=== PATIENT | female | born 1955 | race Caucasian/White ===

== ENCOUNTER 2019-01-20 00:21 | Emergency (ER) | payer OTHER, SELFPAY ==
[2019-01-20 00:22] VITALS: BP 197/98; PULSE 112; RESP 18; TEMP 36.7; O2SAT 100; BMI 34.2
[2019-01-20 00:30] VITALS: BP 176/105; PULSE 100; RESP 16; O2SAT 100
--- NOTE | 2019-01-20 00:37 | EKG12_ITS ---
Test Reason : DYSRHYTHMIA Blood Pressure : / mmHG Vent. Rate : 096 BPM Atrial Rate : 097 BPM P-R Int : 152 ms QRS Dur : 088 ms QT Int : 344 ms P-R-T Axes : 065 030 043 degrees QTc Int : 434 ms Sinus rhythm with Premature supraventricular complexes Nonspecific ST abnormality Abnormal ECG Confirmed by MARIBETH SEVERINO, NILAM ([id number]), script editor SOHAN PRINCE ([id number]) on 01/20/2019 12:07:50 PM Referred By: Confirmed By:MAYCOL STAHL MD
--- NOTE | 2019-01-20 00:37 | RAD_ITS ---
STUDY: X-RAY CHEST REASON FOR EXAM: Female, 63 years old. Irregular heartbeat. TECHNIQUE: Single AP portable view of the chest. COMPARISON: None. FINDINGS: The lungs are clear and expanded. There is no demonstrated pleural abnormality. Normal size heart. Normal mediastinum and etienne. Normal visualized pulmonary arteries. Normal visualized aortic arch and descending thoracic aorta. There is demineralization of the osseous structures. Normal visualized ribs, clavicles, and shoulders. There is no demonstrated abnormality of the visualized soft tissue structures of the upper abdomen. RAD/Chest 1 View (Portable) IMPRESSION: Normal x-ray examination of the chest for age. Electronically Signed: Jackeline Benjamin MD at 1:33 EST , Service support ,
[2019-01-20 00:46] LABS: Absolute Lymphocyte Count 3.75 X10^3/uL (0.83-4.51); Absolute Neutrophil Count 4.2 X10^3/uL (2.0-7.7); Basophil# 0.09 X10^3/uL; Eosinophil# 0.21 X10^3/uL; Eosinophils% 2.3 % (0-5); Hematocrit 45.2 % (37-47); Hemoglobin 14.6 g/dL (12.0-15.0); Lymphocyte # 3.75 X10^3/ul (4.0); Lymphocyte % 40.2 % (19-41); Mean Corp Hgb Conc 32.3 g/dL (32-36); Mean Corpuscular Hgb 28.7 pg (27.0-32.0); Mean Corpuscular Volume 88.8 fL (81-99); Mean Platelet Vol. 11.2 fl (6.2-12.0); Monocyte# 1.04 X10^3/uL; Monocyte% 11.1 % (0-10); NRBC Flagged by Analyzer 0 % (0-5); Neutrophil # 4.17 X10^3/uL (2.7-7.7); Neutrophil % 44.6 % (47-70); Platelet Count 269 K/mm3 (150-450); RBC Distribution Width CV 12.9 % (11.6-14.6); RBC Distribution Width SD 42.3 fl (35.1-43.9); Red Blood Count 5.09 M/mm3 (4.2-5.4); White Blood Count 9.3 K/mm3 (4.4-11.0)
[2019-01-20 00:57] LABS: D-Dimer Quantitative (DVT/PE) 0.38 FEU/ug/m (0.27-0.49)
[2019-01-20 01:00] LABS: Anion Gap 6 (5-15); BUN 13 mg/dL (7-18); BUN/Creat Ratio 23.1 RATIO (10-20); Calcium,Total 9.3 mg/dL (8.5-10.1); Chloride 107 mmol/L (98-107); Creatinine, Serum 0.56 mg/dL (0.55-1.02); EST Glomerular Filtration Rate 117 mL/min (>60); Est Glom Filt Rate - Afr Amer 141 mL/min (>60); Glucose 97 mg/dL (74-106); Potassium 4.2 mmol/L (3.5-5.1); Sodium Level 144 mmol/L (136-145)
[2019-01-20 02:39] VITALS: BP 159/74; PULSE 89; RESP 15; O2SAT 98
--- NOTE | 2019-01-20 03:12 | ED.DCSUM_ITS ---
- ER Visit Summary Date of Service: 01/20/19 Chief Complaint: Palpitations History of Present Illness: The patient is a 63 F with palpitations. Patient states this started tonight. She has history of similar symptoms in the past but states that these have been more frequent tonight than usual. She denies any change in diet or increased caffeine intake. She has a history of diabetes, hypertension, hypercholesterolemia. She is not taking medications as she states they are all diet controlled. She stopped taking her blood pressure medication in March 2018. She does not currently have a physician. She is not a smoker. She denies chest pain, chest tightness, chest pressure. Denies shortness of breath. Denies other complaints. Physical Examination: Vitals are stable. Patient is afebrile. Alert no acute distress. HEENT exam is unremarkable. Neck is supple. Lungs are clear and equal bilaterally. Heart is regular rate and rhythm. Abdomen is soft nontender nondistended. Extremities are unremarkable. Skin is warm and dry. No focal neurologic deficit. Remainder of exam is unremarkable. Emergency Department Course and Treatment: EKG is sinus rhythm with PVCs rate of 96. Chest x-ray shows no acute process. CBC, chemistries unremarkable. Troponin is negative. D-dimer is normal. Repeat troponin is negative. On reevaluation, patient is resting comfortably. She is given Dr. Khan cable installation manager for no doctor for follow-up. Advised to return to the ED for worsening complaints. Disposition: Discharge home Impression: Palpitations This note was generated with [employer] dictation software. It may contain incorrect words, spelling, and punctuation that were not noted in review of the chart prior to signing ED Disposition - Plan for ED Patient: Instructions: Palpitations Referrals: Sorin Jaime MD [STAFF PHYSICIAN] - Felix Khan MD [NON-STAFF] -
--- NOTE | 2019-01-20 04:28 | ED.DEP ---
ED Disposition - Plan for ED Patient: Instructions: Palpitations Referrals: Felix Khan MD [NON-STAFF] - Sorin Jaime MD [STAFF PHYSICIAN] -
[2019-01-20 04:40] VITALS: BP 132/87; PULSE 82; RESP 22; O2SAT 98
== END 2019-01-20 04:40 | disposition home or self-care (01) ==
PROVIDERS: Emergency Provider Emergency Medicine
DX: R00.2 Palpitations (principal)
CPT/HCPCS: 71045; 80048; 84484; 85025; 85379; 93005; 99284; A4216

== ENCOUNTER → 2019-07-01 10:30 | Outpatient (CLI) | payer OTHER, SELFPAY ==
[2019-07-04 08:23] LABS: HPV Reflexed? NOT INDICATED
== END ==
PROVIDERS: Referring Provider Nurse Practitioner Adult Health; Visit Provider Nurse Practitioner Adult Health
DX: Z01.419 Encounter for gynecological examination (general) (routine) without abnormal findings (principal)
CPT/HCPCS: 88175; G0145

== ENCOUNTER → 2019-07-16 14:59 | Outpatient (CLI) | payer OTHER, SELFPAY ==
--- NOTE | 2019-07-16 15:01 | BI_ITS ---
MAMMOGRAPHY - BILATERAL SCREENING REASON FOR EXAM: Female, 63 years old. Routine annual screening examination. PERTINENT HISTORY: Non-contributory. TECHNIQUE: Digital bilateral breast everardo (3D mammographic acquisition) in the CC and MLO projections. 2-D mediolateral oblique (MLO) and craniocaudad (CC) views of both breasts were obtained. CAD: Full Field Digital Mammography with Computer Added Detection was performed. COMPARISON: No comparison mammograms available at this time. If any prior films become available, an addendum to this report can be generated. FINDINGS: Breast Composition: There are scattered areas of fibroglandular density. There are no dominant masses or suspicious calcifications. There is a 6.8 mm well-defined nodule with a central fatty hilum in the upper lateral portion of the left breast suggestive of a small lymph node. Benign-appearing axillary lymph nodes are seen as well. No other significant abnormalities are identified. BI/SCREEN MAMM (CAD) W/EVERARDO BILAT IMPRESSION: Negative screening mammogram. Yearly followup mammogram recommended. (A) ASSESSMENT CATEGORY: BIRADS Category 2: Benign. A letter regarding these results will be sent to the patient by the facility within 30 days. Approximately 10% of breast cancers are not detected by mammography. A normal mammogram should not delay biopsy of a clinically suspicious abnormality. [id number] Electronically Signed: Duc Goyal, at 8:31 EDT , Service support ,
--- NOTE | 2019-07-16 15:24 | BD_ITS ---
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 COMPARISON: None. FINDINGS: Lumbar Spine (L1-L4): g/cm2 (1.076) / T-score (-0.7) / Z-score (0.6) Findings are suggestive of normal bone density with a low fracture risk. Left Femur Total: g/cm2 (0.890) / T-score (-0.9) / Z-score (0.1) Left Femoral Neck: g/cm2 (0.877) / T-score (-1.2) / Z-score (0.1) Right Femur Total: g/cm2 (0.812) / T-score (-1.5) / Z-score (-0.6) Right Femoral Neck: g/cm2 (0.850) / T-score (-1.4) / Z-score (-0.1) BD/Dexa Bone Density Study IMPRESSION: The patient is considered osteopenic as outlined below according to World Forest Organization (WHO) criteria with a low fracture risk. Reference Information: The T-score is the number of standard deviations above or below the standard which is normal for young adults at their peak bone mineral density. The World Health Organization (WHO) interprets the T-scores as follows: Above -1 Normal bone density Between -1 and -2.5 Osteopenia Equal to / or below -2.5 Osteoporosis As a practical clinical guideline, osteopenia may be graded as follows: Mild -1 through -1.5 Moderate -1.6 through -2.0 Severe -2.1 through -2.4 The Z-score is the number of standard deviations above or below age-matched controls. A Z-score of less than -1.5 would be considered abnormal. References: 1. NIH Osteoporosis and Related Bone Diseases http://www.osteo.org 2. International Society for Clinical Densitometry http://www.iscd.org 3. National Osteoporosis Foundation http://www.nof.org Electronically Signed: Duc Goyal, at 15:51 EDT , Service support ,
== END ==
PROVIDERS: PCP Nurse Practitioner Adult Health; Referring Provider Nurse Practitioner Adult Health; Visit Provider Nurse Practitioner Adult Health
DX: Z78.0 Asymptomatic menopausal state (principal); Z12.31 Encounter for screening mammogram for malignant neoplasm of breast
CPT/HCPCS: 77063; 77067; 77080

== ENCOUNTER → 2019-07-30 12:07 | Outpatient (CLI) | payer OTHER, SELFPAY ==
--- NOTE | 2019-07-30 | EMB_PTH ---
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: [facility] U#:[id number] AGE/SX: 69/F ROOM: RE07/30/[address]: OSKAR Jean : 1955 BED: DIS: SPEC #: [id number] RECD: 07/30/19 13:06 STATUS: CAMRON AKHIL #: [id number] REEMA: 07/30/19 00:[address]: Soledad Meade NP DEPT: SURGICAL PATHOLOGY RECD BY: Claudio Whaley ENTERED: 07/30/19 13:06 SP TYPE: ENDOM BX/C RADHA DR: OSKAR Garcia Tissues: Endometrium, NOS Procedures: Surgery Specimen Level IV HEADER OPERATION: Endometrial biopsy PRE-OP DIAGNOSIS: Abnormal uterine bleeding TISSUE SUBMITTED: Endometrial lining MICROSCOPIC DIAGNOSIS Endometrium, biopsy: Polypoid inactive endometrium with cystic change. Rare strips of benign superficial endocervix. AM:nellie 6/17/20 MICROSCOPIC DESCRIPTION Slides are reviewed. GROSS DESCRIPTION Received is one container labeled with the patient's name and not further designated. The specimen consists of multiple fragments of pink to hemorrhagic soft tissue that in aggregate measure 2 x 1.5 x 0.1 cm. The entire specimen is submitted in one cassette. / SJ:nellie 07/30/19 TC:5 CPT: 20552
[2019-07-30 10:21] VITALS: BMI 35.1
== END ==
PROVIDERS: PCP Nurse Practitioner Adult Health; Referring Provider Nurse Practitioner Women's Health; Visit Provider Nurse Practitioner Women's Health
DX: N93.9 Abnormal uterine and vaginal bleeding, unspecified (principal)
CPT/HCPCS: 88305

== ENCOUNTER → 2019-12-24 13:48 | Outpatient (CLI) | payer OTHER, SELFPAY ==
[2019-12-05 09:55] VITALS: BMI 36.6
--- NOTE | 2019-12-24 13:51 | RAD_ITS ---
STUDY: X-RAY - LEFT SHOULDER REASON FOR EXAM: Female, 63 years old. Patient ran into wall, left shoulder pain TECHNIQUE: 4 view(s) of the shoulder. COMPARISON: None. FINDINGS: There is mild degenerative arthrosis of the glenohumeral articulation. Normal acromioclavicular joint. Normal acromion. Normal humeral head and visualized proximal humerus. The soft tissue structures are unremarkable. Normal visualized pulmonary apex. RAD/Shoulder min 2 Views IMPRESSION: Mild degree of degenerative changes of the glenohumeral joint. Electronically Signed: Duc Goyal, at 15:55 EST , Service support ,
== END ==
PROVIDERS: PCP Family Medicine; Referring Provider Family Medicine; Visit Provider Family Medicine
DX: S49.92XA Unspecified injury of left shoulder and upper arm, initial encounter (principal)
CPT/HCPCS: 73030

== ENCOUNTER → 2020-04-23 07:26 | Outpatient (CLI) | payer OTHER, SELFPAY ==
[2020-04-18 08:55] VITALS: BMI 37.5
[2020-04-23 10:15] LABS: Absolute Lymphocyte Count 1.75 X10^3/uL (0.83-4.51); Basophil# 0.07 X10^3/uL; Basophil% 0.8 % (0-1); Eosinophil# 0.06 X10^3/uL; Eosinophils% 0.7 % (0-5); Hematocrit 47.4 % (37-47); Hemoglobin 15.1 g/dL (12.0-15.0); Lymphocyte # 1.75 X10^3/ul (4.0); Lymphocyte % 20.1 % (19-41); Mean Corp Hgb Conc 31.9 g/dL (32-36); Mean Corpuscular Hgb 28.3 pg (27.0-32.0); Mean Corpuscular Volume 88.8 fL (81-99); Mean Platelet Vol. 12.4 fl (6.2-12.0); Monocyte# 0.77 X10^3/uL; Monocyte% 8.9 % (0-10); NRBC Flagged by Analyzer 0 % (0-5); Neutrophil # 5.99 X10^3/uL (2.7-7.7); Neutrophil % 68.9 % (47-70); Platelet Count 230 K/mm3 (150-450); RBC Distribution Width SD 42.3 fl (35.1-43.9); Red Blood Count 5.34 M/mm3 (4.2-5.4); White Blood Count 8.7 K/mm3 (4.4-11.0)
[2020-04-23 10:31] LABS: ALB/GLOB Ratio 1.2 RATIO (0.9-2.4); AST(SGOT) 15 U/L (15-37); Alanine Aminotransfer ALT/SGPT 24 U/L (13-56); Alkaline Phosphatase 82 U/L (45-117); Anion Gap 4 (5-15); BUN 10 mg/dL (7-18); BUN/Creat Ratio 13.3 RATIO (10-20); Calcium,Total 9.1 mg/dL (8.5-10.1); Chloride 105 mmol/L (98-107); Cholesterol 218 mg/dL (200); Creatinine, Serum 0.75 mg/dL (0.55-1.02); EST Glomerular Filtration Rate 83 mL/min (>60); Est Glom Filt Rate - Afr Amer 100 mL/min (>60); Globulin 3.2 g/dL (2.2-4.2); Glucose 105 mg/dL (74-106); High Density Lipoprotein 42 mg/dL; Potassium 4.7 mmol/L (3.5-5.1); Protein, Total 7.2 g/dL (6.4-8.2); Sodium Level 141 mmol/L (136-145); Triglycerides 221 mg/dL; Very Low Density Lipoprotein 44 mg/dL (5-40)
[2020-04-23 10:37] LABS: Hemoglobin A1c 5.6 % (3.8-5.6)
== END ==
PROVIDERS: PCP Family Medicine; Referring Provider Family Medicine; Visit Provider Family Medicine
DX: I10 Essential (primary) hypertension (principal); Z86.39 Personal history of other endocrine, nutritional and metabolic disease
CPT/HCPCS: 36415; 80053; 80061; 83036; 85025

== ENCOUNTER → 2020-08-07 15:37 | Outpatient (CLI) | payer OTHER, SELFPAY ==
[2020-07-03 09:41] VITALS: BMI 36.7
[2020-08-07 17:29] LABS: Absolute Lymphocyte Count 2.31 X10^3/uL (0.83-4.51); Absolute Neutrophil Count 5.9 X10^3/uL (2.0-7.7); Basophil# 0.06 X10^3/uL; Basophil% 0.7 % (0-1); Eosinophil# 0.09 X10^3/uL; Hematocrit 43.6 % (37-47); Hemoglobin 14.1 g/dL (12.0-15.0); Lymphocyte # 2.31 X10^3/ul (0.83-4.51); Lymphocyte % 25.1 % (19-41); Mean Corp Hgb Conc 32.3 g/dL (32-36); Mean Corpuscular Hgb 28.5 pg (27.0-32.0); Mean Corpuscular Volume 88.3 fL (81-99); Mean Platelet Vol. 11.5 fl (6.2-12.0); Monocyte# 0.77 X10^3/uL; Monocyte% 8.4 % (0-10); NRBC Flagged by Analyzer 0 % (0-5); Neutrophil # 5.92 X10^3/uL (2.7-7.7); Neutrophil % 64.4 % (47-70); Platelet Count 269 K/mm3 (150-450); RBC Distribution Width CV 12.9 % (11.6-14.6); RBC Distribution Width SD 42.1 fl (35.1-43.9); Red Blood Count 4.94 M/mm3 (4.2-5.4); White Blood Count 9.2 K/mm3 (4.4-11.0)
[2020-08-07 17:46] LABS: ALB/GLOB Ratio 1.1 RATIO (0.9-2.4); AST(SGOT) 16 U/L (15-37); Alanine Aminotransfer ALT/SGPT 27 U/L (13-56); Albumin, Serum 3.9 g/dL (3.2-5.0); Alkaline Phosphatase 100 U/L (45-117); Anion Gap 8 (5-15); BUN 7 mg/dL (7-18); BUN/Creat Ratio 11.9 RATIO (10-20); Calcium,Total 9.2 mg/dL (8.5-10.1); Chloride 104 mmol/L (98-107); Creatinine, Serum 0.59 mg/dL (0.55-1.02); EST Glomerular Filtration Rate 110 mL/min (>60); Est Glom Filt Rate - Afr Amer 134 mL/min (>60); Globulin 3.7 g/dL (2.2-4.2); Glucose 95 mg/dL (74-106); Lipase 61 U/L (73-393); Protein, Total 7.6 g/dL (6.4-8.2); Sodium Level 140 mmol/L (136-145)
== END ==
PROVIDERS: PCP Family Medicine; Referring Provider Family Medicine; Visit Provider Family Medicine
DX: R10.10 Upper abdominal pain, unspecified (principal)
CPT/HCPCS: 36415; 80053; 83690; 85025

== ENCOUNTER → 2020-08-21 07:00 | Outpatient (CLI) | payer OTHER, SELFPAY ==
[2020-07-03 09:41] VITALS: BMI 36.7
--- NOTE | 2020-08-21 07:02 | BI_ITS ---
MAMMOGRAPHY - BILATERAL SCREENING REASON FOR EXAM: Female, 64 years old. Routine annual screening examination. PERTINENT HISTORY: Non-contributory. TECHNIQUE: Digital bilateral breast everardo (3D mammographic acquisition) in the CC and MLO projections. 2-D mediolateral oblique (MLO) and craniocaudad (CC) views of both breasts were obtained. CAD: Full Field Digital Mammography with Computer Added Detection was performed. COMPARISON: Comparison is made with prior examination dated 07/16/2019. FINDINGS: Breast Composition: The breasts are almost entirely fatty. There are no dominant masses or suspicious calcifications. 4.8 mm x 4 mm well-defined nodule in the upper central portion of the right breast. This may represent a small cyst. Correlation with ultrasound is recommended. Stable 6.8 mm well-defined nodule in the upper lateral portion of the left breast suggestive of a small lymph node. Stable benign-appearing bilateral axillary lymph nodes. No other significant abnormalities are identified. There has been no significant change since the prior study. BI/SCRN MAMM (CAD)W/EVERARDO BILAT IMPRESSION: There is a 4.8 mm x 4 mm well-defined nodule in the upper central portion of the right breast. Correlation with ultrasound is recommended. ASSESSMENT CATEGORY: BIRADS Category 0: Incomplete. Need additional imaging evaluation. A letter regarding these results will be sent to the patient by the facility within 30 days. Approximately 10% of breast cancers are not detected by mammography. A normal mammogram should not delay biopsy of a clinically suspicious abnormality. [id number] Electronically Signed: Duc Goyal MD at 8:21 EDT , Service support ,
== END ==
PROVIDERS: PCP Family Medicine; Referring Provider Obstetrics & Gynecology; Visit Provider Obstetrics & Gynecology
DX: Z12.31 Encounter for screening mammogram for malignant neoplasm of breast (principal)
CPT/HCPCS: 77063; 77067

== ENCOUNTER → 2020-08-25 10:43 | Outpatient (CLI) | payer OTHER, SELFPAY ==
[2020-07-03 09:41] VITALS: BMI 36.7
--- NOTE | 2020-08-25 10:47 | US_ITS ---
STUDY: ULTRASOUND BREAST - RIGHT REASON FOR EXAM: Female, 64 years old. Abnormal screening mammogram. TECHNIQUE: Axial and longitudinal images of the RIGHT breast were performed with a high resolution ultrasound transducer. # OF IMAGES: [id number] COMPARISON: Comparison is made with prior mammogram dated 08/21/2020. FINDINGS: RIGHT Breast: The mammographic abnormality corresponds to a 4 mm x 3 mm x 2 mm cyst in the retroareolar region of the breast. Incidental note is made of a 1 cm x 0.9 cm x 0.3 cm benign appearing axillary lymph node. US/Breast Limited Unilateral IMPRESSION: The mammographic abnormality corresponds to a 4 mm x 3 mm x 2 mm cyst in the retroareolar region of the breast. ASSESSMENT CATEGORY: BIRADS Category 2: Benign. A letter regarding these results will be sent to the patient by the facility within 30 days. Electronically Signed: Duc Goyal MD at 8:53 EDT , Service support ,
== END ==
PROVIDERS: PCP Family Medicine; Visit Provider Obstetrics & Gynecology
DX: R92.8 Other abnormal and inconclusive findings on diagnostic imaging of breast (principal)
CPT/HCPCS: 76642

== ENCOUNTER → 2020-12-16 14:42 | Outpatient (CLI) | payer OTHER, SELFPAY ==
[2020-12-16 17:06] LABS: ALB/GLOB Ratio 0.9 RATIO (0.9-2.4); AST(SGOT) 14 U/L (15-37); Alanine Aminotransfer ALT/SGPT 21 U/L (13-56); Albumin, Serum 3.5 g/dL (3.2-5.0); Alkaline Phosphatase 111 U/L (45-117); Anion Gap 4 (5-15); BUN 8 mg/dL (7-18); BUN/Creat Ratio 16.2 RATIO (10-20); Calcium,Total 9.2 mg/dL (8.5-10.1); Chloride 106 mmol/L (98-107); Creatinine, Serum 0.49 mg/dL (0.55-1.02); EST Glomerular Filtration Rate 134 mL/min (>60); Est Glom Filt Rate - Afr Amer 163 mL/min (>60); Globulin 4.1 g/dL (2.2-4.2); Glucose 79 mg/dL (74-106); Lipase 87 U/L (73-393); Potassium 3.8 mmol/L (3.5-5.1); Protein, Total 7.6 g/dL (6.4-8.2); Sodium Level 141 mmol/L (136-145); Thyroid Stim Hormone (TSH) 1.55 uIU/mL (0.358-3.74)
== END ==
PROVIDERS: PCP Internal Medicine; Referring Provider Internal Medicine; Visit Provider Internal Medicine
DX: I10 Essential (primary) hypertension (principal); K29.70 Gastritis, unspecified, without bleeding; R17 Unspecified jaundice
CPT/HCPCS: 36415; 80053; 83690; 84443

== ENCOUNTER → 2020-12-24 07:28 | Outpatient (CLI) | payer OTHER, SELFPAY ==
--- NOTE | 2020-12-24 07:33 | US_ITS ---
STUDY: ABDOMINAL ULTRASOUND - RIGHT UPPER QUADRANT REASON FOR VISIT: Female, 64 years old Elevated bilirubin, uncertain etiology TECHNIQUE: Ultrasound evaluation of the right upper quadrant was performed with real-time and static pringle-scale imaging. TECHNICAL QUALITY: Adequate. COMPARISON: None. FINDINGS: Liver: The liver measures 15.4 cm. There is increased echogenicity consistent with mild degree of fatty infiltration. The bile ducts are within normal limits. There is hepatic color flow. The direction of portal flow is hepatopetal. There is no demonstrated mass lesion. Gallbladder: Normal distended gallbladder. The gallbladder wall measures 2.3 mm. There is a negative sonographic Schuler''s sign. There is no pericholecystic fluid. I suspect tiny gallstones within the dependent portion of the gallbladder. Common Bile Duct (C.B.D.): The common bile duct measures 2.9 mm. Pancreas: Normal size of the head, body and tail of the pancreas. There is normal echogenicity of the pancreas. There is a 9 mm x 9 mm x 4 mm hypoechoic nodule in the anterior aspect of the body of the pancreas. Right Kidney: Normal size of the right kidney. The right kidney measures 11.6 cm x 5.9 cm x 5 cm. Normal renal cortex. The right cortex measures 1.8 cm. There is no demonstrated renal mass or cyst. There is no right hydronephrosis. US/Abdomen Limited IMPRESSION: Fatty infiltration of the liver. Multiple tiny gallstones. 9 mm x 9 mm x 4 mm hypoechoic nodule in the anterior portion of the body of the pancreas. Electronically Signed: Duc Goyal MD at 9:00 EST , Service support ,
== END ==
PROVIDERS: PCP Internal Medicine; Referring Provider Internal Medicine; Visit Provider Internal Medicine
DX: R17 Unspecified jaundice (principal)
CPT/HCPCS: 76705

== ENCOUNTER → 2021-01-08 06:27 | Outpatient (CLI) | payer OTHER, SELFPAY ==
--- NOTE | 2021-01-08 06:42 | CT_ITS ---
STUDY: CT ABDOMEN WITH AND WITHOUT CONTRAST REASON FOR EXAM: Female, 65 years old. Small nodule seen ultrasound pancreas -- Small nodule seen on pancreas ultrasound RADIATION DOSAGE (If Supplied By Facility): CTDIvol = ( 26.42 ) mGy, DLP = ( 1965.40 ) mGycm TECHNIQUE: Transaxial images were obtained pre and post I.V. administration of 100mL Isovue 300, and with oral contrast. Sagittal and coronal images were reconstructed. Individualized dose optimization techniques were used for this CT. COMPARISON: None. FINDINGS: The visualized lung bases are unremarkable. The visualized portions of the heart are within normal limits. Normal liver. There is small punctate gallstones. No gallbladder wall thickening. Normal spleen. No pancreatic calcifications. No discrete pancreatic mass or cyst identified on precontrast or postcontrast images. Specifically, there is NOT a demonstrated lesion correlating to abnormality on ultrasound. Normal bilateral adrenal glands. Normal right kidney. Normal left kidney. There is a small hiatal hernia. Normal small intestine. There are multiple colonic diverticula consistent with diverticulosis. There is non-visualization of the appendix. There is diffuse atherosclerotic calcification of the abdominal aorta, without a demonstrated aneurysm. Normal inferior vena cava. Normal retroperitoneum. Normal abdominal wall. There are diffuse degenerative changes of the visualized lumbar spine. CT/Abdomen W/WO IV Contrast IMPRESSION: 1. NO pancreatic mass or cyst identified on CT. Electronically Signed: Yash Coronado MD (Brooks) at 11:57 EST , Service support ,
== END ==
PROVIDERS: PCP Internal Medicine; Visit Provider Internal Medicine
DX: Q45.3 Other congenital malformations of pancreas and pancreatic duct (principal)
CPT/HCPCS: 74170; Q9967

== ENCOUNTER → 2021-01-22 10:51 | Outpatient (CLI) | payer OTHER, SELFPAY | PROVIDERS: PCP Internal Medicine; Referring Provider Physician Assistant; Visit Provider Physician Assistant | DX: Z11.52 Encounter for screening for COVID-19 (principal) | CPT/HCPCS: 87635; U0005; U0003 ==

== ENCOUNTER → 2021-08-27 | Outpatient (CLI) | payer OTHER, SELFPAY ==
--- NOTE | 2021-08-27 10:24 | VDLE_ITS ---
Reason For Study: LEG SWELLING RIGHT GSV is normal. CFV is compressible, spontaneous, phasic, competent and demonstrates normal augmentation. FV is compressible, spontaneous, phasic, competent and demonstrates normal augmentation. POP V is compressible, spontaneous, phasic, competent and demonstrates normal augmentation. T/P Trunk is compressible. PTV is compressible. RT PerV is compressible. Procedure This is a venous duplex using B-mode, color flow and spectral Doppler. Exam performed in department. The exam was of adequate technical quality. A preliminary report was called and/or faxed to Dr. Gardner. VL/Venous Duplex US, Unilateral Interpretation Summary Deep veins of the right lower extremity are patent and compressible segmentally . There is no evidence of right lower extremity deep vein thrombosis. The right great sapheno us vein appears patent and compressible segmentally. Incidental finding, heterogenous nonvascul ar structure in popliteal fossa 1.99 x 4.62 cm Ordering Physician: Juan Gardner Referring Physician: Betzaida Ramirez M.D. Performed By: Wilian Laws
== END | disposition home or self-care (01) ==
LOC: CVS 10:23
PROVIDERS: PCP Internal Medicine; Referring Provider Student in an Organized Health Care Education/Training Program; Visit Provider Student in an Organized Health Care Education/Training Program
DX: R22.41 Localized swelling, mass and lump, right lower limb (principal)
CPT/HCPCS: 93971

== ENCOUNTER → 2021-09-06 | Outpatient (CLI) | payer OTHER, SELFPAY ==
--- NOTE | 2021-09-06 07:32 | BI_ITS ---
MAMMOGRAPHY - BILATERAL SCREENING REASON FOR EXAM: Female, 65 years old. Routine annual screening examination. PERTINENT HISTORY: Non-contributory. TECHNIQUE: Digital bilateral breast everardo (3D mammographic acquisition) in the CC and MLO projections. 2-D mediolateral oblique (MLO) and craniocaudad (CC) views of both breasts were obtained. CAD: Full Field Digital Mammography with Computer Added Detection was performed. COMPARISON: Comparison is made with prior study dated 08/21/2020 and 07/16/2019. FINDINGS: Breast Composition: The breasts are almost entirely fatty. There are no dominant masses or suspicious calcifications. Stable 4 mm well-defined nodule in the upper central portion of the right breast. This was demonstrated to be a small cyst on prior sonogram. Stable benign-appearing bilateral axillary lymph nodes. No other significant abnormalities are identified. There has been no significant change since the prior study. BI/SCRN MAMM (CAD)W/EVERARDO BILAT IMPRESSION: Stable bilateral screening mammogram. Yearly follow-up mammogram recommended. (A) ASSESSMENT CATEGORY: BIRADS Category 2: Benign. A letter regarding these results will be sent to the patient by the facility within 30 days. Approximately 10% of breast cancers are not detected by mammography. A normal mammogram should not delay biopsy of a clinically suspicious abnormality. [id number] Electronically Signed: Duc Goyal MD at 8:35 EDT ,
== END | disposition home or self-care (01) ==
LOC: OPBI 07:31
PROVIDERS: PCP Internal Medicine; Visit Provider Obstetrics & Gynecology
DX: Z12.31 Encounter for screening mammogram for malignant neoplasm of breast (principal)
CPT/HCPCS: 77063; 77067

== ENCOUNTER 2021-12-28 08:03 | Day surgery (SDC) | payer OTHER, SELFPAY ==
--- NOTE | 2021-12-28 08:40 | PCM.HP.STD ---
[facility] - General General Date of Service: 12/28/21 Chief Complaint: Screening for intestinal cancer. 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 She has a personal history of colon polyps. She is also had a sigmoid resection for diverticular disease. Her most recent colonoscopy was September 2013. She denies any bright red blood per rectum or melena. No current abdominal pain. No history of DVT [facility] Medical History (Updated 12/28/21 @ 08:[address] David Ambrosio MD) Arthritis Colon polyps Cystocele with incomplete uterovaginal prolapse Diverticulosis Enlarged uterus Former smoker Hernia High cholesterol History of edema History of stress test History of uterine fibroid HTN (hypertension) Injury of back Intra-abdominal adhesions Loose, teeth Postmenopausal bleeding PVC (premature ventricular contraction) Rectocele Wears glasses Home Medications amlodipine 10 mg tablet 10 mg PO DAILY #90 tabs 07/01/21 [Rx Last Taken Unknown] cholecalciferol (vitamin D3) 25 mcg (1,000 unit) capsule 25 mcg PO DAILY PRN TAKES IN THE WINTER 10/01/21 [History Last Taken Unknown] fluticasone propionate 50 mcg/actuation nasal spray,suspension 1 spray intranasal DAILY PRN PRN Congestion 10/01/21 [History Last Taken Unknown] mecobalamin (vitamin B12) 5,000 mcg disintegrating tablet 5,000 mcg PO .THREE TIMES A WEEK SUPPLEMENT 10/01/21 [History Last Taken Unknown] cholecalciferol (vit D3) 1,000 unit-vitamin K2 (MK4) 100 mcg tablet 1 tab PO .THREE TIMES WEEK SUPPLEMENT 12/27/21 [History Last Taken Unknown] Allergy/AdvReac Type Severity Reaction Status Date / Time OXY's AdvReac Nausea, Uncoded 12/27/21 08:06 Vomiting Family History Mother Cancer Father Cancer Surgical History (Updated 12/27/21 @ 08:11 by Liliam Tee) H/O dilation and curettage H/O hernia repair (~2005) History of bowel resection (~2010) History of colonoscopy History of endometrial ablation History of gastrectomy (~2013) History of hernia repair (~2018) History of sleeve gastrectomy History of tubal ligation (~1995) S/P panniculectomy Social History number of children: 3 current occupational status: employed current occupation: [employer] Smoking Status: Former smoker alcohol intake: never substance use type: does not use diet: vegetarian seatbelt use: always do you feel safe at home: Yes ROS Constitutional Constitutional: Reports systems reviewed and no addt'l complaints, except as documented Cardiovascular Cardiovascular: Denies chest pain Respiratory/Chest Respiratory/Chest: Denies shortness of breath at rest Gastrointestinal Gastrointestinal: Denies abdominal pain, change in bowel habits, hematochezia or melena Physical Exam Const alert, oriented x3 and no apparent distress General Appearance: cooperative and comfortable Eyes General Eye: normal appearance of both eyes Neck General: normal visual inspection Chest inspection of chest normal Resp Effort and Inspection: able to speak in complete sentences and symmetric chest movement Auscultation: clear to auscultation bilaterally Cardio regular rate and regular rhythm GI soft to palpation, non-tender and non-distended Extremity no calf tenderness Neuro oriented x3 Psych thought process normal Assessment & Plan Assessment/Plan (1) Personal history of colonic polyps: PLAN: 65-year-old female with a personal history of colon polyps. Plan to proceed with a surveillance colonoscopy with possible biopsy or polypectomy as indicated. She is aware of the technique, benefit, risk, alternatives. She presents via open access today. David Ambrosio M.D., F.A.C.S.
[2021-12-28 08:55] VITALS: BP 162/69; PULSE 80; RESP 16; TEMP 37.2; O2SAT 100; BMI 40.1
[2021-12-28] MEDS: Lactated Ringers 1,000 ML 15 ML IV (09:00)
[2021-12-28 09:40] VITALS: BP 108/59; BP 162/69; PULSE 74; RESP 16; TEMP 36.7; O2SAT 98
--- NOTE | 2021-12-28 09:42 | OP.COLON_ITS ---
Patient Name: Shannon Lam Procedure Date: 12/28/2021 9:19 AM Date of : 1955 Age: 65 Procedure: Colonoscopy Indications: High risk colon cancer surveillance: Personal history of colonic polyps Providers: David Ambrosio MD Medicines: See the Anesthesia note for documentation of the administered medications Patient Profile: Last Colonoscopy: September 2013. Complications: No immediate complications. Procedure: Pre-Anesthesia Assessment: - Prior to the procedure, a History and Physical was performed, and patient medications and allergies were reviewed. The patient's tolerance of previous anesthesia was also reviewed. The risks and benefits of the procedure and the sedation options and risks were discussed with the patient. All questions were answered, and informed consent was obtained. Prior Anticoagulants: The patient has taken no previous anticoagulant or antiplatelet agents. ASA Grade Assessment: II - A patient with mild systemic disease. After reviewing the risks and benefits, the patient was deemed in satisfactory condition to undergo the procedure. After I obtained informed consent, the scope was passed under direct vision. Throughout the procedure, the patient's blood pressure, pulse, and oxygen saturations were monitored continuously. The colonoscope was introduced through the anus and advanced to the cecum, identified by appendiceal orifice and ileocecal valve. The colonoscopy was performed without difficulty. The patient tolerated the procedure well. The quality of the bowel preparation was good. The ileocecal valve and the appendiceal orifice were photographed. Scope In: 9:25:34 AM Scope Withdrawal Time 0 hours 7 minutes 8 seconds Scope Out: 9:35:52 AM Total Procedure Duration Time 0 hours 10 minutes 18 seconds Findings: The digital rectal exam findings include non-thrombosed external hemorrhoids, non-thrombosed internal hemorrhoids and internal hemorrhoids that prolapse with straining, but spontaneously regress to the resting position (Grade II). There was evidence of a prior end-to-end colo-colonic anastomosis in the distal sigmoid colon. This was patent and was characterized by healthy appearing mucosa. Multiple diverticula were found in the entire colon. The exam was otherwise without abnormality. Impression: - Non-thrombosed external hemorrhoids, non-thrombosed internal hemorrhoids and internal hemorrhoids that prolapse with straining, but spontaneously regress to the resting position (Grade II) found on digital rectal exam. - Patent end-to-end colo-colonic anastomosis, characterized by healthy appearing mucosa. 20cm from anus - Diverticulosis in the entire examined colon. - The examination was otherwise normal. - No specimens collected. Recommendation: - Discharge patient to home. - Resume previous diet. - Continue present medications. - Repeat colonoscopy in 5 years for surveillance. Procedure Code(s): --- Professional --- 65039, Colonoscopy, flexible; diagnostic, including collection of specimen(s) by brushing or washing, when performed (separate procedure) Diagnosis Code(s): --- Professional --- Z86.010, Personal history of colonic polyps K64.1, Second degree hemorrhoids K64.4, Residual hemorrhoidal skin tags Z98.0, Intestinal bypass and anastomosis status K57.30, Diverticulosis of large intestine without perforation or abscess without bleeding CPT copyright 2017 [employer]. All rights reserved. The codes documented in this report are preliminary and upon software development leader review may be revised to meet current compliance requirements. David Ambrosio MD 12/28/2021 9:41:10 AM This report has been signed electronically. Number of Addenda: 0 Note Initiated On: 12/28/2021 9:19 AM
--- NOTE | 2021-12-28 09:42 | OP.CCLET_ITS ---
12/28/2021 Betzaida Ramirez [facility] [address] [place] [address] Re : Colonoscopy procedure for Shannon Lam Dear Dr. Ramirez This procedure was performed on Tuesday, December 28, 2021. My impressions and recommendations are as follows: Impressions : - Non-thrombosed external hemorrhoids, non-thrombosed internal hemorrhoids and internal hemorrhoids that prolapse with straining, but spontaneously regress to the resting position (Grade II) found on digital rectal exam. - Patent end-to-end colo-colonic anastomosis, characterized by healthy appearing mucosa. 20cm from anus - Diverticulosis in the entire examined colon. - The examination was otherwise normal. - No specimens collected. Recommendations : - Discharge patient to home. - Resume previous diet. - Continue present medications. - Repeat colonoscopy in 5 years for surveillance. My findings are described in the full procedure note, which is enclosed. If I can be of further assistance, please feel free to contact me at Doctor phone number(s): Work: . Sincerely, David Ambrosio MD 12/28/2021 9:41:10 AM This report has been signed electronically.
[2021-12-28 09:45] VITALS: BP 107/58; BP 162/69; PULSE 74; RESP 16; O2SAT 97
[2021-12-28 09:50] VITALS: BP 112/60; BP 162/69; PULSE 71; RESP 16; O2SAT 96
[2021-12-28 09:55] VITALS: BP 118/60; BP 162/69; PULSE 66; RESP 16; TEMP 36.4; O2SAT 100
[2021-12-28 10:10] VITALS: BP 162/69
== END 2021-12-28 10:37 | disposition home or self-care (01) ==
LOC: EN 08:09 → AC 08:09
PROVIDERS: PCP Internal Medicine; Referring Provider Internal Medicine; Visit Provider Surgery
PROC: 0DJD8ZZ Inspection of Lower Intestinal Tract, Via Natural or Artificial Opening Endoscopic (ICD-10-PCS; CPT 45378; principal; 2021-12-28 09:10)
DX: Z12.11 Encounter for screening for malignant neoplasm of colon (principal); K57.30 Diverticulosis of large intestine without perforation or abscess without bleeding; K64.1 Second degree hemorrhoids; I10 Essential (primary) hypertension; Z79.899 Other long term (current) drug therapy; Z86.010 Personal history of colon polyps; Z87.891 Personal history of nicotine dependence; Z98.0 Intestinal bypass and anastomosis status
CPT/HCPCS: 45378; J7120; J2405

== ENCOUNTER → 2022-06-21 | Outpatient (CLI) | payer OTHER, SELFPAY ==
[2022-06-21 10:27] LABS: ALB/GLOB Ratio 0.9 RATIO (0.9-2.4); AST(SGOT) 11 U/L (15-37); Alanine Aminotransfer ALT/SGPT 18 U/L (13-56); Albumin, Serum 3.4 g/dL (3.2-5.0); Alkaline Phosphatase 97 U/L (45-117); Anion Gap 4 (5-15); BUN 13 mg/dL (7-18); BUN/Creat Ratio 24.5 RATIO (10-20); Calcium,Total 9.1 mg/dL (8.5-10.1); Chloride 109 mmol/L (98-107); Cholesterol 198 mg/dL (200); Creatinine, Serum 0.53 mg/dL (0.55-1.02); EST Glomerular Filtration Rate 123 mL/min (>60); Est Glom Filt Rate - Afr Amer 149 mL/min (>60); Globulin 3.6 g/dL (2.2-4.2); Glucose 92 mg/dL (74-106); High Density Lipoprotein 38 mg/dL; Sodium Level 142 mmol/L (136-145); Triglycerides 170 mg/dL; Very Low Density Lipoprotein 34 mg/dL (5-40)
[2022-06-21 10:31] LABS: Insulin 8.9 mU/L (2.6-37.6)
== END | disposition home or self-care (01) ==
LOC: MTLAB 06:55
PROVIDERS: PCP Internal Medicine; Referring Provider Internal Medicine; Visit Provider Internal Medicine
DX: E88.81 Metabolic syndrome and other insulin resistance (principal); E78.1 Pure hyperglyceridemia; I10 Essential (primary) hypertension; Z13.220 Encounter for screening for lipoid disorders
CPT/HCPCS: 36415; 80053; 80061; 83525

== ENCOUNTER 2022-07-20 11:37 | Outpatient (RCR) | payer OTHER, SELFPAY ==
--- NOTE | 2022-10-14 15:53 | HP.PTEVAL_ITS ---
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 Date of Evaluation: 07/20/22 Physical Therapist: Sara Parrish PT, Cert MDT Visit Plan Frequency: 1x/Week Duration: 8-12 WKS Plan: PF THERAPY FOR STRENGTHENING, LENGTHENING/RELAXATION AND ENDURANCE TRAINING. PELVIC FLOOR STRENGTHENING. URINARY RETENTION, URGE AND FREQUENCY EDUCATION. HEALTHY BLADDER HABIT EDUCATION. TRAINING IN COORDINATION OF PELVIC FLOOR MUSCULATURE WITH HIP AND CORE (TRANSVERSE ABDOMINUS) MUSCULATURE. POSTURE CORRECTION/STRENGTHENING. CORE STRENGTHENING. KAMILLE LE ROM, STRETCHING AND STRENGTHENING. TRAINING IN ABDOMINAL CAVITY PRESSURE MGMT WITH ADL'S. 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 Disability: NO Present symptoms: UI AND PROLAPSE. VAGINAL BLEEDING FROM IRRIATATION IN VAGINA - JAN 13 2022 HYSTERECTOMY THEREFORE NO LONGER HAS UTERUS. ALSO HAD CYSTOCELE SURGERY AT THE SAME TIME. NO UI BEFORE THIS SX PER PATIENT REPORT. Present since: PROLAPSE WAS DX'D A LONG TIME AGO. UI STARTED AFTER SX IN JAN 2022. Pain Scale: NO Is it getting better, worse or staying the same: STAYING THE SAME. Commenced as a result of: NO APPARNT REASON OTHER THAN SOMETHING FROM THE SURGERY. Worse: LIFTING, BENDING OVER, SNEEZING, COUGHING, COFFEE, LAUGHING. Better: NOTHING Disturbed sleep: RANGES FROM 1 TO 3 TIMES A NIGHT. Previous history/Previous treatment: CONSULTS WITH DR. ORTIZ AND DR. CAMERON BEFORE SURGERY BUT THEN REFERRED OUT BY DR. RUDOLPH FOR SX VAGINALLY SO WENT TO [place]. STATES ALL OF HER BLADDER TESTING WAS NORMAL PRIOR TO SURGERY EXCEPT FOR THE BULGING OF HER BLADDER - NO URINARY LEAKAGE WITH TESTING THOUGH PER PATIENT REPORT. TRIED PESSARY'S PRIOR TO SURGERY WITHOUT SUCCESS. Treatment this episode: NONE SINCE SURGERY JAN 13 2022. 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 Coughing/sneezing/straining: POSITIVE INTERMITTENTLY FOR URINARY LEAKING. Gait: NORMAL How long can you delay the need to urinate: AN HOUR. Prolapse (Falling out feeling): I REALLY DON'T NOTICE IT IS THERE EXCEPT IN THE SHOWER. Frequency of Urination: 5-8 TIMES A DAY. Ability to stop urine flow: YES Ability to initiate urine stream: YES Dyspareunia: N/A Bowel Incontinence: NO Unexplained weight loss: NO Imaging: NONE SINCE SURGERY PMH/Recent major surgery: HTN, MULTIPLE ABDOMINAL SURGERIES: 3 HERNIA REPAIRS, GASTRIC SLEEVE SX, HYSTERCTOMY, SX FOR CYSTOCELE Objective Objective: Sitting/Standing Posture: POOR. REDUCED LORDOSIS BUT NO RELEVANT LATERAL SHIFT. Other Observations: INDEP GAIT AND TRANSFERS Sensory deficit: KAMILLE LE LIGHT TOUCH SENSATION GROSSLY INTACT AND SYMMETRICAL ROM deficit: TIGHT KAMILLE LE HS'S GASTROC-SOLEUS COMPLEX'S, HIP ADDUCTORS AND HIP ROTATORS. Motor deficit: KAMILLE LE'S GROSSLY 5/5 WITH MMT'ING EXCEPT HIPS 4-/5 Dural Signs: NEGATIVE KAMILLE LE'S. Lumbar mvmt loss: flex - MOD ext - SHELLY R SG - MOD L SG - MOD PATIENT DENIES PAIN WITH LUMBAR ROM TESTING ALL PLANES. Core strength: POOR FUNCTIONAL SCREEN: Incontinence Impact Questionnaire Score: 1 Urogenital Distress Inventory Score: 9 TREATMENT: INTRO TO PF ANATOMY AND INITIATION OF HEP WITH QUICK FLICK KEGEL'S. PATIENT COMMUNICATED A GOOD UNDERSTANDING OF ALL INSTRUCTINS AFTER GIVEN. Goals Goal 1:: DECREASE URINARY LEAKAGE EPISODES TO ONE OR LESS PER DAY Goal Time Frame: 8-12 Weeks Goal 2:: PATIENT WILL SUCCESSFULLY DELAY VOIDING FOR UP TO ONE HOUR NEEDED WHEN URGENCY OCCURS Goal Time Frame: 4-6 Weeks Goal 3:: PATIENT WILL DEMONSTRATE/COMMUNICATE 10 CONSISTENT AND CONSECUTIVE 10 SECOND PELVIC FLOOR MUSCLE CONTRACTIONS TO DEMONSTRATE IMPROVED PELVIC FLOOR ENDURANCE. Goal Time Frame: 8-12 Weeks Goal 4:: DEVELOP HEALTHY FLUID INTAKE HABITS WITH FLUID INTAKE OF ? BODY WEIGHT IN OUNCES PER DAY AND 2/3 BEING WATER. Goal Time Frame: 2-4 Weeks Goal 5:: NORMALIZE VOIDING FREQUENCEY TO EVERY 3-4 HOURS. Goal Time Frame: 6-8 Weeks Goal 6:: PATIENT WILL BE INDEP WITH A HEP/HOME INSTRUCTIONS FOR CONTINUED IMPROVEMENT ONCE FORMAL PHYSICAL THERAPY CONCLUDES. Goal Time Frame: 8-12 Weeks Anticipated Interventions Patient/Client Instruction: Educate patient on: Condition, Plan of Care and Risk Factors For the Purpose of:: To improve self management Therapeutic Exercise to Include: Strength training, Coordination, Flexibilty training and Neuromotor development For the Purpose of:: To improve muscle performance and motor function, To increase tolerance to activity/condition/position and To improve ability of physical actions for home/community/work/leisure Text: Thank you for the opportunity to evaluate your patient. For Medicare and Medicare HMO plans, please review the plan of care and approve it. It will need to be FAXED BACK to us at [phone] for Medicare purposes. For Medicare only, by signing this I certify the plan of care. Please let me know if there are questions or concerns regarding this plan of care. Physician Signature: Date:
--- NOTE | 2022-10-14 15:54 | HP.PT.NRP ---
Patient Information Patient Information: WHITNEY FOREMAN was seen in my office for initial evaluation on 07/20/22. The following Plan of Care was established for this patient: POC Established Initial Frequency: 1x/Week Initial Duration: 8-12 WKS Anticipated Interventions Patient/Client Instruction: Educate patient on: Condition, Plan of Care and Risk Factors For the Purpose of:: To improve self management Therapeutic Exercise to Include: Strength training, Coordination, Flexibilty training and Neuromotor development For the Purpose of:: To improve muscle performance and motor function, To increase tolerance to activity/condition/position and To improve ability of physical actions for home/community/work/leisure Last Seen Last Seen: This patient was last seen in our office 07/20/22. Pertinent comments regarding their Physical therapy will appear below: This patient has not returned to Physical Therapy and is appropriate to return to MD for further follow-up as needed. At this point I will be discontinuing this patient from physical therapy. I would be happy to see this patient again in the future if found appropriate by the physician. Thank you! Sara Parrish, PT, Cert MDT
== END 2022-07-20 19:00 | disposition home or self-care (01) ==
LOC: PT 11:37
PROVIDERS: PCP Internal Medicine; Referring Provider Registered Nurse; Visit Provider Registered Nurse
DX: N81.2 Incomplete uterovaginal prolapse (principal)
CPT/HCPCS: 97162; 97530

== ENCOUNTER 2022-08-10 09:35 | Emergency (ER) | payer OTHER, SELFPAY ==
[2022-08-10 09:38] VITALS: BP 194/112; PULSE 99; RESP 24; TEMP 36.6; O2SAT 96; BMI 39.8
--- NOTE | 2022-08-10 09:58 | EKG12_ITS ---
Test Reason : ANXIETY Blood Pressure : / mmHG Vent. Rate : 080 BPM Atrial Rate : 080 BPM P-R Int : 156 ms QRS Dur : 084 ms QT Int : 352 ms P-R-T Axes : 054 012 050 degrees QTc Int : 405 ms Normal sinus rhythm with sinus arrhythmia Low voltage QRS Borderline ECG Confirmed by GEORGE SEVERINO, COLE ([id number]), news assignment editor BRADFORD SANFORD ([id number]) on 08/11/2022 10:38:23 AM Referred By: Confirmed By:COLE VAZQUEZ MD
--- NOTE | 2022-08-10 09:58 | EX.ED.DYSGE1 ---
HPI History of Present Illness Chief Complaint: Mental Health Informant: patient Narrative Narrative: Patient states 1 was 1.5 weeks ago, her dog and she was very close to her dog and she has been having a very hard time dealing with it and has been very sad and tearful and anxious. The day after this, she states she was walking in [facility], and she states she suddenly started feeling something unusual in her head, she describes it as lightheadedness and no sensation of movement or spinning, but states she felt it come from the top of her head down over the sides in the front, and then it went away and she felt better and she rested for a little bit and felt okay although she has been feeling generally malaised since then. She states this sensation occurred again last night while she was lying in bed she had just turned on her tablet, it lasted less than a minute, she turned her tablet off immediately and just rested and went to sleep and came in this morning out of concern for all of this. Her blood pressure is high in triage, this is the first time she has checked it in a while and the first time it has been measured since the incident and these feelings, she has been compliant with her amlodipine 10 mg that she takes for blood pressure, no other medication changes lately or illness recently. She denies any lateralizing or focal neurologic symptoms other than what is described above. No prodromal dyspnea, she denies any pain in her head or headache, changes in her hearing, changes in her vision at all. [facility] Medical History Arthritis Colon polyps Cystocele with incomplete uterovaginal prolapse Diverticulosis Enlarged uterus Former smoker Hernia High cholesterol History of edema History of stress test History of uterine fibroid HTN (hypertension) Injury of back Intra-abdominal adhesions Loose, teeth Postmenopausal bleeding PVC (premature ventricular contraction) Rectocele Wears glasses Home Medications amlodipine 10 mg tablet 10 mg PO DAILY #90 tabs 07/12/22 [Rx Last Taken 08/10/22] Allergy/AdvReac Type Severity Reaction Status Date / Time oxycodone AdvReac Nausea/Vom/ Verified 08/10/22 09:38 Diarrhea Family History Mother Cancer Father Cancer Surgical History H/O dilation and curettage H/O hernia repair (~2005) History of bowel resection (~2010) History of colonoscopy History of endometrial ablation History of gastrectomy (~2013) History of hernia repair (~2018) History of sleeve gastrectomy History of tubal ligation (~1995) S/P panniculectomy Social History number of children: 3 current occupational status: employed current occupation: [employer] Smoking Status: Former smoker alcohol intake: never substance use type: does not use diet: vegetarian seatbelt use: always do you feel safe at home: Yes ROS ROS ED Constitutional Constitutional ED: Reports malaise; Denies chills or fever(s) Eyes Eyes: Denies change in vision or diplopia ENT ENT ED: Denies rhinorrhea or sore throat Cardiovascular Cardiovascular: Reports lightheadedness; Denies chest pain, palpitations or syncope Respiratory/Chest Respiratory/Chest: Denies cough or dyspnea Gastrointestinal Gastrointestinal: Denies abdominal pain, diarrhea, nausea or vomiting Genitourinary Genitourinary ED: Denies dysuria or hematuria Musculoskeletal Musculoskeletal: Denies back pain or neck pain Integumentary Denies abscess or rash Neurologic Neurologic: Denies headache(s), paresthesias or weakness Psychiatric Psychiatric: Reports anxiety and depression; Denies suicidal ideation or suicidal thoughts EXAM Physical Exam Const Vital Signs: 08/10/22 09:38 08/10/22 11:25 Temperature 97.9 F Temperature Source Temporal Pulse Rate 99 77 Respiratory Rate 24 H 16 Blood Pressure 194/112 H 149/97 H Blood Pressure Mean 139 114 Pulse Ox 96 98 Oxygen Delivery Method Room Air Room Air Positive well nourished and well developed General Appearance ED: well developed and NAD HEENT Reports moist mucous membranes normocephalic and atraumatic Eyes PERRL and EOMs intact bilaterally Neck full ROM and supple Resp normal respiratory effort and clear to auscultation bilaterally Cardio regular rate, regular rhythm and no murmurs GI non-tender and non-distended Auscultation: normoactive bowel sounds Palpation: soft Back/Spine no CVA tenderness General Back: other FROM Extremity normal to inspection General Extremety ED: Negative for edema, pulses abnormal or tenderness General Extremity: Negative for edema or pulses abnormal Neuro oriented x3, CN's II-XII intact bilaterally and no sensory deficits noted Sensorium / Orientation: awake and alert Motor Exam: strength 5/5 throughout Psych mental status grossly normal Mood & Affect: anxious and tearful Skin no rashes or lesions noted and no wounds MDM MDM MDM Narrative Medical decision making narrative: Labs, EKG, troponin, CT of the head all unremarkable. I reviewed the images and the report of the CT which I agree with. The patient is doing well. We rechecked her blood pressure while she is resting here it is 149/97, reassuring, this is without treating it. Therefore I do not think we need to manipulate her blood pressure medications right now, it is unknown if her blood pressure or heart rate could have been related to the 2 episodes that she had, I recommend if they occur again to try to check those, as that might be helpful information to give to her doctor if they continue to occur. I do not think anything here dangerous is going on, this does not sound like TIA, it may or may not be related to her grieving. We discussed adjustment disorder and the fact that she in my opinion is having a normal reaction right now to the loss of a loved 1 including a pet, and if things continue for 2 months or more, she may qualify for adjustment disorder and at that point, prescribing her medications may or may not be helpful. I advised following up with her doctor regarding all of this including blood pressure recheck, she is comfortable with that plan. Lab Data Labs: Laboratory Results - last 24 hr 08/10/22 10:16 WBC 11.8 H RBC 5.16 Hgb 14.7 Hct 44.7 MCV 86.6 MCH 28.5 MCHC 32.9 RDW Std Deviation 44.4 H RDW Coeff of Chris 13.8 Plt Count 304 MPV 10.8 Immature Gran % (Auto) 1.200 H Neut % (Auto) 74.4 H Lymph % (Auto) 14.5 L Burke % (Auto) 8.5 Eos % (Auto) 0.6 Baso % (Auto) 0.8 Absolute Neuts (auto) 8.8 H Absolute Lymphs (auto) 1.71 Nucleated RBC % 0 Sodium 141 Potassium 4.1 Chloride 108 H Carbon Dioxide 29.0 Anion Gap 4 L BUN 11 Creatinine 0.61 Estim Creat Clear Calc 77.07 Est GFR (MDRD) Af Amer 126 Est GFR (MDRD) Non-Af 104 BUN/Creatinine Ratio 18.0 Glucose 132 H Calcium 9.3 Troponin I High Sens 3 Radiography Diagnostic Testing: Clinical Impression(s) from Imaging Studies Brain CT 08/10/22 10:22 IMPRESSION: Normal unenhanced CT scan of the brain. Electronically Signed: Duc Goyal MD at 10:47 EDT , Discharge Plan Triage Chief Complaint: Mental Health ED Provider: Aaron Hannon Dx/Rx/DC Orders Clinical Impression: Intermittent lightheadedness, Stress reaction, Episode of hypertension Instructions: ED Dizziness, Uncertain Cause Prescriptions: No Action amlodipine 10 mg tablet 10 mg PO DAILY Qty: 90 3RF Primary Care Provider: Betzaida Ramirez Referrals: Betzaida Ramirez MD [Primary Care Provider] - 1-2 Weeks Disposition Disposition: Home, Self Care
--- NOTE | 2022-08-10 10:22 | CT_ITS ---
STUDY: CT BRAIN WITHOUT CONTRAST REASON FOR EXAM: Female, 66 years old. RICE, high BP RADIATION DOSAGE (If Supplied By Facility): CTDIvol = ( 44.99 ) mGy, DLP = ( 863.60 ) mGycm TECHNIQUE: Transaxial CT imaging of the brain was performed without administration of intravenous contrast material. Individualized dose optimization techniques were used for this CT. COMPARISON: No relevant priors. FINDINGS: Normal soft tissue structures. Normal calvarium. Normal size ventricles and extra-axial spaces for the patient''s age. Normal white matter tracts of the cerebral hemispheres. Normal basal ganglia and thalami. Normal brainstem. Normal cerebellum. There is no intracranial hemorrhage. There are no findings of an acute ischemic infarction. Normal visualized paranasal sinuses. CT/Brain/Head without Contrast IMPRESSION: Normal unenhanced CT scan of the brain. Electronically Signed: Duc Goyal MD at 10:47 EDT ,
[2022-08-10 10:24] LABS: Absolute Lymphocyte Count 1.71 X10^3/uL (0.83-4.51); Absolute Neutrophil Count 8.8 X10^3/uL (2.0-7.7); Basophil% 0.8 % (0-1); Eosinophil# 0.07 X10^3/uL; Eosinophils% 0.6 % (0-5); Hematocrit 44.7 % (37-47); Hemoglobin 14.7 g/dL (12.0-15.0); Lymphocyte # 1.71 X10^3/ul (0.83-4.51); Lymphocyte % 14.5 % (19-41); Mean Corp Hgb Conc 32.9 g/dL (32-36); Mean Corpuscular Hgb 28.5 pg (27.0-32.0); Mean Corpuscular Volume 86.6 fL (81-99); Mean Platelet Vol. 10.8 fl (6.2-12.0); Monocyte% 8.5 % (0-10); NRBC Flagged by Analyzer 0 % (0-5); Neutrophil # 8.77 X10^3/uL (2.7-7.7); Neutrophil % 74.4 % (47-70); Platelet Count 304 K/mm3 (150-450); RBC Distribution Width CV 13.8 % (11.6-14.6); RBC Distribution Width SD 44.4 fl (35.1-43.9); Red Blood Count 5.16 M/mm3 (4.2-5.4); White Blood Count 11.8 K/mm3 (4.4-11.0)
[2022-08-10 10:48] LABS: Anion Gap 4 (5-15); BUN 11 mg/dL (7-18); Calcium,Total 9.3 mg/dL (8.5-10.1); Chloride 108 mmol/L (98-107); Creatinine, Serum 0.61 mg/dL (0.55-1.02); EST Glomerular Filtration Rate 104 mL/min (>60); Est Glom Filt Rate - Afr Amer 126 mL/min (>60); Estimated Creatinine Clearance 77.07 ml/min; Glucose 132 mg/dL (74-106); Potassium 4.1 mmol/L (3.5-5.1); Sodium Level 141 mmol/L (136-145); Troponin-I HS 3 pg/mL (3.0-54.0)
[2022-08-10 11:25] VITALS: BP 149/97; PULSE 77; RESP 16; O2SAT 98
[2022-08-10 12:07] VITALS: BP 120/68; PULSE 78; RESP 18; O2SAT 96
--- NOTE | 2022-08-10 12:26 | CM.ED ---
Social Work SW introduced self and role to patient. Patient recently had to put her dog to sleep due to cancer. Patient is feeling guilty, anxious, and grief. SW provided emotional support and grief resources. Patient given anxiety coping skills information and local counseling list. Kathryn Vogel CYBER LEGAL ADVISOR, FLIGHT ENGINEER MANAGER
== END 2022-08-10 12:08 | disposition home or self-care (01) ==
PROVIDERS: Emergency Provider Emergency Medicine; PCP Internal Medicine; Visit Provider Emergency Medicine
DX: R42 Dizziness and giddiness (principal); F43.9 Reaction to severe stress, unspecified; I10 Essential (primary) hypertension; Z79.899 Other long term (current) drug therapy; Z87.891 Personal history of nicotine dependence
CPT/HCPCS: 36415; 70450; 80048; 84484; 85025; 93005; 99282

== ENCOUNTER → 2022-09-27 | Outpatient (CLI) | payer OTHER, SELFPAY ==
--- NOTE | 2022-09-27 07:27 | BI_ITS ---
MAMMOGRAPHY - BILATERAL SCREENING REASON FOR EXAM: Female, 66 years old. Routine annual screening examination. PERTINENT HISTORY: Non-contributory. TECHNIQUE: Digital bilateral breast everardo (3D mammographic acquisition) in the CC and MLO projections. 2-D mediolateral oblique (MLO) and craniocaudad (CC) views of both breasts were obtained. CAD: Full Field Digital Mammography with Computer Added Detection was performed. COMPARISON: Comparison is made with prior study dated September 06, 2021 and August 21, 2020. FINDINGS: Breast Composition: The breasts are almost entirely fatty. There are no dominant masses or suspicious calcifications. Stable 4 mm well-defined nodule in the upper central portion of the right breast. A 2 mm nodule is seen adjacent to this. Stable benign-appearing bilateral axillary lymph nodes. No other significant abnormalities are identified. There has been no significant change since the prior study. BI/SCRN MAMM (CAD)W/EVERARDO BILAT IMPRESSION: Stable bilateral screening mammogram. Yearly follow-up mammogram recommended. (A) ASSESSMENT CATEGORY: BIRADS Category 2: Benign. A letter regarding these results will be sent to the patient by the facility within 30 days. Approximately 10% of breast cancers are not detected by mammography. A normal mammogram should not delay biopsy of a clinically suspicious abnormality. [id number] Electronically Signed: Duc Goyal MD at 10:04 EDT ,
== END | disposition home or self-care (01) ==
LOC: OPBI 07:25
PROVIDERS: PCP Internal Medicine; Referring Provider Registered Nurse; Visit Provider Registered Nurse
DX: Z12.31 Encounter for screening mammogram for malignant neoplasm of breast (principal)
CPT/HCPCS: 77063; 77067

== ENCOUNTER → 2023-04-17 | Outpatient (CLI) | payer OTHER, SELFPAY ==
--- OUTSIDE RECORDS SUMMARY | 2023-04-17 07:07 | XMS RPT_ITS | CCD ---
Author Name Unknown Address [id number] [place] [address] Organization [facility] Care Team Providers Care Energy Systems Engineer Name Role Phone Unavailable Primary Care Provider UnavailDavid Kirkland MD Primary Care Provider [phone] David Sánchez MD Primary Care Provider [phone] Daivd Sánchez MD Primary Care Provider [phone] David Sánchez MD Primary Care Provider [phone] DAVID SÁNCHEZ Primary Care Unavailable AVINASH RANDOLPH Attending Unavailable DAVID SÁNCHEZ Primary Care Unavailable AMAYA EDWARDS Attending Unavailable AMAYA EDWARDS Referring Unavailable DAVID SÁNCHEZ Primary Care Unavailable AMAYA EDWARDS Attending Unavailable Allergies Allergy Classification Reported Allergen(s) Allergy Type Date of Onset Reaction(s) Facility (17 sources) oxyCODONE; Translations: [OXYCODONE] Drug Allergy 04-04-2016 GI Upset, Vomiting [facility] Medications Current Medications Medication Drug Class(es) Dates Sig (Normalized) Sig (Original) clindamycin 20 mg/ml vaginal cream (1 source) Lincosamide Antibacterial Start: 01-12-2023 End: 01-19-2023 clindamycin phosphate (CLEOCIN) 2 % vaginal cream Use 1 Applicatorful vaginally daily at bedtime for 7 days. 40 g 0 01/12/2023 01/19/2023 Active Completed/Discontinued Medications Medication Drug Class(es) Dates Sig (Normalized) Sig (Original) acetaminophen 325 mg oral capsule (8 sources) acetaminophen (T YLENOL) 325 mg cap Take by mouth. PRN for pain 0 Active Problems Problem Classification Problem Date Documented Date Episodic/Chronic Benign neoplasm of uterus (3 sources) Uterine leiomyoma; Translations: [Leiomyoma of uterus, unspecified] Episodic Complications of surgical procedures or medical care (1 source) Prolapse of vaginal vault after hysterectomy; Translations: [Prolapse of vaginal vault after hysterectomy] Chronic Complications of surgical procedures or medical care (1 source) Vaginal bleeding; Translations: [Postprocedural hemorrhage of a genitourinary system organ or structure following a genitourinary system procedure] 09-18-2022 Episodic Essential hypertension (1 source) Hypertensive disorder; Translations: [Essential (primary) hypertension] Chronic Inflammatory diseases of female pelvic organs (1 source) Vaginal ulcer; Translations: [Ulceration of vagina] 12-22-2022 Episodic Menopausal disorders (3 sources) Genitourinary syndrome of menopause; Translations: [Other specified menopausal and perimenopausal disorders] Onset: 10-06-2022 09-18-2022 Chronic Other female genital disorders (1 source) Vaginal discharge; Translations: [Other specified noninflammatory disorders of vagina] 12-22-2022 Episodic Other nutritional; endocrine; and metabolic disorders (9 sources) Obese class II; Translations: [Obesity, unspecified] Onset: 01-13-2022 01-13-2022 Chronic Other screening for suspected conditions (not mental disorders or infectious disease) (1 source) Patient encounter status; Translations: [Encounter for screening for malignant neoplasm of cervix] Episodic Prolapse of female genital organs (13 sources) Uterine prolapse; Translations: [Uterovaginal prolapse, unspecified] Onset: 09-12-2022 Chronic Results Test Name Value Interpretation Reference Range Facil ity Vital Signs Date Time Vital Sign Value Performing Clinician Darrell shepard 12-22-2022 10:56-0500 Body height 162.6 cm Amaya Edwards DO Work Phone: [facility] 12-22-2022 10:56-0500 Body weight 103.42 kg Amaya Edwards DO Work Phone: [facility] 12-22-2022 10:56-0500 Diastolic blood pressure 90 mm[Hg] Amaya Edwards DO Work Phone: [facility] 12-22-2022 10:56-0500 Systolic blood pressure 144 mm[Hg] Amaya Edwards DO Work Phone: [facility] 10-06-2022 11:02-0400 Body height 162.6 cm Amaya Edwards DO Work Phone: [facility] 10-06-2022 11:02-0400 Body weight 102.06 kg Amaya Edwards DO Work Phone: [facility] 10-06-2022 11:02-0400 Diastolic blood pressure 80 mm[Hg] Amaya Edwards DO Work Phone: [facility] 10-06-2022 11:02-0400 Systolic blood pressure 150 mm[Hg] Amaya Edwards DO Work Phone: [facility] 09-12-2022 15:54-0400 Body height 160 cm Avinash Randolph MD Work Phone: [facility] 09-12-2022 15:54-0400 Body weight 100.25 kg Avinash Randolph MD Work Phone: [facility] 02-01-2022 10:43-0500 Body height 160 cm Parvez Webster MD Work Phone: [facility] 02-01-2022 10:43-0500 Body weight 101.61 kg Parvez Webster MD Work Phone: [facility] 02-01-2022 10:43-0500 Diastolic blood pressure 88 mm[Hg] Parvez Webster MD Work Phone: [facility] 02-01-2022 10:43-0500 Systolic blood pressure 142 mm[Hg] Parvez Webster MD Work Phone: [facility] 12-30-2021 09:51-0500 Body height 161.3 cm Pst 1 [facility] 12-30-2021 09:51-0500 Body temperature 98.2 [degF] [facility] 12-30-2021 09:51-0500 Body weight 102.06 kg Pst 1 [facility] 12-30-2021 09:51-0500 Diastolic blood pressure 75 mm[Hg] Pst 1 [facility] 12-30-2021 09:51-0500 Heart rate 71 /min Pst 1 [facility] 12-30-2021 09:51-0500 Respiratory rate 18 /min [facility] 12-30-2021 09:51-0500 SaO2% (BldA) [Mass fraction] 98 % Pst 1 [facility] 12-30-2021 09:51-0500 Systolic blood pressure 146 mm[Hg] Pst 1 [facility] 10-20-2021 10:46-0400 Body height 161.3 cm Parvez Webster MD Work Phone: [facility] 10-20-2021 10:46-0400 Body weight 103.42 kg Parvez Webster MD Work Phone: [facility] 08-20-2021 10:27-0400 Body height 161.3 cm Giovany Biats DO Work Phone: [facility] 08-20-2021 10:27-0400 Body weight 101.15 kg Giovany Biats DO Work Phone: [facility] 08-20-2021 10:27-0400 Diastolic blood pressure 84 mm[Hg] Giovany Biats DO Work Phone: [facility] 08-20-2021 10:27-0400 Systolic blood pressure 155 mm[Hg] Giovany Biats DO Work Phone: [facility] 05-11-2021 10:14-0400 Body height 161.3 cm Parvez Webster MD Work Phone: [facility] 05-11-2021 10:14-0400 Body weight 99.34 kg Parvez Webster MD Work Phone: [facility] 05-11-2021 10:14-0400 Diastolic blood pressure 80 mm[Hg] Parvez Webster MD Work Phone: [facility] 05-11-2021 10:14-0400 Systolic blood pressure 132 mm[Hg] Parvez Webster MD Work Phone: [facility] Encounters Encounter Date Encounter Type Care Provider Facility Start: 03-31-2023 Telephone encounter Parvez Webster MD Work Phone: Urology Start: 01-12-2023 Telephone encounter Amaya Herrera DO Work Phone: [facility] Ob[facility]etrics [facility] Gynecology Start: 12-22-2022 End: 12-22-2022 ambulatory AMAYA EDWARDS Facility:[facility] Start: 12-22-2022 End: 12-22-2022 Patient encounter procedure Amaya Edwards DO Work Phone: [facility] Obstetrics & Gynecology Procedures Date Procedure Procedure Detail Performing Clinician Start: 09-12-2022 Urnls dip stick/tabl et rgnt auto w/o microscopy Avinash Randolph MD Work Phone: Start: 09-12-2022 BLADDER SCAN [facility] Start: 10-20-2021 Urnls dip stick/tabl et rgnt auto w/o microscopy Parvez Webster MD Work Phone: Start: 05-13-2021 Us transvaginal Parvez Webster MD Work Phone: Start: 05-11-2021 Urnls dip stick/tabl et rgnt auto w/o microscopy Parvez Webster MD Work Phone: Plan of Treatment Date Care Activity Detail Author Start: 12-09-2032 Urine microalbumin profile DTaP,Tdap,Td Vaccine (3 - Td or Tdap) [facility] Start: 08-20-2026 HPV TESTING HPV TESTING [facility] Start: 08-20-2026 PAP TESTING PAP TESTING [facility] Start: 02-13-2023 Advance Directive Discussion Advance Directive Discussion [facility] Start: 02-13-2023 Depression Assessment Depression Assessment [facility] Start: 2022 Advance Directive Discussion Advance Directive Discussion [facility] Start: 2022 Bone Density Screening Bone Density Screening [facility] Start: 2022 Pneumococcal Vaccine: 65+ (2 - PPSV23 or PCV20) Pneumococcal Vaccine: 65+ (2 - PPSV23 or PCV20) [facility] Start: 2022 Pneumococcal Vaccine: 65+ (2 of 2 - PPSV23 or PCV20) Pneumococcal Vaccine: 65+ (2 of 2 - PPSV23 or PCV20) [facility] Start: 2022 Screening for osteoporosis Bone Density Screening [facility] Start: 10-14-2022 Influenza vaccination INFLUENZA (#1) [facility] Start: 02-13-2022 DEPRESSION ASSESSMENT DEPRESSION ASSESSMENT [facility] Start: 10-14-2021 Influenza vaccination INFLUENZA (#1) [facility] Start: 05-29-2021 COVID-19 VACCINE (4 - Booster for Moderna series) COVID-19 VACCINE (4 - Booster for Moderna series) [facility] Start: 02-13-2021 DEPRESSION ASSESSMENT DEPRESSION ASSESSMENT [facility] Start: 2017 RSV Vaccine (1 - 1-dose 60+ series) RSV Vaccine (1 - 1-dose 60+ series) [facility] Start: 12-30-2007 SHINGRIX VACCINE (1 of 2) SHINGRIX VACCINE (1 of 2) [facility] Start: 2002 COLOGUARD (FIT-DNA) COLOGUARD (FIT-DNA) [facility] Start: 2002 Colonoscopy COLONOSCOPY [facility] Start: 2002 COLORECTAL CANCER SCREENING COLORECTAL CANCER SCREENING [facility] Start: [address] COLONOGRAPHY [facility] Start: 2002 DIABETES SCREEN DIABETES SCREEN [facility] Start: 2002 Diabetes Screening Diabetes Screening [facility] Start: 2002 FECAL OCCULT BLOOD FECAL OCCULT BLOOD [facility] Start: 2002 Lipid 1996 panel - Serum or Plasma Lipid Screening [facility] Start: 2002 Lipid panel Lipid Screening [facility] Start: 2002 LIPID SCREEN LIPID SCREEN [facility] Start: 2002 Screening for malignant neoplasm of colon [facility] Start: 2002 SIGMOIDOSCOPY SIGMOIDOSCOPY [facility] Start: 1997 Mammography [facility] Start: 1997 Screening for malignant neoplasm of breast Mammogram Screening [facility] Start: 12-30-1987 HPV TESTING HPV TESTING [facility] Start: 1978 PAP TESTING PAP TESTING [facility] Start: 1976 Urine microalbumin profile DTAP,TDAP,TD (1 - Tdap) [facility] Start: 12-30-1975 HEPATITIS C SCREENING HEPATITIS C SCREENING [facility] Start: 12-30-1975 Hepatitis C screening Hepatitis C Screening [facility] Start: 12-30-1975 HIV SCREENING HIV SCREENING [facility] Start: 12-30-1975 HIV screening HIV Screening [facility] Start: 1969 Adult depression screening assessment DEPRESSION SCREENING [facility] PAP FLUID CERVICAL SCREENING PAP FLUID CERVICAL SCREENING Lab Routine Women's annual routine gynecological examination Routine cervical smear Ordered: 08/20/2021 [facility] Work Phone: Immunizations Immunization Date Immunization Notes Care Provider Fa marco a 11-21-2020 influenza, injectabl e, quadrivalent, preservative free Parvez Webster MD Work Phone: [facility] 10-08-2019 influenza, injectabl e, quadrivalent, preservative free Parvez Webster MD Work Phone: [facility] Payers Date Payer Category Payer Private Health Insurance [employer] A ETNA CHOICE POS II [id number] 2020-Present [phone] [address] [place] [address] POS [id number] 2020 Private Health Insurance [id number] 2020 Private Health Insurance [id number] Social History Date Type Detail Facility Start: 05-11-2021 End: 10-20-2021 Tobacco smoking status NHIS Ex-smoker [facility] End: 02-14-2008 History of tobacco use Current smoker [facility] Start: 05-11-2021 End: 10-20-2021 Tobacco use and exposure Smokeless tobacco non-user [facility] Start: 05-11-2021 End: 12-22-2022 Alcohol intake Lifetime non-drinker (finding) [facility] Start: 05-11-2021 History SDOH Alcohol Frequency 1 [facility] Start: 1955 Sex Assigned At Not on file [facility] Start: 05-01-2021 End: 12-01-2022 Exposure to SARS-CoV-2 (event) Not sure [facility] End: 02-14-2008 History of tobacco use Cigarette Smoker [facility] Start: 09-12-2022 End: 10-06-2022 History of Social function [facility] Start: 09-12-2022 End: 10-06-2022 Tobacco use panel [facility] National Score (1-10 0), lower number is lower risk 57 [facility] Clinical Notes 05-11-2021 to 03-31-2023 Telephone Encounter - Kaila Amaya - 03/31/2023 10:22 AM ESTTelephone Encounter - Amaya Edwards DO - 01/12/2023 2:48 PM Amaya De La Rosa DO - 12/22/2022 11:15 AM ESTPatient Instructions Note Date & Type Note Facility 03-31-2023 Miscellaneous Notes Received fax from Dr. Rosalba Bourne's office requesting op note from procedure with Dr. Webster to be faxed to their office. Faxed op note from 01-13-22 to [phone]. Confirmation was received. Katie Amaya March 31, 2023 10:24 AM documented in this encounter [facility] 01-12-2023 Miscellaneous Notes Vaginal cultures that were collected in the office several weeks ago returned positive for a bacterial infection. She will need vaginal clindamycin cream for treatment of this for 7 days. Rx sent to pharmacy. Can you please let her know? Thanks! Amaya Edwards DO documented in this encounter [facility] 12-22-2022 Note HNO ID: [id number] Author: Amaya Edwards DO Service: ? Author Type: Physician Type: Progress Notes Filed: 12/22/2022 11:53 AM Note Text: SERVICE DATE: 12/22/2022 SERVICE TIME: 11:50 AM Subjective CHIEF COMPLAINT: Vaginal bleeding follow up HPI: This is a 66 year old female who presents for follow up regarding vagian atrophy and spotting following her hysterectomy. Patient underwent a TVH, with a SSLF in January of 2022. Patient had previously presented to the office in September with complaints of intermittent spotting and brownish colored discharge since her surgery. She had seen Dr. Randolph at that time, and was found to have an area that was not healing appropriately, which was removed in the office on 09/12. She was also started on Estrace at that time, and saw me following for a secodn opinion. Patient was encouraged to continue vaginal estrace cream. She reports that since her last visit, she has continued to have vaginal bleeding, and is now having bleeding daily. She reports that she was previously using her cream 2-3 times a week, however stopped using it several weeks ago. She also reports a reddish tinged vaginal discharge PAST MEDICAL HISTORY Diagnosis Date Dietary counseling and surveillance 12/2021 pt is starting a ketogenic program called [facility] she will monitor ketones and blood sugar Essential hypertension PONV (postoperative nausea and vomiting) Transient metabolic disturbance in infant of prediabetic mother Uterine leiomyoma Uterine prolapse PAST SURGICAL HISTORY Procedure Laterality Date BOWEL RESECTION HX 2006 DANDC, DIAG AND/OR THERAPEUTIC 1980 LAP SLEEVE GASTRECTOMY 12/31/2013 LIGATE FALLOPIAN TUBE Bilateral 1995 NRV DESTR RFA, CHEM OTHER 2005 NRV DESTR RFA, CHEM OTHER 2009 HPV REPAIR INCISIONAL HERNIA,REDUCIBLE 2010 REPAIR INCISIONAL HERNIA,REDUCIBLE 04/09/2016 REPAIR INCISIONAL HERNIA,REDUCIBLE 10/29/2018 VAGINAL HYSTERECTOMY 01/13/2022 with bladder repair per pt FAMILY HISTORY Problem Relation Age of Onset Cancer Father other (Cancer age 39) Brother Social History Tobacco Use Smoking status: Former Types: Cigarettes Quit date: 2008 Years since quittin.8 Smokeless tobacco: Never Vaping Use Vaping Use: Never used Substance Use Topics Alcohol use: Never Drug use: Never (Not in a hospital admission) ALLERGIES Allergen Reactions Oxycodone Vomiting Review of Systems Constitutional: Negative for fatigue, fever and unexpected weight change. HENT: Negative for congestion, sinus pressure and sneezing. Respiratory: Negative for cough, shortness of breath and wheezing. Cardiovascular: Negative for chest pain. Gastrointestinal: Negative for abdominal distention, abdominal pain, blood in stool, constipation, diarrhea, nausea and vomiting. Genitourinary: Negative for dyspareunia, dysuria, flank pain, frequency, menstrual problem, pelvic pain, urgency, vaginal bleeding, vaginal discharge and vaginal pain. Musculoskeletal: Negative for arthralgias, joint swelling and myalgias. Skin: Negative for rash. Neurological: Negative for dizziness, weakness and headaches. Psychiatric/Behavioral: Negative for behavioral problems and suicidal ideas. Objective PHYSICAL EXAM: There were no vitals taken for this visit. Physical Exam Constitutional: General: She is not in acute distress. Appearance: Normal appearance. Genitourinary: Vulva normal. No lesions in the vagina. Right Labia: No rash, tenderness or lesions. Left Labia: No tenderness, lesions or rash. No labial fusion noted. Vaginal cuff intact. Vaginal ulceration present. No vaginal discharge or tenderness. Vaginal exam comments: Vaginal wall ulceration noted along the right apex of the vaginal cuff. Right Adnexa: not tender and no mass present. Left Adnexa: not tender and no mass present. Cervix is absent. Uterus is absent. No urethral prolapse present. Bladder is not tender. Breasts: Right: Normal. Left: Normal. HENT: Head: Normocephalic and atraumatic. Cardiovascular: Rate and Rhythm: Normal rate and regular rhythm. Pulmonary: Effort: Pulmonary effort is normal. No respiratory distress. Abdominal: General: Abdomen is flat. There is no distension. Palpations: Abdomen is soft. Neurological: General: No focal deficit present. Mental Status: She is alert. Mental status is at baseline. Skin: General: Skin is warm. Findings: No erythema or lesion. Psychiatric: Mood and Affect: Mood normal. Assessment AND Plan ASSESSMENT/PLAN: 1. Vaginal ulceration - ICD9: 616.89, ICD10: N76.5 (primary diagnosis) - Vaginal ulceration at the right apex of the vaginal cuff remains today and continues to cause daily bleeding - One swab collected today for possible infectious sources - Patient encouraged to continue vaginal estrace - Will also have patient follow up with Dr. Randolph to see if this is possibly (more content not included)... [facility] 12-22-2022 History of Presen t illness Narrative SERVICE DATE: 12/22/2022 SERVICE TIME: 11:50 AM Subjective CHIEF COMPLAINT: Vaginal bleeding follow up HPI: This is a 66 year old female who presents for follow up regarding vagian atrophy and spotting following her hysterectomy. Patient underwent a TVH, with a SSLF in January of 2022. Patient had previously presented to the office in September with complaints of intermittent spotting and brownish colored discharge since her surgery. She had seen Dr. Randolph at that time, and was found to have an area that was not healing appropriately, which was removed in the office on 09/12. She was also started on Estrace at that time, and saw me following for a secodn opinion. Patient was encouraged to continue vaginal estrace cream. She reports that since her last visit, she has continued to have vaginal bleeding, and is now having bleeding daily. She reports that she was previously using her cream 2-3 times a week, however stopped using it several weeks ago. She also reports a reddish tinged vaginal discharge PAST MEDICAL HISTORY Diagnosis Date Dietary counseling and surveillance 12/2021 pt is starting a ketogenic program called [facility] she will monitor ketones and blood sugar Essential hypertension PONV (postoperative nausea and vomiting) Transient metabolic disturbance in of prediabetic mother Uterine leiomyoma Uterine prolapse PAST SURGICAL HISTORY Procedure Laterality Date BOWEL RESECTION HX 2006 D&C, DIAG AND/OR THERAPEUTIC 1980 LAP SLEEVE GASTRECTOMY 12/31/2013 LIGATE FALLOPIAN TUBE Bilateral 1995 NRV DESTR RFA, CHEM OTHER 2005 NRV DESTR RFA, CHEM OTHER 2009 HPV REPAIR INCISIONAL HERNIA,REDUCIBLE 2010 REPAIR INCISIONAL HERNIA,REDUCIBLE 04/09/2016 REPAIR INCISIONAL HERNIA,REDUCIBLE 10/29/2018 VAGINAL HYSTERECTOMY 01/13/2022 with bladder repair per pt FAMILY HISTORY Problem Relation Age of Onset Cancer Father other (Cancer age 39) Brother Social History Tobacco Use Smoking status: Former Types: Cigarettes Quit date: 2008 Years since quittin.8 Smokeless tobacco: Never Vaping Use Vaping Use: Never used Substance Use Topics Alcohol use: Never Drug use: Never (Not in a hospital admission) ALLERGIES Allergen Reactions Oxycodone Vomiting Review of Systems Constitutional: Negative for fatigue, fever and unexpected weight change. HENT: Negative for congestion, sinus pressure and sneezing. Respiratory: Negative for cough, shortness of breath and wheezing. Cardiovascular: Negative for chest pain. Gastrointestinal: Negative for abdominal distention, abdominal pain, blood in stool, constipation, diarrhea, nausea and vomiting. Genitourinary: Negative for dyspareunia, dysuria, flank pain, frequency, menstrual problem, pelvic pain, urgency, vaginal bleeding, vaginal discharge and vaginal pain. Musculoskeletal: Negative for arthralgias, joint swelling and myalgias. Skin: Negative for rash. Neurological: Negative for dizziness, weakness and headaches. Psychiatric/Behavioral: Negative for behavioral problems and suicidal ideas. Objective PHYSICAL EXAM: There were no vitals taken for this visit. Physical Exam Constitutional: General: She is not in acute distress. Appearance: Normal appearance. Genitourinary: Vulva normal. No lesions in the vagina. Right Labia: No rash, tenderness or lesions. Left Labia: No tenderness, lesions or rash. No labial fusion noted. Vaginal cuff intact. Vaginal ulceration present. No vaginal discharge or tenderness. Vaginal exam comments: Vaginal wall ulceration noted along the right apex of the vaginal cuff. Right Adnexa: not tender and no mass present. Left Adnexa: not tender and no mass present. Cervix is absent. Uterus is absent. No urethral prolapse present. Bladder is not tender. Breasts: Right: Normal. Left: Normal. HENT: Head: Normocephalic and atraumatic. Cardiovascular: Rate and Rhythm: Normal rate and regular rhythm. Pulmonary: Effort: Pulmonary effort is normal. No respiratory distress. Abdominal: General: Abdomen is flat. There is no distension. Palpations: Abdomen is soft. Neurological: General: No focal deficit present. Mental Status: She is alert. Mental status is at baseline. Skin: General: Skin is warm. Findings: No erythema or lesion. Psychiatric: Mood and Affect: Mood normal. Assessment & Plan ASSESSMENT/PLAN: 1. Vaginal ulceration - ICD9: 616.89, ICD10: N76.5 (primary diagnosis) - Vaginal ulceration at the right apex of the vaginal cuff remains today and continues to cause daily bleeding - One swab collected today for possible infectious sources - Patient encouraged to continue vaginal estrace - Will also have patient follow up with Dr. Randolph to see if this is possibly arising from area of suture placement from SSLF 2. Vaginal discharge - ICD9: 623.5, ICD10: N89.8 - One swab collected as above Amaya Edwards DO documented in this encounter [facility] 10-06-2022 Note HNO ID: [id number] Author: Amaya Edwards, DO Service: ? Author Type: Physician Type: Progress Notes Filed: 10/06/2022 12:46 PM Note Text: SERVICE DATE: 10/06/2022 SERVICE TIME: 12:00 PM Subjective CHIEF COMPLAINT: vaginal bleeding and pain HPI: This is a 66 year old female who presents with complaints of vaginal bleeding and pain. Patient underwent a TVH, with a SSLF in January of 2022. Patient reports that since her surgery, she has continued to have intermittent spotting and brownish colored discharge. She reports that this bleeding and spotting occurs only occasionally. She reports that she saw Dr. Randolph, and was found to have an area that was not healing appropriately, which was removed in the office on 09/12. She reports that spotting has decreased since this office visit. Dr. Randolph also started her on estrace, which she has not continued to use regularly. PAST MEDICAL HISTORY Diagnosis Date Dietary counseling and surveillance 12/2021 pt is starting a ketogenic program called EZRA she will monitor ketones and blood sugar Essential hypertension PONV (postoperative nausea and vomiting) Transient metabolic disturbance in of prediabetic mother Uterine leiomyoma Uterine prolapse PAST SURGICAL HISTORY Procedure Laterality Date BOWEL RESECTION HX 2006 DANDC, DIAG AND/OR THERAPEUTIC 1980 LAP SLEEVE GASTRECTOMY 12/31/2013 LIGATE FALLOPIAN TUBE Bilateral 1995 NRV DESTR RFA, CHEM OTHER 2005 NRV DESTR RFA, CHEM OTHER 2009 HPV REPAIR INCISIONAL HERNIA,REDUCIBLE 2010 REPAIR INCISIONAL HERNIA,REDUCIBLE 04/09/2016 REPAIR INCISIONAL HERNIA,REDUCIBLE 10/29/2018 FAMILY HISTORY Problem Relation Age of Onset Cancer Father other (Cancer age 39) Brother Social History Tobacco Use Smoking status: Former Types: Cigarettes Quit date: 2008 Years since quittin.6 Smokeless tobacco: Never Vaping Use Vaping Use: Never used Substance Use Topics Alcohol use: Never Drug use: Never (Not in a hospital admission) ALLERGIES Allergen Reactions Oxycodone Vomiting Review of Systems Constitutional: Negative for fatigue, fever and unexpected weight change. HENT: Negative for congestion, sinus pressure and sneezing. Respiratory: Negative for cough, shortness of breath and wheezing. Cardiovascular: Negative for chest pain. Gastrointestinal: Negative for abdominal distention, abdominal pain, blood in stool, constipation, diarrhea, nausea and vomiting. Genitourinary: Negative for dyspareunia, dysuria, flank pain, frequency, menstrual problem, pelvic pain, urgency, vaginal bleeding, vaginal discharge and vaginal pain. Musculoskeletal: Negative for arthralgias, joint swelling and myalgias. Skin: Negative for rash. Neurological: Negative for dizziness, weakness and headaches. Psychiatric/Behavioral: Negative for behavioral problems and suicidal ideas. Objective PHYSICAL EXAM: There were no vitals taken for this visit. Physical Exam Constitutional: General: She is not in acute distress. Appearance: Normal appearance. Genitourinary: Vulva normal. No lesions in the vagina. Right Labia: No rash, tenderness or lesions. Left Labia: No tenderness, lesions or rash. No labial fusion noted. Vaginal cuff intact. No vaginal discharge, tenderness or ulceration. Vaginal exam comments: Ulceration along the left lateral edge of the vaginal cuff noted . Right Adnexa: not tender and no mass present. Left Adnexa: not tender and no mass present. Cervix is absent. Uterus is absent. No urethral prolapse present. Bladder is not tender. Breasts: Right: Normal. Left: Normal. HENT: Head: Normocephalic and atraumatic. Cardiovascular: Rate and Rhythm: Normal rate and regular rhythm. Pulmonary: Effort: Pulmonary effort is normal. No respiratory distress. Abdominal: General: Abdomen is flat. There is no distension. Palpations: Abdomen is soft. Neurological: General: No focal deficit present. Mental Status: She is alert. Mental status is at baseline. Skin: General: Skin is warm. Findings: No erythema or lesion. Psychiatric: Mood and Affect: Mood normal. Assessment AND Plan ASSESSMENT/PLAN: 1. Vaginal atrophy - ICD9: 627.3, ICD10: N95.2 - Patient with ulceration along the left lateral edge of the vaginal cuff - Likely secondary to poor healing due to vaginal atrophy - Discussed importance of use of estrace cream in the healing process, and patient encouraged to use this regularly - Al questions answered and patient reassured - Will RTC in 3 months for re-evaluation Amaya Edwards DO [facility] 10-06-2022 History of Presen t illness Narrative SERVICE DATE: 10/06/2022 SERVICE TIME: 12:00 PM Subjective CHIEF COMPLAINT: vaginal bleeding and pain HPI: This is a 66 year old female who presents with complaints of vaginal bleeding and pain. Patient underwent a TVH, with a SSLF in January of 2022. Patient reports that since her surgery, she has continued to have intermittent spotting and brownish colored discharge. She reports that this bleeding and spotting occurs only occasionally. She reports that she saw Dr. Randolph, and was found to have an area that was not healing appropriately, which was removed in the office on 09/12. She reports that spotting has decreased since this office visit. Dr. Randolph also started her on estrace, which she has not continued to use regularly. PAST MEDICAL HISTORY Diagnosis Date Dietary counseling and surveillance 12/2021 pt is starting a ketogenic program called VIRTA she will monitor ketones and blood sugar Essential hypertension PONV (postoperative nausea and vomiting) Transient metabolic disturbance in infant of prediabetic mother Uterine leiomyoma Uterine prolapse PAST SURGICAL HISTORY Procedure Laterality Date BOWEL RESECTION HX 2006 D&C, DIAG AND/OR THERAPEUTIC 1980 LAP SLEEVE GASTRECTOMY 12/31/2013 LIGATE FALLOPIAN TUBE Bilateral 1995 NRV DESTR RFA, CHEM OTHER 2005 NRV DESTR RFA, CHEM OTHER 2009 HPV REPAIR INCISIONAL HERNIA,REDUCIBLE 2010 REPAIR INCISIONAL HERNIA,REDUCIBLE 04/09/2016 REPAIR INCISIONAL HERNIA,REDUCIBLE 10/29/2018 FAMILY HISTORY Problem Relation Age of Onset Cancer Father other (Cancer age 39) Brother Social History Tobacco Use Smoking status: Former Types: Cigarettes Quit date: 2008 Years since quittin.6 Smokeless tobacco: Never Vaping Use Vaping Use: Never used Substance Use Topics Alcohol use: Never Drug use: Never (Not in a hospital admission) ALLERGIES Allergen Reactions Oxycodone Vomiting Review of Systems Constitutional: Negative for fatigue, fever and unexpected weight change. HENT: Negative for congestion, sinus pressure and sneezing. Respiratory: Negative for cough, shortness of breath and wheezing. Cardiovascular: Negative for chest pain. Gastrointestinal: Negative for abdominal distention, abdominal pain, blood in stool, constipation, diarrhea, nausea and vomiting. Genitourinary: Negative for dyspareunia, dysuria, flank pain, frequency, menstrual problem, pelvic pain, urgency, vaginal bleeding, vaginal discharge and vaginal pain. Musculoskeletal: Negative for arthralgias, joint swelling and myalgias. Skin: Negative for rash. Neurological: Negative for dizziness, weakness and headaches. Psychiatric/Behavioral: Negative for behavioral problems and suicidal ideas. Objective PHYSICAL EXAM: There were no vitals taken for this visit. Physical Exam Constitutional: General: She is not in acute distress. Appearance: Normal appearance. Genitourinary: Vulva normal. No lesions in the vagina. Right Labia: No rash, tenderness or lesions. Left Labia: No tenderness, lesions or rash. No labial fusion noted. Vaginal cuff intact. No vaginal discharge, tenderness or ulceration. Vaginal exam comments: Ulceration along the left lateral edge of the vaginal cuff noted . Right Adnexa: not tender and no mass present. Left Adnexa: not tender and no mass present. Cervix is absent. Uterus is absent. No urethral prolapse present. Bladder is not tender. Breasts: Right: Normal. Left: Normal. HENT: Head: Normocephalic and atraumatic. Cardiovascular: Rate and Rhythm: Normal rate and regular rhythm. Pulmonary: Effort: Pulmonary effort is normal. No respiratory distress. Abdominal: General: Abdomen is flat. There is no distension. Palpations: Abdomen is soft. Neurological: General: No focal deficit present. Mental Status: She is alert. Mental status is at baseline. Skin: General: Skin is warm. Findings: No erythema or lesion. Psychiatric: Mood and Affect: Mood normal. Assessment & Plan ASSESSMENT/PLAN: 1. Vaginal atrophy - ICD9: 627.3, ICD10: N95.2 - Patient with ulceration along the left lateral edge of the vaginal cuff - Likely secondary to poor healing due to vaginal atrophy - Discussed importance of use of estrace cream in the healing process, and patient encouraged to use this regularly - Al questions answered and patient reassured - Will RTC in 3 months for re-evaluation Amaya Edwards DO documented in this encounter [facility] 09-13-2022 Miscellaneous Notes Estrace Rx sent to pharmacy. Pt called states you were going to send a medication to the pharmacy - [facility] - yesterday but nothing was sent. Please advise Lyndsay Sanderson CMA documented in this encounter [facility] 09-12-2022 Note HNO ID: [id number] Author: Avinash Randolph MD Service: ? Author Type: Physician Type: Progress Notes Filed: 09/18/2022 7:38 PM Note Text: [facility] ESTABLISHED PATIENT NOTE PATIENT: Shannon Lma (66 year old) PCP: David Sánchez MD DATE OF SERVICE: 09/12/2022 ASSESSMENT: 1. Vaginal bleeding due to tissue separation near sacrospinous vault fixation suture. No evidence of infection. Mild TTP. Friable with increased bleeding after manipulation. No suture or mesh visible. 2. Genitourinary syndrome of menopause Plan Conservative management for now. Prescribed vaginal estrogen use. Patient expressed understanding. Follow-up in 6 weeks. If no improvement, recommend operative intervention. CHIEF COMPLAINT: Vaginal bleeding HISTORY OF PRESENT ILLNESS: The patient has a history of uterine prolapse, midline cystocele and rectocele. She underwent cystoscopy, anterior colporrhaphy and sacrospinous ligament fixation on 01/13/2022. She was last seen by Dr. Webster on 02/01/2022. Prior notes were reviewed. The patient underwent intracorporeally and sacrospinous ligament fixation on 01/13/2022 simultaneous with hysterectomy for pelvic organ prolapse including midline cystocele and rectocele. Operative note reviewed: Anterior repair performed with interrupted 2-0 PDS. Sacrospinous suture x2 (0 Ethibond and 0 PDS)/Cherri needle tank driver. Vaginal cuff closed transverse with interrupted 0 Vicryl sutures. Patient was seen for postoperative check on 02/03/2022 and was healing well. Asked return as needed. In April 2022, patient felt a bulge when she showered. Since surgery she has noticed a brownish vaginal discharge. Denies pain or odor. She is also noticed vaginal spotting was seen by her java web user interface developer in [place] at the [place] [facility]. Patient provided referral to pelvic floor PT and advised to follow-up with us. Uses Replens for vaginal lubrication. No vaginal estrogen. Denies frequent sleep. Has mild urgency with full bladder. Infrequent CORTEZ/no UUI. Denies obstructive LUTS. Denies blood in the urine, dysuria or malodorous urine. The patient completed a PFDI-20 and I have reviewed and confirmed the responses documented by my nurse/MA at today's visit. Today's residual Urine Assessment by ultrasound measurements is 14 mL. Previous Urogyn Procedures 01/14/2022, vaginal hysterectomy (Dr. Edwards) for uterine prolapse 01/14 anterior colporrhaphy and sacrospinous vault fixation (Dr. 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 History of abnormal pap smears: yes, HPV 2009 Sexual function Sexually active: Not sexually active She is not sexually active. She does not have a partner and is not interested in having sexual activity. REVIEW OF SYSTEMS: Genitourinary: SeeHPI Constitutional: unintentional weight loss - denies, fevers - denies Cardiovascular: new or worsening chest pain - denies Respiratory: new or worsening shortness of breath - denies Gastrointestinal: constipation - denies, vomiting - denies Hematologic/Lymphatic: easy bleeding or bruising - denies ALLERGIES: ALLERGIES Allergen Reactions Oxycodone Vomiting MEDICATIONS: lisinopril-hydroCHLOROthiazide (ZESTORETIC) 10-12.5 mg per tablet Take 1 tablet by mouth every afternoon. acetaminophen (TYLENOL) 325 mg cap Take by mouth. PRN for pain amLODIPine (NORVASC) 10 mg tablet Take 10 mg by mouth once daily. fluticasone (FLONASE) 50 mcg/actuation nasal spray Use 1 [place] in the nose as needed. L.acidophil-L.plantar-Bifido 7 (UP4 PROBIOTICS ADULT) 15 billion cell cap Take by mouth once daily. Takes sporadically PAST HISTORY: PAST MEDICAL HISTORY Diagnosis Date Dietary counseling and surveillance 12/2021 pt is starting a ketogenic program called VIRTA she will monitor ketones and blood sugar Essential hypertension PONV (postoperative nausea and vomiting) Transient metabolic disturbance in of prediabetic mother Uterine leiomyoma Uterine prolapse PAST SURGICAL HISTORY Procedure Laterality Date BOWEL RESECTION HX 2005 DANDC, DIAG AND/OR THERAPEUTIC 1980 LAP SLEEVE GASTRECTOMY 12/31/2013 LIGATE FALLOPIAN TUBE Bilateral 1995 NRV DESTR RFA, CHEM OTHER 2005 NRV DESTR RFA, CHEM OTHER 2009 HPV REPAIR INCISIONAL HERNIA,REDUCIBLE 2010 REPAIR INCISIONAL HERNIA,REDUCIBLE 04/09/2016 REPAIR INCISIONAL HERNIA,REDUCIBLE 10/29/2018 FAMILY HISTORY Problem Relation Age of Onset Cancer Father other (Cancer age 3 (more content not included)... [facility] 09-12-2022 History of Presen t illness Narrative [facility] ESTABLISHED PATIENT NOTE PATIENT: Shannon Lam (66 year old) PCP: David Sánchez MD DATE OF SERVICE: 09/12/2022 ASSESSMENT: 1. Vaginal bleeding due to tissue separation near sacrospinous vault fixation suture. No evidence of infection. Mild TTP. Friable with increased bleeding after manipulation. No suture or mesh visible. 2. Genitourinary syndrome of menopause Plan Conservative management for now. Prescribed vaginal estrogen use. Patient expressed understanding. Follow-up in 6 weeks. If no improvement, recommend operative intervention. CHIEF COMPLAINT: Vaginal bleeding HISTORY OF PRESENT ILLNESS: The patient has a history of uterine prolapse, midline cystocele and rectocele. She underwent cystoscopy, anterior colporrhaphy and sacrospinous ligament fixation on 01/13/2022. She was last seen by Dr. Webster on 02/01/2022. Prior notes were reviewed. The patient underwent intracorporeally and sacrospinous ligament fixation on 01/13/2022 simultaneous with hysterectomy for pelvic organ prolapse including midline cystocele and rectocele. Operative note reviewed: Anterior repair performed with interrupted 2-0 PDS. Sacrospinous suture x2 (0 Ethibond and 0 PDS)/Cherri needle tank driver. Vaginal cuff closed transverse with interrupted 0 Vicryl sutures. Patient was seen for postoperative check on 02/03/2022 and was healing well. Asked return as needed. In April 2022, patient felt a bulge when she showered. Since surgery she has noticed a brownish vaginal discharge. Denies pain or odor. She is also noticed vaginal spotting was seen by her java web user interface developer in [place] at the [place] [facility]. Patient provided referral to pelvic floor PT and advised to follow-up with us. Uses Replens for vaginal lubrication. No vaginal estrogen. Denies frequent sleep. Has mild urgency with full bladder. Infrequent CORTEZ/no UUI. Denies obstructive LUTS. Denies blood in the urine, dysuria or malodorous urine. The patient completed a PFDI-20 and I have reviewed and confirmed the responses documented by my nurse/MA at today's visit. Today's residual Urine Assessment by ultrasound measurements is 14 mL. Previous Urogyn Procedures 01/14/2022, vaginal hysterectomy (Dr. Edwards) for uterine prolapse 01/14 anterior colporrhaphy and sacrospinous vault fixation (Dr. 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 History of abnormal pap smears: yes, HPV 2009 Sexual function Sexually active: Not sexually active She is not sexually active. She does not have a partner and is not interested in having sexual activity. REVIEW OF SYSTEMS: Genitourinary: SeeHPI Constitutional: unintentional weight loss - denies, fevers - denies Cardiovascular: new or worsening chest pain - denies Respiratory: new or worsening shortness of breath - denies Gastrointestinal: constipation - denies, vomiting - denies Hematologic/Lymphatic: easy bleeding or bruising - denies ALLERGIES: ALLERGIES Allergen Reactions Oxycodone Vomiting MEDICATIONS: lisinopril-hydroCHLOROthiazide (ZESTORETIC) 10-12.5 mg per tablet Take 1 tablet by mouth every afternoon. acetaminophen (TYLENOL) 325 mg cap Take by mouth. PRN for pain amLODIPine (NORVASC) 10 mg tablet Take 10 mg by mouth once daily. fluticasone (FLONASE) 50 mcg/actuation nasal spray Use 1 [place] in the nose as needed. L.acidophil-L.plantar-Bifido 7 (UP4 PROBIOTICS ADULT) 15 billion cell cap Take by mouth once daily. Takes sporadically PAST HISTORY: PAST MEDICAL HISTORY Diagnosis Date Dietary counseling and surveillance 12/2021 pt is starting a ketogenic program called EZRA she will monitor ketones and blood sugar Essential hypertension PONV (postoperative nausea and vomiting) Transient metabolic disturbance in infant of prediabetic mother Uterine leiomyoma Uterine prolapse PAST SURGICAL HISTORY Procedure Laterality Date BOWEL RESECTION HX 2006 D&C, DIAG AND/OR THERAPEUTIC 1980 LAP SLEEVE GASTRECTOMY 12/31/2013 LIGATE FALLOPIAN TUBE Bilateral 1995 NRV DESTR RFA, CHEM OTHER 2005 NRV DESTR RFA, CHEM OTHER 2009 HPV REPAIR INCISIONAL HERNIA,REDUCIBLE 2010 REPAIR INCISIONAL HERNIA,REDUCIBLE 04/09/2016 REPAIR INCISIONAL HERNIA,REDUCIBLE 10/29/2018 FAMILY HISTORY Problem Relation Age of Onset Cancer Father other (Cancer age 39) Brother Social History Tobacco Use Smoking status: Former Types: Cigarettes Quit date: 2008 Years since quittin.5 Smokeless tobacco: Never Vaping Use Vaping Use: Never used Substance Use Topics Alcohol use: Never Drug use: Never PHYSICAL EXAMINATION: Ht 160 cm (5' 3 ) Wt 100.2 kg (221 lb) BMI 39.15 kg/m Constitutional: In no acute distress. Well appearing. Appears stated age. Respiratory: Normal respiratory effort without use of accessory muscles. Musculoskeletal: Normal gait. Ambulates without assistance. Cardiovascular: Regular rate. Capillary refill less than 3 seconds. Gastrointestinal: Nondistended. No ventral hernia. Genitourinary/Pelvic: External genitalia without rash or lesion. Urethral meatus normal without prolapse, stenosis, or bleeding. No skene's gland abnormality Urethra normal without tenderness, scarring, or diverticulum. Urethra mobile Cough stress test negative. Intravaginal palpation of the bladder normal. Vaginal tissues show mild-moderate atrophic changes. No abnormal discharge or lesion. Cervix and uterus are surgically absent. No masses or bimanual. Adnexa nonpalpable. Pelvic floor tone normal. Half speculum exam reveals no prolapses. Pelvic support normal. Patient has very deep vaginal vault. 1 cm friable tissue separation/nonhealing vaginal mucosa identified right vaginal apex at the presumed site of sacrospinous vault fixation. No palpable suture, but bleeds easily and is tender to palpation. No purulent discharge. Fragment of connective tissue grasped with ring forceps and removed. DATA: Clinic: URINALYSIS: GLUCOSE UA (POCT) Negative 09/12/2022 BILIRUBIN UA (POCT) Negative 09/12/2022 KETONE UA (POCT) Negative 09/12/2022 SPECIFIC GRAVITY UA (POCT) 1.025 09/12/2022 HEMOGLOBIN/BLOOD UA (POCT) Negative 09/12/2022 PH UA (POCT) 6.0 09/12/2022 PROTEIN UA (POCT) Negative 09/12/2022 UROBILINOGEN UA (POCT) 0.2 09/12/2022 NITRITE UA (POCT) Negative 09/12/2022 LEUKOCYTES UA (POCT) Small 09/12/2022 COLOR UA (POCT) Yellow 09/12/2022 CLARITY UA (POCT) Clear 09/12/2022 Laboratory: No results found for: CREAT Cultures: No flowsheet data found. Susceptibility Tests - Past 1 Year No results found for the last 365 days. I have reviewed the problem list, family history, and social history documented by my ancillary staff. Applications Administrator offered:Patient accepts, visit chaperoned by Gillian Huynh LPN. Avinash Randolph MD Staff Urologist documented in this encounter [facility] 02-09-2022 Miscellaneous Notes Spoke with patient, her paperwork will be filled out, signed and faxed. Thank you, Yocasta Santoro Patient called asking if her [facility] paper work was filled out and faxed to her employer. She is asking that you call her back when you know what is going on with this. She also states that she can not remember what day Dr. Webster said she could return to work. Can you please call her? Thank you David Mattson Ma documented in this encounter [facility] 02-01-2022 History of Presen t illness Narrative ESTABLISHED PATIENT VISIT HPI Shannon Lam is a 66 year old female who presents post op below procedure. She is currently doing well. Postoperatively she did have tailbone and rectal pain. No pain radiating down her leg. She has had some difficulties with constipation and is trying different options for improvement. She also recently changed her diet. Her pain is improving. Today she has not required any pain medication. Primarily she has been using Tylenol and Motrin. On examination her vaginal vault is well supported. Her incision lines appear to be healing. We discussed postoperative care. She is going to call if the pain or discharge worsens. Surgery/Procedure Date: 01/13/2022 Incision/Procedure Start Time: 8:14 AM Incision Close/Procedure End Time: 10:41 AM Patient Age: [age] year old Surgeon(s)/Proceduralist(s) and Inbound Telemarketer(s): Surgeon(s) and Role: Panel 1: * Parvez Webster MD - Primary * Kerri Ge MD - Resident - Assisting Panel 2: * Amaya Edwards DO - Primary * Priya Ramirez DO - Resident - Assisting Foot Setter: Avi Tracey SA Anesthesia: General Preop Diagnosis: Pre-Op Diagnosis Codes: * Uterine leiomyoma, unspecified location [D25.9] * Uterine prolapse [N81.4] * Midline cystocele [N81.11] * Rectocele [N81.6] * Leiomyoma of uterus, unspecified [D25.9] Postop Diagnosis: Same as preoperative diagnosis Procedure: Cystoscopy, anterior repair, sacrospinous ligament fixation. GLUCOSE UA (POCT) Negative 10/20/2021 BILIRUBIN UA (POCT) Negative 10/20/2021 KETONE UA (POCT) Negative 10/20/2021 SPECIFIC GRAVITY UA (POCT) 1.020 10/20/2021 HEMOGLOBIN/BLOOD UA (POCT) Small 10/20/2021 PH UA (POCT) 6.0 10/20/2021 PROTEIN UA (POCT) Negative 10/20/2021 UROBILINOGEN UA (POCT) 0.2 10/20/2021 NITRITE UA (POCT) Negative 10/20/2021 LEUKOCYTES UA (POCT) Trace 10/20/2021 COLOR UA (POCT) Yellow 10/20/2021 CLARITY UA (POCT) Clear 10/20/2021 REVIEW OF SYSTEMS GENERAL:No weight loss, malaise or fevers., SEE HPI GENITOURINARY: See HPI CONSTITUTIONALl: No recent fever or weight loss ALLERGIES Allergen Reactions Oxycodone Vomiting HISTORIES PAST MEDICAL HISTORY Diagnosis Date Dietary counseling and surveillance 12/2021 pt is starting a ketogenic program called EZRA she will monitor ketones and blood sugar Essential hypertension PONV (postoperative nausea and vomiting) Transient metabolic disturbance in infant of prediabetic mother Uterine leiomyoma Uterine prolapse FAMILY HISTORY Problem Relation Age of Onset Cancer Father other (Cancer age 39) Brother Social History Tobacco Use Smoking status: Former Types: Cigarettes Quit date: 2008 Years since quittin.9 Smokeless tobacco: Never Vaping Use Vaping Use: Never used Substance Use Topics Alcohol use: Never Drug use: Never MEDICATIONS: acetaminophen (TYLENOL) 325 mg cap Take by mouth. PRN for pain PSYLLIUM HUSK ORAL Take by mouth. inulin (FIBER GUMMIES ORAL) Take by mouth. cholecalciferol, vitD3,/vit K2 (VITAMIN D3-VITAMIN K2 ORAL) Take by mouth. Three times weekly during winter months amLODIPine (NORVASC) 10 mg tablet Take 10 mg by mouth once daily. L.acidophil-L.plantar-Bifido 7 (UP4 PROBIOTICS ADULT) 15 billion cell cap Take by mouth once daily. Takes sporadically fluticasone (FLONASE) 50 mcg/actuation nasal spray Use 1 [place] in the nose as needed. 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 documented in this encounter [facility] 01-17-2022 Miscellaneous Notes I would give it a little more time. Has she had a bowel movement? Is she taking stool softeners? Per patient she is currently taking 400 mg ibuprofen with 500 tylenol together every 4 hours. Patient is taking both of these together. Patient does not want any pain medication. Patient has pain medicine (Tramadol) but does not want to take it. Patient lives alone and does not like to take narcotics which is why she has not taken it. Patient's main concern is that she wants to know if the pain will go away. This pain she had previously but has gotten worse Patient has already had but has gotten worse. Per patient you mentioned to her that sometimes you have to go back in and remove a stitch because it is pressing on a nerve. Patient wants to know if this is something that needs to be done. Brunilda Whitmore RN What has she been taking for pain? Is she requesting additional pain medication? Shannon Lam called today. : 1955 Allergies: Oxycodone (home) [phone] (cell) Message can be left with: with patient only Reason for call: pt having pain into her tailbone post post surgery on 07/23 pain Recent Urology Surgery: cysto/anterior repair, posterior repair, sacrospinous ligament fixation, possible desera sling POSTERIOR COLPORRHAPHY W/ REPAIR RECTOCELE AND PERINEORRHAPHY Is the patient experiencing any pain related to this call? yes, character - constant, frequency - daily, duration - constant, location at tailbone Any nausea/vomitting? Neither Voiding concerns: no problems w/ voiding. Does has some constipation Patient last appointment: Visit date not found The patients preferred pharmacy has been captured for this encounter? yes Mandy Cuellar Cma documented in this encounter [facility] 12-30-2021 History and physical note Images from the original note were not included. HISTORY AND PHYSICAL EXAMINATION SERVICE DATE: 12/28/2021 SERVICE TIME: 10:05 AM PRIMARY CARE PHYSICIAN: David Sánchez MD REASON FOR VISIT: Shannon Lam is a 66 year old female who is scheduled for Procedure(s): cysto/anterior repair, posterior repair, sacrospinous ligament fixation, possible desera sling (N/A) ANTERIOR COLPORRHAPHY REPAIR CYSTOCELE WITH OR W/O REPAIR URETHROCELE INCLUDING CYSTOURETHROSCOPY WHEN PERFORMED (N/A) POSTERIOR COLPORRHAPHY W/ REPAIR RECTOCELE AND PERINEORRHAPHY (N/A) FIXATION LIGAMENT SACROSPINOUS (N/A) SLING SURGERY FOR STRESS INCONTINENCE W/ TENSION FREE VAG TAPE (N/A) VAGINAL HYSTERECTOMY (N/A) at the request of Dr. Parvez Webster for routine H&P. My final recommendation will be communicated back to the requesting physician by way of shared medical record or letter. Subjective The patient has the following: There is no problem list on file for this patient. COVID-19 Immunization Status COVID-19 VACCINE (Series Information) Completed 11/17/2021 Imm Admin: COVID-19 booster vaccine, age 12+ yr, bivalent (Exakis) 01/28/2021 Imm Admin: COVID-19 vaccine, full dose (MODERNA) 07/09/2020 Imm Admin: COVID-19 vaccine, full dose (MODERNA) Only the first 3 history entries have been loaded, but more history exists. CHIEF COMPLAINT: Preoperative Examination HPI: Patient presents to PST for the above procedure. Pt states that she is having a hysterectomy followed by a procedure to correct her prolapse. She states increased urinary hesitancy due to the prolapse. Pt denies frequency, urgency, dysuria, nocturia, hematuria. Pt denies any abnormal vaginal bleeding or discharge. Pt is postmenopausal. Patient denies any other problems or concerns at this time. Risks and benefits of the procedure discussed by Surgeon and patient agreed to proceed with planned procedure. REVIEW OF SYSTEMS: General: No weight loss, malaise or fevers. Neurological: Negative for: headaches, seizures and strokes. Respiratory: Negative for: asthma, COPD, current cough, dyspnea, tobacco use and obstructive sleep apnea. Cardiovascular: Positive for: hypertension Negative for: AICD/PPM, angina, anticoagulation therapy, atrial fibrillation, CAD, chest pain, CHF, DVT/PE and hyperlipidemia. GI: Negative for: abdominal pain, dysphagia, nausea and vomiting. : See HPI. 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 Endocrine: Negative for: diabetes mellitus, hyperthyroidism and hypothyroidism. Hematology: Negative for: anemia, bruises/bleeds easily and chronic anti-coagulation/platelet meds. Oncology: No history of CA metastasis, chemo within 30 days, or radiotherapy within 90 days. No history of oncological symptoms or problems. Psych: Negative for: anxiety and depression. Musculoskeletal: Negative for joint pain or swelling, back pain or muscle pain. Skin: Negative for lesions, rash and itching. PAST MEDICAL HISTORY Diagnosis Date Dietary counseling and surveillance 12/2021 pt is starting a ketogenic program called [facility] she will monitor ketones and blood sugar Essential hypertension Transient metabolic disturbance in of prediabetic mother Uterine leiomyoma Uterine prolapse PAST SURGICAL HISTORY Procedure Laterality Date BOWEL RESECTION HX 2006 D&C, DIAG AND/OR THERAPEUTIC 1980 LAP SLEEVE GASTRECTOMY 12/31/2013 LIGATE FALLOPIAN TUBE Bilateral 1995 NRV DESTR RFA, CHEM OTHER 2005 NRV DESTR RFA, CHEM OTHER 2009 HPV REPAIR INCISIONAL HERNIA,REDUCIBLE 2010 REPAIR INCISIONAL HERNIA,REDUCIBLE 04/09/2016 REPAIR INCISIONAL HERNIA,REDUCIBLE 10/29/2018 FAMILY HISTORY Problem Relation Age of Onset Cancer Father other (Cancer age 39) Brother Social History Tobacco Use Smoking status: Former Types: Cigarettes Quit date: 2008 Years since quittin.8 Smokeless tobacco: Never Vaping Use Vaping Use: Never used Substance Use Topics Alcohol use: Never Drug use: Never Prior to Admission medications as of 12/30/21 0939 Medication Sig Last Dose Taking cholecalciferol, vitD3,/vit K2 (VITAMIN D3-VITAMIN K2 ORAL) Take by mouth. Three times weekly during winter months Taking Yes amLODIPine (NORVASC) 10 mg tablet Take 10 mg by mouth once daily. Taking Yes fluticasone (FLONASE) 50 mcg/actuation nasal spray Use 1 [place] in the nose as needed. Taking Yes L.acidophil-L.plantar-Bifido 7 (UP4 PROBIOTICS ADULT) 15 billion cell cap Take by mouth once daily. Takes sporadically Taking Yes No medication comments found. ALLERGIES Allergen Reactions Oxycodone Vomiting Objective PHYSICAL EXAM: General: alert and oriented, healthy appearance and obese. Pertinent negatives noted - not distressed. Skin: normal color, no rash or lesions. HEENT: EOM intact and pupils equal round. Cardiovascular: regular rate and rhythm, normal S1 and S2, no rub, murmurs, or gallop. Respiratory: normal breath sounds, no wheezes or crackles. No chest wall deformity or tenderness. Abdomen: bowel sounds present. Pertinent negatives noted - no abnormal bowel sounds. Extremities: no deformity, no edema or tenderness, no joint swelling or clubbing. Neurological: normal cognition and motor skills. Gait normal. No weakness or sensory deficit. PAIN ASSESSMENT: Pain Pain Level: 0 VITALS: BP 146/75 Pulse 71 Temp 98.2 Resp 18 Ht 5' 3.5 (1.61m) Wt 225 lb (102.1kg) SpO2 98% BMI 39.23 kg/(m^2). Diagnostic tests reviewed for today's visit: Lab Value Units Date High Low HB No results within date range. HCT No results within date range. WBC No results within date range. PLT No results within date range. NA No results within date range. K No results within date range. GLUC No results within date range. BUN No results within date range. CREAT No results within date range. PTSEC No results within date range. INR No results within date range. APTT No results within date range. ALT No results within date range. AST No results within date range. TBILI No results within date range. TSH No results within date range. Lab Value Units Date High Low HCGQT No results within date range. UHCG No results within date range. HCG, BODY* No results within date range. Lab Value Units Date High Low ABORHD No results within date range. ABSCREEN No results within date range. No results found for: HBA1C No results found for this or any previous visit (from the past 8760 hour(s)). No results found for this or any previous visit (from the past 63258 hour(s)). Assessment No problem-specific Assessment & Plan notes found for this encounter. Miranda Activity Status Index: METS: Climb a flight of stairs or walk up a hill (5.50 METs) DASI Score: 5.5 Patient denies any chest pain or undue shortness of breath with the above physical activity. Clinical Frailty Scale: 2. Well ARISCAT Score: Age: 51-80 Preoperative SpO2: >=96% Respiratory infection in the last month: No Preoperative anemia: No Surgical incision: peripheral Duration of surgery: >3 hrs Emergency procedure: No ARISCAT Score: 26 ANESTHESIA FINDINGS: Intubation History: No history of difficult intubation. No abnormal airway history Significant Anesthesia Considerations: one occurance potential postop nausea/vomiting Airway History: No history of difficult airway No abnormal airway history I - PHYSICAL EVALUATION AIRWAY Patient intubated: No. Vargas present: no DENTAL Dental findings: teeth intact and missing tooth/teeth. Additional comments: One loose tooth. II - ANESTHESIA PLAN Anesthetic Plan: general Beta Tad Monitoring Plan Post Procedure Analgesic Plan Prepared for Surgery: CONSULTS: Patient does not require consults for optimization at this time Planned Anesthetic: general The Following Tests/Procedures Have Been Initiated: No orders of the defined types were placed in this encounter. Implantable Devices: Clips in abdomen. Patient has the following medical conditions which may affect tacos-operative course HTN - Well controlled. Amlodipine. Pt instructed to take blood pressure and heart medications DOS. The Following Tests/Procedures Have Been Initiated: None Assessment/Plan Uterine leiomyoma, unspecified location [D25.9] Uterine prolapse [N81.4] Midline cystocele [N81.11] Rectocele [N81.6] Leiomyoma of uterus, unspecified [D25.9] PLAN Diagnosis: Planned Procedure: Procedure(s): cysto/anterior repair, posterior repair, sacrospinous ligament fixation, possible desera sling (N/A) ANTERIOR COLPORRHAPHY REPAIR CYSTOCELE WITH OR W/O REPAIR URETHROCELE INCLUDING CYSTOURETHROSCOPY WHEN PERFORMED (N/A) POSTERIOR COLPORRHAPHY W/ REPAIR RECTOCELE AND PERINEORRHAPHY (N/A) FIXATION LIGAMENT SACROSPINOUS (N/A) SLING SURGERY FOR STRESS INCONTINENCE W/ TENSION FREE VAG TAPE (N/A) VAGINAL HYSTERECTOMY (N/A) Instructions Given to Patient: Instructions located in the after visit summary. Patient given verbal and written preop instructions and voices comprehension and compliance. SIGNATURE: LEYDA Song PATIENT NAME: Shannon Lam DATE: December 28, 2021 TIME: 1:55 PM PAGER/CONTACT #: documented in this encounter [facility] 12-28-2021 Instructions LEYDA Song - 12/28/2021 1:55 PM EST PATIENT PREOPERATIVE INSTRUCTIONS Your surgeon has scheduled for your procedure at this surgery center: [facility]: [phone], [address] [id number] Please enter through the main entrance and proceed to the blue elevators. The surgery [facility] is located to the left of the blue elevator. Please read below carefully for your personalized instructions. Arrival Time for Surgery: DATE: 01/13/22 OR TIME: 7:30AM CHECK IN TIME: 6:00AM Please be aware that emergency situations arise, which may delay or change your surgical time. If this happens, we will notify you as soon as possible and regret any inconvenience. Requirement for Vaccinations : 72-hour period between getting vaccine and date of surgery. Dietary Restrictions: - Nothing to eat after midnight. You may have 12 ounces of clear liquids ( water, Gatorade, apple juice, carbonated beverage, clear tea or black coffee) until 4 hours before your surgery. This is important because if you do, your surgery may have to be cancelled Blood Thinning Medications: - Stop NSAIDS (Ibuprofen, Advil, Aleve, Motrin, Celebrex, Mobic, etc.) 7 days before surgery, as directed by your surgeon. You may take Tylenol (Acetaminophen) or any of your pain medications that do not contain aspirin or NSAIDS as needed. IF YOU TAKE ANY OF THE FOLLOWING BLOOD THINNERS, PLEASE CONTACT YOUR SURGEON AND THE PHYSICIAN WHO PRESCRIBES IT FOR YOU IN ORDER TO GET PERIOPERATIVE INSTRUCTIONS SOON POSSIBLE. BLOOD THINNERS: Aspirin , Coumadin, Plavix, Eliquis, Pradaxa, Xarelto, Lovenox, Brilinta, Effient, Savaysa, Arixtra, etc - Stop Vitamin E, fish oil, multivitamins, Marijuana, CBD oil and other over the counter herbals and dietary supplements 7 days before surgery. -This would not apply to cancer patients who are prescribed Marinol or any other prescription form on marijuana or CBD. -exception Dr. Donald and Dr. Torres want their patients npo at midnight. Medications: Approved medications to take the morning of surgery with a sip of water: BP, HCTZ, Heart, thyroid, psych, seizure, and pain medications excluding NSAIDS. Use inhalers as prescribed. Please bring inhalers. Diabetes Please follow up with the provider that manages your diabetes and how to prepare you for surgery. If you are taking the following medications for Type 2 diabetes: Canagliflozin (INVOKANA), dapagliflozin (FARXIGA), and empagliflozin (JARDIANCE) should each be discontinued at least 3 days before scheduled surgery. Ertugliflozin (STEGLATRO) should be discontinued at least four days before scheduled surgery. Bring your Glucometer to [facility] if you are scheduled in [place] for OR. If you have a stimulator, implant or pump that requires a remote please bring the remote with you day of surgery. Erectile dysfunction: If you take any medications for erectile dysfunction- Cialis (Tadalafil), Levitra, Staxyn, (Vardenafil), Viagra (Sildenenafil). Please do not take these for 48 hours before surgery. Pain Medications: Tylenol for pain as needed and if you are not allergic to. Medications to be taken with small amount of fluid on the morning of surgery: If you start any new medications after today's visit, please contact the surgeon's office. Important Reminders: - If you use CPAP/BIPAP, bring the machine with you to the surgery center. - If you are prescribed inhalers for breathing, continue using them AND bring them to the surgery center. - Candy, mints, gum and tobacco products are NOT permitted the morning of surgery. - Hearing aids, dentures and glasses may be worn the morning of surgery. - NO jewelry, body piercings, makeup, hairpins or contacts are to be worn the day of surgery. -Oral hygiene and a shower or bath is required the evening before or the morning of surgery. Use the Hibiclens body wash supplied to you along with the instruction. - NO lotion, creams, powders or deodorants on the skin the day of surgery -Wear loose, comfortable clothing that will accommodate bandages. -Your length of stay will be determined by your surgeon - You will need to have someone else (Family or friend) drive you home once discharged from the hospital. You are not allowed to drive yourself home after surgery. - YOU MUST HAVE A RESPONSIBLE RESEARCH PHARMACIST TAKE YOU HOME. A DRAWER HARDWARE WORKER, CAB OR UBER RESEARCH PHARMACIST CANNOT BE MADE A RESPONSIBLE RESEARCH PHARMACIST. - We recommend that a responsible person stays with you overnight to take care of you. - You cannot stay in a hotel alone after outpatient surgery. You will not be permitted to have your surgery, if you do not have someone to take care of you. CCAG: Given COVID 19 pandemic, one visitor is allowed in the hospital. They may wait in the surgery waiting room while you are in surgery but must wear a mask. Only one visitor will be permitted to visit you while your admitted after surgery. If you develop symptoms such as a fever, cold, or flu, or have other changes to your health within TWO DAYS of scheduled surgery or the morning of surgery, please contact the surgery center above. Personal Belongings: - Leave ALL valuables and money at home or with family members. - You will need a form of ID and insurance card to check in the morning of surgery. - You will have to wear a hospital gown during your stay but if you wish to bring undergarments for after surgery you may. Ambulatory surgery center [place]- orthopedic patients needing a walker should bring the walker into the building day of surgery. Orthopedic patients having surgery [facility] listed as outpatient should bring their walker into the building. Orthopedic patients having surgery [facility] listed as to be admitted should leave their walkers in the car or with a family member. LEYDA Song 12/28/21 documented in this encounter [facility] 10-20-2021 Note HNO ID: [id number] Author: Parvez Webster MD Service: ? Author Type: Physician Type: Progress Notes Filed: 10/20/2021 11:40 AM Note Text: ESTABLISHED PATIENT VISIT HPI Shannon Lam is a 65 year old female who presents to discuss surgery. She is scheduled for cystoscopy anterior and posterior repair and sacrospinous ligament fixation along with vaginal hysterectomy. Today we reviewed the risk benefits and alternatives to surgical correction. She has no stress urinary incontinence and we will not be doing a continence procedure. We discussed risk and benefits and potential outcomes. We reviewed the potential risk of repeat surgery, new urinary incontinence and persistent pudendal nerve pain possibly requiring surgery. Her questions were answered regarding surgery and she is comfortable proceeding. We have reviewed the most common postoperative complications that we encounter with procedures and they include the following but are not limited to: 1. Infection, wound infection or urinary tract infection 2. Bleeding and the ossible risk of transfusion, the risk of transfusion is very low however he will have some spotting or vaginal bleeding for some time. This may last up to 2 weeks. 3. It is common after surgery to have difficulties urinating. It is possible that she may go home with a catheter and require an office visit for removing the catheter. Our goal is that she does not experience any urinary incontinence after surgery however it is possible that she may have persistent urinary leakage. It is possible that she may require a second surgical procedure to correct urinary incontinence, urinary retention or incomplete bladder emptying. It is not uncommon for patients experience overactive bladder symptoms, urinary frequency urgency, often this will resolve with time. For patients that previously have experienced urinary frequency and urgency these symptoms may persist after surgery. 4. We always worry about injury to other organs including bowel, bladder and blood vessels. We frequently look in the bladder, cystoscopy, to ensure that there is no bladder injury. 5. There is always a possibility for repeat surgery to correct any problems that have developed. 6. We are always worried about postoperative blood clots and encourage walking after surgery. 7. After surgery walking, climbing stairs are driving are allowed when you are comfortable, no heavy lifting greater than 20 pounds for 4-6 weeks. You may shower immediately after surgery. No tub baths for 2 weeks after surgery. Please refrain from anything in the vagina for 4-6 weeks or until your sutures have dissolved. 8. Once you have healed intercourse should not be uncomfortable if you're noticing any pain or discomfort please let us know. GLUCOSE UA (POCT) Negative 10/20/2021 BILIRUBIN UA (POCT) Negative 10/20/2021 KETONE UA (POCT) Negative 10/20/2021 SPECIFIC GRAVITY UA (POCT) 1.020 10/20/2021 HEMOGLOBIN/BLOOD UA (POCT) Small 10/20/2021 PH UA (POCT) 6.0 10/20/2021 PROTEIN UA (POCT) Negative 10/20/2021 UROBILINOGEN UA (POCT) 0.2 10/20/2021 NITRITE UA (POCT) Negative 10/20/2021 LEUKOCYTES UA (POCT) Trace 10/20/2021 COLOR UA (POCT) Yellow 10/20/2021 CLARITY UA (POCT) Clear 10/20/2021 REVIEW OF SYSTEMS GENERAL:No weight loss, malaise or fevers., SEE HPI GENITOURINARY: See HPI CONSTITUTIONALl: No recent fever or weight loss ALLERGIES Allergen Reactions Oxycodone GI Upset HISTORIES PAST MEDICAL HISTORY Diagnosis Date Essential hypertension No family history on file. Social History Tobacco Use Smoking status: Former Types: Cigarettes Quit date: 2008 Years since quittin.6 Smokeless tobacco: Never Substance Use Topics Alcohol use: Never Drug use: Never MEDICATIONS: amLODIPine (NORVASC) 10 mg tablet Take 10 mg by mouth once daily. ascorbate calcium-bioflavonoid 1,000-200 mg tab Take 2,500 mg by mouth once daily. fexofenadine (YENNI) 180 mg tablet Take 180 mg by mouth once daily. fluticasone (FLONASE) 50 mcg/actuation nasal spray Use 1 [place] in the nose as needed. L.acidophil-L.plantar-Bifido 7 (UP4 PROBIOTICS ADULT) 15 billion cell cap Take by mouth. Cholecalciferol, Vitamin D3, 50 mcg (2,000 unit) cap Take 1 capsule by mouth once daily. (Patient not taking: No sig reported) Physical Exam Ht 161.3 cm (5' 3.5 ) Wt 103.4 kg (228 lb) BMI 39.75 kg/m? ASSESSMENT/PLAN: (N81.11) Midline cystocele (primary encounter diagnosis) (N81.6) Rectocele (N81.4) Uterine prolapse Plan cystoscopy, anterior and posterior repair possible sacrospinous ligament fixation or uterosacral ligament fixation. [facility] 10-20-2021 History of Presen t illness Narrative ESTABLISHED PATIENT VISIT HPI Shannon Lam is a 65 year old female who presents to discuss surgery. She is scheduled for cystoscopy anterior and posterior repair and sacrospinous ligament fixation along with vaginal hysterectomy. Today we reviewed the risk benefits and alternatives to surgical correction. She has no stress urinary incontinence and we will not be doing a continence procedure. We discussed risk and benefits and potential outcomes. We reviewed the potential risk of repeat surgery, new urinary incontinence and persistent pudendal nerve pain possibly requiring surgery. Her questions were answered regarding surgery and she is comfortable proceeding. We have reviewed the most common postoperative complications that we encounter with procedures and they include the following but are not limited to: 1. Infection, wound infection or urinary tract infection 2. Bleeding and the ossible risk of transfusion, the risk of transfusion is very low however he will have some spotting or vaginal bleeding for some time. This may last up to 2 weeks. 3. It is common after surgery to have difficulties urinating. It is possible that she may go home with a catheter and require an office visit for removing the catheter. Our goal is that she does not experience any urinary incontinence after surgery however it is possible that she may have persistent urinary leakage. It is possible that she may require a second surgical procedure to correct urinary incontinence, urinary retention or incomplete bladder emptying. It is not uncommon for patients experience overactive bladder symptoms, urinary frequency urgency, often this will resolve with time. For patients that previously have experienced urinary frequency and urgency these symptoms may persist after surgery. 4. We always worry about injury to other organs including bowel, bladder and blood vessels. We frequently look in the bladder, cystoscopy, to ensure that there is no bladder injury. 5. There is always a possibility for repeat surgery to correct any problems that have developed. 6. We are always worried about postoperative blood clots and encourage walking after surgery. 7. After surgery walking, climbing stairs are driving are allowed when you are comfortable, no heavy lifting greater than 20 pounds for 4-6 weeks. You may shower immediately after surgery. No tub baths for 2 weeks after surgery. Please refrain from anything in the vagina for 4-6 weeks or until your sutures have dissolved. 8. Once you have healed intercourse should not be uncomfortable if you're noticing any pain or discomfort please let us know. GLUCOSE UA (POCT) Negative 10/20/2021 BILIRUBIN UA (POCT) Negative 10/20/2021 KETONE UA (POCT) Negative 10/20/2021 SPECIFIC GRAVITY UA (POCT) 1.020 10/20/2021 HEMOGLOBIN/BLOOD UA (POCT) Small 10/20/2021 PH UA (POCT) 6.0 10/20/2021 PROTEIN UA (POCT) Negative 10/20/2021 UROBILINOGEN UA (POCT) 0.2 10/20/2021 NITRITE UA (POCT) Negative 10/20/2021 LEUKOCYTES UA (POCT) Trace 10/20/2021 COLOR UA (POCT) Yellow 10/20/2021 CLARITY UA (POCT) Clear 10/20/2021 REVIEW OF SYSTEMS GENERAL:No weight loss, malaise or fevers., SEE HPI GENITOURINARY: See HPI CONSTITUTIONALl: No recent fever or weight loss ALLERGIES Allergen Reactions Oxycodone GI Upset HISTORIES PAST MEDICAL HISTORY Diagnosis Date Essential hypertension No family history on file. Social History Tobacco Use Smoking status: Former Types: Cigarettes Quit date: 2008 Years since quittin.6 Smokeless tobacco: Never Substance Use Topics Alcohol use: Never Drug use: Never MEDICATIONS: amLODIPine (NORVASC) 10 mg tablet Take 10 mg by mouth once daily. ascorbate calcium-bioflavonoid 1,000-200 mg tab Take 2,500 mg by mouth once daily. fexofenadine (YENNI) 180 mg tablet Take 180 mg by mouth once daily. fluticasone (FLONASE) 50 mcg/actuation nasal spray Use 1 [place] in the nose as needed. L.acidophil-L.plantar-Bifido 7 (UP4 PROBIOTICS ADULT) 15 billion cell cap Take by mouth. Cholecalciferol, Vitamin D3, 50 mcg (2,000 unit) cap Take 1 capsule by mouth once daily. (Patient not taking: No sig reported) Physical Exam Ht 161.3 cm (5' 3.5 ) Wt 103.4 kg (228 lb) BMI 39.75 kg/m ASSESSMENT/PLAN: (N81.11) Midline cystocele (primary encounter diagnosis) (N81.6) Rectocele (N81.4) Uterine prolapse Plan cystoscopy, anterior and posterior repair possible sacrospinous ligament fixation or uterosacral ligament fixation. documented in this encounter [facility] 08-20-2021 History of Presen t illness Narrative Shannon Lam is a 65 year old female who presents with a chief complaint of Pre-Op Visit (pap) SUBJECTIVE Patient also presents as a referral from Dr. Webster for a total vaginal hysterectomy and a vaginal anterior and posterior repair done by him. Went over the risk, benefits, the major minor complications, signed consent form. Went surgery itself, hospital course, recovery PAST MEDICAL HISTORY Diagnosis Date Essential hypertension PAST SURGICAL HISTORY Procedure Laterality Date BOWEL RESECTION HX 2005 D&C, DIAG AND/OR THERAPEUTIC 1980 LAP SLEEVE GASTRECTOMY 12/31/2013 LIGATE FALLOPIAN TUBE Bilateral 1995 NRV DESTR RFA, CHEM OTHER 2005 NRV DESTR RFA, CHEM OTHER 2009 HPV REPAIR INCISIONAL HERNIA,REDUCIBLE 2010 REPAIR INCISIONAL HERNIA,REDUCIBLE 04/09/2016 REPAIR INCISIONAL HERNIA,REDUCIBLE 10/29/2018 Social History Tobacco Use Smoking status: Former Smoker Quit date: 2008 Years since quittin.5 Smokeless tobacco: Never Used Substance Use Topics Alcohol use: Never Drug use: Never History reviewed. No pertinent family history. OB History No obstetric history on file. OBJECTIVE ALLERGIES Allergen Reactions Oxycodone GI Upset Current Outpatient Medications Medication Sig amLODIPine (NORVASC) 10 mg tablet Take 10 mg by mouth once daily. ascorbate calcium-bioflavonoid 1,000-200 mg tab Take 2,500 mg by mouth once daily. fexofenadine (YENNI) 180 mg tablet Take 180 mg by mouth once daily. L.acidophil-L.plantar-Bifido 7 (UP4 PROBIOTICS ADULT) 15 billion cell cap Take by mouth. Cholecalciferol, Vitamin D3, 50 mcg (2,000 unit) cap Take 1 capsule by mouth once daily. (Patient not taking: Reported on 08/20/2021 ) fluticasone (FLONASE) 50 mcg/actuation nasal spray Use 1 [place] in the nose as needed. (Patient not taking: Reported on 08/20/2021 ) No current facility-administered medications for this visit. Review of Systems Constitutional: Denies weight loss, weight gain, fever Eyes: Negative vision changes ENT/Mouth: No ulcers, sinusitis, tinnitus Cardiovascular: Denies GONZALEZ, Edema, palpitations, chest pain Respiratory: Denies wheezing, hemoptysis, SOB, cough Gastrointestinal: Denies diarrhea, bloody stool, constipation Genitourinary: See HPI Musculoskeletal: Denies muscle weakness Skin/breast: Denies discharge, masses, rash, ulcers Neurological: Denies syncope, seizures, numbness Physical Exam BP 155/84 Ht 5' 3.5 (1.61m) Wt 223 lb (101.2kg) BMI 38.88 kg/(m^2). 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 Women's annual routine gynecological examination - ICD9: V72.31, ICD10: Z01.419 (primary diagnosis) - Completed pelvic and breast exam - Encouraged monthly BSE - Follow up for annual exam in one year. - PAP FLUID CERVICAL SCREENING - VAN SCREENING 2. Routine cervical smear - ICD9: V76.2, ICD10: Z12.4 - Completed pelvic and breast exam - Encouraged monthly BSE - Follow up for annual exam in one year. - PAP FLUID CERVICAL SCREENING 3. Uterine prolapse - ICD9: 618.1, ICD10: N81.4 Consent signed and ready for surgery Giovany Mcnair DO documented in this encounter [facility] 05-11-2021 History of Presen t illness Narrative NEW PATIENT HISTORY AND PHYSICAL EXAM HISTORY OF PRESENT ILLNESS: Shannon Lam is a 65 year old female who presents New patient consult Dr Yesi Sánchez for Prolapse of Bladder, Rectocele and uterine No CORTEZ currently - stream is slower - feeling of incomplete bladder. No CORTEZ during her UDS. Moderate urgency and occasional urge incont. Does note prolapse. Patient has had multiple abdominal surgeries including a bowel resection and hernia repairs. Discussed proceeding vaginally. Begin reviewing A/P repair, perineoplasty, vag hys and SSLF. She would like surgery in the fall. 3 REVIEW OF SYSTEMS: GENERAL:No weight loss, malaise or fevers ALLERGIC/IMMUNOLOGIC: drug allergies HEENT:Negative for frequent or significant headaches, No changes in hearing or vision, no nose bleeds or other nasal problems RESPIRATORY: Negative for cough, hemoptysis, wheezing, COPD, dyspnea or shortness of breath CARDIOVASCULAR: Negative for chest pain, leg swelling, hypertension, CHF or palpitations GASTROINTESTINAL: No nausea, vomiting, or diarrhea GENITOURINARY: See HPI MUSCULOSKELETAL: joint pain or swelling, back pain and muscle pain NEUROLOGIC:Negative for focal numbness or weakness, headaches and dizziness or syncope. Negative for focal numbness or weakness, headaches and dizziness SKIN:Negative for lesions, rash, and itching Do you leak with cough, sneeze or exercise No Do you leak with urgency such as getting to the restroom on time or with running water Yes How many times do you urinate during the day 5 - 10 How many times do you get up to urinate at night 1 - 2 How many pads do you wear during the day Panty liners 1 Do you wear pads at night Yes Do you have fecal urgency Rare Do you have fecal incontinence Rare Do you have pain with intercourse No Do you have urinary leakage with intercourse No What medications have you tried to help your leakage No What surgeries have you had for the above symptoms No GLUCOSE UA (POCT) Negative 05/11/2021 BILIRUBIN UA (POCT) Negative 05/11/2021 KETONE UA (POCT) Negative 05/11/2021 SPECIFIC GRAVITY UA (POCT) 1.020 05/11/2021 HEMOGLOBIN/BLOOD UA (POCT) Negative 05/11/2021 PH UA (POCT) 5.5 05/11/2021 PROTEIN UA (POCT) Negative 05/11/2021 UROBILINOGEN UA (POCT) 0.2 05/11/2021 NITRITE UA (POCT) Negative 05/11/2021 LEUKOCYTES UA (POCT) Negative 05/11/2021 COLOR UA (POCT) Yellow 05/11/2021 CLARITY UA (POCT) Clear 05/11/2021 MEDICATIONS: amLODIPine (NORVASC) 10 mg tablet Take 10 mg by mouth once daily. Cholecalciferol, Vitamin D3, 50 mcg (2,000 unit) cap Take 1 capsule by mouth once daily. ascorbate calcium-bioflavonoid 1,000-200 mg tab Take 2,500 mg by mouth once daily. fexofenadine (YENNI) 180 mg tablet Take 180 mg by mouth once daily. fluticasone (FLONASE) 50 mcg/actuation nasal spray Use 1 [place] in the nose as needed. L.acidophil-L.plantar-Bifido 7 (UP4 PROBIOTICS ADULT) 15 billion cell cap Take by mouth. HISTORIES PAST MEDICAL HISTORY Diagnosis Date Essential hypertension History reviewed. No pertinent family history. No past surgical history on file. Social History Tobacco Use Smoking status: Former Smoker Quit date: 2008 Years since quittin.2 Smokeless tobacco: Never Used Substance Use Topics Alcohol use: Never Drug use: Never Physical Exam Ht 161.3 cm (5' 3.5 ) Wt 99.3 kg (219 lb) BMI 38.19 kg/m PHYSICAL EXAM: FEMALE Vital signs: BP 132/80 Ht 161.3 cm (5' 3.5 ) Wt 99.3 kg (219 lb) BMI 38.19 kg/m General Appearance: Normal, No acute distress, well nourished Psych:No signs of depression, anxiety, or agitation. Neuro: Gait normal: Yes SKIN/LYMPH: No rashes noted, no lesions. Respiratory Effort: Normal, no labored breathing Cardiovascular:No extremity swelling varices, edema, pallor, or erythema ABDOMEN: - Liver/spleen: No abnormalities palpable - Hernia: None - Mass: None - Pain on palpation: None - Bladder/Kidney: No abnormalities palpable Extremities:Extremities normal. No deformities, edema, clubbing or skin discoloration. GENITALIA FEMALE EXAM: External Genitalia: Normal, no atrophy, no rash Urethral Meatus: Normal, no prolapse or caruncle Urethra: No mass, no tenderness and no diverticulum. Urethral angle: >30 degrees Stress incontinence on exam: no Bladder:cystocele 2 cm beyond the hymen Vagina: Rectocele: At hymen Cervix: Present without inflammation or discharge Uterus: Not enlarged; uterine prolapse at hymen Adnexa: No palpable mass; no cysts; no tenderness Anus/Perineum: Deferred Levator tenderness: no ASSESSMENT/PLAN: (D25.9) Uterine leiomyoma, unspecified location (primary encounter diagnosis) Plan: US FEMALE PELVIS TRANSVAG (N81.4) Uterine prolapse (N81.11) Midline cystocele (N81.6) Rectocele Plan A&P repair, USLF, possible sling documented [facility] encounter [facility] Uterine leiomyoma, unspecified location [facility] Diagnosis Women's annual routine gynecological examination- Primary Routine cervical smear Screening for malignant neoplasm of the cervix Uterine prolapse Uterine prolapse without mention of vaginal wall prolapse documented in this encounter [facility] note* Diagnosis Midline cystocele- Primary Cystocele, midline Rectocele Uterine prolapse Uterine prolapse without mention of vaginal wall prolapse Uterine leiomyoma, unspecified location Uterine prolapse Uterine prolapse without mention of vaginal wall prolapse Midline cystocele Cystocele, midline Rectocele documented in this encounter [facility] note* Diagnosis Preop examination [Z01.818 (ICD-10-CM)]- Primary Preoperative examination, unspecified Uterine leiomyoma, unspecified location [D25.9 (ICD-10-CM)] Uterine prolapse [N81.4 (ICD-10-CM)] Uterine prolapse without mention of vaginal wall prolapse Midline cystocele [N81.11 (ICD-10-CM)] Cystocele, midline Rectocele [N81.6 (ICD-10-CM)] Rectocele Hypertension, unspecified type [I10 (ICD-10-CM)] Uterine leiomyoma, unspecified location Uterine prolapse Uterine prolapse without mention of vaginal wall prolapse Midline cystocele Cystocele, midline Rectocele documented in this encounter [facility] note* Diagnosis Midline cystocele- Primary Cystocele, midline Prolapse of vaginal vault after hysterectomy documented in this encounter [facility] note* Diagnosis Rectocele [N81.6]- Primary Rectocele Postoperative vaginal bleeding following genitourinary procedure Genitourinary syndrome of menopause documented in this encounter [facility] note* Diagnosis Vaginal atrophy- Primary Postmenopausal atrophic vaginitis documented in this encounter [facility] note* Diagnosis Vaginal ulceration- Primary Other inflammatory disease of cervix, vagina and vulva Vaginal discharge Leukorrhea, not specified as infective documented in this encounter [facility] for referral (narrative)* Diagnostic Procedure Only (Routine) - Authorized Specialty Diagnoses / Procedures Referred By Blake cancino Referred To Contact [facility] IMAGING Diagnoses Uterine leiomyoma, unspecified location Procedures US FEMALE PELVIS TRANSVAG US TRANSVAGINAL Parvez Webster MD [address] [place] [address] [facility] Referral ID Status Reason Start Date Expiration Date Visits Requested Visits Authorized [id number] Authorized Auto-Generat ed Referral 05/11/2021 06/10/2022 1 1 [facility] for referral (narrative)* Diagnostic Procedure Only (Routine) - Closed Specialty Diagnoses / Procedures Referred By Contac t Referred To Contact US IMAGING Diagnoses Uterine leiomyoma, unspecified location Procedures US FEMALE PELVIS TRANSVAG US TRANSVAGINAL Parvez Webster MD [address] [place] [address] Us Imaging Referral ID Status Reason Start Date Expiration Date V isits Requested Visits Authorized [id number] Closed Auto-Generate d Referral 05/11/2021 06/10/2022 1 1 [facility] for referral (narrative)* Diagnostic Procedure Only (Routine) - Pending Review Specialty Diagnoses / Procedures Referred By Contac t Referred To Contact [facility] Diagnoses Women's annual routine gynecological examination Procedures VAN SCREENING SCREENING MAMMOGRAPHY BI 2-VIEW BREAST INC CAD Giovany Mcnair DO [address] [place] [address] [facility] [address] [place] [address] Referral ID Status Reason Start Date Expiration Date Visits Requested Visits Authorized [id number] Pending Review Auto-Generat ed Referral 08/20/2021 09/19/2022 1 1 [facility] for visit Narrative* Diagnostic Procedure Only (Routine) - Closed Specialty Diagnoses / Procedures Referred By Contac t Referred To Contact US IMAGING Diagnoses Uterine leiomyoma, unspecified location Procedures US FEMALE PELVIS TRANSVAG US TRANSVAGINAL Parvez Webster MD [address] [place] [address] Us Imaging Referral ID Status Reason Start Date Expiration Date V isits Requested Visits Authorized [id number] Closed Auto-Generate d Referral 05/11/2021 06/10/2022 1 1 [facility] Summary Purpose Family History No Family History Records FoundNo Family History Records Found Advance Directives No Advanced Directives Records FoundNo Advanced Directives Records Found Additional Source Comments Source Comments (unrecognize d section and content) In the event this informatio n is protected by the Federal Confidentiality of Alcohol and Drug Abuse Patient Records regulations: The Federal rules restrict any use of the information to criminally investigate or prosecute any alcohol or drug abuse patient.[facility] event this information is protected by the Federal Confidentiality of Alcohol and Drug Abuse Patient Records regulations: The Federal rules restrict any use of the information to criminally investigate or prosecute any alcohol or drug abuse patient.[facility] the event this information is protected by the Federal Confidentiality of Alcohol and Drug Abuse Patient Records regulations: The Federal rules restrict any use of the information to criminally investigate or prosecute any alcohol or drug abuse patient.[facility] the event this information is protected by the Federal Confidentiality of Alcohol and Drug Abuse Patient Records regulations: The Federal rules restrict any use of the information to criminally investigate or prosecute any alcohol or drug abuse patient.[facility] the event this information is protected by the Federal Confidentiality of Alcohol and Drug Abuse Patient Records regulations: The Federal rules restrict any use of the information to criminally investigate or prosecute any alcohol or drug abuse patient.[facility] the event this information is protected by the Federal Confidentiality of Alcohol and Drug Abuse Patient Records regulations: The Federal rules restrict any use of the information to criminally investigate or prosecute any alcohol or drug abuse patient.[facility] the event this information is protected by the Federal Confidentiality of Alcohol and Drug Abuse Patient Records regulations: The Federal rules restrict any use of the information to criminally investigate or prosecute any alcohol or drug abuse patient.[facility] the event this information is protected by the Federal Confidentiality of Alcohol and Drug Abuse Patient Records regulations: The Federal rules restrict any use of the information to criminally investigate or prosecute any alcohol or drug abuse patient.[facility] the event this information is protected by the Federal Confidentiality of Alcohol and Drug Abuse Patient Records regulations: The Federal rules restrict any use of the information to criminally investigate or prosecute any alcohol or drug abuse patient.[facility] the event this information is protected by the Federal Confidentiality of Alcohol and Drug Abuse Patient Records regulations: The Federal rules restrict any use of the information to criminally investigate or prosecute any alcohol or drug abuse patient.[facility] the event this information is protected by the Federal Confidentiality of Alcohol and Drug Abuse Patient Records regulations: The Federal rules restrict any use of the information to criminally investigate or prosecute any alcohol or drug abuse patient.[facility] the event this information is protected by the Federal Confidentiality of Alcohol and Drug Abuse Patient Records regulations: The Federal rules restrict any use of the information to criminally investigate or prosecute any alcohol or drug abuse patient.[facility] the event this information is protected by the Federal Confidentiality of Alcohol and Drug Abuse Patient Records regulations: The Federal rules restrict any use of the information to criminally investigate or prosecute any alcohol or drug abuse patient.[facility] the event this information is protected by the Federal Confidentiality of Alcohol and Drug Abuse Patient Records regulations: The Federal rules restrict any use of the information to criminally investigate or prosecute any alcohol or drug abuse patient.[facility] the event this information is protected by the Federal Confidentiality of Alcohol and Drug Abuse Patient Records regulations: The Federal rules restrict any use of the information to criminally investigate or prosecute any alcohol or drug abuse patient.[facility] the event this information is protected by the Federal Confidentiality of Alcohol and Drug Abuse Patient Records regulations: The Federal rules restrict any use of the information to criminally investigate or prosecute any alcohol or drug abuse patient.[facility] Reason for Visit (unrecogniz ed section and content) Reason Comments Pre-Op Visit pap Reason Comments Follow Up Discuss surgery Reason Comments Patient Question Reason Comments Post-Op Visit Post op 01/13/2022 Cy stoscopy, anterior repair, sacrospinous ligament fixation. 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 Abnormal uterine ble eding since 01/13/22 hysterectomy and bladder surgery Reason Comments Follow Up Vaginal cuff Care Teams (unrecognized sec tion and content) Energy Systems Engineer Relationship Specialty Start Date End Date David Sánchez MD [address] [place] [address] PCP - General Internal Medicine 10/20/21 Energy Systems Engineer Relationship Specialty Start Date End Date David Sánchez MD [address] [place] [address] PCP - General Internal Medicine 10/20/21 Energy Systems Engineer Relationship Specialty Start Date End Date David Sánchez MD [address] [place] [address] PCP - General Internal Medicine 10/20/21 Energy Systems Engineer Relationship Specialty Start Date End Date David Sánchez MD [address] [place] [address] PCP - General Internal Medicine 10/20/21 Energy Systems Engineer Relationship Specialty Start Date End Date David Sánchez MD [address] [place] [address] PCP - General Internal Medicine 10/20/21 Energy Systems Engineer Relationship Specialty Start Date End Date David Sánchez MD [address] [place] [address] PCP - General Internal Medicine 10/20/21 Energy Systems Engineer Relationship Specialty Start Date End Date David Sánchez MD [address] [place] [address] PCP - General Internal Medicine 10/20/21 Energy Systems Engineer Relationship Specialty Start Date End Date David Sánchez MD [address] [place] [address] PCP - General Internal Medicine 10/20/21 Energy Systems Engineer Relationship Specialty Start Date End Date David Sánchez MD [address] [place] [address] PCP - General Internal Medicine 10/20/21 Energy Systems Engineer Relationship Specialty Start Date End Date David Sánchez MD [address] [place] [address] PCP - General Internal Medicine 10/20/21 INFORMATION SOURCE (unrecogn ized section and content) DATE CREATED AUTHOR AUTHOR'S ORGANIZ ATION 04/02/2023 [facility] FOR RECORDS PERTAINING TO PATIENTS WHO ARE OR HAVE BEEN ENROLLED IN A CHEMICAL DEPENDENCY/SUBSTANCEABUSE PROGRAM, SOME INFORMATION MAY BE OMITTED. This clinical summary was aggregated from multiple sources. Caution should be exercised in using it in the provision of clinical care. This summary normalizes information from multiple sources, and as a consequence, information in this document may materially change the coding, format and clinical context of patient data. In addition, data may be omitted in some cases. CLINICAL DECISIONS SHOULD BE BASED ON THE PRIMARY CLINICAL RECORDS. [facility], [facility]. provides no warranty or guarantee of the accuracy or completeness of information in this document.
[2023-04-17 10:35] LABS: Absolute Lymphocyte Count 2.13 X10^3/uL (0.83-4.51); Absolute Neutrophil Count 5.7 X10^3/uL (2.0-7.7); Basophil# 0.08 X10^3/uL; Basophil% 0.9 % (0-1); Eosinophil# 0.15 X10^3/uL; Eosinophils% 1.7 % (0-5); Hematocrit 44.3 % (37-47); Hemoglobin 14.4 g/dL (12.0-15.0); Lymphocyte # 2.13 X10^3/ul (0.83-4.51); Lymphocyte % 23.8 % (19-41); Mean Corp Hgb Conc 32.5 g/dL (32-36); Mean Corpuscular Hgb 28.1 pg (27.0-32.0); Mean Corpuscular Volume 86.4 fL (81-99); Mean Platelet Vol. 11.6 fl (6.2-12.0); Monocyte# 0.85 X10^3/uL; Monocyte% 9.5 % (0-10); NRBC Flagged by Analyzer 0 % (0-5); Neutrophil # 5.67 X10^3/uL (2.7-7.7); Neutrophil % 63.4 % (47-70); Platelet Count 271 K/mm3 (150-450); RBC Distribution Width CV 13.7 % (11.6-14.6); RBC Distribution Width SD 43.5 fl (35.1-43.9); Red Blood Count 5.13 M/mm3 (4.2-5.4); White Blood Count 8.9 K/mm3 (4.4-11.0)
[2023-04-17 10:52] LABS: Vitamin D,25 Hydroxy 34.5 ng/mL
[2023-04-17 10:54] LABS: Hemoglobin A1c 6.1 % (3.8-5.6)
[2023-04-17 10:58] LABS: AST(SGOT) 18 U/L (15-37); Alanine Aminotransfer ALT/SGPT 25 U/L (13-56); Albumin, Serum 3.6 g/dL (3.2-5.0); Alkaline Phosphatase 79 U/L (45-117); Anion Gap 4 (5-15); BUN 14 mg/dL (7-18); BUN/Creat Ratio 28.3 RATIO (10-20); Calcium,Total 9.1 mg/dL (8.5-10.1); Chloride 108 mmol/L (98-107); Creatinine, Serum 0.49 mg/dL (0.55-1.02); EST Glomerular Filtration Rate 133 mL/min (>60); Est Glom Filt Rate - Afr Amer 161 mL/min (>60); Globulin 3.7 g/dL (2.2-4.2); Glucose 100 mg/dL (74-106); Protein, Total 7.3 g/dL (6.4-8.2); Sodium Level 141 mmol/L (136-145)
== END | disposition home or self-care (01) ==
PROVIDERS: PCP Internal Medicine; Referring Provider Internal Medicine; Visit Provider Internal Medicine
DX: R73.9 Hyperglycemia, unspecified (principal); E88.810 Metabolic syndrome; E78.1 Pure hyperglyceridemia; I10 Essential (primary) hypertension; E55.9 Vitamin D deficiency, unspecified
CPT/HCPCS: 36415; 80053; 82306; 83036; 85025

== ENCOUNTER → 2023-05-03 | Outpatient (CLI) | payer OTHER, SELFPAY ==
--- NOTE | 2023-05-03 07:35 | CT_ITS ---
STUDY: LOW DOSE CT LUNG CANCER SCREENING REASON FOR EXAM: Female, 67 years old. 30 year history (40 p/yr hx) smoker RADIATION DOSAGE (If Supplied By Facility): CTDIvol = ( 4.02 ) mGy, DLP = ( 140.44 ) mGycm TECHNIQUE: No contrast was administered. Low dose technique was utilized (average mAS-38 and kVp 120). 1.25 mm axial source images with a slice interval of 1.25-mm were reconstructed in lung windows. 2.5 mm axial source images with a slice interval of 2.5-mm were reconstructed in lung windows. 5.0 mm axial source images with a slice interval of 5.0-mm were reconstructed in soft tissue windows. COMPARISON: None. NODULES: No suspicious nodules are seen. Emphysema: Hyperinflation. Mild emphysematous changes. Mild scarring with bronchiectasis in the medial aspect of the right middle lobe as well as the posterior aspect of the lingular segment of the left upper lobe. Endobronchial lesion: None Aorta: Mild atherosclerotic plaque formation of the aortic arch. CORONARY ARTERIES: Coronary artery calcification is seen. Heart: Unremarkable Pulmonary artery: Unremarkable Mediastinal nodes: Small mediastinal lymph nodes are seen. Other chest and abdominal findings: CT/Low Dose CT Lung Screening IMPRESSION: Lung-RADS category 2 - Continue annual screening with LDCT in 12 months. IMPORTANT NOTES FOR USE: ACR Lung-RADS Version 1.1 Assessment Categories Release Date: 2018 Category: Coded 0-4 bases on nodule(s) with highest degree of suspicion. Negative screen is defined as categories 1 and 2; a positive screen is defined as categories 3 and 4. Category 3 and 4A nodules that are unchanged on interval CT should be coded as category 2, and individuals returned to screening in 12 months. Category 4X: Category 3 or 4 nodules with additional imaging findings that increase the suspicion of lung cancer, such as spiculation, GGN that doubles in size in 1 year, enlarged lymph notes, etc. Category Modifiers: S (significant finding unrelated to lung cancer) Electronically Signed: Duc Goyal MD at 10:50 EDT ,
== END | disposition home or self-care (01) ==
LOC: CT 07:30
PROVIDERS: PCP Internal Medicine; Referring Provider Internal Medicine; Visit Provider Internal Medicine
DX: Z12.2 Encounter for screening for malignant neoplasm of respiratory organs (principal); Z87.891 Personal history of nicotine dependence
CPT/HCPCS: 71271

== ENCOUNTER → 2023-09-29 | Outpatient (CLI) | payer MEDICARE, SELFPAY ==
--- NOTE | 2023-09-29 07:09 | BI_ITS ---
MAMMOGRAPHY - BILATERAL SCREENING REASON FOR EXAM: Female, 67 years old. Routine annual screening examination. PERTINENT HISTORY: Non-contributory. TECHNIQUE: Digital bilateral breast everardo (3D mammographic acquisition) in the CC and MLO projections. 2-D mediolateral oblique (MLO) and craniocaudad (CC) views of both breasts were obtained. CAD: Full Field Digital Mammography with Computer Added Detection was performed. COMPARISON: Comparison is made with prior study September 27, 2022 and September 06, 2021. FINDINGS: Breast Composition: The breasts are almost entirely fatty. There are no dominant masses or suspicious calcifications. Stable small benign-appearing bilateral axillary lymph nodes. No other significant abnormalities are identified. There has been no significant change since the prior study. BI/SCRN MAMM (CAD)W/EVERARDO BILAT IMPRESSION: Stable bilateral screening mammogram. Yearly follow-up mammogram recommended. (A) ASSESSMENT CATEGORY: BIRADS Category 2: Benign. A letter regarding these results will be sent to the patient by the facility within 30 days. Approximately 10% of breast cancers are not detected by mammography. A normal mammogram should not delay biopsy of a clinically suspicious abnormality. [id number] Electronically Signed: Duc Goyal MD at 8:19 EDT ,
== END | disposition home or self-care (01) ==
LOC: OPBI 07:08
PROVIDERS: PCP Internal Medicine; Referring Provider Obstetrics & Gynecology; Visit Provider Obstetrics & Gynecology
DX: Z12.31 Encounter for screening mammogram for malignant neoplasm of breast (principal)
CPT/HCPCS: 77063; 77067

== ENCOUNTER → 2024-05-17 | Outpatient (CLI) | payer MEDICARE, SELFPAY | END | disposition home or self-care (01) | LOC: LABSPEC 15:21 | PROVIDERS: PCP Internal Medicine; Referring Provider Physician Assistant Surgical; Visit Provider Physician Assistant Surgical | DX: R30.0 Dysuria (principal) | CPT/HCPCS: 87086; 87088 ==

== ENCOUNTER → 2024-07-04 | Outpatient (CLI) | payer MEDICARE, SELFPAY ==
[2024-07-04 07:29] LABS: Absolute Lymphocyte Count 2.25 X10^3/uL (0.83-4.51); Basophil# 0.07 X10^3/uL; Basophil% 0.7 % (0-1); Eosinophil# 0.17 X10^3/uL; Eosinophils% 1.6 % (0-5); Hematocrit 44.7 % (37-47); Hemoglobin 14.7 g/dL (12.0-15.0); Lymphocyte # 2.25 X10^3/ul (0.83-4.51); Lymphocyte % 21.4 % (19-41); Mean Corp Hgb Conc 32.9 g/dL (32-36); Mean Corpuscular Hgb 28.2 pg (27.0-32.0); Mean Corpuscular Volume 85.6 fL (81-99); Mean Platelet Vol. 11.4 fl (6.2-12.0); Monocyte# 1.02 X10^3/uL; Monocyte% 9.7 % (0-10); NRBC Flagged by Analyzer 0 % (0-5); Neutrophil # 6.95 X10^3/uL (2.7-7.7); Neutrophil % 65.9 % (47-70); Platelet Count 288 K/mm3 (150-450); RBC Distribution Width SD 43.9 fl (35.1-43.9); Red Blood Count 5.22 M/mm3 (4.2-5.4); White Blood Count 10.5 K/mm3 (4.4-11.0)
[2024-07-04 12:06] LABS: Hemoglobin A1c 6.3 % (<=5.6)
[2024-07-04 12:16] LABS: ALB/GLOB Ratio 1.3 RATIO (0.9-2.4); AST(SGOT) 18 U/L (<=31); Alanine Aminotransfer ALT/SGPT 15 U/L (<=34); Alkaline Phosphatase 88 U/L (35-104); Anion Gap 9 (5-15); BUN 14 mg/dL (4-19); BUN/Creat Ratio 23.3 RATIO (10-20); Calcium,Total 9.3 mg/dL (7.6-11.0); Carbon Dioxide 27.7 mmol/L (21.0-32.0); Chloride 103 mmol/L (98-108); Cholesterol 209 mg/dL (<=200); Creatinine, Serum 0.59 mg/dL (0.70-1.20); EST Glomerular Filtration Rate 99 (>60); Globulin 3.2 g/dL (2.2-4.2); Glucose 110 mg/dL (70-99); High Density Lipoprotein 38 mg/dL; Low Density Lipoprotein Calc. 127 mg/dL; Potassium 4.1 mmol/L (3.3-5.1); Protein, Total 7.2 g/dL (5.9-8.4); Sodium Level 140 mmol/L (133-145); Thyroid Stim Hormone (TSH) 0.733 uIU/mL (0.300-4.200); Total Bilirubin 0.92 mg/dL (0.00-1.30); Triglycerides 217 mg/dL; Very Low Density Lipoprotein 43 mg/dL (5-40); Vitamin B12 635 pg/mL (180-914); Vitamin D,25 Hydroxy 21.7 ng/mL (30-100); cholesterol:hdl ratio screen 5.44
== END | disposition home or self-care (01) ==
LOC: LAB 06:55
PROVIDERS: PCP Internal Medicine; Referring Provider Internal Medicine; Visit Provider Internal Medicine
DX: I10 Essential (primary) hypertension (principal); R73.9 Hyperglycemia, unspecified; E78.1 Pure hyperglyceridemia; Z13.220 Encounter for screening for lipoid disorders; E53.8 Deficiency of other specified B group vitamins; E55.9 Vitamin D deficiency, unspecified
CPT/HCPCS: 36415; 80053; 80061; 82306; 82607; 83036; 83735; 84443; 85025

== ENCOUNTER 2024-08-23 06:53 | Day surgery (SDC) | payer MEDICARE, SELFPAY ==
--- OUTSIDE RECORDS SUMMARY | 2024-08-23 06:59 | XMS RPT_ITS | CCD ---
Author Organization [facility] [employer] Care Team Providers Care Mine Technician Name Role Phone Unavailable Primary Care Provider Unavailabl Dr. David Jean Baptiste Primary Care Provider Dr. Damaso Finch Attending Provider David Ramirez MD Primary Care Provider [phone] Dr. David Ramirez Primary Care Provider Dr. David Ramirez Referring Provider [phone] LEYDA Man Attending Provider Unavailab Dr. David Zabala Attending Provider [phone] Franco Attending Provider Unavailable Dr. David Ambrosio Attending Provider Dr. David Ambrosio Other Provider Ashley SEVERINO, David Burns Primary Care Provider [phone] David Ramirez MD Primary Care Provider [phone] Dr. David Ramirez Primary Care Provider Dr. David Ramirez Attending Provider [phone] Dr. David Ramirez Referring Provider [phone] JEFRY Whitmore Attending Provider Dr. David Ramirez Primary Care Provider Dr. David Ramirez Attending Provider Dr. David Ramirez Referring Provider Dr. David Ramirez Primary Care Provider Dr. David Ramirez Attending Provider Roof 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, 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 Frankie Borrego Attending Provider MD Gil Reynoso Attending Provider Dr. Orlin Barajas Attending Provider Ashley SEVERINO, David Burns Primary Care Provider DAVID RAMIREZ Primary Care Unavailable DIAMOND AVINASH Attending Unavailable DAVID RAMIREZ Primary Care Unavailable EDWARDS, ANISH Attending Unavailable EDWARDS, ANISH Referring Unavailable DAVID RAMIREZ Primary Care Unavailable JERRY, ANISH Attending Unavailable Dr. David Ramirez Primary Care Provider Dr. David Ramirez Attending Provider Dr. David Ramirez MD Primary Care Provider Dr. David Ramirez MD Referring Provider Bryn Vivas Attending Provider Bryn Vvias Referring Provider Ashley SEVERINO, Dr. Huston Attending Provider Pradip SEVERINO, Dr. Bhakta Attending Provider Dana Yung Attending Unavailable Dana Yung Referring Unavailable Ashley, David Primary Care Unavailable Bryn Vivas Attending Unavailable Bryn Vivas Referring Unavailable Ashley, David Primary Care Unavailable Yony Moseley Attending Unavailable Ashley, David Primary Care Unavailable Ashley, David Attending Unavailable Ashley, David Primary Care Unavailable Yony Moseley Attending Unavailable Ashley, David Referring Unavailable Ashley, David Primary Care Unavailable [facility] ANAND, Frankie Borrego Attending Unavailable Ashley, David Referring Unavailable Ashley, David Primary Care Unavailable Bryn Vivas Attending Unavailable Ashley, David Referring Unavailable Ashley, David Primary Care Unavailable Ashley, David Attending Unavailable Ashley, David Referring Unavailable Ashley, David Primary Care Unavailable Allergies Allergy Classification Reported Allergen(s) Allergy Type Date of Onset Reaction(s) Facility (20 sources) oxyCODONE; Translations: [OXYCODONE] Drug Allergy 7 GI Upset, Vomiting [facility] (1 source) oxyCODONE Drug Allergy [address] [facility] Repository Medications Current Medications Medication Drug Class(es) Dates Sig (Normalized) Sig (Original) clindamycin 20 mg/ml vaginal cream (1 source) Lincosamide Antibacterial Start: 01-12-2023 End: 01-19-2023 clindamycin phosphate (CLEOCIN) 2 % vaginal cream Use 1 Applicatorful vaginally daily at bedtime for 7 days. 40 g 0 01/12/2023 01/19/2023 Active Comment on above: Use 1 Applicatorful vaginally daily at bedtime for 7 days. docusate sodium 100 mg oral capsule (1 source) Start: 01-13-2022 End: 01-18-2022 take 1 capsule by mouth twice daily docusate sodium (COLACE) 100 mg capsule Take 1 capsule by mouth twice daily for 5 days. 10 capsule 0 01/13/2022 01/18/2022 Active Comment on above: Take 1 capsule by mo [facility] twice daily for 5 days. fexofenadine hydrochloride 180 mg oral tablet (20 sources) Histamine-1 Receptor Antagonist Start: 04-20-2023 take 1 tablet by mouth every twenty-four hours Fexofenadine (Analisa Allergy) 180 mg tablet Active 180 mg PO Q24H April 20, 2023 1:00am Start: 04-18-2020 End: 12-16-2020 take 1 tablet by mouth once daily Fexofenadine (Analisa Allergy) 180 mg tablet Discontinued 180 mg PO DAILY April 18, 2020 1:00am December 16, 2020 8:16am Start: 07-30-2019 End: 12-05-2019 take 1 tablet by mouth once daily Fexofenadine (Analisa Allergy) 60 mg tablet Discontinued 60 mg PO DAILY July 30, 2019 12:00am December 05, 2019 9:56am Comment on above: Take 180 mg by mouth once daily. fluticasone propionate 0.05 mg/actuat metered dose nasal spray (20 sources) Corticosteroid Start: take 50 ug nasal route once daily Fluticasone Propionate (Flonase Allergy Relief) 50 mcg/actuation spray,suspension Active 1 NMA INTRANASAL DAILY April 20, 2023 1:00am administer into each nostril Start: 04-20-2023 take 1 spray(s) nasa l route once daily Fluticasone Propionate (Flonase Allergy Relief) 50 mcg/actuation spray,suspension Active 1 SPRAY INTRANASAL DAILY April 20, 2023 1:00am administer into each nostril Start: 01-20-2019 End: 06-29-2022 Fluticasone Propionate 50 mcg/actuation spray,suspension Discontinued 1 NMA INTRANASAL DAILY NEEDED as needed for Congestion October 01, 2021 9:01am June 29, 2022 8:48am administer into each nostril Start: 01-20-2019 End: 06-29-2022 take 1 spray(s) nasal route once daily as needed Fluticasone Propionate Discontinued 1 SPRAY INTRANASAL DAILY NEEDED October 01, 2021 9:01am June 29, 2022 8:48am administer into each nostril fluticasone (SHYAM NASE) 50 mcg/actuation nasal spray Use 1 [place] in the nose as needed. 0 Active Comment on above: Use 1 [place] in the n ose as needed. [place] 4-Ztg-Wdm-Fish Oil (Fish Oil) 60-90-500 mg capsule (2 sources) Start: 06-24-2024 [place] 3-Sxr-Rpr-Fish Oil (Fish Oil) 60-90-500 mg capsule Active 1 NMA PO daily June 24, 2024 12:00am Completed/Discontinued Medications Medication Drug Class(es) Dates Sig (Normalized) Sig (Original) acetaminophen 325 mg oral capsule (8 sources) acetaminophen (TYLENOL) 325 mg cap Take by mouth. PRN for pain 0 Active Comment on above: Take by mouth. PRN f or pain amLODIPine 10 mg oral tablet (20 sources) Dihydropyridine Calcium Channel Tad Start: 01-14-2021 End: 09-18-2023 take 1 tablet by mouth once daily Amlodipine 10 mg tablet Discontinued 10 mg PO DAILY May 31, 2023 2:39pm September 18, 2023 1:30pm Start: 04-18-2020 End: 01-14-2021 take 1 tablet by mouth once daily Amlodipine 5 mg tablet Discontinued 5 mg PO DAILY April 18, 2020 1:00am January 14, 2021 1:25pm Comment on above: Take 10 mg by mouth once daily. amoxicillin 875 mg / clavulanate 125 mg oral tablet (4 sources) Penicillin-class Antibacterial Start: 12-09-2022 End: 12-19-2022 Amoxicillin-Pot Clavulanate 875-125 mg tablet Discontinued 1 {tbl} PO Q12H 20 December 09, 2022 12:00am December 18, 2022 12:00am December 19, 2022 1:04am Start: 12-09-2022 End: 12-19-2022 take 1 tablet by mouth every twelve hours Amoxicillin-Pot Clavulanate Discontinued 1 TABLET PO Q12H 20 December 09, 2022 12:00am December 19, 2022 1:04am apple cider vinegar digestiv e complex probiotic (4 sources) Start: 04-20-2023 End: 06-24-2024 apple cider vinegar digestiv e complex probiotic Discontinued PO April 20, 2023 1:00am June 24, 2024 7:56am Start: 04-20-2023 apple cider vi diana digestive complex probiotic Active PO April 20, 2023 1:00am ascorbate calcium-bioflavonoid 1,000-200 mg tab (6 sources) take 1 tablet by mouth once daily ascorbate calcium-bioflavonoid 1,000-200 mg tab Take 2,500 mg by mouth once daily. 0 Active Comment on above: Take 2,500 mg by roxie th once daily. Ascorbate Calcium-Bioflavonoid (10 sources) Vitamin C Start: 2018 End: 2019 take 1 tablet by mouth once daily Ascorbate Calcium-Bioflavonoid 1 EACH tablet Discontinued 2500 mg PO DAILY January 20, 2019 1:00am July 30, 2019 10:23am Start: 01-20-2019 End: 07-30-2019 take 2500 mg by mouth once daily Ascorbate Calcium-Bioflavonoid Discontinued 2500 MG PO DAILY January 20, 2019 12:00am July 30, 2019 9:23am Start: 01-20-2019 End: 07-30-2019 take 2500 mg by mouth once daily Ascorbate Calcium-Bioflavonoid Discontinued 2500 MG PO DAILY January 20, 2019 1:00am July 30, 2019 10:23am azithromycin 250 mg oral tablet (3 sources) Macrolide Antimicrobial Start: 06-25-2023 End: 05-17-2024 Azithromycin (Zithromax Z-Shaji) 250 mg tablet Discontinued 0 PO .COMPLEX 6 June 25, 2023 12:00am May 17, 2024 1:12pm For 250 mg dose pack: take 500 mg today (day 1), then 250 mg for 4 days (days 2-5) PO B-Complex With Vitamin C (3 sources) Start: 08-22-2022 End: 10-11-2022 take 1 tablet by mouth once daily B-Complex With Vitamin C Discontinued 1 TABLET PO DAILY August 22, 2022 12:00am October 11, 2022 3:19pm Start: 08-22-2022 take 1 tablet by [place] once daily B-Complex With Vitamin C Active 1 TABLET PO DAILY August 22, 2022 12:00am B-Complex With Vitamin C tablet (3 sources) Start: 08-22-2022 End: 10-11-2022 B-Complex With Vitamin C tablet Discontinued 1 {tbl} PO DAILY August 22, 2022 12:00am October 11, 2022 3:19pm cholecalciferol 0.025 mg oral capsule (20 sources) Vitamin D Start: 12-16-2020 End: 06-29-2022 take 1 capsule by mouth once daily as needed Cholecalciferol (Vitamin D3) 25 mcg (1,000 unit) capsule Discontinued 25 ug PO DAILY as needed for TAKES IN THE WINTER October 01, 2021 9:01am June 29, 2022 8:47am Start: 04-18-2020 End: 06-08-2020 take 1 capsule by mouth once daily Cholecalciferol (Vitamin D3) 50 mcg (2,000 unit) capsule Discontinued 50 ug PO DAILY April 18, 2020 1:00am June 08, 2020 3:43pm Start: 01-20-2019 End: 04-18-2020 take 1 tablet by mouth once daily Cholecalciferol (Vitamin D3) 1,000 UNIT tablet Discontinued 1000 U PO DAILY January 20, 2019 1:00am April 18, 2020 9:56am take [address] [facility] once daily Cholecalciferol, Vitamin D3, 50 mcg (2,000 unit) cap Take 1 capsule by mouth once daily. 0 Active Comment on above: Take 1 capsule by mo [facility] once daily. cholecalciferol, vitD3,/vit K2 (VITAMIN D3-VITAMIN K2 ORAL) (5 sources) End: 09-12-2022 cholecalciferol, vitD3,/vit K2 (VITAMIN D3-VITAMIN K2 ORAL) Take by mouth. Three times weekly during winter 0 09/12/2022 Discontinued cholecalciferol, vitD3,/vit K2 (VITAMIN D3-VITAMIN K2 ORAL) Take by mouth. Three times weekly during winter 0 Active Comment on above: Take by mouth. Three times weekly during winter cyclobenzaprine hydrochloride 10 mg oral tablet (3 sources) Muscle Relaxant Start: 11-12-19 End: 11-17-19 take 1 tablet by mouth three times daily as needed for muscle spasms Cyclobenzaprine 10 mg tablet Discontinued 10 mg PO THREE TIMES A DAY as needed for muscle spasm 15 5 November 12, 2023 12:00am November 16, 2023 12:00am November 17, 2023 12:07am estradiol 0.1 mg/ml vaginal cream (10 sources) Estrogen Start: 10-12-19 End: 04-20-19 Estradiol 0.01 % (0.1 mg/gram) cream Discontinued VAGINAL October 11, 2022 12:00am April 20, 2023 2:07pm Start: 10-11-2022 End: 04-20-2023 Estradiol Discontinued VAGIN AL October 11, 2022 12:00am April 20, 2023 2:07pm Start: 09-13-2022 estradiol (EST RACE) 0.01 % (0.1 mg/gram) vaginal cream Indications: atrophic vaginitis associated with menopause , atrophy of vulva Use 1 g vaginally two times a week. Please use the applicator provided in the package. 42 g 11 09/13/2022 Active Comment on above: Use 1 g vaginally tw o times a week. Please use the applicator provided in the package. hydroCHLOROthiazide 12.5 mg / lisinopril 10 mg oral tablet (20 sources) Thiazide Diuretic, Angiotensin Converting Enzyme Inhibitor Start: take 10-12.5 mg by mouth once lisinopril-hyd roCHLOROthiazi de (ZESTORETIC) 10-12.5 mg per tablet Take 1 tablet by mouth every afternoon. 0 08/31/2022 Active Start: 08-31-2022 End: 09-18-2023 Lisinopril-Hydrochlorothiazi de 10-12.5 mg tablet Discontinued 1 {tbl} PO DAILY October 11, 2022 1:10pm September 18, 2023 1:30pm Start: 08-31-2022 End: 10-11-2022 take 1 tablet by mouth once daily Lisinopril-Hydrochlorothiazide Active 1 TABLET PO DAILY October 11, 2022 1:10pm Comment on above: Take 1 tablet by roxie th every afternoon. Inulin (3 sources) End: 09-12-2022 inulin (FIBER GUMMIES ORAL) Take by mouth. 0 09/12/2022 Discontinued inulin (FIBER MMIES ORAL) Take by mouth. 0 Active Comment on above: Take by mouth. L.acidophil-L.plantar-Bifido 7 (UP4 PROBIOTICS ADULT) 15 billion cell cap (16 sources) L.acidophil-L.pl byron-Bifido 7 (UP4 PROBIOTICS ADULT) 15 billion cell cap Take by mouth once daily. Takes sporadically 0 Active L.acidophil-L.pl byron-Bifido 7 (UP4 PROBIOTICS ADULT) 15 billion cell cap Take by mouth. 0 Active Comment on above: Take by mouth. Take by mouth once d aily. Takes sporadically Magnesium (8 sources) Start: End: take 1 tablet by mouth once daily Magnesium 250 mg tablet Discontinued 250 mg PO DAILY April 20, 2022 1:00am June 29, 2022 8:48am Start: 04-20-2022 End: 06-29-2022 take 250 mg by mouth once daily Magnesium Discontinued 250 MG PO DAILY April 20, 2022 1:00am June 29, 2022 8:48am Start: 04-20-2022 take 250 mg by mouth once daily Magnesium Active 250 MG PO DAILY April 20, 2022 1:00am meclizine hydrochloride 25 mg oral tablet (10 sources) Antiemetic Start: 01-22-2021 End: 10-01-2021 take 1 tablet by mouth three times daily as needed for dizziness Meclizine 25 mg tablet Discontinued 25 mg PO THREE TIMES A DAY as needed for dizziness January 22, 2021 1:00am October 01, 2021 9:01am mecobalamin 5 mg disintegrating oral tablet (19 sources) Start: 10-01-2021 End: 04-20-2022 take 1 tablet by mouth three times weekly Mecobalamin (Vitamin B12) 5,000 mcg tablet,disintegrati ng Discontinued 5000 ug PO .THREE TIMES A WEEK October 01, 2021 9:01am April 20, 2022 9:47am Start: 04-18-2020 End: 10-01-2021 Mecobalamin (Vitamin B12) 5, 000 mcg tablet,disintegrating Discontinued ug PO April 18, 2020 1:00am October 01, 2021 9:02am Start: 04-18-2020 End: 10-01-2021 Mecobalamin (Vitamin B12) Di scontinued MCG PO April 18, 2020 1:00am October 01, 2021 9:02am nitrofurantoin, macrocrystals 25 mg / nitrofurantoin, monohydrate 75 mg oral capsule (3 sources) Nitrofuran Antibacterial Start: 05-17-2024 End: 05-24-2024 take 1 capsule by mouth every twelve hours at mealtime Nitrofurantoin Monohyd/M-Cryst 100 mg capsule Discontinued 1 NMA PO Q12H 14 7 May 17, 2024 12:00am May 23, 2024 12:00am May 24, 2024 12:09am administer with a meal/food; swallow whole; do not open, crush, dissolve , or chew omeprazole 20 mg delayed release oral capsule (10 sources) Proton Pump Inhibitor Start: 12-16-2020 End: 01-14-2021 take 1 capsule by mouth once daily Omeprazole 20 mg capsule,delayed release(DR/EC) Discontinued 20 mg PO DAILY December 16, 2020 12:00am January 14, 2021 9:06am polymyxin b 25286 unt/ml / trimethoprim 1 mg/ml ophthalmic solution (6 sources) Dihydrofolate Reductase Inhibitor Antibacterial, Polymyxin-class Antibacterial Start: 09-04-2022 End: 09-11-2022 Polymyxin B Sulf-Trimethoprim (Polytrim) 10,000 unit- 1 mg/mL drops Discontinued 1 NMA OPHTHALMIC Q3H 10 7 September 04, 2022 12:00am September 10, 2022 12:00am September 11, 2022 12:03am while awake; do not exceed 6 doses in 24 hours potassium gluconate 2.5 meq oral tablet (10 sources) Start: 12-05-2019 End: 04-18-2020 take 1 tablet by mouth once daily Potassium Gluconate 595 mg (99 mg) tablet Discontinued 595 mg PO DAILY December 05, 2019 12:00am April 18, 2020 9:56am probiotic (8 sources) Start: 04-20-2022 End: 06-29-2022 probiotic Discontinued PO 1 time daily April 20, 2022 1:00am June 29, 2022 8:48am Start: 04-20-2022 probiotic Acti ve PO 1 time daily April 20, 2022 1:00am PSYLLIUM HUSK ORAL (3 sources) End: 09-12-2022 PSYLLIUM HUSK ORAL Take by m outh. 0 09/12/2022 Discontinued PSYLLIUM HUSK OR AL Take by mouth. 0 Active Comment on above: Take by mouth. sucralfate 1000 mg oral tablet (10 sources) Aluminum Complex Start: End: take 1 tablet by mouth at bedtime Sucralfate 1 gram tablet Discontinued 1 g PO before meals and at bedtime December 16, 2020 12:00am January 14, 2021 9:06am sulfamethoxazole 800 mg / trimethoprim 160 mg oral tablet (10 sources) Dihydrofolate Reductase Inhibitor Antibacterial, Sulfonamide Antimicrobial Start: End: Sulfamethoxazole-Tr imethoprim (Bactrim Ds) 800-160 mg tablet Discontinued 1 {tbl} PO TWICE A DAY April 18, 2020 1:00am June 08, 2020 3:43pm Turmeric Root Extract (10 sources) Start: End: take 1 capsule by mouth once daily Turmeric Root Extract 500 MG capsule Discontinued 500 mg PO DAILY January 20, 2019 1:00am July 30, 2019 10:23am Start: 01-20-2019 End: 07-30-2019 take 500 mg by mouth once daily Turmeric Root Extract Discontinued 500 MG PO DAILY January 20, 2019 12:00am July 30, 2019 9:23am Start: 01-20-2019 End: 07-30-2019 take 500 mg by mouth once daily Turmeric Root Extract Discontinued 500 MG PO DAILY January 20, 2019 1:00am July 30, 2019 10:23am vitamin b12 1 mg oral tablet (10 sources) Vitamin B12 Start: 01-20-2019 End: 04-18-2020 Cyanocobalamin (Vitamin B-12 ) 1,000 MCG tablet Discontinued 2500 ug PO DAILY January 20, 2019 1:00am April 18, 2020 9:56am Start: 01-20-2019 End: 04-18-2020 take 2500 ug by mouth once daily Cyanocobalamin (Vitamin B-12) Discontinued 2500 MCG PO DAILY January 20, 2019 1:00am April 18, 2020 9:56am Vitamin D3-Vitamin K2 (Mk4) (6 sources) Start: 12-27-2021 End: 06-29-2022 take 1 tablet by mouth three times weekly Vitamin D3-Vitamin K2 (Mk4) Discontinued 1 TABLET PO .THREE TIMES WEEK December 27, 2021 1:00am June 29, 2022 8:47am Start: 12-27-2021 take 1 tablet by roxie th three times weekly Vitamin D3-Vitamin K2 (Mk4) Active 1 TABLET PO .THREE TIMES WEEK December 27, 2021 1:00am Start: 12-27-2021 take 1 tablet by roxie th three times weekly Vitamin D3-Vitamin K2 (Mk4) Active 1 TABLET PO .THREE TIMES WEEK December 27, 2021 12:00am Vitamin D3-Vitamin K2 (Mk4) 1,000-100 unit-mcg Tablet (3 sources) Start: 12-27-2021 End: 06-29-2022 Vitamin D3-Vitamin K2 (Mk4) 1,000-100 unit-mcg Tablet Discontinued 1 {tbl} PO .THREE TIMES WEEK December 27, 2021 1:00am June 29, 2022 8:47am vitamin K2 (17 sources) Start: 12-16-2020 End: 10-01-2021 take 45 ug by mouth once daily Vitamin K2 Discontinued 45 MCG PO DAILY December 16, 2020 12:00am October 01, 2021 9:02am Start: 12-16-2020 End: 10-01-2021 take 45 ug by mouth once daily Vitamin K2 Discontinued 45 MCG PO DAILY December 15, 2020 11:00pm October 01, 2021 8:02am Start: 12-16-2020 take 45 ug by mouth once daily Vitamin K2 Active 45 MCG PO DAILY December 16, 2020 12:00am Start: 04-18-2020 End: 06-08-2020 Vitamin K2 100 mcg capsule Discontinued 100 ug PO DAILY April 18, 2020 1:00am June 08, 2020 3:43pm Vitamin K2 45 mcg capsule (3 sources) Start: 12-16-2020 End: 10-01-2021 Vitamin K2 45 mcg capsule Discontinued 45 ug PO DAILY December 16, 2020 12:00am October 01, 2021 9:02am Problems Active Problems Problem Classification Problem Date Documented Da te Episodic/Chronic Abdominal hernia (12 sources) Unspecified abdominal hernia without obstruction or gangrene; Translations: [Hernia] 11-28-2019 Episodic Comment on above: x 3 with mesh over whole abdomen Abdominal pain (1 source) Epigastric pain; Translations: [Epigastric pain] 07-04-2024 Episodic Adjustment disorders (8 sources) Grief finding; Translations: [Adjustment disorder with depressed mood] 08-22-2022 Chronic Anxiety disorders (7 sources) Acute stress disorder; Translations: [Acute stress reaction] 08-10-2022 Chronic Benign neoplasm of uterus (3 sources) Uterine leiomyoma; Translations: [Leiomyoma of uterus, unspecified] Episodic Cancer; other and unspecified primary (10 sources) History of gynecological disorder; Translations: [Personal history of other benign neoplasm] 11-28-2019 Episodic Cardiac dysrhythmias (10 sources) Ventricular premature beats; Translations: [Ventricular premature depolarization] 11-28-2019 Chronic Complications of surgical procedures or medical care (1 source) Prolapse of vaginal vault after hysterectomy; Translations: [Prolapse of vaginal vault after hysterectomy] Chronic Complications of surgical procedures or medical care (1 source) Vaginal bleeding; Translations: [Postprocedural hemorrhage of a genitourinary system organ or structure following a genitourinary system procedure] 09-18-2022 Episodic Conditions associated with dizziness or vertigo (7 sources) Lightheadedness; Translations: [Dizziness and giddiness] 08-10-2022 Episodic Diabetes mellitus without complication (1 source) Hyperglycemia, unspecified; Translations: [Hyperglycemia, unspecified] Onset: Episodic Digestive congenital anomalies (10 sources) Disorder of pancreas; 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 Disorders of lipid metabolism (18 sources) Hypertriglyceridemia; Translations: [Pure hyperglyceridemia] Onset: 5 04-20-2022 Chronic Diverticulosis and diverticulitis (10 sources) Diverticular disease; Translations: [Diverticulosis of intestine, part unspecified, without perforation or abscess without bleeding] 11-28-2019 Chronic Esophageal disorders (5 sources) Gastroesophageal reflux disease; Translations: [Gastro-esophageal reflux disease without esophagitis] Onset: 5 06-24-2024 Chronic Esophageal disorders (2 sources) Esophageal disorders Essential hypertension (20 sources) Essential hypertension; Translations: [Essential (primary) hypertension] Onset: 5 Chronic Gastritis and duodenitis (10 sources) Gastritis; Translations: [Gastritis, unspecified, without bleeding] 12-16-2020 Episodic Genitourinary symptoms and ill-defined conditions (7 sources) Dysuria; Translations: [Dysuria] Onset: 5 05-17-2024 Episodic Inflammatory diseases of female pelvic organs (1 source) Vaginal ulcer; Translations: [Ulceration of vagina] 12-22-2022 Episodic Menopausal disorders (20 sources) Postmenopausal bleeding; Translations: [Postmenopausal bleeding] Onset: 3 06-27-2022 Chronic Comment on above: vaginal mucosa with irritation s/p hysterectomy declines estrogen creamwill start vaginal moisturizer along with PFPT. RTO in 2-3 months, sooner if worsening. Nutritional deficiencies (1 source) Vitamin D deficiency, unspecified; Translations: [Vitamin D deficiency, unspecified] Onset: 5 Chronic Open wounds of extremities (4 sources) Cat bite - wound; Translations: [Open bite of unspecified hand, initial encounter] 12-09-2022 Episodic Other and unspecified benign neoplasm (9 sources) History of polyp of colon; Translations: [Personal history of colonic polyps] 12-28-2021 Episodic Other and unspecified benign neoplasm (1 source) Personal history of colonic polyps; Translations: [Personal history of colonic polyps] Episodic Other bone disease and musculoskeletal deformities (9 sources) Posterior calcaneal exostosis; Translations: [Juvenile osteochondrosis of tarsus, 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 Other bone disease and musculoskeletal deformities (1 source) Juvenile osteochondrosis of tarsus, left ankle; 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 Other connective tissue disease (5 sources) Ganglion cyst of right hand; Translations: [Ganglion, right hand] 10-11-2022 Episodic Other connective tissue disease (2 sources) Ganglion of wrist; Translations: [Ganglion, right wrist] 10-11-2022 Episodic Other connective tissue disease (1 source) Ganglion, right wrist; Translations: [Ganglion of joint] 10-11-2022 Episodic Other connective tissue disease (3 sources) Ganglion cyst of the right volar wrist; Translations: [Ganglion, right wrist] 10-11-2022 Episodic Other female genital disorders (10 sources) Enlarged uterus; Translations: [Hypertrophy of uterus] 07-03-2020 Episodic Comment on above: 10 cm with 5 cm fibr oid, referral to [place] for surgery due to previous abdominal surgeries Other female genital disorders (1 source) Vaginal discharge; Translations: [Other specified noninflammatory disorders of vagina] 12-22-2022 Episodic Other gastrointestinal disorders (10 sources) Disorder of abdomen; Translations: [Peritoneal adhesions (postprocedural) (postinfection)] 12-05-2019 Episodic Other injuries and conditions due to external causes (3 sources) Muscle strain; Translations: [Other injury of unspecified body region, initial encounter] 11-12-2023 Episodic Other liver diseases (10 sources) Increased bilirubin level; Translations: [Unspecified jaundice] 12-16-2020 Episodic Other liver diseases (3 sources) Unspecified jaundice; Translations: [Disorders of bilirubin excretion] 06-29-2022 Episodic Other nutritional; endocrine; and metabolic disorders (9 sources) Obese class II; Translations: [Obesity, unspecified] Onset: 2 01-13-2022 Chronic Other nutritional; endocrine; and metabolic disorders (11 sources) Insulin resistance; Translations: [Metabolic syndrome] 04-20-2022 Chronic Other nutritional; endocrine; and metabolic disorders (8 sources) Metabolic syndrome; Translations: [Dysmetabolic syndrome X] Onset: 5 04-20-2022 Chronic Other skin disorders (1 source) Localized swelling, mass and lump, trunk; Translations: [Swelling, mass, or lump in chest] Episodic Other skin disorders (8 sources) Feeling of lump in throat; Translations: [Localized swelling, mass and lump, neck] 04-20-2022 Episodic Other upper respiratory infections (5 sources) Acute pharyngitis, unspecified; Translations: [Acute pharyngitis] 04-20-2022 Episodic Prolapse of female genital organs (20 sources) Uterine prolapse; Translations: [Uterovaginal prolapse, unspecified] Onset: Chronic Comment on above: stage III cytocele a nd rectocele. discussed pessary vs surgical management. pessary attempted failed ring, doughnut, and cube. 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 Residual codes; unclassified (10 sources) History of endometrial ablation; Translations: [Other specified postprocedural states] 11-28-2019 Episodic Residual codes; unclassified (20 sources) History of hernia repair; Translations: [Other specified postprocedural states] 11-28-2019 Episodic Residual codes; unclassified (10 sources) History of gastrectomy; Translations: [Acquired absence of stomach [part of]] 11-28-2019 Episodic Comment on above: bariatric surgery Residual codes; unclassified (2 sources) Acquired absence of other specified parts of digestive tract; Translations: [Other specified personal history presenting hazards to health] 09-12-2022 Episodic Residual codes; unclassified (1 source) Acquired absence of stomach [part of]; Translations: [Acquired absence of stomach [part of]] Onset: Episodic Screening and history of mental health and substance abuse codes (5 sources) Ex-smoker; Translations: [Personal history of nicotine dependence] 04-20-2023 Episodic Comment on above: QUIT 03/2008 Superficial injury; contusion (8 sources) Corneal abrasion; Translations: [Injury of conjunctiva and corneal abrasion without foreign body, unspecified eye, initial encounter] 09-04-2022 Episodic Past or Other Problems Problem Classification Problem Date Documented Da te Episodic/Chronic Other screening for suspected conditions (not mental disorders or infectious disease) (11 sources) Patient encounter status; Translations: [Encounter for screening for malignant neoplasm of cervix] Onset: 10-17-2023 Episodic Results Test Name Value Interpretation Reference Range Facility Absolute lymphocyte countOrd ered By: David Ramirez on 07-04-2024 Lymphocytes Auto (Unsp spec) [#/Vol] 2.25 10*3/uL 0.83-4.[address] [facility] Absolute neutrophil countOrd ered By: David Ramirez on 07-04-2024 Neutrophils (Bld) [#/Vol] 7.0 10*3/uL 2.0-7.[address] [facility] Anion gap in Serum or Plasma Ordered By: David Ramirez on 07-04-2024 Anion gap [Moles/Vol] 9 mmol/L 5-15 [facility] Automated lymphocyte count a s percentage of total leukocytesOrdered By: David Ramirez on 07-04-2024 Lymphocytes/100 WBC Auto (Unsp spec) 21.4 % - [facility] BUN/creatinine ratioOrdered By: David Ramirez on 07-04-2024 Urea nitrogen/Creatinine [Mass ratio] 23.3 mg/mg High 10-[address] [facility] Basophil percentageOrdered B y: David Ramirez on 07-04-2024 Basophils/100 WBC (Bld) 0.7 % 0-1 [facility] Bilirubin, totalOrdered By: David Ramirez on 07-04-2024 Bilirubin [Mass/Vol] 0.92 mg/dL 0.00-1.30 [facility] CBC W/Diff, Automatedon 06-14 Absolute Lymph 2.25 X10 3/uL Normal 0.83-4.[address] [facility] Comment on above: Performed By: #### L 100.0100, L500.4050, L503.0106, L500.4100, L501.5200, L501.9520, L506.1001, L501.9985 #### [facility] [address] [place], [address] Absolute Neut 7.0 X10 3/uL Normal 2.0-7.[address] [facility] Comment on above: Performed By: #### L 100.0100, L500.4050, L503.0106, L500.4100, L501.5200, L501.9520, L506.1001, L501.9985 #### [facility] [address] [place], [address] Basophils/100 WBC (Bld) 0.7 % Normal 0-1 [facility] Comment on above: Performed By: #### L 100.0100, L500.4050, L503.0106, L500.4100, L501.5200, L501.9520, L506.1001, L501.9985 #### [facility] [address] [place], [address] Eosinophils/100 WBC (Bld) 1.6 % Normal 0-[address] [facility] Comment on above: Performed By: #### L 100.0100, L500.4050, L503.0106, L500.4100, L501.5200, L501.9520, L506.1001, L501.9985 #### [facility] [address] [place], [address] Erythrocyte distribution width (RBC) [Ratio] 14.0 % Normal 11.6-14.[address] [facility] Comment on above: Performed By: #### L 100.0100, L500.4050, L503.0106, L500.4100, L501.5200, L501.9520, L506.1001, L501.9985 #### [facility] [address] [place], [address] Hematocrit (Bld) [Volume fraction] 44.7 % Normal 37-[address] [facility] Comment on above: Performed By: #### L 100.0100, L500.4050, L503.0106, L500.4100, L501.5200, L501.9520, L506.1001, L501.9985 #### [facility] [address] [place], [address] Hemoglobin (Bld) [Mass/Vol] 14.7 g/dL Normal 12.0-15.[address] [facility] Comment on above: Performed By: #### L 100.0100, L500.4050, L503.0106, L500.4100, L501.5200, L501.9520, L506.1001, L501.9985 #### [facility] [address] [place], [address] IG% 0.700 Normal 0.0-0.[address] [facility] Comment on above: Result Comment: IG% - Immature Granulocytes (promyelocytes, myelocytes and metamyelocytes) > 1% indicates that a LEFT SHIFT is Present. Performed By: #### L 100.0100, L500.4050, L503.0106, L500.4100, L501.5200, L501.9520, L506.1001, L501.9985 #### [facility] [address] [place], [address] Lymphocytes/100 WBC (Bld) 21.4 % Normal 19-[address] [facility] Comment on above: Performed By: #### L 100.0100, L500.4050, L503.0106, L500.4100, L501.5200, L501.9520, L506.1001, L501.9985 #### [facility] [address] [place], [address] MCH (RBC) [Entitic mass] 28.2 pg Normal 27.0-32.[address] [facility] Comment on above: Performed By: #### L 100.0100, L500.4050, L503.0106, L500.4100, L501.5200, L501.9520, L506.1001, L501.9985 #### [facility] [address] [place], [address] MCHC (RBC) [Mass/Vol] 32.9 g/dL Normal 32-36 [facility] Comment on above: Performed By: #### L 100.0100, L500.4050, L503.0106, L500.4100, L501.5200, L501.9520, L506.1001, L501.9985 #### [facility] [address] [place], [address] MCV (RBC) [Entitic vol] 85.6 fL Normal 81-99 [facility] Comment on above: Performed By: #### L 100.0100, L500.4050, L503.0106, L500.4100, L501.5200, L501.9520, L506.1001, L501.9985 #### [facility] [address] [place], [address] Monocytes/100 WBC (Bld) 9.7 % Normal 0-10 [facility] Comment on above: Performed By: #### L 100.0100, L500.4050, L503.0106, L500.4100, L501.5200, L501.9520, L506.1001, L501.9985 #### [facility] [address] [place], [address] Neutrophils/100 WBC (Bld) 65.9 % Normal 47-[address] [facility] Comment on above: Performed By: #### L 100.0100, L500.4050, L503.0106, L500.4100, L501.5200, L501.9520, L506.1001, L501.9985 #### [facility] [address] [place], [address] Nucleated RBC (Bld) [#/Vol] 0 10*3/uL Normal 0-[address] [facility] Comment on above: Performed By: #### L 100.0100, L500.4050, L503.0106, L500.4100, L501.5200, L501.9520, L506.1001, L501.9985 #### [facility] [address] [place], [address] Platelet mean volume (Bld) [Entitic vol] 11.4 fL Normal 6.2-12.[address] [facility] Comment on above: Performed By: #### L 100.0100, L500.4050, L503.0106, L500.4100, L501.5200, L501.9520, L506.1001, L501.9985 #### [facility] [address] [place], [address] Platelets (Bld) [#/Vol] 288 10*3/uL Normal 150-[address] [facility] Comment on above: Performed By: #### L 100.0100, L500.4050, L503.0106, L500.4100, L501.5200, L501.9520, L506.1001, L501.9985 #### [facility] [address] [place], [address] RBC (Bld) [#/Vol] 5.22 10*6/uL Normal 4.2-5.4 [facility] Comment on above: Performed By: #### L 100.0100, L500.4050, L503.0106, L500.4100, L501.5200, L501.9520, L506.1001, L501.9985 #### [facility] [address] [place], [address] RDW SD 43.9 fl Normal 35.1-43.[address] [facility] Comment on above: Performed By: #### L 100.0100, L500.4050, L503.0106, L500.4100, L501.5200, L501.9520, L506.1001, L501.9985 #### [facility] [address] [place], [address] WBC (Bld) [#/Vol] 10.5 10*3/uL Normal 4.4-11.0 [facility] Comment on above: Performed By: #### L 100.0100, L500.4050, L503.0106, L500.4100, L501.5200, L501.9520, L506.1001, L501.9985 #### [facility] [address] [place], [place], [id number] Calculated very low density lipoprotein (VLDL) cholesterol measurementOrdered By: David Ramirez on 07-04-2024 Calculated very low density lipoprotein (VLDL) cholesterol measurement 43 mg/dL High 5-[address] [facility] Carbon dioxide, total [Moles /volume] in Central venous bloodOrdered By: David Ramirez on 07-04-2024 CO2 [Moles/Vol] 27.7 mmol/L 21.0-32.[address] [facility] Chloride assayOrdered By: Enedina Ramirez on 07-04-2024 Chloride [Moles/Vol] 103 mmol/L 98-108 [facility] Comprehensive Metabolic Prof ilon 07-04-2024 Albumin [Mass/Vol] 4.0 g/dL Normal 3.4-4.8 [facility] Comment on above: Performed By: #### L 100.0100, L500.4050, L503.0106, L500.4100, L501.5200, L501.9520, L506.1001, L501.9985 #### [facility] [address] [place], [place], [id number] Albumin/Globulin [Mass ratio] 1.3 {ratio} Normal 0.9-2.[address] [facility] Comment on above: Performed By: #### L 100.0100, L500.4050, L503.0106, L500.4100, L501.5200, L501.9520, L506.1001, L501.9985 #### [facility] [address] [place], [address] ALK PHOS 88 U/L Normal 35-[address] [facility] Comment on above: Performed By: #### L 100.0100, L500.4050, L503.0106, L500.4100, L501.5200, L501.9520, L506.1001, L501.9985 #### [facility] [address] [place], [address] ALT [Catalytic activity/Vol] 15 U/L Normal <=[address] [facility] Comment on above: Performed By: #### L 100.0100, L500.4050, L503.0106, L500.4100, L501.5200, L501.9520, L506.1001, L501.9985 #### [facility] [address] [place], [address] AST [Catalytic activity/Vol] 18 U/L Normal <=[address] [facility] Comment on above: Performed By: #### L 100.0100, L500.4050, L503.0106, L500.4100, L501.5200, L501.9520, L506.1001, L501.9985 #### [facility] [address] [place], [place], [phone] Bilirubin [Mass/Vol] 0.92 mg/dL Normal 0.00-1.30 [facility] Comment on above: Performed By: #### L 100.0100, L500.4050, L503.0106, L500.4100, L501.5200, L501.9520, L506.1001, L501.9985 #### [facility] [address] [place], [place], [phone] ([phone] BUN/CRE 23.3 RATIO High 10-[address] [facility] Comment on above: Performed By: #### L 100.0100, L500.4050, L503.0106, L500.4100, L501.5200, L501.9520, L506.1001, L501.9985 #### [facility] [address] [place], [address] Calcium [Mass/Vol] 9.3 mg/dL Normal 7.6-11.0 [facility] Comment on above: Performed By: #### L 100.0100, L500.4050, L503.0106, L500.4100, L501.5200, L501.9520, L506.1001, L501.9985 #### [facility] [address] [place], [address] Chloride [Moles/Vol] 103 mmol/L Normal 98-108 [facility] Comment on above: Performed By: #### L 100.0100, L500.4050, L503.0106, L500.4100, L501.5200, L501.9520, L506.1001, L501.9985 #### [facility] [address] [place], [address] CO2 [Moles/Vol] 27.7 mmol/L Normal 21.0-32.[address] [facility] Comment on above: Performed By: #### L 100.0100, L500.4050, L503.0106, L500.4100, L501.5200, L501.9520, L506.1001, L501.9985 #### [facility] [address] [place], [address] Creatinine [Mass/Vol] 0.59 mg/dL Low 0.70-1.20 [facility] Comment on above: Performed By: #### L 100.0100, L500.4050, L503.0106, L500.4100, L501.5200, L501.9520, L506.1001, L501.9985 #### [facility] [address] [place], [address] GAP 9 Normal 5-[address] [facility] Comment on above: Performed By: #### L 100.0100, L500.4050, L503.0106, L500.4100, L501.5200, L501.9520, L506.1001, L501.9985 #### [facility] [address] [place], [address] GFR/1.73 sq M.predicted among non-blacks MDRD (S/P/Bld) [Vol rate/Area] 99 mL/min/{1.73_m2} Normal >[address] [facility] Comment on above: Result Comment: mL/m in/1.73m2 CKD-EPI Creatinine Equation (2020) Performed By: #### L 100.0100, L500.4050, L503.0106, L500.4100, L501.5200, L501.9520, L506.1001, L501.9985 #### [facility] [address] [place], [address] Globulin (S) [Mass/Vol] 3.2 g/dL Normal 2.2-4.2 [facility] Comment on above: Performed By: #### L 100.0100, L500.4050, L503.0106, L500.4100, L501.5200, L501.9520, L506.1001, L501.9985 #### [facility] [address] [place], [address] Glucose [Mass/Vol] 110 mg/dL High 70-99 [facility] Comment on above: Performed By: #### L 100.0100, L500.4050, L503.0106, L500.4100, L501.5200, L501.9520, L506.1001, L501.9985 #### [facility] [address] [place], [address] Potassium [Moles/Vol] 4.1 mmol/L Normal 3.3-5.1 [facility] Comment on above: Performed By: #### L 100.0100, L500.4050, L503.0106, L500.4100, L501.5200, L501.9520, L506.1001, L501.9985 #### [facility] [address] [place], [address] Sodium [Moles/Vol] 140 mmol/L Normal 133-145 [facility] Comment on above: Performed By: #### L 100.0100, L500.4050, L503.0106, L500.4100, L501.5200, L501.9520, L506.1001, L501.9985 #### [facility] [address] [place], [address] T PROT 7.2 g/dL Normal 5.9-8.[address] [facility] Comment on above: Performed By: #### L 100.0100, L500.4050, L503.0106, L500.4100, L501.5200, L501.9520, L506.1001, L501.9985 #### [facility] [address] [place], [place], [phone] Urea nitrogen [Mass/Vol] 14 mg/dL Normal 4-[address] [facility] Comment on above: Performed By: #### L 100.0100, L500.4050, L503.0106, L500.4100, L501.5200, L501.9520, L506.1001, L501.9985 #### [facility] [address] [place], [place], [phone] ([phone] Eosinophil percentageOrdered By: David Ramirez on 07-04-2024 Eosinophils/100 WBC (Bld) 1.6 % 0-[address] [facility] Erythrocyte distribution wid th ratioOrdered By: David Ramirez on 07-04-2024 Erythrocyte distribution width (RBC) [Ratio] 14.0 % 11.6-14.[address] [facility] Erythrocyte distribution wid th standard deviationOrdered By: David Ramirez on 07-04-2024 Erythrocyte distribution width (RBC) [Ratio] 43.9 fl 35.1-43.[address] [facility] Glomerular filtration rate ( GFR) estimation/1.73 sq m using serum, plasma, or whole bOrdered By: David Ramirez on 07-04-2024 GFR/1.73 sq M.predicted among non-blacks MDRD (S/P/Bld) [Vol rate/Area] 99 mL/min/{1.73_m2} >[address] [facility] Comment on above: mL/min/1.73m2 CKD-EP I Creatinine Equation (2020) Hematocrit Auto (Bld) [Volum e fraction]Ordered By: David Ramirez on 07-04-2024 Hematocrit (Bld) [Volume fraction] 44.7 % 37-[address] [facility] Hemoglobin A1con 07-04-2024 HbA1c (Bld) [Mass fraction] 6.3 % High <=5.[address] [facility] Comment on above: Result Comment: Norm al < 5.7 % Prediabetic 5.7 - 6.4 % Diabetic >or= 6.5 % Please note range changes. Performed By: #### L 100.0100, L500.4050, L503.0106, L500.4100, L501.5200, L501.9520, L506.1001, L501.9985 #### [facility] [address] [place], [place], [phone] Hemoglobin A1c percentageOrd ered By: David Ramirez on 07-04-2024 HbA1c (Bld) [Mass fraction] 6.3 % High <5.[address] [facility] Comment on above: Normal < 5.7 % Predi abetic 5.7 - 6.4 % Diabetic >or= 6.5 % Please note range changes. Hemoglobin measurementOrdere d By: David Ramirez on 07-04-2024 Hemoglobin (Bld) [Mass/Vol] 14.7 g/dL 12.0-15.[address] [facility] Immature granulocytes/100 WB C Auto (Bld)Ordered By: David Ramirez on 07-04-2024 Immature granulocytes/100 WBC (Bld) 0.700 % 0.0-0.[address] [facility] Comment on above: IG% - Immature Granu locytes (promyelocytes, myelocytes and metamyelocytes) > 1% indicates that a LEFT SHIFT is Present. LDL calc ser/plasOrdered By: David Ramirez on 07-04-2024 Cholesterol in LDL [Mass/Vol] 127 mg/dL [facility] Comment on above: Pgvodeudke=218-840 m g/dL & Higher Enyi=900 mg/dL or greater Laboratory - Chemistry and C hemistry - challengeOrdered By: David Ramirez on 07-04-2024 AST [Catalytic activity/Vol] 18 U/L <[address] [facility] Lipid Profileon 07-04-2024 CHOL:HDL 5.[address] [facility] Comment on above: Performed By: #### L 100.0100, L500.4050, L503.0106, L500.4100, L501.5200, L501.9520, L506.1001, L501.9985 #### [facility] [address] [place], [address] Cholesterol [Mass/Vol] 209 mg/dL High <=200 [facility] Comment on above: Result Comment: Chol esterol level, Desirable <200 mg/dL Borderline high cholesterol 200-239 mg/dL High cholesterol >=240 mg/dL Recommendations of the NCEP Adult Treatment Panel for the following risk-cutoff thresholds for the [place] population. Performed By: #### L 100.0100, L500.4050, L503.0106, L500.4100, L501.5200, L501.9520, L506.1001, L501.9985 #### [facility] [address] [place], [address] Cholesterol in HDL [Mass/Vol] 38 mg/dL Low [facility] Comment on above: Result Comment: Tiffany onal Cholesterol Education Program (NCEP) guidelines: <40 mg/dL: Low HDL-cholesterol (major risk factor for CHD) >= 60 mg/dL: High HDL-cholesterol (negative risk factor for CHD) HDL-cholesterol is affected by a number of factors, e.g. smoking, exercise, hormones, sex and age. Performed By: #### L 100.0100, L500.4050, L503.0106, L500.4100, L501.5200, L501.9520, L506.1001, L501.9985 #### [facility] [address] [place], [address] Cholesterol in LDL [Mass/Vol] 127 mg/dL Normal [facility] Comment on above: Result Comment: Bord shmwrf=761-401 mg/dL Higher Ojli=828 mg/dL or greater Performed By: #### L 100.0100, L500.4050, L503.0106, L500.4100, L501.5200, L501.9520, L506.1001, L501.9985 #### [facility] [address] [place], [address] Cholesterol in VLDL [Mass/Vol] 43 mg/dL High 5-[address] [facility] Comment on above: Performed By: #### L 100.0100, L500.4050, L503.0106, L500.4100, L501.5200, L501.9520, L506.1001, L501.9985 #### [facility] [address] [place], [address] Triglyceride [Mass/Vol] 217 mg/dL High [facility] Comment on above: Result Comment: The drugs N-Acetylcysteine and Metamizole may falsely depress this assay. Normal range: <150 mg/dL Borderline High: 150-199 mg/dL High: 200-499 mg/dL Very High: >500 mg/dL Performed By: #### L 100.0100, L500.4050, L503.0106, L500.4100, L501.5200, L501.9520, L506.1001, L501.9985 #### [facility] [address] [place], [address] MCV (mean corpuscular volume ) determinationOrdered By: David Ramirez on 07-04-2024 MCV (RBC) [Entitic vol] 85.6 fL 81-99 [facility] Magnesiumon 07-04-2024 Magnesium [Mass/Vol] 2.0 mg/dL Normal 1.5-2.2 [facility] Comment on above: Performed By: #### L 100.0100, L500.4050, L503.0106, L500.4100, L501.5200, L501.9520, L506.1001, L501.9985 #### [facility] [address] [place], [place], [id number] Magnesium measurement (mass/ volume)Ordered By: David Ramirez on 07-04-2024 Magnesium (Unsp spec) [Mass/Vol] 2.0 mg/dL 1.5-2.[address] [facility] Mean corpuscular hemoglobin (MCH) determinationOrdered By: David Ramirez on 07-04-2024 MCH (RBC) [Entitic mass] 28.2 pg 27.0-32.[address] [facility] Mean corpuscular hemoglobin concentration (MCHC) determinationOrdered By: David Ramirez on 07-04-2024 MCHC (RBC) [Mass/Vol] 32.9 g/dL 32-36 [facility] Mean platelet volume determi nationOrdered By: David Ramirez on 07-04-2024 Platelet mean volume (Bld) [Entitic vol] 11.4 fL 6.2-12.[address] [facility] Monocyte percentageOrdered B y: David Ramirez on 07-04-2024 Monocytes/100 WBC (Bld) 9.7 % 0-10 [facility] Neutrophil percentageOrdered By: David Ramirez on 07-04-2024 Neutrophils/100 WBC (Bld) 65.9 % 47-[address] [facility] Nucleated red blood cell per centageOrdered By: David Ramirez on 07-04-2024 Nucleated RBC/100 WBC (Bld) [Ratio] 0 % 0-[address] [facility] Platelet countOrdered By: Enedina Ramirez on 07-04-2024 Platelets (Bld) [#/Vol] 288 10*3/uL 150-[address] [facility] Potassium measurement (mass/ volume)Ordered By: David Ramirez on 07-04-2024 Potassium (Unsp spec) [Mass/Vol] 4.1 mmol/L 3.3-5.[address] [facility] RBC Auto (Bld) [#/Vol]Ordere d By: David Ramirez on 07-04-2024 RBC (Bld) [#/Vol] 5.22 10*6/uL 4.2-5.4 [facility] Screening total cholesterol/ high density lipoprotein (HDL) cholesterol ratioOrdered By: David Ramirez on 07-04-2024 Cholesterol.total/Choles terol in HDL [Mass ratio] 5.44 {ratio} [facility] Serum creatinine measurement (mass/volume)Ordered By: David Ramirez on 07-04-2024 Creatinine [Mass/Vol] 0.59 mg/dL Low 0.70-1.20 [facility] Serum globulin measurementOr dered By: David Ramirez on 07-04-2024 Globulin (S) [Mass/Vol] 3.2 g/dL 2.2-4.2 [facility] Serum glucose measurement (m ass/volume)Ordered By: David Ramirez on 07-04-2024 Glucose [Mass/Vol] 110 mg/dL High 70-99 [facility] Serum or plasma alanine cook otransferase (ALT) measurementOrdered By: David Ramirez on 07-04-2024 ALT [Catalytic activity/Vol] 15 U/L <[address] [facility] Serum or plasma albumin lauro urement (mass/volume)Ordered By: Davdi Ramirez on 07-04-2024 Albumin [Mass/Vol] 4.0 g/dL 3.4-4.8 [facility] Serum or plasma albumin/glob ulin mass ratioOrdered By: David Ramirez on 07-04-2024 Albumin/Globulin [Mass ratio] 1.3 {ratio} 0.9-2.[address] [facility] Serum or plasma alkaline bill sphatase measurementOrdered By: David Ramirez on 07-04-2024 ALP [Catalytic activity/Vol] 88 U/L 35-[address] [facility] Serum or plasma calcium lauro urement (mass/volume)Ordered By: David Ramirez on 07-04-2024 Calcium [Mass/Vol] 9.3 mg/dL 7.6-11.0 [facility] Serum or plasma cholesterol in HDL measurement (mass/volume)Ordered By: David Ramirez on 07-04-2024 Cholesterol in HDL [Mass/Vol] 38 mg/dL Low >[address] [facility] Comment on above: National Cholesterol Education Program (NCEP) guidelines:<40 mg/dL: Low HDL-cholesterol (major risk factor for CHD)>= 60 mg/dL: High HDL-cholesterol (negative risk factor for CHD)HDL-cholesterol is affected by a number of factors, e.g. smoking, exercise, hormones, sex and age. Serum or plasma cholesterol measurement (mass/volume)Ordered By: David Ramirez on 07-04-2024 Cholesterol [Mass/Vol] 209 mg/dL High <201 [facility] Comment on above: Cholesterol level, D esirable <200 mg/dLBorderline high cholesterol 200-239 mg/dLHigh cholesterol >=240 mg/dLRecommendations of the NCEP Adult Treatment Panel for the following risk-cutoff thresholds for the [place] population. Serum or plasma urea nitroge n measurement (mass/volume)Ordered By: David Ramirez on 07-04-2024 Urea nitrogen [Mass/Vol] 14 mg/dL 4-[address] [facility] Sodium levelOrdered By: Sonam Ramirez on 07-04-2024 Sodium [Moles/Vol] 140 mmol/L 133-145 [facility] TSH DL <= 0.005 mIU/L QnOrde red By: David Ramirez on 07-04-2024 TSH Qn 0.733 uIU/mL 0.300-4.[address] [facility] Thyroid Stim Hormone (TSH)on 07-04-2024 TSH 0.733 uIU/mL Normal 0.300-4.[address] [facility] Comment on above: Performed By: #### L 100.0100, L500.4050, L503.0106, L500.4100, L501.5200, L501.9520, L506.1001, L501.9985 ####[facility] [address] [place], [address] Total proteinOrdered By: Rosie Ramirez on 07-04-2024 Protein [Mass/Vol] 7.2 g/dL 5.9-8.4 [facility] Triglycerides measurementOrd ered By: David Ramirez on 07-04-2024 Triglyceride [Mass/Vol] 217 mg/dL High <199 [facility] Comment on above: The drugs N-Acetylcy steine and Metamizole may falsely depress this assay. Normal range: <150 mg/dLBorderline High: 150-199 mg/dLHigh: 200-499 mg/dLVery High: >500 mg/dL Vitamin B12on 07-04-2024 Cobalamin (Vitamin B12) [Mass/Vol] 635 pg/mL Normal 180-[address] [facility] Comment on above: Performed By: #### L 100.0100, L500.4050, L503.0106, L500.4100, L501.5200, L501.9520, L506.1001, L501.9985 ####[facility] [address] [place], [place], [id number] Vitamin B12 ser/plasOrdered By: David Ramirez on 07-04-2024 Cobalamin (Vitamin B12) [Mass/Vol] 635 pg/mL 180-[address] [facility] Vitamin D,25 Hydroxyon 07-04 Vitamin D 25-OH 21.7 ng/mL Low 30-[address] [facility] Comment on above: Result Comment: Claudia min D Status Deficiency: <20 ng/mL (50nmol/L) Insufficiency: 20-30 ng/mL (50-75 nmol/L) Sufficiency: 30-100 ng/mL (75-250 nmol/L) Toxicity: >100 ng/mL (>250 nmol/L) Performed By: #### L 100.0100, L500.4050, L503.0106, L500.4100, L501.5200, L501.9520, L506.1001, L501.9985 ####[facility] [address] [place], [address] White blood cell (WBC) count Ordered By: David Ramirez on 07-04-2024 WBC (Bld) [#/Vol] 10.5 10*3/uL 4.4-11.0 [facility] Surgery Visit Reporton 07-03 Surgery Visit Report [facility] [address] [place] [address] OFFICE VISIT Date of Service: 07/03/24 MR#: [id number] Acct: [id number] Name: SHANNON LAM Rep #: [id number] : 1955 Provider: Dr. Yony wheatley MD Age/Sex: 68/F Location: [facility] Status: Signed Intake Vital Signs 06/24/24 08:01 07/03/24 14:51 Height 5 ft 4 in 5 ft 4 in Weight: 227 lb 4 oz 223 lb 4 oz BMI 38.9 38.3 BP 143/75 H 123/82 H Blood Pressure Location Lt brachial Rt brachial Position Sitting Sitting Respiration 16 18 Pulse 69 75 Pulse Source Monitor Monitor Temp 98.2 F 97.2 F L Temp Source Temporal Temporal Pulse Oximetry (%) 97 97 Oxygen Delivery Method room air room air Intake Visit Reasons: Gastroesophageal reflux disease (GERD) Chief Complaint: GERD Is patient in pain?: No Allergies oxycodone Adverse Reaction (Verified 07/03/24 14:52) Nausea/Vom/Diarrhea Medications ???Medication ???Instructions ???Recorded ???Confirmed ???Type fexofenadine 180 mg tablet 180 mg PO Q24H 04/20/23 07/03/24 H istory (Analisa Allergy) fluticasone propionate 50 1 spray intranasal DAILY 04/20/23 07/03/24 History mcg/actuation nasal spray,suspension (Flonase Allergy Relief) amlodipine 10 mg tablet 10 mg PO DAILY #90 tabs 09/18/23 0 07/03/24 Rx lisinopril 10 1 tab PO DAILY #90 tabs 09/18/23 0 07/03/24 Rx mg-hydrochlorothiazi de 12.5 mg tablet omega 7-chw-jwm-fish oil 60 mg-90 1 cap PO QDAY 06/24/24 07/03/24 H istory mg-500 mg capsule (Fish Oil) Have you fallen in the past year?: No PFSH Medical History Chronic GERD Ganglion cyst of volar aspect of right wrist Ganglion cyst of finger of right hand Wears glasses Loose, teeth Arthritis High cholesterol Injury of back Former smoker History of edema History of stress test Colon polyps HTN (hypertension) Intra-abdominal adhesions Rectocele PVC (premature ventricular contraction) Diverticulosis Cystocele with incomplete uterovaginal prolapse Enlarged uterus History of uterine fibroid Postmenopausal bleeding Hernia Surgical History History of colonoscopy History of sleeve gastrectomy History of hernia repair ( 2018) History of tubal ligation ( 1995) S/P panniculectomy History of gastrectomy ( 2013) H/O hernia repair ( 2005) History of endometrial ablation History of bowel resection ( 2010) H/O dilation and curettage Family History Mother Cancer Father Cancer Hypertension Brother Hypertension CVA (cerebral vascular accident) Diabetes Social History number of children: 3 current occupational status: employed current occupation: [employer] Smoking Status: Former smoker alcohol intake: never substance use type: does not use diet: vegetarian seatbelt use: always do you feel safe at home: Yes HPI HPI HPI: Patient is a 68-year-old female here for GERD. She was on omeprazole for a long time but stopped it after she switched [id number]-ufatmwm and it said only to take it for 2 weeks. She started having GERD and epigastric pain. She says Tums helps. ROS General General: Yes weight change; No appetite, fatigue, colon cancer, breast cancer or weakness HEENT HEENT: No difficulty swallowing, eye injury, eye surgery, swollen glands or hoarseness Endo Endocrine: No thyroid disease, diabetes mellitus, thyroid cancer, Hair loss, heat intolerance or cold intolerance Skin Skin: No rash or changing moles Musc Musculoskeletal: Yes back problems; No arthritis, rheumatoid arthritis, gout or joint pain Cardio Cardiovascular: Yes high blood pressure; No murmur, pacemaker, heart disease, atrial fibrillation, heart attack, heart stent, palpitations, shortness of breath with exertion or chest pain Psych Psychiatric: No depression, anxiety or hearing voices Resp Respiratory: No shortness of breath, No sleep apnea, No cough, No COPD, No asthma, No emphysema and No wheezing Gastro Gastrointestinal: No abdominal pain, No nausea or vomiting, No diarrhea, No constipation, No blood in stool, Yes acid reflux, Yes hemorrhoids, No ulcers, No gallbladder problem and No black,tarry stools Aidan Hematologic: No blood thinners, No blood disorders, No bleeding, No anemia and No blood clots Neuro Neurologic: No weakness Exam Const General: cooperative Orientation: alert and oriented x3 HENMT Head: normal to inspection Neck Neck: normal visual inspection and full ROM Chest Chest palpation inspection: normal inspection of the chest Resp Effort (more content not included)... Normal [facility] MR/BMS.Bon 06-24-2024 MR/BMS.B [facility] [address] [place] [address] OFFICE VISIT Date of Service: 06/24/24 MR#: [id number] Acct: [id number] Name: SHANNON LAM Rep #: [id number] : 1955 Provider: Dr. David anderson MD Age/Sex: 68/F Location: [facility] Status: Signed Intake Vital Signs 04/20/23 13:05 06/24/24 08:01 Height 5 ft 4 in 5 ft 4 in Weight: 227 lb 4 oz BMI 38.9 BP 143/75 H Blood Pressure Location Lt brachial Position Sitting Respiration 16 Pulse 69 Pulse Source Monitor Temp 98.2 F Temp Source Temporal Pulse Oximetry (%) 97 Oxygen Delivery Method room air Intake Visit Reasons: Annual/Physical Chief Complaint: Annual/Physical [place] Required: No Accompanied by: Self Is patient in pain?: Yes (muscle pain) Pain scale (1-10): 1 Allergies oxycodone Adverse Reaction (Verified 06/24/24 07:50) Nausea/Vom/Diarrhea Medications ???Medication ???Instructions ???Recorded ???Confirmed ???Type fexofenadine 180 mg tablet 180 mg PO Q24H 04/20/23 06/24/24 H istory (Analisa Allergy) fluticasone propionate 50 1 spray intranasal DAILY 04/20/23 06/24/24 History mcg/actuation nasal spray,suspension (Flonase Allergy Relief) amlodipine 10 mg tablet 10 mg PO DAILY #90 tabs 09/18/23 0 06/24/24 Rx lisinopril 10 1 tab PO DAILY #90 tabs 09/18/23 0 06/24/24 Rx mg-hydrochlorothiazi de 12.5 mg tablet omega 1-pdw-nmq-fish oil 60 mg-90 1 cap PO QDAY 06/24/24 06/24/24 H istory mg-500 mg capsule (Fish Oil) Have you fallen in the past year?: No PFSH Medical History (Updated 06/24/24 @ 08:[address] David Ramirez MD) Chronic GERD Ganglion cyst of volar aspect of right wrist Ganglion cyst of finger of right hand Wears glasses Loose, teeth Arthritis High cholesterol Injury of back Former smoker History of edema History of stress test Colon polyps HTN (hypertension) Intra-abdominal adhesions Rectocele PVC (premature ventricular contraction) Diverticulosis Cystocele with incomplete uterovaginal prolapse Enlarged uterus History of uterine fibroid Postmenopausal bleeding Hernia Surgical History History of colonoscopy History of sleeve gastrectomy History of hernia repair ( 2018) History of tubal ligation ( 1995) S/P panniculectomy History of gastrectomy ( 2013) H/O hernia repair ( 2005) History of endometrial ablation History of bowel resection ( 2010) H/O dilation and curettage Family History Mother Cancer Father Cancer Hypertension Brother Hypertension CVA (cerebral vascular accident) Diabetes Social History number of children: 3 current occupational status: employed current occupation: [employer] Smoking Status: Former smoker alcohol intake: never substance use type: does not use diet: vegetarian seatbelt use: always do you feel safe at home: Yes HPI HPI Chief Complaint: Annual/Physical Details: SHANNON LAM, is a 68 F who presents to the office today for annual physical/follow-up. Patient has a history of hypertriglyceridemia , hypertension on lisinopril???HCTZ and amlodipine. Some seasonal allergy for which she uses fwzn-lyk-hsabatb treatment. Fish oil. Overall no new specific complaints. She has had some long standing heartburn symptoms. Previously had been on omeprazole as needed but had tried to wean off of that. She does use Tums. We spent a lot of time in the past talking about dietary nutritional patterns that would affect her reflux. She does have a history of gastric sleeve for weight reduction surgery that was done many years ago. Over the winter, sort of around the first of the year, she has noted increased gas, gurgle sensation in the upper abdomen and perhaps a little bit more heartburn. We discussed that, diet and nutritional, including watching coffee caffeine, and direct relaxers of the LES. Long-term, highly encourage reduction in the amount of starch in the diet and incorporating more fresh fruits and vegetables, higher fiber content. Finally we discussed that it might be prudent at this point because of some of the changes and the history of gastric sleeve, that perhaps EGD would be warranted and she is agreeable. She has ongoing muscle back and shoulder discomfort. More to the right side. Nothing acute or severe at least right now but at times it is more bothersome. She has been doing a lot more outdoor activity, lifting and that may have reaggravated things. She had seen chiropractic in the past but nothing recent for this. We discussed repeating a short course of chiropractic to see if they can help things out. At 1 point she did go to urgent care and (more content not included)... Normal [facility] Urine Cultureon 05-18-2024 URC Below infection level. Mixed Gram Pos Gram Neg Org [place] Count 1000-10,000 MIXC Mixed contaminants. Submit a new specimen if indicated. Normal [facility] Comment on above: Performed By: #### M 100.2200 #### [facility] [address] [place], [address] Laboratory - Chemistry and C hemistry - challengeOrdered By: Bryn Higuera on 05-17-2024 Bilirubin Ql (U) Negative [facility] Glucose Ql (U) Negative [facility] Ketones Ql (U) Trace (5) [facility] pH (U) 6.5 [pH] [facility] Specific gravity (U) [Rel density] 1.[address] [facility] Urobilinogen (U) [Mass/Vol] 1 mg/dL [facility] Laboratory - Hematology and Cell countsOrdered By: Bryn Higuera on 05-17-2024 Hemoglobin Ql (U) Trace [facility] - Specimen inform ationOrdered By: Bryn Higuera on 05-17-2024 Clarity (U) Clear [facility] Color (U) YELLOW [facility] Laboratory - UrinalysisOrder ed By: Bryn Higuera on 05-17-2024 Nitrite Ql (U) Negative [facility] Protein Ql (U) Trace [facility] No Panel InformationOrdered By: Bryn Higuera on 05-17-2024 Urine Leukocytes Positive [facility] Urine Non-Hemolyzed Blood Non-Hemolyzed [facility] Urgent Care Visit Reporton 0 05-17-2024 Urgent Care Visit Report [facility] [address], [address] [place] [address] OFFICE VISIT Date of Service: 05/17/24 MR#: [id number] Acct: [id number] Name: SHANNON LAM Rep #: [id number] : 1955 Provider: LEYDA Ahmadi Age/Sex: 68/F Location: [facility] Status: Signed Intake Vital Signs 04/20/23 13:05 Height 5 ft 4 in Intake Visit Reasons: CONCERN FOR UTI Accompanied by: Self Allergies oxycodone Adverse Reaction (Verified 11/12/23 08:11) Nausea/Vom/Diarrhea Medications ???Medication ???Instructions ???Recorded ???Confirmed ???Type apple cider vinegar digestive PO 04/20/23 04/20/23 History complex probiotic fexofenadine 180 mg tablet 180 mg PO Q24H 04/20/23 04/20/23 H istory (Analisa Allergy) fluticasone propionate 50 1 spray intranasal DAILY 04/20/23 04/20/23 History mcg/actuation nasal spray,suspension (Flonase Allergy Relief) amlodipine 10 mg tablet 10 mg PO DAILY #90 tabs 09/18/23 0 05/17/24 Rx lisinopril 10 1 tab PO DAILY #90 tabs 09/18/23 0 05/17/24 Rx mg-hydrochlorothiazi de 12.5 mg tablet nitrofurantoin 1 cap PO Q12H 7 days #14 caps 06/0705/17/24 Rx monohydrate/macrocry stals 100 mg capsule Have you fallen in the past year?: No Nurse's Note: Patient has concerned for UTI. Patient has frequency and urgency and burning and painful towards the end of urinating. Patient states this started yesterday but is worse today. [facility] Medical History (Updated 05/17/24 @ 13:31 by Bryn CRABTREE, PA) Ganglion cyst of volar aspect of right wrist Ganglion cyst of finger of right hand Wears glasses Loose, teeth Arthritis High cholesterol Injury of back Former smoker History of edema History of stress test Colon polyps HTN (hypertension) Intra-abdominal adhesions Rectocele PVC (premature ventricular contraction) Diverticulosis Cystocele with incomplete uterovaginal prolapse Enlarged uterus History of uterine fibroid Postmenopausal bleeding Hernia Surgical History History of colonoscopy History of sleeve gastrectomy History of hernia repair ( 2018) History of tubal ligation ( 1995) S/P panniculectomy History of gastrectomy ( 2013) H/O hernia repair ( 2005) History of endometrial ablation History of bowel resection ( 2010) H/O dilation and curettage Family History Mother Cancer Father Cancer Hypertension Brother Hypertension CVA (cerebral vascular accident) Diabetes Social History number of children: 3 current occupational status: employed current occupation: [employer] Smoking Status: Former smoker alcohol intake: never substance use type: does not use diet: vegetarian seatbelt use: always do you feel safe at home: Yes HPI HPI Details: SHANNON LAM, is a 68 F who presents to the office today for complaint of dysuria and increased urinary urgency/frequency starting yesterday. Patient denies fever, chills, sweats. No nausea, vomiting or diarrhea. No pelvic or abdominal pain. No other associated symptoms or alleviating/aggravat ing factors. ROS Const Constitutional: No other (6 system ROS completed with pertinent findings in the HPI otherwise normal.) Exam Const General: cooperative and healthy appearing Resp Effort Inspection: normal respiratory effort Auscultation: Bilateral: Clear to Auscultation Cardio Rate: regular rate Rhythm: regular rhythm GI Auscultation: normal bowel sounds General: No CVA tenderness Psych Appearance: grossly normal Mental Status: mental status grossly normal Results POC Urinalysis Dip (Clinic) Office Urine Color YELLOW Last Edit by Regina Avery MA on 05/17/24 13:25 Office Urine Clarity Clear Last Edit by Regina Avery MA on 05/17/24 13:25 Office Urine Glucose Negative Last Edit by Regina Avery MA on 05/17/24 13:25 Office Urine Ketones Trace (5) Last Edit by Regina Avery MA on 05/17/24 13:25 Off Ur Spec [place] 1.015 Last Edit by Regina Avery MA on 05/17/24 13:25 Office Urine pH 6.5 Last Edit by Regina Avery MA on 05/17/24 13:25 Office Urine Bilirubin Negative Last Edit by Regina Avery MA on 05/17/24 13:25 Office Urine Urobilinogen 1 mg/dL Last Edit by Regina Avery MA on 05/17/24 13:25 Office Urine Blood Trace Last Edit by Regina Avery MA on 05/17/24 13:25 Office Urine Blood Hemolyzed Non-Hemolyzed Last Edit by Regina Avery MA on 05/17/24 13:25 Office Urine Protein Trace Last Edit by Regina Avery MA on 05/17/24 13:25 Office Urine Nitrate Negative Last Edit by Regina Avery MA on 05/17/24 13:25 Off Ur Leukocytes Positive Last Edit by Regina Avery MA on 05/17/24 13:25 Coding Level of Care (more content not included)... Normal [facility] Urine cultureOrdered By: Unruly Higuera on 05-17-2024 Bacteria identified Cx Nom (U) Mixed Gram Pos & Gram Neg Org Abnormal [facility] Urgent Care Visit Reporton 0 11-12-2023 Urgent Care Visit Report [facility] [address], [address] [place] [address] OFFICE VISIT Date of Service: 11/12/23 MR#: [id number] Acct: [id number] Name: SHANNON LAM Rep #: [id number] : 1955 Provider: OSKAR pike Age/Sex: 67/F Location: [facility] Status: Signed Intake Vital Signs 04/20/23 13:05 11/12/23 08:10 Height 5 ft 4 in BP 124/82 H Blood Pressure Location Lt brachial Position Sitting Respiration 14 Pulse 84 Pulse Source Monitor Temp 98.5 F Temp Source Temporal Pulse Oximetry (%) 98 Oxygen Delivery Method room air Intake Visit Reasons: MID BACK PAIN/CONCERN FOR MUSCLE STRAIN Chief Complaint: discuss cough since february Allergies oxycodone Adverse Reaction (Verified 11/12/23 08:11) Nausea/Vom/Diarrhea Have you fallen in the past year?: No PFSH Medical History (Updated 11/12/23 @ 08:21 by Frankie Short 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, 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) Ganglion cyst of volar aspect of right wrist Ganglion cyst of finger of right hand Wears glasses Loose, teeth Arthritis High cholesterol Injury of back Former smoker History of edema History of stress test Colon polyps HTN (hypertension) Intra-abdominal adhesions Rectocele PVC (premature ventricular contraction) Diverticulosis Cystocele with incomplete uterovaginal prolapse Enlarged uterus History of uterine fibroid Postmenopausal bleeding Hernia Surgical History History of colonoscopy History of sleeve gastrectomy History of hernia repair ( 2018) History of tubal ligation ( 1995) S/P panniculectomy History of gastrectomy ( 2013) H/O hernia repair ( 2005) History of endometrial ablation History of bowel resection ( 2010) H/O dilation and curettage Family History Mother Cancer Father Cancer Hypertension Brother Hypertension CVA (cerebral vascular accident) Diabetes Social History number of children: 3 current occupational status: employed current occupation: [employer] Smoking Status: Former smoker alcohol intake: never substance use type: does not use diet: vegetarian seatbelt use: always do you feel safe at home: Yes HPI HPI Chief Complaint: discuss cough since february Details: SHANNON LAM, is a 67 F who presents to the office today for concerns regarding pulled muscle. She notices in her mid back. This located middle of back and radiates to the right. She states intermittent leg cramps. This has been ongoing for a week. She took Ibuprofen and Tylenol with some relieve. She states she has been helping moving boxes and cleaning out a pool. ROS Const Constitutional: No chills, fatigue, fever(s) or weakness Resp Respiratory: No shortness of breath Cardio Cardiology: No chest pain with exertion Gastro GI: No incontinent of stools Genitourinary-Female : No urinary incontinence Musc Musculoskeletal: Positive for back pain; No muscle weakness, numbness (denies saddle anesthesia) or tingling (denies saddle anesthesia) Neuro Neurology: No weakness, numbness (denies saddle anesthesia) or tingling (denies saddle anesthesia) Endo Endocrine: No fatigue Aidan/Lymp Hematologic/Lymphati c: Positive for other (Denies cancer history or trauma. Denies IV drug use) Exam Const General: cooperative, healthy appearing, comfortable and no acute distress Chest Chest palpation inspection: normal inspection of the chest Resp Effort Inspection: normal respiratory effort, able to speak in complete sentences, symmetric chest movement, not labored, no retractions and no use of accessory muscles Auscultation: Bilateral: Clear to Auscultation Cardio Rate: other Rhythm: regular rhythm Heart Sounds: S1 normal and S2 normal Musc Musculoskeletal: Yes joint tenderness (right scapula) and decreased range of motion (right arm); No joint redness, joint warmth, spinal deformity or muscle weakness Thoracic/Lumbar Spine: thoracic and lumbar spine normal to inspection, Lasegue's sign negative, no paraspinal tenderness, no thoracic spinal tenderness and no lumbar spinal tenderness Neuro General: patient alert, patient awake and patient oriented x3 Coding Level of Care Code Off vis,est,level 3 Diagnoses Muscle strain T14.8XXA Assessment and Plan Assessment and Plan (1) Muscle strain: Status: Acute Plan: This appears muscular related. Will give muscle relaxer to assist. OTC measures reviewed. She was asked to review with PCP if pain continues. We opted not to pursue steroids. She was instructed to limit right arm activity to assist. Encouraged to get plenty of rest, drink lots of clear liquids, and use Tylenol or Ibuprofen (unless contraindicated) for fever and comfort. Patient also (more content not included)... Normal [facility] SCRN MAMM (CAD)W/EVERARDO BILATo n 09-29-2023 SCRN MAMM (CAD)W/EVERARDO BILAT [facility] Imaging Services [address] [place], [place] [id number] SCRN MAMM (CAD)W/EVERARDO BILAT MR#: [id number] Acct: [id number] Name: SHANNON LAM Rep #: [id number] : 1955 F 67 From: Duc wen MD PCP: Dr. David Ramirez MD Status: [facility] Study: SCRN MAMM (CAD)W/EVERARDO BILAT Date of Exam: 09/13 08/06 Exam# [id number] Ordering Dr: Dana Yung [id number] MAMMOGRAPHY - BILATERAL SCREENING REASON FOR EXAM: Female, 67 years old. Routine annual screening examination. PERTINENT HISTORY: Non-contributory. TECHNIQUE: Digital bilateral breast everardo (3D mammographic acquisition) in the CC and MLO projections. 2-D mediolateral oblique (MLO) and craniocaudad (CC) views of both breasts were obtained. CAD: Full Field Digital Mammography with Computer Added Detection was performed. COMPARISON: Comparison is made with prior study September 27, 2022 and September 06, 2021. FINDINGS: Breast Composition: The breasts are almost entirely fatty. There are no dominant masses or suspicious calcifications. Stable small benign-appearing bilateral axillary lymph nodes. No other significant abnormalities are identified. There has been no significant change since the prior study. BI/SCRN MAMM (CAD)W/EVERARDO BILAT IMPRESSION: Stable bilateral screening mammogram. Yearly follow-up mammogram recommended. (A) ASSESSMENT CATEGORY: BIRADS Category 2: Benign. A letter regarding these results will be sent to the patient by the facility within 30 days. Approximately 10% of breast cancers are not detected by mammography. A normal mammogram should not delay biopsy of a clinically suspicious abnormality. [id number] Electronically Signed: Duc Goyal MD at 8:19 EDT , CC: Dr. David Ramirez MD; Dr. 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 Absolute lymphocyte countOrd ered By: David Ramirez on 04-17-2023 Lymphocytes Auto (Unsp spec) [#/Vol] 2.13 10*3/uL 0.83-4.[address] [facility] Automated lymphocyte count a s percentage of total leukocytesOrdered By: David Ramirez on 04-17-2023 Lymphocytes/100 WBC Auto (Unsp spec) 23.8 % 19-[address] [facility] Basophil percentageOrdered B y: David Ramirez on 04-17-2023 Basophils/100 WBC (Bld) 0.9 % 0-1 [facility] Bilirubin [Mass/Vol] 1.10 mg/dL 0.20-1.00 [facility] Comment on above: For patients on eltr ombopag therapy, use of Dimension [place] TBIL is not recommended. Chloride [Moles/Vol] 108 mmol/L 98-107 [facility] Eosinophils/100 WBC (Bld) 1.7 % 0-[address] [facility] Glucose [Mass/Vol] 100 mg/dL 74-106 [facility] Comment on above: Fasting Glucose resu lt from 100 to 125 mg/dL suggests IMPAIRED HOMEOSTASIS per A.D.A. criteria. Hemoglobin (Bld) [Mass/Vol] 14.4 g/dL 12.0-15.[address] [facility] Monocytes/100 WBC (Bld) 9.5 % 0-10 [facility] Neutrophils (Bld) [#/Vol] 5.7 10*3/uL 2.0-7.[address] [facility] Neutrophils/100 WBC (Bld) 63.4 % 47-[address] [facility] Potassium [Moles/Vol] 4.0 mmol/L 3.5-5.1 [facility] Protein [Mass/Vol] 7.3 g/dL 6.4-8.2 [facility] Sodium [Moles/Vol] 141 mmol/L 136-145 [facility] WBC (Bld) [#/Vol] 8.9 10*3/uL 4.4-11.0 [facility] Determination of erythrocyte mean corpuscular volume (MCV)Ordered By: David Ramirez on 04-17-2023 MCV (RBC) [Entitic vol] 86.4 fL 81-99 [facility] Erythrocyte distribution wid th ratioOrdered By: David Ramirez on 04-17-2023 Erythrocyte distribution width (RBC) [Ratio] 13.7 % 11.6-14.[address] [facility] Erythrocyte distribution wid th standard deviationOrdered By: David Ramirez on 04-17-2023 Erythrocyte distribution width (RBC) [Entitic vol] 43.5 fL 35.1-43.[address] [facility] Hematocrit Auto (Bld) [Volum e fraction]Ordered By: David Ramirez on 04-17-2023 Hematocrit (Bld) [Volume fraction] 44.3 % 37-[address] [facility] Immature granulocytes/100 WB C Auto (Bld)Ordered By: David Ramirez on 04-17-2023 Immature granulocytes/100 WBC (Bld) 0.700 % 0.0-0.[address] [facility] Comment on above: IG% - Immature Granu locytes (promyelocytes, myelocytes and metamyelocytes) > 1% indicates that a LEFT SHIFT is Present. Laboratory - Chemistry and C hemistry - challengeOrdered By: David Ramirez on 04-17-2023 Albumin/Globulin [Mass ratio] 1.0 {ratio} 0.9-2.[address] [facility] ALP [Catalytic activity/Vol] 79 U/L 45-[address] [facility] ALT [Catalytic activity/Vol] 25 U/L 13-[address] [facility] CO2 [Moles/Vol] 29.0 mmol/L 21.0-32.[address] [facility] Globulin (S) [Mass/Vol] 3.7 g/dL 2.2-4.2 [facility] Urea nitrogen/Creatinine [Mass ratio] 28.3 mg/mg 10-[address] [facility] Laboratory - Hematology and Cell countsOrdered By: David Ramirez on 04-17-2023 MCH (RBC) [Entitic mass] 28.1 pg 27.0-32.[address] [facility] MCHC (RBC) [Mass/Vol] 32.5 g/dL 32-36 [facility] Nucleated RBC/100 WBC (Bld) [Ratio] 0 % 0-[address] [facility] Platelet mean volume (Bld) [Entitic vol] 11.6 fL 6.2-12.[address] [facility] Platelets (Bld) [#/Vol] 271 10*3/uL 150-[address] [facility] No Panel InformationOrdered By: David Ramirez on 04-17-2023 Estimated GFR (MDRD) Amer 161 mL/min >[address] [facility] Comment on above: GFR Calc Estimated GFR (MDRD) Non-Af Amer 133 mL/min >[address] [facility] Comment on above: Non- GFR Calc Vitamin D 25-Hydroxy 34.5 ng/mL [facility] Comment on above: Vitamin D 25(OH) Sta tus Range Deficiency <20 ng/mL (50nmol/L) Insufficiency 20 - 30 ng/mL (50 - 75 nmol/L) Sufficiency 30 - 100 ng/mL (75 - 250 nmol/L) Toxicity >100 ng/mL (>250 nmol/L) RBC Auto (Bld) [#/Vol]Ordere d By: David Ramirez on 04-17-2023 RBC (Bld) [#/Vol] 5.13 10*6/uL 4.2-5.4 [facility] Serum or plasma calcium lauro urement (mass/volume)Ordered By: David Ramirez on 03-04-2024 Calcium [Mass/Vol] 9.1 mg/dL 8.5-10.1 [facility] Serum or plasma creatinine m easurement (mass/volume)Ordered By: David Ramirez on 04-17-2023 Creatinine [Mass/Vol] 0.49 mg/dL 0.55-1.02 [facility] Comment on above: The validity of the calculated GFR & GFRAA in patients over 70 years has not been determined. Clinical correlation is essential. Serum or plasma urea nitroge n measurement (mass/volume)Ordered By: David Ramirez on 04-17-2023 Urea nitrogen [Mass/Vol] 14 mg/dL 7-[address] [facility] Thin prep Papanicolaou smear with manual screeningOrdered By: David Ramirez on 04-17-2023 Thin prep Papanicolaou smear with manual screening 3.6 g/dL 3.2-5.[address] [facility] Thin prep Papanicolaou smear with manual screening 18 U/L 15-[address] [facility] Thin prep Papanicolaou smear with manual screening 4 5-[address] [facility] Whole blood hemoglobin A1c/t otal hemoglobin ratio (mass fraction)Ordered By: David Ramirez on 04-17-2023 HbA1c (Bld) [Mass fraction] 6.1 % 3.8-5.[address] [facility] Comment on above: Normal < 5.7 % Predi abetic 5.7 - 6.4 % Diabetic >or= 6.5 % Please note range changes. Celia 03-31-2023 ALISTAIR Telephone (UROLAE) SHANNON LAM ([id number]) 1955 F Date Time Provider Department 03/31/23 KAREN RAMOS During your visit today, we recorded the following information about you: Kaila Barahona 03/31/2023 10:32 AM Signed Received fax from Dr. Rosalba Bourne's office requesting op note from procedure with Dr. Ramos to be faxed to their office. Faxed op note from 01-13-22 to [phone]. Confirmation was received. Katie Barahona March 31, 2023 10:24 AM Allergies As of Date: 03/31/2023 Noted Allergy Reaction OXYCODONE 04/04/2016 11 - Vomiting Date Reviewed: 12/22/2022 Reviewed by: Anish Edwards DO - Fully Assessed Prescriptions as of 03/31/2023 - estradiol (ESTRACE) 0.01 % (0.1 mg/gram) vaginal cream Use 1 g vaginally two times a week. Please use the applicator provided in the package. - lisinopril-hydroCHLO ROthiazide (ZESTORETIC) 10-12.5 mg per tablet Take 1 tablet by mouth every afternoon. - acetaminophen (TYLENOL) 325 mg cap Take by mouth. PRN for pain - amLODIPine (NORVASC) 10 mg tablet Take 10 mg by mouth once daily. - fluticasone (FLONASE) 50 mcg/actuation nasal spray Use 1 [place] in the nose as needed. - L.acidophil-L.planta r-Bifido 7 (UP4 PROBIOTICS ADULT) 15 billion cell cap Take by mouth once daily. Takes sporadically Problem List As Of Date 03/31/2023 Noted Resolved Obesity, Class II, BMI 35-39.9 [E66.9] 01/13/2022 Encounter Status:Closed by KAILA BARAHONA on 03/31/23 [facility] Celia 03-09-2023 ALISTAIR Telephone (UROLAChilango) SHANNON LAM ([id number]) 1955 F Date Time Provider Department 03/09/23 AVINASH RANDOLPH During your visit today, we recorded the following information about you: Kaila Barahona 03/09/2023 2:56 PM Signed Received fax from Dr. Rosalba Bourne's office requesting most recent office visit note and any testing from that time. Faxed note and UA results from last appointment on 09-12-22 to [phone]. Confirmation was received. Ktaie Monique March 09, 2023 2:56 PM Allergies As of Date: 03/09/2023 Noted Allergy Reaction OXYCODONE 04/04/2016 11 - Vomiting Date Reviewed: 12/22/2022 Reviewed by: Anish Edwards DO - Fully Assessed Reason for Visit: Release Of Medical Records [2017] Prescriptions as of 03/09/2023 - estradiol (ESTRACE) 0.01 % (0.1 mg/gram) vaginal cream Use 1 g vaginally two times a week. Please use the applicator provided in the package. - lisinopril-hydroCHLO ROthiazide (ZESTORETIC) 10-12.5 mg per tablet Take 1 tablet by mouth every afternoon. - acetaminophen (TYLENOL) 325 mg cap Take by mouth. PRN for pain - amLODIPine (NORVASC) 10 mg tablet Take 10 mg by mouth once daily. - fluticasone (FLONASE) 50 mcg/actuation nasal spray Use 1 [place] in the nose as needed. - L.acidophil-L.planta r-Bifido 7 (UP4 PROBIOTICS ADULT) 15 billion cell cap Take by mouth once daily. Takes sporadically Problem List As Of Date 03/09/2023 Noted Resolved Obesity, Class II, BMI 35-39.9 [E66.9] 01/13/2022 Encounter Status:Closed by KAILA BARAHONA on 03/09/23 [facility] Celia 01-12-2023 CYNDIEN Telephone (OBGWMA) SHANNON LAM ([id number]) 1955 F Date Time Provider Department 01/12/23 ANISH EDWARDS OBGWMA During your visit today, we recorded the following information about you: Anish Edwards DO 01/12/2023 4:34 PM Addendum Vaginal cultures that were collected in the office several weeks ago returned positive for a bacterial infection. She will need vaginal clindamycin cream for treatment of this for 7 days. Rx sent to pharmacy. Can you please let her know? Thanks! DO Anju Marcos Tammy, RN 01/16/2023 12:53 PM Signed Aware of Dr Edwards's note and Rx at pharm. Essie Rene RN Allergies As of Date: 01/12/2023 Noted Allergy Reaction OXYCODONE 04/04/2016 11 - Vomiting Date Reviewed: 12/22/2022 Reviewed by: Anish Edwards DO - Fully Assessed Reason for Visit: Results [95] Order(s):clindamycin phosphate (CLEOCIN) 2 % vaginal creamUse 1 Applicatorful vaginally daily at bedtime for 7 days.Disp: 40 gRfl: 0 Prescriptions as of 01/16/2023 - clindamycin phosphate (CLEOCIN) 2 % vaginal cream Use 1 Applicatorful vaginally daily at bedtime for 7 days. - estradiol (ESTRACE) 0.01 % (0.1 mg/gram) vaginal cream Use 1 g vaginally two times a week. Please use the applicator provided in the package. - lisinopril-hydroCHLO ROthiazide (ZESTORETIC) 10-12.5 mg per tablet Take 1 tablet by mouth every afternoon. - acetaminophen (TYLENOL) 325 mg cap Take by mouth. PRN for pain - amLODIPine (NORVASC) 10 mg tablet Take 10 mg by mouth once daily. - fluticasone (FLONASE) 50 mcg/actuation nasal spray Use 1 [place] in the nose as needed. - L.acidophil-L.planta r-Bifido 7 (UP4 PROBIOTICS ADULT) 15 billion cell cap Take by mouth once daily. Takes sporadically Problem List As Of Date 01/12/2023 Noted Resolved Obesity, Class II, BMI 35-39.9 [E66.9] 01/13/2022 Prescriptions ordered this encounter Disp Refills Start End CLINDAMYCIN 2 % VAGINAL CREAM 40 g 0 01/12/2023 01/19/2023 Route: VAGINAL Sig: Use 1 Applicatorful vaginally daily at bedtime for 7 days. Encounter Status:Closed by ANISH EDWARDS on 01/12/23 [facility] CNOVon 12-22-2022 CNOV Office Visit (AGOBPOB) SHANNON LAM ([id number]) 1955 F Date Time Provider Department 12/22/22 11:15 AM ANISH EDWARDS During your visit today, we recorded the following information about you: Blood pressure Weight Height 144/90 103.4 kg 1.626 m Anish Edwards DO 12/22/2022 11:53 AM Signed SERVICE DATE: 12/22/2022 SERVICE TIME: 11:50 AM [...] RESECTION HX 2006 DANDC, DIAG AND/OR THERAPEUTIC 1981 LAP SLEEVE GASTRECTOMY 12/31/2013 LIGATE FALLOPIAN TUBE [...] Neurological: Negative for dizziness, weakness and headaches. Psychiatric/Behavior al: Negative for behavioral problems and suicidal ideas. [...] at the right apex of the vaginal cu (more content not included)... Normal [facility] CNOVon 10-06-2022 CNOV Office Visit (AGOBPOB) SHANNON LAM ([id number]) 1955 F Date Time Provider Department 10/06/22 11:45 AM ANISH EDWARDSOB During your visit today, we recorded the following information about you: Blood pressure Weight Height 150/80 102.1 kg 1.626 m Anish Edwards DO 10/06/2022 12:46 PM Signed SERVICE DATE: 10/06/2022 SERVICE TIME: 12:00 PM [...] Neurological: Negative for dizziness, weakness and headaches. Psychiatric/Behavior al: Negative for behavioral problems and suicidal ideas. [...] Will RTC in 3 months for re-evaluation Anish Edwards DO Allergies As of Date: 10/06/2022 Noted Allergy Reaction OXYCODONE (more content not included)... Normal [facility] Celia 09-13-2022 [facility] Telephone (AKURFL) SHANNON LAM ([id number]) 1955 F Date Time Provider Department 09/13/22 AVINASH RANDOLPH During your visit today, we recorded the following information about you: Lyndsay Sanderson CMA 09/13/2022 9:43 AM Signed Pt called states you were going to send a medication to the pharmacy - [facility] - yesterday but nothing was sent. Please advise Avinash Lockett CMA, MD 09/13/2022 5:12 PM Signed Estrace Rx sent to pharmacy. Allergies As of Date: 09/13/2022 Noted Allergy Reaction OXYCODONE 04/04/2016 11 - Vomiting Date Reviewed: 09/12/2022 Reviewed by: Avinash Randolph MD - Fully Assessed Reason for Visit: Medication Question [1478] Order(s):estradiol (ESTRACE) 0.01 % (0.1 mg/gram) vaginal creamUse 1 g vaginally two times a week. Please use the applicator provided in the package.Disp: 42 gRfl: 11 Prescriptions as of 09/13/2022 - estradiol (ESTRACE) 0.01 % (0.1 mg/gram) vaginal cream Use 1 g vaginally two times a week. Please use the applicator provided in the package. - lisinopril-hydroCHLO ROthiazide (ZESTORETIC) 10-12.5 mg per tablet Take 1 tablet by mouth every afternoon. - acetaminophen (TYLENOL) 325 mg cap Take by mouth. PRN for pain - amLODIPine (NORVASC) 10 mg tablet Take 10 mg by mouth once daily. - fluticasone (FLONASE) 50 mcg/actuation nasal spray Use 1 [place] in the nose as needed. - L.acidophil-L.planta r-Bifido 7 (UP4 PROBIOTICS ADULT) 15 billion cell cap Take by mouth once daily. Takes sporadically Problem List As Of Date 09/13/2022 Noted Resolved Obesity, Class II, BMI 35-39.9 [E66.9] 01/13/2022 Prescriptions ordered this encounter Disp Refills Start End ESTRADIOL 0.01% (0.1 MG/GRAM) VAGINA* 42 g 11 09/13/2022 Route: VAGINAL Sig: Use 1 g vaginally two times a week. Please use the applicator provided in the package. Encounter Status:Closed by AVINASH RANDOLPH on 09/13/22 [facility] CNOVon 09-12-2022 CNOV Office Visit (UROLAE) SHANNON LAM ([id number]) 1955 F Date Time Provider Department 09/12/22 3:15 PM AVINASH RANDOLPH During your visit today, we recorded the following information about you: Weight Height 100.2 kg 1.6 m Avinash Randolph MD 09/18/2022 7:38 PM Signed [facility] ESTABLISHED PATIENT NOTE PATIENT: Shannon Lam (66 year old) PCP: David Ramirez MD DATE OF SERVICE: 09/12/2022 ASSESSMENT: 1. [...] 01/13/2022. She was last seen by Dr. Ramos on 02/01/2022. Prior notes were reviewed. The patient underwent intracorporeally and sacrospinous ligament fixation on 01/13/2022 simultaneous with hysterectomy for pelvic organ prolapse including midline cystocele and rectocele. Operative note reviewed: Anterior repair performed with interrupted 2-0 PDS. 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 Vaginal cuff closed transverse with interrupted 0 Vicryl sutures. Patient was seen for postoperative check on 02/03/2022 and was healing well. Asked return as needed. In April 2022, patient felt a bulge when she showered. Since surgery she has noticed a brownish vaginal discharge. Denies pain or odor. She is also noticed vaginal spotting was seen by her oracle hrms developer in [place] at [facility]. Patient provided referral to pelvic [...] anterior colporrhaphy and sacrospinous vault fixation (Dr. 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 History of abnormal pap smears: yes, HPV 2010 Sexual function Sexually active: Not sexually active [...] Gastrointestinal: constipation - denies, vomiting - denies Hematologic/Lymphati c: easy bleeding or bruising - denies ALLERGIES: ALLERGIES Allergen Reactions Oxycodone Vomiting MEDICATIONS: lisinopril-hydroCHLO ROthiazide (ZESTORETIC) 10-12.5 mg per tablet Take 1 tablet by mouth every afternoon. acetaminophen (TYLENOL) 325 mg cap Take by mouth. PRN for pain amLODIPine (NORVASC) 10 mg tablet Take 10 mg by mouth once daily. fluticasone (FLONASE) 50 mcg/actuation nasal spray Use 1 [place] in the nose as needed. L.acidophil-L.planta r-Bifido 7 (UP4 PROBIOTICS ADULT) 15 billion cell [...] DESTR RFA, CHEM OTHER 2009 [employer] (more content not included)... Normal [facility] UA DIP, URINE (POC)on 2022 BILIRUBIN UA (POCT) Negative Negative [facility] CLARITY UA (POCT) [facility] COLOR UA (POCT) Yellow [facility] GLUCOSE UA (POCT) Negative Negative mg/dL [facility] HEMOGLOBIN/BLOOD UA (POCT) Negative Negative [facility] KETONE UA (POCT) Negative Negative mg/dL [facility] LEUKOCYTES UA (POCT) Small Abnormal Negative [facility] NITRITE UA (POCT) Negative Negative [facility] PH UA (POCT) 6.0 4.5 - 8.[address] [facility] Protein Ql (U) Negative Negative mg/dL [facility] SPECIFIC GRAVITY UA (POCT) 1.025 1.005 - 1.[address] [facility] UROBILINOGEN UA (POCT) 0.2 E.U./dL Val l E.U./dL [facility] Absolute lymphocyte countOrd ered By: Aaron Hannon on 08-10-2022 Lymphocytes Auto (Unsp spec) [#/Vol] 1.71 10*3/uL 0.83-4.[address] [facility] Basophil percentageOrdered B y: Aaron Hannon on 08-10-2022 Basophils/100 WBC (Bld) 0.8 % 0-1 [facility] Chloride [Moles/Vol] 108 mmol/L 98-107 [facility] Eosinophils/100 WBC (Bld) 0.6 % 0-[address] [facility] Glucose [Mass/Vol] 132 mg/dL 74-106 [facility] Comment on above: Fasting Glucose resu lt greater than or equal to 126 mg/dL suggests DIABETES MELLITUS per A.D.A. criteria. Neutrophils (Bld) [#/Vol] 8.8 10*3/uL 2.0-7.[address] [facility] Neutrophils/100 WBC (Bld) 74.4 % 47-[address] [facility] Potassium [Moles/Vol] 4.1 mmol/L 3.5-5.1 [facility] Sodium [Moles/Vol] 141 mmol/L 136-145 [facility] WBC (Bld) [#/Vol] 11.8 10*3/uL 4.4-11.0 [facility] Blood erythrocytes count (nu mber/volume)Ordered By: Aaron Hannon on 08-10-2022 RBC (Bld) [#/Vol] 5.16 10*6/uL 4.2-5.4 [facility] Blood hemoglobin measurement (mass/volume)Ordered By: Aaron Hannon on 08-10-2022 Hemoglobin (Bld) [Mass/Vol] 14.7 g/dL 12.0-15.[address] [facility] Blood lymphocytes/100 leukoc ytesOrdered By: Aaron Hannon on 08-10-2022 Lymphocytes/100 WBC (Bld) 14.5 % 19-[address] [facility] Blood monocytes/100 leukocyt esOrdered By: Aaron Hannon on 08-10-2022 Monocytes/100 WBC (Bld) 8.5 % 0-10 [facility] Blood platelet mean volumeOr dered By: Aaron Hannon on 08-10-2022 Platelet mean volume (Bld) [Entitic vol] 10.8 fL 6.2-12.[address] [facility] Determination of erythrocyte mean corpuscular volume (MCV)Ordered By: Aaron Hannon on 08-10-2022 MCV (RBC) [Entitic vol] 86.6 fL 81-99 [facility] Hematocrit Auto (Bld) [Volum e fraction]Ordered By: Aaron Hannon on 08-10-2022 Hematocrit (Bld) [Volume fraction] 44.7 % 37-[address] [facility] Laboratory - Chemistry and C hemistry - challengeOrdered By: Aaron Hannon on 08-10-2022 CO2 [Moles/Vol] 29.0 mmol/L 21.0-32.[address] [facility] Urea nitrogen/Creatinine [Mass ratio] 18.0 mg/mg 10-[address] [facility] Laboratory - Hematology and Cell countsOrdered By: Aaron Hannon on 08-10-2022 Erythrocyte distribution width (RBC) [Entitic vol] 44.4 fL 35.1-43.[address] [facility] Erythrocyte distribution width (RBC) [Ratio] 13.8 % 11.6-14.[address] [facility] Immature granulocytes/100 WBC (Bld) 1.200 % 0.0-0.[address] [facility] Comment on above: IG% - Immature Granu locytes (promyelocytes, myelocytes and metamyelocytes) > 1% indicates that a LEFT SHIFT is Present. MCH (RBC) [Entitic mass] 28.5 pg 27.0-32.[address] [facility] Nucleated RBC/100 WBC (Bld) [Ratio] 0 % 0-[address] [facility] MCHC Auto (RBC) [Mass/Vol]Or dered By: Aaron Hannon on 08-10-2022 MCHC (RBC) [Mass/Vol] 32.9 g/dL 32-36 [facility] No Panel InformationOrdered By: Aaron Hannon on 08-10-2022 Estimated Creatinine Clearance Calc 77.07 ml/min [facility] Estimated GFR (MDRD) Amer 126 mL/min >[address] [facility] Comment on above: GFR Calc Estimated GFR (MDRD) Non-Af Amer 104 mL/min >[address] [facility] Comment on above: Non- GFR Calc Troponin I High Sensitivity 3 pg/mL 3.0-54.[address] [facility] Comment on above: Please Note: [place] Units and Gender Specific Reference Ranges. For more information see Policy Stat Procedure [place] High Sensitivity Troponin (TNIH) and attachments. Platelets bldOrdered By: Ava Hannon on 08-10-2022 Platelets (Bld) [#/Vol] 304 10*3/uL 150-[address] [facility] Serum or plasma calcium lauro urement (mass/volume)Ordered By: Aaron Hannon on 08-10-2022 Calcium [Mass/Vol] 9.3 mg/dL 8.5-10.1 [facility] Serum or plasma creatinine m easurement (mass/volume)Ordered By: Aaron Hannon on 08-10-2022 Creatinine [Mass/Vol] 0.61 mg/dL 0.55-1.02 [facility] Comment on above: The validity of the calculated GFR & GFRAA in patients over 70 years has not been determined. Clinical correlation is essential. Serum or plasma urea nitroge n measurement (mass/volume)Ordered By: Aaron Hannon on 08-10-2022 Urea nitrogen [Mass/Vol] 11 mg/dL 7-[address] [facility] Thin prep Papanicolaou smear with manual screeningOrdered By: Aaron Hannon on 08-10-2022 Thin prep Papanicolaou smear with manual screening 4 5-[address] [facility] Basophil percentageOrdered B y: Dr. Ramirez on 06-21-2022 Bilirubin [Mass/Vol] 1.30 mg/dL 0.20-1.00 [facility] Comment on above: For patients on eltr ombopag therapy, use of Dimension [place] TBIL is not recommended. Chloride [Moles/Vol] 109 mmol/L 98-107 [facility] Cholesterol [Mass/Vol] 198 mg/dL <200 [facility] Comment on above: <200 mg/dL Desirable 200-240 mg/dL Borderline >240 mg/dL High Risk Glucose [Mass/Vol] 92 mg/dL 74-106 [facility] Potassium [Moles/Vol] 4.0 mmol/L 3.5-5.1 [facility] Protein [Mass/Vol] 7.0 g/dL 6.4-8.2 [facility] Sodium [Moles/Vol] 142 mmol/L 136-145 [facility] Triglyceride [Mass/Vol] 170 mg/dL <199 [facility] Comment on above: The drugs N-Acetylcy steine and Metamizole may falsely depress this assay.Serum Triglycerides Reference Interval Normal <150 mg/dL Borderline high 150 - 199 mg/dL High 200 - 499 mg/dL Very High > or = 500 mg/dL Laboratory - Chemistry and C hemistry - challengeOrdered By: Dr. Ramirez on 06-21-2022 ALP [Catalytic activity/Vol] 97 U/L 45-[address] [facility] ALT [Catalytic activity/Vol] 18 U/L 13-[address] [facility] CO2 [Moles/Vol] 29.0 mmol/L 21.0-32.[address] [facility] Globulin (S) [Mass/Vol] 3.6 g/dL 2.2-4.2 [facility] Urea nitrogen/Creatinine [Mass ratio] 24.5 mg/mg 10-[address] [facility] No Panel InformationOrdered By: Dr. Ramirez on 06-21-2022 Estimated GFR (MDRD) Amer 149 mL/min >[address] [facility] Comment on above: GFR Calc Estimated GFR (MDRD) Non-Af Amer 123 mL/min >[address] [facility] Comment on above: Non- GFR Calc Insulin Level 8.9 mU/L 2.6-37.[address] [facility] Serum or plasma albumin lauro urement (mass/volume)Ordered By: Dr. Ramirez on 06-21-2022 Albumin [Mass/Vol] 3.4 g/dL 3.2-5.0 [facility] Serum or plasma albumin/glob ulin mass ratioOrdered By: Dr. Ramirez on 06-21-2022 Albumin/Globulin [Mass ratio] 0.9 {ratio} 0.9-2.[address] [facility] Serum or plasma calcium lauro urement (mass/volume)Ordered By: Dr. Ramirez on 06-21-2022 Calcium [Mass/Vol] 9.1 mg/dL 8.5-10.1 [facility] Serum or plasma cholesterol in HDL measurement (mass/volume)Ordered By: Dr. Ramirez on 06-21-2022 Cholesterol in HDL [Mass/Vol] 38 mg/dL >[address] [facility] Comment on above: The drugs N-Acetylcy steine and Metamizole may falsely depress this assay. Reference Range HDL <40 mg/dL Low HDL Cholesterol HDL >or= 60 mg/dL High HDL Cholesterol Serum or plasma cholesterol in VLDL measurement (mass/volume)Ordered By: Dr. Ramirez on 06-21-2022 Cholesterol in VLDL [Mass/Vol] 34 mg/dL 5-[address] [facility] Serum or plasma creatinine m easurement (mass/volume)Ordered By: Dr. Ramirez on 06-21-2022 Creatinine [Mass/Vol] 0.53 mg/dL 0.55-1.02 [facility] Comment on above: The validity of the calculated GFR & GFRAA in patients over 70 years has not been determined. Clinical correlation is essential. Serum or plasma low density lipoprotein (LDL) cholesterol measurement (mass/volume)Ordered By: Dr. Ramirez on 06-21-2022 Cholesterol in LDL [Mass/Vol] 126 mg/dL 0-[address] [facility] Serum or plasma urea nitroge n measurement (mass/volume)Ordered By: Dr. Ramirez on 06-21-2022 Urea nitrogen [Mass/Vol] 13 mg/dL 7-[address] [facility] Thin prep Papanicolaou smear with manual screeningOrdered By: Dr. Ramirez on 06-21-2022 Thin prep Papanicolaou smear with manual screening 11 U/L 15-[address] [facility] Thin prep Papanicolaou smear with manual screening 4 5-[address] [facility] CNOVon 10-20-2021 CNOV Office Visit (UROLMD) SHANNON LAM ([id number]) 1955 F Date Time Provider Department 10/20/21 11:00 AM KAREN RAMOS UROMONTEZ During your visit today, we recorded the following information about you: Weight Height 103.4 kg 1.613 m Karen Ramos MD 10/20/2021 11:40 AM Signed ESTABLISHED PATIENT VISIT HPI Shannon Lam is [...] 2,500 mg by mouth once daily. fexofenadine (ANALISA) 180 mg tablet Take 180 mg by mouth once daily. fluticasone (FLONASE) 50 mcg/actuation nasal spray Use 1 [place] in the nose as needed. L.acidophil-L.planta r-Bifido 7 (UP4 [employer]OT[employer] ADULT) 15 billion cell cap Take by mouth. Cholecalciferol, Vitamin D3, 50 mcg (2,000 unit) cap Take 1 capsule by mouth once daily. (Patient not taking: No sig reported) Physical Exam Ht 161.3 cm (5' 3.5) Wt 103.4 kg (228 lb) BMI 39.75 kg/m? ASSESSMENT/PLAN: (N81.11) Midline cystocele (primary encounter diagnosis) (N81.6) Rectocele (N81.4) Uterine prolapse Plan cystoscopy, anterior and posterior repair possible sacrospinous ligament fixation or uterosacral ligament fixation. Referring Provider: SELF [[id number]] Allergies As of Date: 10/20/2021 Noted Al (more content not included)... Normal [facility] UA DIP, URINE (POC)on 2021 BILIRUBIN UA (POCT) Negative Negative [facility] CLARITY UA (POCT) Clear [facility] COLOR UA (POCT) Yellow [facility] GLUCOSE UA (POCT) Negative Negative mg/dL [facility] HEMOGLOBIN/BLOOD UA (POCT) Small Abnormal Negative [facility] KETONE UA (POCT) Negative Negative mg/dL [facility] LEUKOCYTES UA (POCT) Trace Abnormal Negative [facility] NITRITE UA (POCT) Negative Negative [facility] PH UA (POCT) 6.0 4.5 - 8.[address] [facility] Protein Ql (U) Negative Negative mg/dL [facility] SPECIFIC GRAVITY UA (POCT) 1.020 1.005 - 1.[address] [facility] UROBILINOGEN UA (POCT) 0.2 E.U./dL Val l E.U./dL [facility] US FEMALE PELVIS TRANSVAGon 05-13-2021 US FEMALE PELVIS TRANSVAG * * *Final Report* * * DATE OF EXAM: May 13 2021 2:53PM [id number] - US FEMALE PELVIS TRANSVAG / PROCEDURE REASON: Uterine leiomyoma, unspecified location * * * * Physician Interpretation * * * * EXAMINATION: TRANSVAGINAL AND LIMITED TRANSABDOMINAL PELVIC ULTRASOUND CLINICAL HISTORY: Uterine leiomyoma, unspecified location TECHNIQUE: Sonography of the pelvis was performed by transvaginal and transabdominal (limited) techniques. Images were obtained and stored in a permanent archive. MQ: [id number] COMPARISON: None RESULT: Uterus size: 8.3 x 6.4 x 7.6 cm -Orientation: Retroverted -Myometrium: Left fundal mass measuring 3.8 x 3.9 x 4.7 cm. This consists of a density with a mildly heterogeneous wall about 7-8 mm in diameter and central component about 2.5 cm in density consisting of fluid and debris. Color Doppler images demonstrate blood flow in the periphery of the wall. Right fundal heterogeneous density with internal blood flow on color Doppler imaging. Dimensions are 2.8 x 3.0 x 2.8 cm. -Endometrial echo complex is indistinct. -Cervix unremarkable Bladder is identified. No abnormal adnexal mass. Pelvis free fluid: None. Limited view of each kidney demonstrate no hydronephrosis. IMPRESSION: Findings suggestive of a degenerated LEFT-sided fundal fibroid 3.8-4.7 cm in diameter and a RIGHT-sided fibroid measuring about 2.8 x 3.0 cm. The endometrium is not clearly defined. Nonvisualization of the ovaries. Machining Engineer: NELLY Transcribe Date/Time: May 14 2021 8:51A Dictated by : RADHA SHER MD This examination was interpreted and the report reviewed and electronically signed by: RADHA SHER MD on May 14 2021 8:56AM EST [id number] Normal [facility] UA DIP, URINE (POC)on 2021 BILIRUBIN UA (POCT) Negative Negative [facility] CLARITY UA (POCT) Clear [facility] COLOR UA (POCT) Yellow [facility] GLUCOSE UA (POCT) Negative Negative mg/dL [facility] HEMOGLOBIN/BLOOD UA (POCT) Negative Negative [facility] KETONE UA (POCT) Negative Negative mg/dL [facility] LEUKOCYTES UA (POCT) [facility] NITRITE UA (POCT) Negative Negative [facility] PH UA (POCT) 5.5 4.5 - 8.[address] [facility] Protein Ql (U) Negative Negative mg/dL [facility] SPECIFIC GRAVITY UA (POCT) 1.020 1.005 - 1.[address] [facility] UROBILINOGEN UA (POCT) 0.2 E.U./dL Val l E.U./dL [facility] BLADDER SCAN [facility] Vital Signs Date Time Vital Sign Value Performing Clinician Faci lity 07-03-2024 14:51-0400 Body height 162.[address] David Ramirez MD Work Phone: [facility] 07-03-2024 14:51-0400 Body mass index (BMI) [Ratio] 38.3 kg/m2 Dr. David Ramirez MD Work Phone: [facility] 07-03-2024 14:51-0400 Body temperature 97.2 [degF] Dr. David Ramirez MD Work Phone: [facility] 07-03-2024 14:51-0400 Body weight 101.[address] David Ramirez MD Work Phone: [facility] 07-03-2024 14:51-0400 Diastolic blood pressure 82 mm[Hg] Dr. David Ramirez MD Work Phone: [facility] 07-03-2024 14:51-0400 Heart rate 75 /min Dr. David Ramirez MD Work Phone: [facility] 07-03-2024 14:51-0400 Respiratory rate 18 /min Dr. David Ramirez MD Work Phone: [facility] 07-03-2024 14:51-0400 SaO2% (BldA) [Mass fraction] 97 % Dr. David Ramirez MD Work Phone: [facility] 07-03-2024 14:51-0400 Systolic blood pressure 123 mm[Hg] Dr. David Ramirez MD Work Phone: [facility] 06-24-2024 08:01-0400 Body mass index (BMI) [Ratio] 38.9 kg/m2 Dr. David Ramirez MD Work Phone: [facility] 06-24-2024 08:01-0400 Body temperature 98.2 [degF] Dr. David Ramirez MD Work Phone: [facility] 06-24-2024 08:01-0400 Body weight 103.[address] David Ramirez MD Work Phone: [facility] 06-24-2024 08:01-0400 Diastolic blood pressure 75 mm[Hg] Dr. David Ramirez MD Work Phone: [facility] 06-24-2024 08:01-0400 Heart rate 69 /min Dr. David Ramirez MD Work Phone: [facility] 06-24-2024 08:01-0400 Respiratory rate 16 /min Dr. David Ramirez MD Work Phone: [facility] 06-24-2024 08:01-0400 SaO2% (BldA) [Mass fraction] 97 % Dr. David Ramirez MD Work Phone: [facility] 06-24-2024 08:01-0400 Systolic blood pressure 143 mm[Hg] Dr. David Ramirez MD Work Phone: [facility] 04-20-2023 13:05-0500 Body height 162.[address] David Ramirez Work Phone: [facility] 04-20-2023 13:05-0500 Body mass index (BMI) [Ratio] 40.7 kg/m2 Dr. David Ramirez Work Phone: [facility] 04-20-2023 13:05-0500 Body temperature 97.6 [degF] Dr. David Ramirez Work Phone: [facility] 04-20-2023 13:05-0500 Body weight 107.[address] David Ramirez Work Phone: [facility] 04-20-2023 13:05-0500 Diastolic blood pressure 80 mm[Hg] Dr. David Ramirez Work Phone: [facility] 04-20-2023 13:05-0500 Heart rate 75 /min Dr. David Ramirez Work Phone: [facility] 04-20-2023 13:05-0500 Respiratory rate 16 /min Dr. David Ramirez Work Phone: [facility] 04-20-2023 13:05-0500 SaO2% (BldA) [Mass fraction] 95 % Dr. David Ramirez Work Phone: [facility] 04-20-2023 13:05-0500 Systolic blood pressure 142 mm[Hg] Dr. David Ramirez Work Phone: [facility] 12-22-2022 10:56-0500 Body height 162.6 cm Anish Edwards DO Work Phone: [facility] 12-22-2022 10:56-0500 Body weight 103.42 kg Anish Edwards DO Work Phone: [facility] 12-22-2022 10:56-0500 Diastolic blood pressure 90 mm[Hg] Anish Edwards DO Work Phone: [facility] 12-22-2022 10:56-0500 Systolic blood pressure 144 mm[Hg] Anish Edwards DO Work Phone: [facility] 10-11-2022 15:17-0400 Body weight 102.[address] David Ramirez Work Phone: [facility] 10-11-2022 15:17-0400 Body height 162.[address] David Ramirez Work Phone: [facility] 10-06-2022 11:02-0400 Body height 162.6 cm Anish Edwards DO Work Phone: [facility] 10-06-2022 11:02-0400 Body weight 102.06 kg Anish Edwards DO Work Phone: [facility] 10-06-2022 11:02-0400 Diastolic blood pressure 80 mm[Hg] Anish Edwards DO Work Phone: [facility] 10-06-2022 11:02-0400 Systolic blood pressure 150 mm[Hg] Anish Edwards DO Work Phone: [facility] 09-12-2022 15:54-0400 Body height 160 cm Avinash Randolph MD Work Phone: [facility] 09-12-2022 15:54-0400 Body weight 100.25 kg Avinash Randolph MD Work Phone: [facility] 09-12-2022 08:19-0400 Body height 160.[address] David Ramirez Work Phone: [facility] 09-12-2022 08:19-0400 Body mass index (BMI) [Ratio] 39.2 kg/m2 Dr. David Ramirez Work Phone: [facility] 09-12-2022 08:19-0400 Body weight 100.[address] David Ramirez Work Phone: [facility] 09-12-2022 08:19-0400 Diastolic blood pressure 82 mm[Hg] Dr. David Ramirez Work Phone: [facility] 09-12-2022 08:19-0400 Systolic blood pressure 147 mm[Hg] Dr. David Ramirez Work Phone: [facility] 09-04-2022 09:13-0400 Body mass index (BMI) [Ratio] 39.2 kg/m2 Dr. David Ramirez Work Phone: [facility] 09-04-2022 09:13-0400 Body temperature 97.1 [degF] Dr. David Ramirez Work Phone: [facility] 09-04-2022 09:13-0400 Body weight 100.[address] David Ramirez Work Phone: [facility] 09-04-2022 09:13-0400 Diastolic blood pressure 86 mm[Hg] Dr. David Ramirez Work Phone: [facility] 09-04-2022 09:13-0400 Heart rate 73 /min Dr. David Ramirez Work Phone: [facility] 09-04-2022 09:13-0400 Respiratory rate 16 /min Dr. David Ramirez Work Phone: [facility] 09-04-2022 09:13-0400 SaO2% (BldA) [Mass fraction] 98 % Dr. David Ramirez Work Phone: [facility] 09-04-2022 09:13-0400 Systolic blood pressure 148 mm[Hg] Dr. David Ramirez Work Phone: [facility] 08-22-2022 14:55-0400 Body mass index (BMI) [Ratio] 39.2 kg/m2 Dr. David Ramirez Work Phone: [facility] 08-22-2022 14:55-0400 Body temperature 97.7 [degF] Dr. David Ramirez Work Phone: [facility] 08-22-2022 14:55-0400 Body weight 100.[address] David Ramirez Work Phone: [facility] 08-22-2022 14:55-0400 Diastolic blood pressure 82 mm[Hg] Dr. David Ramirez Work Phone: [facility] 08-22-2022 14:55-0400 Heart rate 82 /min Dr. David Ramirez Work Phone: [facility] 08-22-2022 14:55-0400 Respiratory rate 16 /min Dr. David Ramirez Work Phone: [facility] 08-22-2022 14:55-0400 SaO2% (BldA) [Mass fraction] 97 % Dr. David Ramirez Work Phone: [facility] 08-22-2022 14:55-0400 Systolic blood pressure 154 mm[Hg] Dr. David Ramirez Work Phone: [facility] 08-10-2022 12:07-0400 Diastolic blood pressure 68 mm[Hg] Dr. David Ramirez Work Phone: [facility] 08-10-2022 12:07-0400 Heart rate 78 /min Dr. David Ramirez Work Phone: [facility] 08-10-2022 12:07-0400 Respiratory rate 18 /min Dr. David Ramirez Work Phone: [facility] 08-10-2022 12:07-0400 SaO2% (BldA) [Mass fraction] 96 % Dr. David Ramirez Work Phone: [facility] 08-10-2022 12:07-0400 Systolic blood pressure 120 mm[Hg] Dr. David Ramirez Work Phone: [facility] 08-10-2022 09:38-0400 Body height 160.[address] David Ramirez Work Phone: [facility] 08-10-2022 09:38-0400 Body mass index (BMI) [Ratio] 39.8 kg/m2 Dr. David Ramirez Work Phone: [facility] 08-10-2022 09:38-0400 Body temperature 97.9 [degF] Dr. David Ramirez Work Phone: [facility] 08-10-2022 09:38-0400 Body weight 102.[address] David Ramirez Work Phone: [facility] 06-29-2022 08:46-0400 Body mass index (BMI) [Ratio] 37.3 kg/m2 Dr. David Ramirez Work Phone: [facility] 06-29-2022 08:46-0400 Body temperature 97.3 [degF] Dr. David Ramirez Work Phone: [facility] 06-29-2022 08:46-0400 Body weight 95.[address] David Ramirez Work Phone: [facility] 06-29-2022 08:46-0400 Diastolic blood pressure 83 mm[Hg] Dr. David Ramirez Work Phone: [facility] 06-29-2022 08:46-0400 Heart rate 79 /min Dr. David Ramirez Work Phone: [facility] 06-29-2022 08:46-0400 Respiratory rate 16 /min Dr. David Ramirez Work Phone: [facility] 06-29-2022 08:46-0400 SaO2% (BldA) [Mass fraction] 96 % Dr. David Ramirez Work Phone: [facility] 06-29-2022 08:46-0400 Systolic blood pressure 148 mm[Hg] Dr. Daivd Ramirez Work Phone: [facility] 06-27-2022 10:38-0400 Body height 160.[address] David Ramirez Work Phone: [facility] 06-27-2022 10:38-0400 Body mass index (BMI) [Ratio] 37.2 kg/m2 Dr. aDvid Ramirez Work Phone: [facility] 06-27-2022 10:38-0400 Body weight 95.[address] David Ramirez Work Phone: [facility] 06-27-2022 10:38-0400 Diastolic blood pressure 80 mm[Hg] Dr. David Ramirez Work Phone: [facility] 06-27-2022 10:38-0400 Systolic blood pressure 150 mm[Hg] Dr. David Ramirez Work Phone: [facility] 04-20-2022 08:44-0500 Body temperature 97.8 [degF] Dr. David Ramirez Work Phone: [facility] 04-20-2022 08:44-0500 Body weight 98.[address] David Ramirez Work Phone: [facility] 04-20-2022 08:44-0500 Diastolic blood pressure 76 mm[Hg] Dr. David Ramirez Work Phone: [facility] 04-20-2022 08:44-0500 Heart rate 73 /min Dr. David Ramirez Work Phone: [facility] 04-20-2022 08:44-0500 Respiratory rate 16 /min Dr. David Ramirez Work Phone: [facility] 04-20-2022 08:44-0500 SaO2% (BldA) [Mass fraction] 97 % Dr. David Ramirez Work Phone: [facility] 04-20-2022 08:44-0500 Systolic blood pressure 130 mm[Hg] Dr. David Ramirez Work Phone: [facility] 02-01-2022 10:43-0500 Body height 160 cm Karen Ramos MD Work Phone: [facility] 02-01-2022 10:43-0500 Body weight 101.61 kg Karen Ramos MD Work Phone: [facility] 02-01-2022 10:43-0500 Diastolic blood pressure 88 mm[Hg] Karen Ramos MD Work Phone: [facility] 02-01-2022 10:43-0500 Systolic blood pressure 142 mm[Hg] Karen Ramos MD Work Phone: [facility] 12-30-2021 09:51-0500 Body height 161.[address] [facility] 12-30-2021 09:51-0500 Body temperature 98.2 [degF] Pst 1 [facility] 12-30-2021 09:51-0500 Body weight 102.[address] [facility] 12-30-2021 09:51-0500 Diastolic blood pressure 75 mm[Hg] Pst [address] [facility] 12-30-2021 09:51-0500 Heart rate 71 /min Pst [address] [facility] 12-30-2021 09:51-0500 Respiratory rate 18 /min Pst 1 [facility] 12-30-2021 09:51-0500 SaO2% (BldA) [Mass fraction] 98 % Pst [address] [facility] 12-30-2021 09:51-0500 Systolic blood pressure 146 mm[Hg] Pst [address] [facility] 12-28-2021 09:55-0500 Body temperature 97.6 [degF] Dr. David Ramirez Work Phone: [facility] Work Phone: 12-28-2021 09:55-0500 Diastolic blood pressure 60 mm[Hg] Dr. David Ramirez Work Phone: [facility] Work Phone: 12-28-2021 09:55-0500 Heart rate 66 /min Dr. David Ramirez Work Phone: [facility] Work Phone: 12-28-2021 09:55-0500 Respiratory rate 16 /min Dr. David Ramirez Work Phone: [facility] Work Phone: 12-28-2021 09:55-0500 SaO2% (BldA) [Mass fraction] 100 % Dr. David Ramirez Work Phone: [facility] Work Phone: 12-28-2021 09:55-0500 Systolic blood pressure 118 mm[Hg] Dr. David Ramirez Work Phone: [facility] Work Phone: 12-28-2021 08:55-0500 Body height 160.[address] David Ramirez Work Phone: [facility] Work Phone: 12-28-2021 08:55-0500 Body mass index (BMI) [Ratio] 40.1 kg/m2 Dr. David Ramirez Work Phone: [facility] Work Phone: 12-28-2021 08:55-0500 Body weight 102.[address] David Ramirez Work Phone: [facility] Work Phone: 11-25-2021 11:28-0400 Body mass index (BMI) [Ratio] 39.8 kg/m2 Dr. David Ramirez Work Phone: [facility] Work Phone: 11-25-2021 11:28-0400 Body weight 102.[address] David Ramirez Work Phone: [facility] Work Phone: 11-24-2021 08:04-0400 Body temperature 98.2 [degF] Dr. David Ramirez Work Phone: [facility] Work Phone: 11-24-2021 08:04-0400 Body weight 103.[address] David Ramirez Work Phone: [facility] Work Phone: 11-24-2021 08:04-0400 Diastolic blood pressure 78 mm[Hg] Dr. David Ramirez Work Phone: [facility] Work Phone: 11-24-2021 08:04-0400 Heart rate 80 /min Dr. David Ramirez Work Phone: [facility] Work Phone: 11-24-2021 08:04-0400 Respiratory rate 16 /min Dr. David Ramirez Work Phone: [facility] Work Phone: 11-24-2021 08:04-0400 SaO2% (BldA) [Mass fraction] 97 % Dr. David Ramirez Work Phone: [facility] Work Phone: 11-24-2021 08:04-0400 Systolic blood pressure 138 mm[Hg] Dr. David Ramirez Work Phone: [facility] Work Phone: 10-20-2021 10:46-0400 Body height 161.3 cm Karen Ramos MD Work Phone: [facility] 10-20-2021 10:46-0400 Body weight 103.42 kg Karen Ramos MD Work Phone: [facility] 10-01-2021 09:04-0400 Body mass index (BMI) [Ratio] 39.4 kg/m2 Dr. David Ramirez Work Phone: [facility] Work Phone: 10-01-2021 09:04-0400 Body temperature 97.6 [degF] Dr. David Ramirez Work Phone: [facility] Work Phone: 10-01-2021 09:04-0400 Body weight 101.[address] David Ramirez Work Phone: [facility] Work Phone: 10-01-2021 09:04-0400 Diastolic blood pressure 88 mm[Hg] Dr. David Ramirez Work Phone: [facility] Work Phone: 10-01-2021 09:04-0400 Heart rate 74 /min Dr. David Ramirez Work Phone: [facility] Work Phone: 10-01-2021 09:04-0400 Respiratory rate 16 /min Dr. David Raimrez Work Phone: [facility] Work Phone: 10-01-2021 09:04-0400 SaO2% (BldA) [Mass fraction] 97 % Dr. David Ramirez Work Phone: [facility] Work Phone: 10-01-2021 09:04-0400 Systolic blood pressure 124 mm[Hg] Dr. David Ramirez Work Phone: [facility] Work Phone: 08-20-2021 10:27-0400 Body height 161.3 cm Giovany Biats DO Work Phone: [facility] 08-20-2021 10:27-0400 Body weight 101.15 kg Giovany Biats DO Work Phone: [facility] 08-20-2021 10:27-0400 Diastolic blood pressure 84 mm[Hg] Giovany Biats DO Work Phone: [facility] 08-20-2021 10:27-0400 Systolic blood pressure 155 mm[Hg] Giovany Biats DO Work Phone: [facility] 05-11-2021 10:14-0400 Body height 161.3 cm Karen Ramos MD Work Phone: [facility] 05-11-2021 10:14-0400 Body weight 99.34 kg Karen Ramos MD Work Phone: [facility] 05-11-2021 10:14-0400 Diastolic blood pressure 80 mm[Hg] Karen Ramos MD Work Phone: [facility] 05-11-2021 10: Systolic blood pressure 132 mm[Hg] Karen Ramos MD Work Phone: [facility] Encounters Encounter Date Encounter Type Care Provider Facility Start: 08-23-2024 ambulatory Yony Ramírez lity:[facility] Start: 07-04-2024 End: 07-04-[address] David Ramirez MD Work Phone: [facility] Work Phone: Start: 07-04-2024 End: 07-04-2024 Patient encounter procedure Dr. David Ramirez MD -Laboratory Work Phone: Start: 07-03-2024 End: 07-04-[address] David Ramirez MD Work Phone: [facility] Work Phone: Start: 07-03-2024 End: 07-03-[address] Yony Moseley MD -[facility] Work Phone: Start: 06-24-2024 End: 06-24-[address] David Rmairez MD -[facility] Work Phone: Start: 06-24-2024 End: 06-24-2024 ambulatory David Ramirez Facility:[facility] Start: 05-17-2024 End: 05-17-[address] David Ramirez MD Work Phone: [facility] Work Phone: Start: 05-17-2024 End: 05-17-2024 Patient encounter procedure Bryn CRABTREE -Laboratory, Specimen Work Phone: Start: 05-17-2024 End: 05-17-2024 Patient encounter procedure Bryn CRABTREE -[facility] Work Phone: Start: 05-17-2024 End: 05-17-2024 ambulatory Bryn CRABTREE Facility:[facility] Start: 05-17-2024 End: 05-17-2024 ambulatory Bryn CRABTREE Facility:[facility] Start: 11-12-2023 End: 11-12-2023 ambulatory Frankie Elmo Deja MICHEL Facility:[facility] Start: 09-29-2023 End: 09-29-2023 ambulatory Dana Ynug Facility:[facility] Start: 05-03-2023 End: 05-03-[address] David Ramirez Work Phone: [facility] Work Phone: Start: 05-03-2023 End: 05-03-[address] David Ramirez Work Phone: [facility] Work Phone: Start: 04-20-2023 End: 04-20-[address] David Ramirez Work Phone: [facility] Work Phone: Start: 04-17-2023 End: 04-17-[address] David Ramirez Work Phone: [facility] Work Phone: Start: 03-31-2023 Telephone encounter Karen Ramos MD Work Phone: Urology Start: 01-12-2023 Telephone encounter Anish Herrera DO [facility] Start: 12-22-2022 End: 12-22-2022 ambulatory ANISH EDWARDS Facility:[facility] Start: 12-22-2022 End: 12-22-2022 Patient encounter procedure Anish Edwards DO Work Phone: [facility] Obstetrics & Gynecology Comment on above: Vaginal ulceration ( Primary Dx); Vaginal discharge Start: 10-11-2022 End: 10-11-[address] David Ramirez Work Phone: [facility] Orthopaedic Specia Work Phone: Start: 10-06-2022 End: 10-06-2022 ambulatory DAVID RAMIREZ Facility:[facility] Start: 10-06-2022 End: 10-06-2022 Patient encounter procedure Anish Edwards Work Phone: [facility] Obstetrics & Gynecology Comment on above: Vaginal atrophy (Carmen brunilda Dx) Start: 09-27-2022 End: 09-27-[address] David Ramirez Work Phone: [facility] Work Phone: Start: 09-27-2022 End: 09-27-[address] David Ramirez Work Phone: [facility]-Outpatient Breast Imaging Work Phone: Start: 09-13-2022 Telephone encounter Avinash godinez MD Work Phone: [facility] Comment on above: Medication Question Start: 09-12-2022 End: 09-13-2022 ambulatory DAVID RAMIREZ Facility:[facility] Start: 09-12-2022 End: 09-12-2022 Patient encounter procedure Avinash Randolph MD Work Phone: Urology Comment on above: Rectocele [N81.6] (P rimary Dx); Postoperative vaginal bleeding following genitourinary procedure; Genitourinary syndrome of menopause Start: 09-12-2022 End: 09-12-[address] David Ramirez Work Phone: [facility] Work Phone: Start: 09-04-2022 End: 09-04-[address] David Ramirez Work Phone: [facility] Work Phone: Start: 08-22-2022 End: 08-22-[address] David Ramirez Work Phone: [facility] Work Phone: Start: 08-10-2022 End: 08-10-2022 Emergency department patient visit Dr. David Ramirez Work Phone: [facility]-Emergency Department Work Phone: Start: 07-20-2022 End: 07-20-[address] David Ramirez Work Phone: [facility] Work Phone: Start: 07-20-2022 End: 07-20-[address] David Ramirez Work Phone: [facility]-Physical Therapy Work Phone: Start: 07-20-[address] David Ramirez Work Phone: [facility]-Physical Therapy Work Phone: Start: 06-29-2022 End: 06-29-[address] David Ramirez Work Phone: [facility] Work Phone: Start: 06-27-2022 End: 06-27-[address] David Ramirez Work Phone: [facility] Start: 06-21-2022 End: 06-21-[address] David Ramirez Work Phone: [facility] Work Phone: Start: 06-21-2022 End: 06-21-[address] David Ramirez Work Phone: [facility] Start: 04-20-2022 End: 04-20-[address] David Ramirez Work Phone: [facility] Start: 02-08-2022 Telephone encounter Karen Ramos MD Work Phone: [facility] Comment on above: FMLA Paperwork Start: 02-01-2022 End: 02-01-2022 Patient encounter procedure Karen Ramos MD Work Phone: Urology Comment on above: Midline cystocele (P rimary Dx); Prolapse of vaginal vault after hysterectomy Start: 01-17-2022 Telephone encounter Karen Ramos MD Work Phone: Urology Comment on above: Patient Question Start: 12-30-2021 End: 12-30-[address] [facility] Start: 12-30-2021 End: 12-30-2021 ambulatory Pst 1 Pre Surgical Testing Comment on above: Preop examination [Z 01.818 (ICD-10-CM)] (Primary Dx); Uterine leiomyoma, unspecified location [D25.9 (ICD-10-CM)]; Uterine prolapse [N81.4 (ICD-10-CM)]; Midline cystocele [N81.11 (ICD-10-CM)]; Rectocele [N81.6 (ICD-10-CM)]; Hypertension, unspecified type [I10 (ICD-10-CM)] Start: 12-30-2021 End: 12-30-2021 Preprocedural examination done Pst 1 Pre Surgical Testing Start: 12-28-2021 Non-patient / Non-visit Dr. Enedina Ramirez Work Phone: [facility] Start: 12-28-2021 End: 12-28-2021 Admission to same day surgery center Dr. David Ramirez Work Phone: [facility]-Endoscopy Start: 12-28-2021 End: 12-28-[address] David Ramirez Work Phone: [facility] Work Phone: Start: 11-25-2021 Non-patient / Non-visit Dr. Enedina Ramirez Work Phone: [facility] Start: 11-24-2021 End: 11-24-[address] David Ramirez Work Phone: [facility] Start: 10-20-2021 End: 10-20-2021 Patient encounter procedure Karen Ramos MD Work Phone: Urology Comment on above: Midline cystocele (P rimary Dx); Rectocele; Uterine prolapse Start: 10-01-2021 End: 10-01-[address] David Ramirez Work Phone: [facility] Internal Medicine Start: 09-06-2021 End: 09-06-[address] David Ramirez Work Phone: [facility]-Outpatient Breast Imaging Start: 09-01-2021 Patient encounter procedure [facility] Provider [facility] Department Start: 08-27-2021 Non-patient / Non-visit Dr. Enedina Ramirez Work Phone: [facility] Start: 08-27-2021 End: 08-27-[address] David Ramirez Work Phone: [facility]-Cardiovascul ar Services Start: 08-20-2021 End: 08-20-2021 Patient encounter procedure Giovany Mcnair DO Work Phone: [facility] General Obstetrics & Gynecology Comment on above: Women's annual routi ne gynecological examination (Primary Dx); Routine cervical smear; Uterine prolapse Start: 05-13-2021 End: 05-13-2021 Subsequent hospital visit by physician [facility] Work Phone: Radiology Comment on above: Uterine leiomyoma, u nspecified location [D25.9] Start: 05-11-2021 End: 05-11-2021 Patient encounter procedure Karen Ramos MD Work Phone: Urology Comment on above: Uterine leiomyoma, u nspecified location (Primary Dx); Uterine prolapse; Midline cystocele; Rectocele Procedures Date Procedure Procedure Detail Performing Clinician Start: 07-04-2024 Vitamin D, 25-hydrox y measurement Dr. David Ramirez MD Work Phone: Comment on above: Vitamin D StatusDefi ciency: <20 ng/mL (50nmol/L)Insufficiency: 20-30 ng/mL (50-75 nmol/L)Sufficiency: 30-100 ng/mL (75-250 nmol/L)Toxicity: >100 ng/mL (>250 nmol/L) Start: 05-17-[address] David Ramirez MD Work Phone: Start: 05-03-[address] David Ramirez Work Phone: Start: 10-11-2022 Plain x-ray of wrist Dr Bal Ramirez Work Phone: Start: 09-27-2022 Screening mammography Nai rBal Ramirez Work Phone: Start: 09-12-2022 Urnls dip stick/tabl et rgnt auto w/o microscopy Avinash Randolph MD Work Phone: Start: 09-12-2022 BLADDER SCAN [facility] Provid er Start: 08-10-2022 CT of head without contrast Dr. David Ramirez Work Phone: Start: 12-28-[address] David Ramirez Work Phone: Start: 10-20-2021 Urnls dip stick/tabl et rgnt auto w/o microscopy Karen Ramos MD Work Phone: Start: 09-06-2021 Screening mammography D rBal Ramirez Work Phone: Start: 05-13-2021 Us transvaginal Karen Ramos MD Work Phone: Start: 05-11-2021 Urnls dip stick/tabl et rgnt auto w/o microscopy Karen Ramos MD Work Phone: H/O: surgery S/P panniculectomy Dr. David Ramirez Work Phone: H/O: surgery H/O dilation and curettage Dr. David Ramirez Work Phone: H/O: tubal ligation History of t ubal ligation Dr. David Ramirez Work Phone: Plan of Treatment Date Care Activity Detail Author Start: 12-09-2032 Urine microalbumin profile DTaP,Tdap,Td Vaccine (3 - Td or Tdap) [facility] Start: 08-20-2026 HPV TESTING HPV TESTING [facility] Start: 08-20-2026 PAP TESTING PAP TESTING [facility] Start: 06-24-2024 Patient referral [facility] Work Phone: Start: 02-13-2023 Advance Directive Discussion Advance Directive Discussion [facility] Start: 02-13-2023 Depression Assessment Depression Ass essment [facility] Start: 2022 Advance Directive Discussion Advance Directive Discussion [facility] Start: 2022 Bone Density Screening Bone Density Screening [facility] Start: 2022 Pneumococcal Vaccine : 65+ (2 - PPSV23 or PCV20) Pneumococcal Vaccine: 65+ (2 - PPSV23 or PCV20) [facility] Start: 2022 Pneumococcal Vaccine : 65+ (2 of 2 - PPSV23 or PCV20) Pneumococcal Vaccine: 65+ (2 of 2 - PPSV23 or PCV20) [facility] Start: 2022 Screening for osteoporosis Bone Density Screening [facility] Start: 10-14-2022 Influenza vaccination INFLUENZA (#1) [facility] Start: 08-10-2022 Referral to service [facility] Start: 06-27-2022 Patient referral [facility] Work Phone: Start: 04-20-2022 Patient referral [facility] Work Phone: Start: 02-13-2022 DEPRESSION ASSESSMENT DEPRESSION ASS ESSMENT [facility] Start: 12-28-2021 Patient discharge [facility] Work Phone: Start: 10-14-2021 Influenza vaccination INFLUENZA (#1) [facility] Start: 05-29-2021 COVID-19 VACCINE (4 - Booster for Moderna series) COVID-19 VACCINE (4 - Booster for Moderna series) [facility] Start: 02-13-2021 DEPRESSION ASSESSMENT DEPRESSION ASS ESSMENT [facility] Start: 2017 RSV Vaccine (1 - 1-d ose 60+ series) RSV Vaccine (1 - 1-dose 60+ series) [facility] Start: 12-30-2007 SHINGRIX VACCINE (1 of 2) SHINGRIX VACCINE (1 of 2) [facility] Start: 2002 COLOGUARD (FIT-DNA) COLOGUARD (FIT-D NA) [facility] Start: 2002 Colonoscopy [address] [facility] Start: 2002 COLORECTAL CANCER SCREENING COLORECTAL CANCER SCREENING [facility] Start: [address] COLONOGRAPHY [facility] Start: 2002 DIABETES SCREEN DIABETES SCREEN [facility] Start: 2002 Diabetes Screening Diabetes Screenin g [facility] Start: 2002 FECAL OCCULT BLOOD FECAL OCCULT BLOO D [facility] Start: 2002 Lipid 1996 panel - Serum or Plasma Lipid Screening [facility] Start: 2002 Lipid panel Lipid Screening [facility] Start: 2002 LIPID SCREEN LIPID SCREEN [facility] Start: 2002 Screening for malign ant neoplasm of colon [facility] Start: 2002 SIGMOIDOSCOPY SIGMOIDOSCOPY [facility] Start: [address] [facility] Start: 1997 Screening for malign ant neoplasm of breast Mammogram Screening [facility] Start: 12-30-1987 HPV TESTING HPV TESTING [facility] Start: 1978 PAP TESTING PAP TESTING [facility] Start: 1976 Urine microalbumin profile DTAP,TDAP,TD (1 - Tdap) [facility] Start: 12-30-1975 HEPATITIS C SCREENING HEPATITIS C [facility] Start: 12-30-1975 Hepatitis C screening Hepatitis C [facility] Start: 12-30-1975 HIV SCREENING HIV SCREENING [facility] Start: 12-30-1975 HIV screening HIV Screening [facility] Start: 1969 Adult depression screening assessment DEPRESSION SCREENING [facility] CBC W Auto Different ial panel - Blood [facility] CBC W Auto Different ial panel - Blood [facility] Cobalamin (Vitamin B 12) [Mass/volume] in Serum or Plasma [facility] Colonoscopy [facility] Work Phone: Comprehensive metabo lic 1999 panel - Serum or Plasma [facility] Hemoglobin A1c/Hemoglobin.total in Blood [facility] Hemoglobin A1c/Hemoglobin.total in Blood [facility] Lipid 1995 panel - Serum or Plasma [facility] Magnesium measurement [facility] PAP FLUID CERVICAL SCREENING PAP FLUID CERVICAL SCREENING Lab Routine Women's annual routine gynecological examination Routine cervical smear Ordered: 08/20/2021 [facility] Work Phone: Comment on above: Ordered: 08/20/2021 Patient Education ED Dizziness, Uncertain Cause [facility] Work Phone: Patient referral [facility] Work Phone: End: 09-19-2022 Screening mammography bi 2-view breast inc cad VAN SCREENING Radiology Routine Women's annual routine gynecological examination 1 Occurrences starting 08/20/2021 until 09/19/2022 [facility] Work Phone: Comment on above: 1 Occurrences starti ng 08/20/2021 until 09/19/2022 Thyroid stimulating hormone measurement [facility] End: 06-10-2022 Us transvaginal US FEMALE PELVIS TRANSVAG Radiology Routine Uterine leiomyoma, unspecified location 1 Occurrences starting 05/11/2021 until 06/10/2022 [facility] Work Phone: Comment on above: 1 Occurrences starti ng 05/11/2021 until 06/10/2022 Us transvaginal US FEMALE PELVIS TRANSVAG Radiology Routine Uterine leiomyoma, unspecified location 05/13/2021 2:53 PM EDT [facility] Work Phone: Vitamin D, 25-hydrox y measurement [facility] Vitamin D, 25-hydrox y measurement [facility] Immunizations Immunization Date Immunization Notes Care Provider Violeta strickland 12-09-2022 tetanus toxoid, redu efraín diphtheria toxoid, and acellular pertussis vaccine, adsorbed Dr. David Ramirez Work Phone: [facility] 11-21-2020 influenza, injectabl e, quadrivalent, preservative free Karen Ramos MD Work Phone: [facility] 10-08-2019 influenza, injectabl e, quadrivalent, preservative free Karen Ramos MD Work Phone: [facility] Payers Date Payer Category Payer Medicare [id number] 2023 Self-pay [id number] 2020 Private Health Insurance AETNA A ETNA CHOICE POS II [id number] 2020-[facility] [phone] [address] [place] [address] POS [id number] 2020 Private Health Insurance [id number] 2020 Private Health Insurance [id number] Medicare MEDICARE PART A B [id number] Private Health Insurance [id number] Unknown [employer]ACK[employer]AN . [id number] Unknown [employer] PACKAGE PLAN [id number] Unknown [id number] Unknown [id number] Unknown [id number] Unknown [id number] Unknown [id number] Unknown [id number] Unknown [id number] Unknown [id number] Social History Date Type Detail Facility Start: 05-11-2021 End: 04-20-2023 Tobacco smoking status NHIS Ex-smoker [facility] End: 02-14-2008 History of tobacco use Current smoker [facility] Start: 05-11-2021 End: 10-20-2021 Tobacco use and exposure Smokeless tobacco non-user [facility] Start: 05-11-2021 End: 12-22-2022 Alcohol intake Lifetime non-drinker (finding) [facility] Start: 05-11-2021 History SDOH Alcohol Frequency [address] [facility] Start: 1955 Sex Assigned At Not on file [facility] Start: 05-01-2021 End: 01-13-2022 Exposure to SARS-CoV-2 (event) Not sure [facility] Start: 04-15-2021 End: 04-20-2023 Tobacco smoking status [facility] Unknown if ever smoked [facility] Start: 1955 Sex Assigned At Female W [facility] End: 02-14-2008 History of tobacco use Cigarette Smoker [facility] Start: 09-12-2022 End: 10-06-2022 History of Social function [facility] Start: 09-12-2022 End: 10-06-2022 Tobacco use panel [facility] National Score (1-10 0), lower number is lower risk [address] [facility] Start: 05-21-2024 Sex Female (finding) [facility] Goals Date Patient Goal Desired Activity /State Mental Status Date Assessment Result Facility 12-28-2021 Cognitive function Voice/Name [facility] Work Phone: Clinical Notes 05-11-2021 to 05-17-2024 Note Date & Type Note Facility 05-17-2024 Evaluation note Diagnosis Onset Date Resolution Dysuria acute May 17 1:12pm [facility] Work Phone: 1(658) 382-268404-04-2025 Evaluation note* Diagnosis Onset Date Resolution Status Admit Date Dysuria acute May 17 1:12pm Essential hypertension acute 2024 7:53am Hypertriglyceridemia acute June 24, 2024 7:53am Insulin resistance acute June 242024 7:53am Chronic GERD chronic July 03 2:22pm [facility] Work Phone: 1(907) 860-875202-16-2024 Miscellaneous Notes* Telephone Encounter - Kaila Barahona - 03/31/2023 10:22 AM EST Received fax from Dr. Rosalba Bourne's office requesting op note from procedure with Dr. Buckley be faxed to their office. Faxed op note from 01-13-22 to [phone]. Confirmation was received. Katie Barahona March 31, 2023 10:24 AM [facility] Miscellaneous Notes* Telephone Encounter - Anish Edwards DO - 01/12/2023 2:48 PM EST Vaginal cultures that were collected in the office several weeks ago returned positive for a bacterial infection. She will need vaginal clindamycin cream for treatment of this for 7 days. Rx sent to pharmacy. Can you please let her know? Thanks! Anish Edwards DO [facility]23 NoteHNO ID: [id number] Author: Anish Edwards, DO Service: ? Author Type: Physician [...] if this is possibly (more content not included)...[facility]11-09-2023 History of Present illness Narrative* Anish Edwards - 12/22/2022 11:15 AM EST SERVICE DATE: 12/22/2022 SERVICE TIME: 11:50 AM [...] N89.8 - One swab collected as above Anish Edwards DO [facility] Discharge summary Author Sara Parrish [facility] October 14, 2022 3:54pm Note Date/Time October 14, 2022 3:54pm [facility] Physical Therapy [facility] [address] [place] [address] / REHABILITATION SERVICES DISCHARGE SUMMARY MR#: [id number] Acct: [id number] Name: SHANNON LAM Rep #: [id number] : 1955 66 From: Sara Parrish PT CertBal MDT Referring Dr.: JEFRY Whitmore Status: REG RCR Insurance: [facility] PACKAGE PLAN Patient Information Patient Information: SHANNON LAM was seen in my office for initial evaluation on 07/20/22. The following Plan of Care was established for this patient: POC Established Initial Frequency: 1x/Week Initial Duration: 8-12 WKS Anticipated Interventions Patient/Client Instruction: Educate patient on: Condition, Plan of Care and Risk Factors For the Purpose of:: To improve self management Therapeutic Exercise to Include: Strength training, Coordination, Flexibilty training and Neuromotor development For the Purpose of:: To improve muscle performance and motor function, To increase tolerance to activity/condition/position and To improve ability of physical actions for home/community/work/leisure Last Seen Last Seen: This patient was last seen in our office 07/20/22. Pertinent comments regardingtheir Physical therapy will appear below: This patient has not returned to Physical Therapy and is appropriate to return to MD for further follow-up as needed. At this point I will be discontinuing this patient from physical therapy. I would be happy to see this patient again in the future if found appropriate by the physician. Thank you! Sara Parrish PT, Cert MDT <Electronically signed by Sara Parrish PT, Cert. MDT> 10/14/22 1554 CC: JEFRY Whitmore; Dr. David Ramirez MD ~ MEKHI Signed [facility] Work Phone: 1(443) 985-780008-24-2023 NoteHNO ID: [id number] Author: Anish Edwards, DO Service: ? Author Type: Physician [...] Will RTC in 3 months for re-evaluation Anishkatie Edwards [facility]08-24-2023 History of Present illness Narrative* Anish Edwards, DO - 10/06/2022 11:45 AM EDT SERVICE DATE: 10/06/2022 SERVICE TIME: 12:00 PM [...] saw Dr. Randolph, and was found to havean area that was not healing appropriately, which was removed in the office on 09/12. She reports that spotting has decreased since this office visit. Dr. Randolph also started her on estrace, which shehas not continued to use regularly. PAST MEDICAL [...] Will RTC in 3 months for re-evaluation Anish Edwards DO [facility]23 Miscellaneous Notes* Telephone Encounter - Avinash Randolph MD - 09/13/2022 5:12 PM EDT Estrace Rx sent to pharmacy. * Telephone Encounter - Lyndsay Sanderson CMA - 09/13/2022 9:42 AM EDT Pt called states you were going to send a medication to the pharmacy - [facility] - yesterday but nothing was sent. Please advise Lyndsay Sanderson CMA documented in [facility]-2023 NoteHNO ID: [id number] Author: Avinash Randolph MD Service: ? Author Type: Physician Type: Progress Notes Filed: 09/18/2022 7:38 PM Note Text: [facility] ESTABLISHED PATIENT NOTE PATIENT: Shannon Lam (66 year old) PCP: David Ramirez MD DATE OF SERVICE: 09/12/2022 ASSESSMENT: 1. [...] 01/13/2022. She was last seen by Dr. Ramos on 02/01/2022. Prior notes were reviewed. The patient underwent intracorporeally and sacrospinous ligament fixation on 01/13/2022 simultaneous with hysterectomy for pelvic organ prolapse including midline cystocele and rectocele. Operative note reviewed: Anterior repair performed with interrupted 2-0 PDS. 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 Vaginal cuff closed transverse with interrupted 0 Vicryl sutures. Patient was seen for postoperative check on 02/03/2022 and was healing well. Asked return as needed. In April 2022, patient felt a bulge when she showered. Since surgery she has noticed a brownish vaginal discharge. Denies pain or odor. She is also noticed vaginal spotting was seen by her oracle hrms developer in [place] at the [facility]. Patient provided referral to pelvic [...] anterior colporrhaphy and sacrospinous vault fixation (Dr. 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 L.acidophil-L.plantar-Bifido 7 (UP4 PROBIOTICS ADULT) 15 billion cell cap Take by mouth once daily. Takes sporadically PAST HISTORY: PAST MEDICAL HISTORY Diagnosis Date Dietary counseling and surveillance 12/2021 pt is starting a ketogenic program called [employer] she will monitor ketones and blood sugar [...] other (Cancer age 5 (more content not included)...[facility]07-31-2023 History of Present illness Narrative* Avinash Randolph MD - 09/12/2022 4:24 PM EDT [facility] ESTABLISHED PATIENT NOTE PATIENT: Shannon Lam (66 year old) PCP: David Ramirez MD DATE OF SERVICE: 09/12/2022 ASSESSMENT: 1. [...] 01/13/2022. She was last seen by Dr. Ramos on 02/01/2022. Prior notes were reviewed. The patient underwent intracorporeally and sacrospinous ligament fixation on 01/13/2022 simultaneouswith hysterectomy for pelvic organ prolapse including midline cystocele and rectocele. Operative note reviewed: Anterior repair performed with interrupted 2-0 PDS. 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 Vaginal cuff closed transverse with interrupted 0 Vicryl sutures. Patient was seen for postoperative check on 02/03/2022 and was healing well. Asked return as needed. In April 2022, patient felt a bulge when she showered. Since surgery she has noticed a brownish vaginal discharge. Denies pain or odor. She is also noticed vaginal spotting was seen by her oracle hrms developer in [place] at the [facility]. Patient provided referral to pelvic [...] anterior colporrhaphy and sacrospinous vault fixation (Dr. 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 L.acidophil-L.plantar-Bifido 7 (UP4 PROBIOTICS ADULT) 15 billion cell cap Take by mouth once daily.Takes sporadically PAST HISTORY: PAST MEDICAL HISTORY Diagnosis Date Dietary counseling and surveillance 12/2021 pt is starting a ketogenic program called [employer] she will monitor ketones and blood sugar [...] Never PHYSICAL EXAMINATION: Ht 160 cm (5' 3) Wt 100.2 kg (221 lb) BMI 39.15 [...] social history documented by my ancillary staff. Painting Technician offered:Patient accepts, visit chaperoned by Gillian Huynh LPN. Avinash Randolph MD Staff Urologist documented in this [facility] Discharge summary Author Aaron Hannon [facility] August 10, 2022 11:38am Note Date/Time August 10, 2022 9:59 am [facility] Medical Records Department [address] [place] [address] Emergency Department Summary 08/10/22 MR#: [id number] Acct: [id number] Name: SHANNON LAM Rep #:[id number] : 1955 66 From: Aaron Hannon MD PCP: Dr. David Ramirez MD Status:REG ER Location: ED HPI History of Present Illness Chief Complaint: Mental Health Informant: patient Narrative Narrative: Patient states 1 was 1.5 weeks ago, her dog and she was very close to her dog and she has been having a very hard time dealing with it and has been very sad and tearful and anxious. The day after this, she states she was walking in [facility], and she states she suddenly started feeling something unusual in her head, she describes it as lightheadedness and no sensation of movement or spinning, but states she felt it come from the top of her head down over the sides in the front, and then it went away and she felt better and she rested fora little bit and felt okay although she has been feeling generally malaised since then. She states this sensation occurred again last night while she was lying in bed she had just turned on her tablet, it lasted less than a minute, she turned her tablet off immediately and just rested and went to sleep and camein this morning out of concern for all of this. Her blood pressure is high in triage, this is the first time she has checked it in a while and the first time it has been measured since the incident and these feelings, she has been compliant with her amlodipine 10 mg that she takes for blood pressure, no other medication changes lately or illness recently. She denies any lateralizing or focal neurologic symptoms other than what is described above. No prodromal dyspnea, she denies any pain in her head or headache, changes in her hearing, changes in her vision at all. [facility] Medical History Arthritis Colon polyps Cystocele with incomplete uterovaginal prolapse Diverticulosis Enlarged uterus Former smoker Hernia High cholesterol History of edema History of stress test History of uterine fibroid HTN (hypertension) Injury of back Intra-abdominal adhesions Loose, teeth Postmenopausal bleeding PVC (premature ventricular contraction) Rectocele Wears glasses Home Medications amlodipine 10 mg tablet 10 mg PO DAILY #90 tabs 07/12/22 [Rx Last Taken 08/10/22] Allergy/AdvReac Type Severity Reaction Status Date / Time oxycodone AdvReac Nausea/Vom/ Verified 08/10/22 09:38 Diarrhea Family History Mother Cancer Father Cancer Surgical History H/O dilation and curettage H/O hernia repair (~2005) History of bowel resection (~2010) History of colonoscopy History of endometrial ablation History of gastrectomy (~2013) History of hernia repair (~2018) History of sleeve gastrectomy History of tubal ligation (~1995) S/P panniculectomy Social History number of children: 3 current occupational status: employed current occupation: [employer] Smoking Status: Former smoker alcohol intake: never substance use type: does not use diet: vegetarian seatbelt use: always do you feel safe at home: Yes ROS ROS ED Constitutional Constitutional ED: Reports malaise; Denies chills or fever(s) Eyes Eyes: Denies change in vision or diplopia ENT ENT ED: Denies rhinorrhea or sore throat Cardiovascular Cardiovascular: Reports lightheadedness; Denies chest pain, palpitations or syncope Respiratory/Chest Respiratory/Chest: Denies cough or dyspnea Gastrointestinal Gastrointestinal: Denies abdominal pain, diarrhea, nausea or vomiting Genitourinary Genitourinary ED: Denies dysuria or hematuria Musculoskeletal Musculoskeletal: Denies back pain or neck pain Integumentary Denies abscess or rash Neurologic Neurologic: Denies headache(s), paresthesias or weakness Psychiatric Psychiatric: Reports anxiety and depression; Denies suicidal ideation or suicidal thoughts EXAM Physical Exam Const Vital Signs: 08/10/22 09:38 08/10/22 11:25 Temperature 97.9 F Temperature Source Temporal Pulse Rate 99 77 Respiratory Rate 24 H 16 Blood Pressure 194/112 H 149/97 H Blood Pressure Mean 139 114 Pulse Ox 96 98 Oxygen Delivery Method Room Air Room Air Positive well nourished and well developed General Appearance ED: well developed and NAD HEENT Reports moist mucous membranes normocephalic and atraumatic Eyes PERRL and EOMs intact bilaterally Neck full ROM and supple Resp normal respiratory effort and clear to auscultation bilaterally Cardio regular rate, regular rhythm and no murmurs GI non-tender and non-distended Auscultation: normoactive bowel sounds Palpation: soft Back/Spine no CVA tenderness General Back: other FROM Extremity normal to inspection General Extremety ED: Negative for edema, pulses abnormal or tenderness General Extremity: Negative for edema or pulses abnormal Neuro oriented x3, CN's II-XII intact bilaterally and no sensory deficits noted Sensorium / Orientation: awake and alert Motor Exam: strength 5/5 throughout Psych mental status grossly normal Mood & Affect: anxious and tearful Skin no rashes or lesions noted and no wounds MDM MDM MDM Narrative Medical decision making narrative: Labs, EKG, troponin, CT of the head all unremarkable. I reviewed the images andthe report of the CT which I agree with. The patient is doing well. We rechecked her blood pressure while she is resting here it is 149/97, reassuring,this is without treating it. Therefore I do not think we need to manipulate herblood pressure medications right now, it is unknown if her blood pressure or heart rate could have been related to the 2 episodes that she had, I recommend if they occur again to try to check those, as that might be helpful information to give to her doctor if they continue to occur. I do not think anything here dangerous is going on, this does not sound like TIA, it may or may not be related to her grieving. We discussed adjustment disorder and the fact that shein my opinion is having a normal reaction right now to the loss of a loved 1 including a pet, and if things continue for 2 months or more, she may qualify for adjustment disorder and at that point, prescribing her medications may or may not be helpful. I advised following up with her doctor regarding all of this including blood pressure recheck, she is comfortable with that plan. Lab Data Labs: Laboratory Results - last 24 hr 08/10/22 10:16 WBC 11.8 H RBC 5.16 Hgb 14.7 Hct 44.7 MCV 86.6 MCH 28.5 MCHC 32.9 RDW Std Deviation 44.4 H RDW Coeff of Chris 13.8 Plt Count 304 MPV 10.8 Immature Gran % (Auto) 1.200 H Neut % (Auto) 74.4 H Lymph % (Auto) 14.5 L Leon % (Auto) 8.5 Eos % (Auto) 0.6 Baso % (Auto) 0.8 Absolute Neuts (auto) 8.8 H Absolute Lymphs (auto) 1.71 Nucleated RBC % 0 Sodium 141 Potassium 4.1 Chloride 108 H Carbon Dioxide 29.0 Anion Gap 4 L BUN 11 Creatinine 0.61 Estim Creat Clear Calc 77.07 Est GFR (MDRD) Af Amer 126 Est GFR (MDRD) Non-Af 104 BUN/Creatinine Ratio 18.0 Glucose 132 H Calcium 9.3 Troponin I High Sens 3 Radiography Diagnostic Testing: Clinical Impression(s) from Imaging Studies Brain CT 08/10/22 10:22 IMPRESSION: Normal unenhanced CT scan of the brain. Electronically Signed: Duc Goyal MD at 10:47 EDT , Discharge Plan Triage Chief Complaint: Mental Health ED Provider: Aaron Hannon Dx/Rx/DC Orders Clinical Impression: Intermittent lightheadedness, Stress reaction, Episode of hypertension Instructions: ED Dizziness, Uncertain Cause Prescriptions: No Action amlodipine 10 mg tablet 10 mg PO DAILY Qty: 90 3RF Primary Care Provider: David Ramirez Referrals: David Ramirez MD [Primary Care Provider] - 1-2 Weeks Disposition Disposition: Home, Self Care What to do if you have Problems For any increased pain, shortness of breath, bleeding, nausea or vomiting, chestpain, or any unexpected problems, contact your Primary Care Provider. Call [facility] ([phone]) or report to the closest Emergency Room. Call 911 if necessary. 08/10/22 1138 <Electronically signed by Aaron Hannon MD> Cosigner Signature (if applicable): CC: Dr. David Ramirez MD ~ Signed [facility] Work Phone: [phone] Miscellaneous Notes* Telephone Encounter - Yocasta Santoro - 02/09/2022 1:57 PM EST Spoke with patient, her paperwork will be filled out, signed and faxed. Thank you, Yocasta Santoro * Telephone Encounter - David Mattson Ma - 02/08/2022 8:44 AM EST Patient called asking if her FMLA paper work was filled out and faxed to her employer. She is asking that you call her back when you know what is going on with this. She also states that she can not remember what day Dr. Ramos said she could return to work. Can you please call her? Thank you David Mattson Ma documented in this encounter[facility] History of Present illness Narrative* Karen Ramos MD - 02/01/2022 11:00 AM EST ESTABLISHED PATIENT VISIT HPI Shannon Lam is a 66 year old female who presents post op below procedure. She is currently doingwell. Postoperatively she did have tailbone and rectal pain. No pain radiating down her leg. She has had some difficulties with constipation and is trying different options for improvement. She also recently changed her diet. Her pain is improving. Today she has not required any pain medication. Carmen bonnie she has been using Tylenol and Motrin. On examination her vaginal vault is well supported. Her incision lines appear to be healing. We discussed postoperative care. She is going to call if the pain or discharge worsens. Surgery/Procedure Date: 01/13/2022 Incision/Procedure Start Time: 8:14 AM Incision Close/Procedure End Time: 10:41 AM Patient Age: [age] year old Surgeon(s)/Proceduralist(s) and Grab Driver(s): Surgeon(s) and Role: Panel 1: * Karen Ramos MD - Primary * Kerri Ge MD - Resident - Assisting Panel 2: * Anish Edwards DO - Primary * rPiya Ramirez DO - Resident - Assisting Reexaminer: Avi Tracey SA Anesthesia: General Preop Diagnosis: [...] pt is starting a ketogenic program called [employer] she will monitor ketones and blood sugar [...] billion cell cap Take by mouth once daily.Takes sporadically fluticasone (FLONASE) 50 mcg/actuation nasal spray Use 1 [place] in the nose as needed. 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 documented in this encounterMount [facility]. [facility]12-[facility]-2022 Miscellaneous Notes* Telephone Encounter - Karen Ramos MD - 01/17/2022 12:06 PM EST I would give it a little more time. Has she had a bowel movement? Is she taking stool softeners? * Telephone Encounter - Brunilda Whitmore RN - 01/17/2022 11:06 AM EST Per patient she is currently taking 400 [...] needs to be done. Brunilda Whitmore RN * Telephone Encounter - Karen Ramos MD - 01/17/2022 10:47 AM EST What has she been taking for pain? Is she requesting additional pain medication? * Telephone Encounter - Mandy Cuellar Cma - 01/17/2022 9:45 AM EST Shannon Lam called today. : 1955 Allergies: Oxycodone (home) [phone] (cell) Message can be left with: with [...] yes Mandy Cuellar Cma documented in this encounterMount [facility]. [facility]11-17-2022 History and physical note * LEYDA Song - 12/30/2021 10:00 AM EST Images from the original note were not included. HISTORY AND PHYSICAL EXAMINATION SERVICE DATE: 12/28/2021 SERVICE TIME: 10:05 AM PRIMARY CARE PHYSICIAN: David Ramirez MD REASON FOR VISIT: Shannon Lam is [...] HYSTERECTOMY (N/A) at the request of Dr. Karen Ramos for routine H&P. My final recommendation will be communicated back to the requesting physician by way of shared medical record or letter. Subjective The patient has the following: There is no problem list on file for this patient. COVID-19 Immunization Status COVID-19 VACCINE (Series Information) Completed 11/17/2021 Imm Admin: COVID-19 booster vaccine, age 12+ yr, bivalent (Patient [employer]) 01/28/2021 Imm Admin: COVID-19 vaccine, full dose [...] anticoagulation therapy, atrial fibrillation, CAD, chest pain, CHF,DVT/PE and hyperlipidemia. GI: Negative for: abdominal pain, dysphagia, nausea and vomiting. : See HPI. LOG COOKER: See HPI. Endocrine: Negative for: diabetes mellitus, hyperthyroidism and hypothyroidism. Hematology: Negative for: anemia, bruises/bleeds easily and chronic anti- coagulation/platelet meds. Oncology: No history of CA metastasis, [...] (FLONASE) 50 mcg/actuation nasal spray Use 1 [place] in the nose as needed. Taking Yes L.acidophil-L.plantar-Bifido 7 (UP4 PROBIOTICS ADULT) 15 billion cell cap Take by mouth once daily.Takes sporadically Taking Yes No medication comments found. [...] or any previous visit (from the past [id number] hour(s)). Assessment No problem-specific Assessment & Plan [...] 1:55 PM PAGER/CONTACT #: documented in this encounterMount [facility]. [facility]11-15-2022 Instructions* Patient Instructions* LEYDA Song - 12/28/2021 1:55 PM EST PATIENT PREOPERATIVE INSTRUCTIONS Your surgeon has scheduled for your procedure at this surgery center: [facility]: [phone], [address] [phone] Please enter through the main entrance and proceed to the blue elevators. The [facility] [facility] is located to the left of [...] pain medications that do not contain aspirin orNSAIDS as needed. IF YOU TAKE ANY OF [...] before scheduled surgery. Bring your Glucometer to [facility] if you are scheduled in [place] for [place]. If you have a stimulator, [...] or the morning of surgery. Use the Cojoin body wash supplied to you along with [...] surgery. - YOU MUST HAVE A RESPONSIBLE LEAD AUDITOR TAKE YOU HOME. A ELECTRIC POWER MACHINE OPERATOR, CAB OR UBER LEAD AUDITOR CANNOT BE MADEA RESPONSIBLE LEAD AUDITOR. - We recommend that a responsible person stays with you overnight to take care of you. - You cannot stay in a hotel alone after outpatient surgery. You will not be permitted to have yoursurgery, if you do not have someone to take care of you. CCAG: Given COVID 19 pandemic, one visitor is allowed in the hospital. They may wait in the surgerywaiting room while you are in surgery but [...] but if you wish to bring undergarments forafter surgery you may. Ambulatory surgery center [place]- orthopedic patients needing a walker should bring the walker into the building day of surgery. Orthopedic patients having surgery [facility] listed as outpatient should bring their walker into the building. Orthopedic patients having surgery [facility] listed as to be admitted should leave their walkers in the car or with a family member. LEYDA Song 12/28/[address] [facility]09-07-2022 NoteHNO ID: [id number] Author: Karen Ramos MD Service: ? Author Type: Physician Type: [...] 2,500 mg by mouth once daily. fexofenadine (ANALISA) 180 mg tablet Take 180 mg by mouth once daily. fluticasone (FLONASE) 50 mcg/actuation nasal spray Use 1 [place] in the nose as needed. L.acidophil-L.plantar-Bifido 7 (UP4 PROBIOTICS ADULT) 15 billion cell cap Take by mouth. Cholecalciferol, Vitamin D3, 50 mcg (2,000 unit) cap Take 1 capsule by mouth once daily. (Patient not taking: No sig reported) Physical Exam Ht 161.3 cm (5' 3.5) Wt 103.4 kg (228 lb) BMI 39.75 kg/m? ASSESSMENT/PLAN: (N81.11) Midline cystocele (primary encounter diagnosis) (N81.6) Rectocele (N81.4) Uterine prolapse Plan cystoscopy, anterior and posterior repair possible sacrospinous ligament fixation or uterosacral ligament fixation.[facility] 10-20-2021 History of Present illness Narrative* Karen Ramos MD - 10/20/2021 11:13 AM EDT ESTABLISHED PATIENT VISIT HPI Shannon Lam is [...] the vagina for 4-6 weeks or until yoursutures have dissolved. 8. Once you have healed [...] 2,500 mg by mouth once daily. fexofenadine (ANALISA) 180 mg tablet Take 180 mg by mouth once daily. fluticasone (FLONASE) 50 mcg/actuation nasal spray Use 1 [place] in the nose as needed. L.acidophil-L.plantar-Bifido 7 (UP4 PROBIOTICS ADULT) 15 billion cell cap Take by mouth. Cholecalciferol, Vitamin D3, 50 mcg (2,000 unit) cap Take 1 capsule by mouth once daily. (Patient not taking: No sig reported) Physical Exam Ht 161.3 cm (5' 3.5) Wt 103.4 kg (228 lb) BMI 39.75 kg/m ASSESSMENT/PLAN: (N81.11) Midline cystocele (primary encounter diagnosis) (N81.6) Rectocele (N81.4) Uterine prolapse Plan cystoscopy, anterior and posterior repair possible sacrospinous ligament fixation or uterosacral ligament fixation. documented in this encounterMount [facility]. [facility]07-08-2022 History of Present illness Narrative* Giovany Mcnair DO - 08/20/2021 10:46 AM EDT Shannon Lam is a 65 year old female who presents with a chief complaint of Pre- Op Visit (pap) SUBJECTIVE Patient also presents as a referral from Dr. Ramos for a total vaginal hysterectomy and a vaginalanterior and posterior repair done by him. Went [...] Use Smoking status: Former Smoker Quit date: 2009 Years since quittin.5 Smokeless tobacco: Never Used [...] 2,500 mg by mouth once daily. fexofenadine (ANALISA) 180 mg tablet Take 180 mg by mouth once daily. L.acidophil-L.plantar-Bifido 7 (UP4 PROBIOTICS ADULT) 15 billion cell cap Take by mouth. Cholecalciferol, Vitamin D3, 50 mcg (2,000 unit) cap Take 1 capsule by mouth once daily. (Patient not taking: Reported on 08/20/2021 ) fluticasone (FLONASE) 50 mcg/actuation nasal spray Use 1 [place] in the nose as needed. (Patient not [...] Symmetrical and No masses, tenderness, nipple discharge LOG COOKER: Vulva - no lesions, skin intact with [...] surgery Giovany Mcnair DO documented in this encounterMount St. [facility]03-29-2022 History of Present illness Narrative* Karen Ramos MD - 05/11/2021 10:17 AM EDT NEW PATIENT HISTORY AND PHYSICAL EXAM HISTORY OF PRESENT ILLNESS: Shannon Lam is a 65 year old female who presents New patient consult Dr Yesi Ramirez for Prolapse of Bladder, Rectocele and uterine [...] 2,500 mg by mouth once daily. fexofenadine (ANALISA) 180 mg tablet Take 180 mg by mouth once daily. fluticasone (FLONASE) 50 mcg/actuation nasal spray Use 1 [place] in the nose as needed. L.acidophil-L.plantar-Bifido 7 [...] Never Physical Exam Ht 161.3 cm (5' 3.5) Wt 99.3 kg (219 lb) BMI 38.19 kg/m PHYSICAL EXAM: FEMALE Vital signs: BP 132/80 Ht 161.3 cm (5' 3.5) Wt 99.3 kg (219 lb) BMI 38.19 [...] repair, USLF, possible sling documented in [facility]* Diagnosis Uterine leiomyoma, unspecified location- Primary Uterine prolapse Uterine prolapse without mention of vaginal wall prolapse Midline cystocele Cystocele, midline Rectocele documented in this encounter [facility]* Diagnosis Uterine leiomyoma, unspecified location documented in this encounter [facility] note* Diagnosis Women's annual routine gynecological examination- Primary Routine cervical smear Screening for malignant neoplasm of the cervix Uterine prolapse Uterine prolapse without mention of vaginal wall prolapse [facility] noteNo assessment information availableMer[facility] Work Phone: Evaluation note* Diagnosis Midline cystocele- Primary Cystocele, midline Rectocele Uterine prolapse Uterine prolapse without mention of vaginal wall prolapse Uterine leiomyoma, unspecified location Uterine prolapse Uterine prolapse without mention of vaginal wall prolapse Midline cystocele Cystocele, midline Rectocele documented in this encounter [facility] note* Diagnosis Onset Date Resolution Status Lump in chest noneactive Essential hypertension acute Garry's deformity of left heel acute Personal history of colonic polyps acute [facility] Work Phone: Evaluation note* Diagnosis Preop examination [Z01.818 (ICD-10-CM)]- Primary [...] Cystocele, midline Rectocele documented in this encounter [facility] note* Diagnosis Midline cystocele- Primary Cystocele, midline Prolapse of vaginal vault after hysterectomy documented in this encounter [facility] note* Diagnosis Onset Date Resolution Status Essential hypertension acute Hypertriglyceridemia acute Insulin resistance acute Sore throat noneactive Abnormal vaginal bleeding in postmenopausal patient acute Rectocele acute [facility] Work Phone: Evaluation note* Diagnosis Onset Date Resolution Status Essential hypertension acute Hypertriglyceridemia acute Insulin resistance acute Sore throat noneactive Abnormal vaginal bleeding in postmenopausal patient acute Rectocele acute Elevated bilirubin acute Essential hypertension acute Hypertriglyceridemia acute Insulin resistance acute [facility] Work Phone: Evaluation note* Diagnosis Rectocele [N81.6]- Primary Rectocele Postoperative vaginal bleeding following genitourinary procedure Genitourinary syndrome of menopause documented in this encounter [facility] note* Diagnosis Onset Date Resolution Status Abnormal vaginal bleeding in postmenopausal patient acute Rectocele acute Elevated bilirubin acute Essential hypertension acute Hypertriglyceridemia acute Insulin resistance acute Essential hypertension acute Grieving acute Hypertriglyceridemia acute Insulin resistance acute Corneal abrasion acute Abnormal vaginal bleeding in postmenopausal patient acute Cystocele with incomplete uterovaginal prolapse acute Hernia acute History of bowel resection a cute [facility] Work Phone: Evaluation note* Diagnosis Vaginal atrophy- Primary Postmenopausal atrophic vaginitis documented in this encounter [facility] note* Diagnosis Onset Date Resolution Status Abnormal vaginal bleeding in postmenopausal patient acute Rectocele acute Elevated bilirubin acute Essential hypertension acute Hypertriglyceridemia acute Insulin resistance acute Essential hypertension acute Grieving acute Hypertriglyceridemia acute Insulin resistance acute Corneal abrasion acute Abnormal vaginal bleeding in postmenopausal patient acute Cystocele with incomplete uterovaginal prolapse acute Hernia acute History of bowel resection a cute Ganglion cyst of volar aspect of right wrist acute [facility] Work Phone: Evaluation note* Diagnosis Vaginal ulceration- Primary Other inflammatory disease of cervix, vagina and vulva Vaginal discharge Leukorrhea, not specified as infective documented in this encounter [facility] note* Diagnosis Onset Date Resolution Status Essential hypertension acute Former smoker acute Insulin resistance acute [facility] Work Phone: Hospital Discharge instructionsAmbulatory Orders* Physical Therapy Referral Location: None Selected [facility] Work Phone: Reason for referral (narrative)* Diagnostic Procedure Only (Routine) - Authorized Specialty Diagnoses / Procedures Referred By Contac t Referred To Contact US IMAGING Diagnoses Uterine leiomyoma, unspecified location Procedures US FEMALE PELVIS TRANSVAG US TRANSVAGINAL Karen Ramos MD [facility] [place] [address] Us Imaging Referral ID Status Reason Start Date Expiration Date Visits Requested Visits Authorized [id number] Authorized Auto-Generat ed Referral 05/11/2021 06/10/2022 1 1 [facility] for referral (narrative)* Diagnostic Procedure Only (Routine) - Closed Specialty Diagnoses / Procedures Referred By Contac t Referred To Contact US IMAGING Diagnoses Uterine leiomyoma, unspecified location Procedures US FEMALE PELVIS TRANSVAG US TRANSVAGINAL Karen Ramos MD [address] [place] [address] Us Imaging Referral ID Status Reason Start Date Expiration Date V isits Requested Visits Authorized [id number] Closed Auto-Generate d Referral 05/11/2021 06/10/2022 1 1 [facility] for referral (narrative)* Diagnostic Procedure Only (Routine) - Pending Review Specialty Diagnoses / Procedures Referred By Contac t Referred To Contact [facility] Diagnoses Women's annual routine gynecological examination Procedures VAN SCREENING SCREENING MAMMOGRAPHY BI 2-VIEW BREAST INC CAD Giovany Mcnair DO [address] [place] [address] [facility] [address] [place] [address] Referral ID Status Reason Start Date Expiration Date Visits Requested Visits Authorized [id number] Pending Review Auto-Generat ed Referral 08/20/2021 09/19/2022 1 1 [facility] for referral (narrative)No reason for referral information [facility]: Reason for visit Narrative* Diagnostic Procedure Only (Routine) - Closed Specialty Diagnoses / Procedures Referred By Contac t Referred To Contact US IMAGING Diagnoses Uterine leiomyoma, unspecified location Procedures US FEMALE PELVIS TRANSVAG US TRANSVAGINAL Karen Ramos MD [address] [place] [address] Us Imaging Referral ID Status Reason Start Date Expiration Date V isits Requested Visits Authorized [id number] Closed Auto-Generate d Referral 05/11/2021 06/10/[address] [facility] Chief Complaint and Reason for Visit Chief Complaint RIGHT LOWER SWELLING Chief Complaint SCREENING LUMP NEAR COLLAR BONE 6 M FU, Aware of Location Change Amb Documentation Reason for Visit Lump in chest Essential hypertension Garry's deformity of left heel Personal history of colonic polyps Chief Complaint Sore throat E ORDER AUB post hysterectomy Reason for Visit Essential hypertensi on Hypertriglyceridemia Insulin resistance Sore throat Abnormal vaginal bleeding in postmenopausal patient Rectocele Chief Complaint Sore throat E ORDER AUB post hysterectomy 6 M FU INCOMPLETE UTEROVAGINAL PROLAPSE / RX HERE MH/ANXIETY Reason for Visit Essential hypertensi on Hypertriglyceridemia Insulin resistance Sore throat Abnormal vaginal bleeding in postmenopausal patient Rectocele Elevated bilirubin Essential hypertension Hypertriglyceridemia Insulin resistance Chief Complaint E ORDER AUB post hysterectomy 6 M FU INCOMPLETE UTEROVAGINAL PROLAPSE / RX HERE MH/ANXIETY [facility] ER FU RIGHT EYE IRRITATION 2-3 WEEK F/U SCREENING Reason for Visit Abnormal vaginal ble eding in postmenopausal patient Rectocele Elevated bilirubin Essential hypertension Hypertriglyceridemia Insulin resistance Essential hypertension Grieving Hypertriglyceridemia Insulin resistance Corneal abrasion Abnormal vaginal bleeding in postmenopausal patient Cystocele with incomplete uterovaginal prolapse Hernia History of bowel resection Chief Complaint E ORDER AUB post hysterectomy 6 M FU INCOMPLETE UTEROVAGINAL PROLAPSE / RX HERE MH/ANXIETY [facility] ER FU RIGHT EYE IRRITATION 2-3 WEEK F/U SCREENING RIGHT HAND Room 2 Reason for Visit Abnormal vaginal ble eding in postmenopausal patient Rectocele Elevated bilirubin Essential hypertension Hypertriglyceridemia Insulin resistance Essential hypertension Grieving Hypertriglyceridemia Insulin resistance Corneal abrasion Abnormal vaginal bleeding in postmenopausal patient Cystocele with incomplete uterovaginal prolapse Hernia History of bowel resection Ganglion cyst of volar aspect of right wrist Chief Complaint EORDER Annual/Physical Personal history of nicotine dependence Reason for Visit Essential hypertensi on Former smoker Insulin resistance Chief Complaint Admit Date CONCERN FOR UTI May 17, 2024 1:12 pm EORDER May 17, 2024 3:20 pm Reason for Visit Admit Date Dysuria May 17, 2024 1:12 pm Chief Complaint Admit Date CONCERN FOR UTI May 17, 2024 1:12 pm EORDER May 17, 2024 3:20 pm Annual/Physical June 24, 2024 7:53a m Gastroesophageal reflux disease (GERD) M ay 2024 2:22pm Reason for Visit Admit Date Dysuria May 17, 2024 1:12 pm Essential hypertension June 24, 2024 7: 53am Hypertriglyceridemia June 24, 2024 7:53 am Insulin resistance June 24, 2024 7:53a m Chronic GERD July 03, 2024 2:22p m Family History No Family History Records Found Relationship Condition Age at Onset Recorded Date/T [place] mother Malignant neoplasm Unknown father Malignant neoplasm Unknown Relationship Condition Age at Onset Recorded Date/T [place] mother Malignant neoplasm Unknown father Malignant neoplasm Unknown Hypertension Unknown brother Hypertension Unknown Cerebrovascular accident (CVA) Unknown Diabetes mellitus Unknown Advance Directives No Advanced Directives Records Found Advance Directive Response Recorded Date/ Time Living Will No June 25, 2020 9 :18am Power of Topper Press Operator Automatic No June 25, 2020 9:18am Advance Directive Response Recorded Date/ Time Living Will No December 27, 8:11am Power of Topper Press Operator Automatic No December 27, 2021 8:11am Advance Directive Response Recorded Date/ Time Living Will No December 27 9:11am Power of Topper Press Operator Automatic No December 27, 2021 9:11am Advance Directive Response Recorded Date/ Time Living Will No August 10, 2022 9:51am Power of Topper Press Operator Automatic No August 10 9:51am Advance Directive Response Recorded Date/ Time Living Will No August 18, 2022 9 :10am Power of Topper Press Operator Automatic No August 18, 2022 9:10am Summary Purpose Additional Source Comments Source Comments (unrecognize d section and content) In the event this informatio n is protected by the Federal Confidentiality of Alcohol and Drug Abuse Patient Records regulations: The Federal rules restrict any use of the information to criminally investigate or prosecute any alcohol or drug abuse patient.[facility] the event this information is protected by the Federal Confidentiality of Alcohol and Drug Abuse Patient Records regulations: The Federal rules restrict any use of the information to criminally investigate or prosecute any alcohol or drug abuse patient.[facility] the event this information is protected by the Federal Confidentiality of Alcohol and Drug Abuse Patient Records regulations: The Federal rules restrict any use of the information to criminally investigate or prosecute any alcohol or drug abuse patient.[facility] the event this information is protected by the Federal Confidentiality of Alcohol and Drug Abuse Patient Records regulations: The Federal rules restrict any use of the information to criminally investigate or prosecute any alcohol or drug abuse patient.[facility] the event this information is protected by the Federal Confidentiality of Alcohol and Drug Abuse Patient Records regulations: The Federal rules restrict any use of the information to criminally investigate or prosecute any alcohol or drug abuse patient.[facility] the event this information is protected by the Federal Confidentiality of Alcohol and Drug Abuse Patient Records regulations: The Federal rules restrict any use of the information to criminally investigate or prosecute any alcohol or drug abuse patient.[facility] the event this information is protected by the Federal Confidentiality of Alcohol and Drug Abuse Patient Records regulations: The Federal rules restrict any use of the information to criminally investigate or prosecute any alcohol or drug abuse patient.[facility] the event this information is protected by the Federal Confidentiality of Alcohol and Drug Abuse Patient Records regulations: The Federal rules restrict any use of the information to criminally investigate or prosecute any alcohol or drug abuse patient.[facility] the event this information is protected by the Federal Confidentiality of Alcohol and Drug Abuse Patient Records regulations: The Federal rules restrict any use of the information to criminally investigate or prosecute any alcohol or drug abuse patient.[facility] the event this information is protected by the Federal Confidentiality of Alcohol and Drug Abuse Patient Records regulations: The Federal rules restrict any use of the information to criminally investigate or prosecute any alcohol or drug abuse patient.[facility] the event this information is protected by the Federal Confidentiality of Alcohol and Drug Abuse Patient Records regulations: The Federal rules restrict any use of the information to criminally investigate or prosecute any alcohol or drug abuse patient.[facility] the event this information is protected by the Federal Confidentiality of Alcohol and Drug Abuse Patient Records regulations: The Federal rules restrict any use of the information to criminally investigate or prosecute any alcohol or drug abuse patient.[facility] the event this information is protected by the Federal Confidentiality of Alcohol and Drug Abuse Patient Records regulations: The Federal rules restrict any use of the information to criminally investigate or prosecute any alcohol or drug abuse patient.[facility] the event this information is protected by the Federal Confidentiality of Alcohol and Drug Abuse Patient Records regulations: The Federal rules restrict any use of the information to criminally investigate or prosecute any alcohol or drug abuse patient.[facility] the event this information is protected by the Federal Confidentiality of Alcohol and Drug Abuse Patient Records regulations: The Federal rules restrict any use of the information to criminally investigate or prosecute any alcohol or drug abuse patient.[facility] the event this information is protected by the Federal Confidentiality of Alcohol and Drug Abuse Patient Records regulations: The Federal rules restrict any use of the information to criminally investigate or prosecute any alcohol or drug abuse patient.[facility] Reason for Visit (unrecogniz ed section and content) Reason Comments New Patient Reason Comments Pre-Op Visit pap Reason Comments Follow Up Discuss surgery Reason Comments Patient Question Reason Comments Post-Op Visit Post op 01/13/2022 Cy stoscopy, anterior repair, sacrospinous ligament fixation. Reason Comments FMLA Paperwork Reason Comments Medication Question Reason Comments Rectocele Urge Urinary Incontinence Reason Comments Speech Language Pathologist Prn Exam Abnormal uterine ble eding since 01/13/22 hysterectomy and bladder surgery Reason Comments Follow Up Vaginal cuff Goals (unrecognized section and content) Goals may be documented in a n alternate sectionGoals may be documented in an alternate sectionGoals may be documented in an alternate sectionGoals may be documented in an alternate sectionGoals may be documented in an alternate sectionGoals may be documented in an alternate sectionGoals may be documented in an alternate sectionGoals may be documented in an alternate sectionGoals may be documented in an alternate section Care Teams (unrecognized sec tion and content) Mine Technician Relationship Specialty Start Date End Date David Ramirez MD [address] [address] PCP - General Internal Medicine 10/20/21 Mine Technician Relationship Specialty Start Date End Date David Ramirez MD [address] [address] PCP - General Internal Medicine 10/20/21 Mine Technician Relationship Specialty Start Date End Date David Ramirez MD [address] [address] PCP - General Internal Medicine 10/20/21 Mine Technician Relationship Specialty Start Date End Date David Ramirez MD [address] [address] PCP - General Internal Medicine 10/20/21 Mine 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 David Ramirez MD Primary Care Provider Active Team Status: Inactive Member Role Status Dates Dr. David Ramirez MD Primary Care Provider, Attendi ng Provider Active Team Status: Inactive Member Role Status Dates Dr. David Ramirez MD Primary Care Provider, Referri ng Provider Active Mary Whitmore CNM Attending Provider Active Team Status: Inactive Member Role Status Dates Dr. David Ramirez MD Primary Care Pro vider, Attending Provider, Referring Provider Active Team Status: Active Member Role Status Dates Dr. David Ramirez MD Primary Care Provider Active Mary Whitmore CNM Attending Provider, Referring Pr ovider Active Team Status: Inactive Member Role Status Dates Dr. David Ramirez MD Primary Care Provider Active Dr. 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 David Ramirez MD Primary Care Provider, Referri ng Provider Active Frankie Short NP, 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 Attending Provider Active Team Status: Inactive Member Role Status Dates Dr. David Ramirez MD Primary Care Provider Active Dr. Aaron Hannon MD Attending Provider, Emergency Provider Active Team Status: Inactive Member Role Status Dates Dr. David Ramirez MD Primary Care Provider Active Mary Whitmore CNM Attending Provider, Referring Pr ovid Active Mine Technician Relationship Specialty Start Date End Date David Ramirez MD [address] [address] PCP - General Internal Medicine 10/20/21 Team Status: Inactive Member Role Status Dates Dr. David Ramirez MD Primary Care Provider, Referri ng Provider Active Gil Reynoso MD Attending Provider Active Team Status: Inactive Member Role Status Dates Dr. David Ramirez MD Primary Care Provider Active Dr. Orlin Barajas MD Attending Provider Active Mine Technician Relationship Specialty Start Date End Date David Ramirez MD [address] [address] PCP - General Internal Medicine 10/20/21 Mine Technician Relationship Specialty Start Date End Date David Ramirez MD [address] [place] [address] PCP - General Internal Medicine 10/20/21 Mine Technician Relationship Specialty Start Date End Date David Ramirez MD [address] [place] [address] PCP - General Internal Medicine 10/20/21 Team Status: Inactive Member Role Status Dates Dr. David Ramirez MD Primary Care Provider Active Start: May 17, 2024 End: May 17, 2024 Dr. David Ramirez MD Referring Provider Active Start: May 17, 2024 End: May 17, 2024 LEYDA Ceja Attending Provider Active Sta rt: May 17, 2024 End: May 17, 2024 Team Status: Inactive Member Role Status Dates Dr. David Ramirez MD Primary Care Provider Active Start: May 17, 2024 End: May 17, 2024 LEYDA Ceja Attending Provider Active Sta rt: May 17, 2024 End: May 17, 2024 LEYDA Ceja Referring Provider Active Sta rt: May 17, 2024 End: May 17, 2024 Team Status: Inactive Member Role Status Dates Dr. David Ramirez MD Primary Care Provider Active Start: June 24, 2024 End: June 24, 2024 Dr. David Ramirez MD Attending Provider Active Start: June 24, 2024 End: June 24, 2024 Team Status: Inactive Member Role Status Dates Dr. David Ramirez MD Primary Care Provider Active Start: July 03, 2024 End: July 03, 2024 Dr. David Ramirez MD Referring Provider Active Start: July 03, 2024 End: July 03, 2024 Dr. Yony Moseley MD Attending Provider Active Start: July 03, 2024 End: July 03, 2024 Team Status: Active Member Role Status Dates Dr. David Ramirez MD Primary Care Provider Active Team Status: Inactive Member Role Status Dates Dr. David Ramirez MD Primary Care Provider Active Start: July 04, 2024 End: July 04, 2024 Dr. David Ramirez MD Attending Provider Active Start: July 04, 2024 End: July 04, 2024 Dr. David Ramirez MD Referring Provider Active Start: July 04, 2024 End: July 04, 2024 INFORMATION SOURCE (unrecogn ized section and content) DATE CREATED AUTHOR 10/21/2021 [facility] DATE CREATED AUTHOR AUTHOR'S ORGANIZ ATION 04/02/2023 [facility] DATE CREATED AUTHOR AUTHOR'S ORGANIZ ATION 08/17/2024 [facility] FOR RECORDS PERTAINING TO PATIENTS WHO ARE [...] BE BASED ON THE PRIMARY CLINICAL RECORDS. [employer] provides no warranty or guarantee of the accuracy or completeness of information in this document.
--- NOTE | 2024-08-23 07:09 | PCM.PRE.AN2 ---
ASA Classification* ASA Classification ASA Classification: 2 Assessment & Plan Anesthesia* Anesthesia Assessment Anesthesia Assessment: Discussed sedation and/or anesthesia options, risks, benefits, and alternatives with patient/parents/legal guardian/POA. Questions invited. The patient/parents/legal guardian/POA seems to understand and agrees to proceed with anesthesia plan. Reviewed the physical assessment, medical history, allergy history and patient home medications list prior to surgery/procedure/anesthetic and documented any changes. Performed airway and anesthesia risk assessments. Anesthesia Type Anesthesia Type: MAC Anesthesia Focused Assessment* Airway Assessment Mouth opens: >3 cm Mallampati Score: II Labs Anesthesia Preop lab: CBC WBC 10.5 K/mm3 (4.4-11.0) 07/04/24 06:57 07/04/24 RBC 5.22 M/mm3 (4.2-5.4) 07/04/24 06:57 07/04/24 Hgb 14.7 g/dL (12.0-15.0) 07/04/24 06:57 07/04/24 Hct 44.7 % (37-47) 07/04/24 06:57 07/04/24 Plt Count 288 K/mm3 (150-450) 07/04/24 06:57 07/04/24 CHEMISTRY Potassium 4.1 mmol/L (3.3-5.1) 07/04/24 06:57 07/04/24 Sodium 140 mmol/L (133-145) 07/04/24 06:57 07/04/24 Magnesium 2.0 mg/dL (1.5-2.2) 07/04/24 06:57 07/04/24 BUN 14 mg/dL (4-19) 07/04/24 06:57 07/04/24 Creatinine 0.59 mg/dL (0.70-1.20) L 07/04/24 06:57 07/04/24 Glucose 110 mg/dL (70-99) H 07/04/24 06:57 07/04/24 TSH 0.733 uIU/mL (0.300-4.200) 07/04/24 06:57 07/04/24 COAG Pre-Assessment Diagnosis/Proposed Procedure Planned Operative Procedure(s): EGD Anesthesia History 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 When Was Last Pacemaker Check QUESTION #4 FULL TEXT: You/Your Family Experience fever (hyperthermia) with Anesthesia Last Oral Intake Last Oral intake: Last Oral Intake NPO since Meds taken in AM with sips of water? 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 Female Yes 08/21/24 15:56 HX of Motion Sickness No 08/21/24 15:56 HX of N/V After Surgery No 08/21/24 15:56 Non-Smoker Yes 08/21/24 15:56 Duration of Surgery greater No 08/21/24 15:56 than 60 minutes Number of Risk Factors 2 08/21/24 15:56 PONV Score Moderate Risk 08/21/24 15:56 Height & Weight Height & Weight: Anesthesia: Height & Weight Height 5 ft 4 in 07/03/24 14:51 Respiratory Assessment Respiratory Assessment - safety grooving machine operator: Respiratory Tract Infection Hx - safety grooving machine operator Hx Respiratory Tract Infection No 08/21/24 15:56 STOP Sleep Apnea STOP Sleep Apnea - safety grooving machine operator: STOP Sleep Apnea - safety grooving machine operator Hx Hypertension Yes: PER PT, CONTROLLED ON 08/21/24 15:56 MEDS Hx Sleep Apnea No 08/21/24 15:56 CPAP BIPAP Do you snore loudly (louder No 08/21/24 15:56 than talking or can be heard Do you often feel tired/ No 08/21/24 15:56 fatigued/ sleepy during daytime? Has anyone observed you stop No 08/21/24 15:56 breathing during sleep? STOP Results Negative 08/21/24 15:56 QUESTION #5 FULL TEXT : Do you snore loudly (louder than talking or can be heard through closed doors)? 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 Specify any problems Hx of Preganancy in last 3 No 08/21/24 15:56 Months Nurse Filling Out Transfusion MGRIFFITH 08/21/24 15:56 & Questions: Date: 08/21/24 08/21/24 15:56 Time: 15:59 08/21/24 15:56 Patient unable to answer at this time (ie. confused, unrespo /Reproduction History /Reproductive History - safety grooving machine operator: /Reproductive Hx- safety grooving machine operator Hx Now No 08/21/24 15:56 Gestational Age (in weeks): EDC: Hx Hx Para Hx Section SAB No 08/21/24 15:56 Active Medications Active Medications: Current Medications Generic Name Dose Route Start Last Admin Trade Name Freq PRN Reason Stop Dose Admin Lactated Ringer's 1,000 mls @ 15 mls/hr 08/23/24 07:00 IV .Q48H ZAHIRA PFSH Medical History Gastric reflux History of irregular heartbeat Epigastric pain Chronic GERD Ganglion cyst of volar aspect of right wrist Ganglion cyst of finger of right hand Wears glasses Loose, teeth Arthritis High cholesterol Injury of back Former smoker History of edema History of stress test Colon polyps HTN (hypertension) Intra-abdominal adhesions Rectocele PVC (premature ventricular contraction) Diverticulosis Cystocele with incomplete uterovaginal prolapse Enlarged uterus History of uterine fibroid Postmenopausal bleeding Hernia Home Medications ?Medication ?Instructions ?Recorded ?Last Taken ?Type fexofenadine 180 mg tablet 180 mg PO Q24H 04/20/23 Unknown History (Analisa Allergy) fluticasone propionate 50 1 spray intranasal DAILY PRN nasal 04/20/23 Unknown History mcg/actuation nasal congestion spray,suspension (Flonase Allergy Relief) amlodipine 10 mg tablet 10 mg PO DAILY #90 tabs 08/07/24 Unknown Rx lisinopril 10 1 tab PO DAILY #90 tabs 08/12/24 Unknown Rx mg-hydrochlorothiazide 12.5 mg tablet cholecalciferol (vitamin D3) 125 125 mcg PO DAILY 08/21/24 Unknown History mcg (5,000 unit) tablet (Vitamin D3) Allergy/AdvReac Type Severity Reaction Status Date / Time oxycodone AdvReac Nausea/Vom/ Verified 08/23/24 07:02 Diarrhea Family History Mother Cancer Father Cancer Hypertension Brother Hypertension CVA (cerebral vascular accident) Diabetes Surgical History History of colonoscopy History of sleeve gastrectomy History of hernia repair (~2018) History of tubal ligation (~1995) S/P panniculectomy History of gastrectomy (~2013) H/O hernia repair (~2005) History of endometrial ablation History of bowel resection (~2010) H/O dilation and curettage Social History number of children: 3 current occupational status: employed current occupation: [employer] Smoking Status: Former smoker alcohol intake: never substance use type: does not use diet: vegetarian seatbelt use: always do you feel safe at home: Yes Review of Systems (Anesthesia) ROS Narrative System reviewed and no additional complaints, except as documented.
[2024-08-23 07:20] VITALS: BP 149/74; PULSE 76; RESP 16; TEMP 36.6; O2SAT 99; BMI 38.2
--- NOTE | 2024-08-23 07:22 | PCM.HP.BLA ---
History and Physical Date of Admission: 08/23/24 Intake Vital Signs 06/25/2507:01 07/03/2513:51 Height 5 ft 4 in 5 ft 4 in Weight: 227 lb 4 oz 223 lb 4 oz BMI 38.9 38.3 BP 143/75 H 123/82 H Blood Pressure Location Lt brachial Rt brachial Position Sitting Sitting Respiration 16 18 Pulse 69 75 Pulse Source Monitor Monitor Temp 98.2 F 97.2 F L Temp Source Temporal Temporal Pulse Oximetry (%) 97 97 Oxygen Delivery Method room air room air Intake Visit Reasons: Gastroesophageal reflux disease (GERD) Chief Complaint: GERD Is patient in pain?: No Allergies oxycodone Adverse Reaction (Verified 07/03/24 14:52) Nausea/Vom/Diarrhea Medications ?Medication ?Instructions ?Recorded ?Confirmed ?Type fexofenadine 180 mg tablet 180 mg PO Q24H 04/20/23 07/03/24 History (Analisa Allergy) fluticasone propionate 50 1 spray intranasal DAILY 04/20/23 07/03/24 History mcg/actuation nasal spray,suspension (Flonase Allergy Relief) amlodipine 10 mg tablet 10 mg PO DAILY #90 tabs 09/18/23 07/03/24 Rx lisinopril 10 1 tab PO DAILY #90 tabs 09/18/23 07/03/24 Rx mg-hydrochlorothiazide 12.5 mg tablet omega 8-stl-mya-fish oil 60 mg-90 1 cap PO QDAY 06/24/24 07/03/24 History mg-500 mg capsule (Fish Oil) Have you fallen in the past year?: No PFSH Medical History Chronic GERD Ganglion cyst of volar aspect of right wrist Ganglion cyst of finger of right hand Wears glasses Loose, teeth Arthritis High cholesterol Injury of back Former smoker History of edema History of stress test Colon polyps HTN (hypertension) Intra-abdominal adhesions Rectocele PVC (premature ventricular contraction) Diverticulosis Cystocele with incomplete uterovaginal prolapse Enlarged uterus History of uterine fibroid Postmenopausal bleeding Hernia Surgical History History of colonoscopy History of sleeve gastrectomy History of hernia repair (~2018) History of tubal ligation (~1995) S/P panniculectomy History of gastrectomy (~2013) H/O hernia repair (~2005) History of endometrial ablation History of bowel resection (~2010) H/O dilation and curettage Family History Mother CancerFather Cancer HypertensionBrother Hypertension CVA (cerebral vascular accident) Diabetes Social History number of children: 3 current occupational status: employed current occupation: [employer] Smoking Status: Former smoker alcohol intake: never substance use type: does not use diet: vegetarian seatbelt use: always do you feel safe at home: Yes HPI HPI HPI: Patient is a 68-year-old female here for GERD. She was on omeprazole for a long time but stopped it after she switched [id number] and it said only to take it for 2 weeks. She started having GERD and epigastric pain. She says Tums helps. ROS General General: Yes weight change; No appetite, fatigue, colon cancer, breast cancer or weakness HEENT HEENT: No difficulty swallowing, eye injury, eye surgery, swollen glands or hoarseness Endo Endocrine: No thyroid disease, diabetes mellitus, thyroid cancer, Hair loss, heat intolerance or cold intolerance Skin Skin: No rash or changing moles Musc Musculoskeletal: Yes back problems; No arthritis, rheumatoid arthritis, gout or joint pain Cardio Cardiovascular: Yes high blood pressure; No murmur, pacemaker, heart disease, atrial fibrillation, heart attack, heart stent, palpitations, shortness of breath with exertion or chest pain Psych Psychiatric: No depression, anxiety or hearing voices Resp Respiratory: No shortness of breath, No sleep apnea, No cough, No COPD, No asthma, No emphysema and No wheezing Gastro Gastrointestinal: No abdominal pain, No nausea or vomiting, No diarrhea, No constipation, No blood in stool, Yes acid reflux, Yes hemorrhoids, No ulcers, No gallbladder problem and No black,tarry stools Aidan Hematologic: No blood thinners, No blood disorders, No bleeding, No anemia and No blood clots Neuro Neurologic: No weakness Exam Const General: cooperative Orientation: alert and oriented x3 HENMT Head: normal to inspection Neck Neck: normal visual inspection and full ROM Chest Chest palpation & inspection: normal inspection of the chest Resp Effort & Inspection: normal respiratory effort Auscultation: clear to auscultation bilaterally Cardio Rate: regular rate Rhythm: regular rhythm GI Inspection: non-distended Palpation: soft and nontender Skin General: no rashes or lesions noted Neuro General: patient alert and patient oriented x3 Extrem General: full ROM Psych Appearance: grossly normal Mental Status: mental status grossly normal Assessment and Plan Assessment and Plan (1) Chronic GERD: Status: Chronic Plan: I discussed performing EGD to evaluate for long-term chronic changes related to GERD. I also advised her to go back on her omeprazole for a 6-week course. I explained endoscopy in detail to the patient. I explained the risks including but not limited to stroke or heart attack with anesthesia, perforation of the GI tract, bleeding, infection. I explained that any of these could necessitate further emergency surgery. The patient understands and all questions were answered sufficiently. The patient wishes to proceed with procedure. Yony Moseley MD Pager: [facility] [address] [place] [address], [address] [place] [address] Office: I have examined the patient and the H&P has been reviewed. There are no clinical changes since date of exam.
[2024-08-23] MEDS: Lactated Ringers 1,000 ML 15 ML IV (07:23)
--- NOTE | 2024-08-23 08:00 | EGD_PTH ---
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 Yony Moseley MD : 1955 BED: DIS: 08/23/2024 SPEC #: [id number] RECD: 08/23/24 09:49 STATUS: CAMRON LANDAVERDE #: [id number] REEMA: 08/23/24 08:[address]: Yony Moseley DEPT: SURGICAL PATHOLOGY RECD BY: Froilan Saravia ENTERED: 08/23/24 10:35 SP TYPE: EGD BIOPSY REY DR: Dr. Betzaida Ramirez MD Tissues: A - Duodenum, NOS Procedures: Surgery Specimen Level IV HEADER OPERATION: EGD with biopsies PRE-OP DIAGNOSIS: Chronic GERD TISSUE SUBMITTED: A- Duodenal bulb biopsies MICROSCOPIC DIAGNOSIS A. Duodenum, colon, biopsy: Features suggestive of gastric heterotopia. MICROSCOPIC DESCRIPTION Slides are reviewed. All matched controls reacted appropriately. These tests were developed and their performance characteristics determined by [facility]. They may not have been cleared or approved by the U.S. Food and Drug Administration. The FDA has determined that such clearance or approval is not necessary. The above immunohistochemical/dualISH markers are viewed by the Pathologist. GROSS DESCRIPTION A. Received in fixative is one container labeled with the patient's name and designated Duodenal bulb biopsies. The specimen consists of multiple irregular fragments of light lujan soft tissue that in aggregate measure 0.1 to 0.3 cm. The specimen is totally submitted in one cassette. Mohamud 08/23/2024 CPT:40075,37474
--- NOTE | 2024-08-23 08:14 | OP.CCLET_ITS ---
08/23/2024 Betzaida Ramirez [facility] [address] [place] [address] Re : Upper GI endoscopy procedure for Shannon Lam Dear Dr. Ramirez This procedure was performed on Friday, August 23, 2024. My impressions and recommendations are as follows: Impressions : - Multiple duodenal polyps. Resected and retrieved. Recommendations : - Discharge patient to home. - Resume previous diet. - Continue present medications. - Await pathology results. My findings are described in the full procedure note, which is enclosed. If I can be of further assistance, please feel free to contact me at Doctor phone number(s): , Work: . Sincerely, Yony Moseley MD 08/23/2024 8:13:36 AM This report has been signed electronically.
--- NOTE | 2024-08-23 08:14 | OP.EGD_ITS ---
Patient Name: Shannon Lam Procedure Date: 08/23/2024 7:57 AM Date of : 1955 Age: 68 Procedure: Upper GI endoscopy Indications: Heartburn, Gastro-esophageal reflux disease Providers: Yony Moseley MD Referring MD: Betzaida Ramirez Medicines: Propofol per Anesthesia Patient Profile: This is a 68 year old female. Refer to note in patient chart for documentation of history and physical. Complications: No immediate complications. Estimated blood loss: Minimal. Procedure: Pre-Anesthesia Assessment: - Prior to the procedure, a History and Physical was performed, and patient medications and allergies were reviewed. The patient's tolerance of previous anesthesia was also reviewed. The risks and benefits of the procedure and the sedation options and risks were discussed with the patient. All questions were answered, and informed consent was obtained. Prior Anticoagulants: The patient has taken no anticoagulant or antiplatelet agents. After reviewing the risks and benefits, the patient was deemed in satisfactory condition to undergo the procedure. After obtaining informed consent, the endoscope was passed under direct vision. Throughout the procedure, the patient's blood pressure, pulse, and oxygen saturations were monitored continuously. The Endoscope was introduced through the mouth, and advanced to the fourth part of duodenum. The upper GI endoscopy was accomplished without difficulty. The patient tolerated the procedure well. Scope In: 8:05:33 AM Scope Out: 8:09:32 AM Total Procedure Duration Time 0 hours 3 minutes 59 seconds Findings: Multiple small semi-pedunculated polyps with no bleeding were found in the duodenal bulb. The polyp was removed with a cold biopsy forceps. Resection and retrieval were complete. Impression: - Multiple duodenal polyps. Resected and retrieved. Recommendation: - Discharge patient to home. - Resume previous diet. - Continue present medications. - Await pathology results. Procedure Code(s): --- Professional --- 77398, Esophagogastroduodenoscopy, flexible, transoral; with biopsy, single or multiple Diagnosis Code(s): --- Professional --- K31.7, Polyp of stomach and duodenum R12, Heartburn K21.9, Gastro-esophageal reflux disease without esophagitis CPT copyright 2021 [employer]. All rights reserved. The codes documented in this report are preliminary and upon medical administrator review may be revised to meet current compliance requirements. Yony Moseley MD 08/23/2024 8:13:36 AM This report has been signed electronically. Number of Addenda: 0 Note Initiated On: 08/23/2024 7:57 AM
[2024-08-23 08:15] VITALS: BP 124/63; BP 149/74; PULSE 66; RESP 16; TEMP 36.6; O2SAT 95
--- NOTE | 2024-08-23 08:19 | PCM.POST.ANE ---
Anesthesia: Postop Eval I Current Vital Signs Temperature: 97.9 F Pulse Rate: 68 Blood Pressure: 124/63 Respiratory Rate: 16 Pulse Ox: 98 Oxygen Delivery Method: Room Air Assessment Airway patent: Yes Spontaneous unlabored respirations: Yes Mental status: Awake and Calm nausea: No Vomiting: No Anesthesia Complication: No Fluid Hydration Crystalloid volume administer (ml): 300 Total IV fluid infused: 300 Progress Note Anesthesia document: Postop Eval 1 completed: Yes
[2024-08-23 08:20] VITALS: BP 124/63; BP 127/71; BP 149/74; PULSE 62; PULSE 68; RESP 16; TEMP 36.6; O2SAT 95; O2SAT 98
[2024-08-23 08:25] VITALS: BP 127/71; BP 149/74; PULSE 61; RESP 16; O2SAT 98
[2024-08-23 08:30] VITALS: BP 136/64; BP 149/74; PULSE 61; RESP 16; TEMP 36.4; O2SAT 96
[2024-08-23 08:50] VITALS: BP 149/74
--- NOTE | 2024-08-23 11:44 | PCM.POSTANE2 ---
Anesthesia Postop Eval I Sum Postop Eval Completion status Anesthesia document: Postop Eval 1 completed: Yes Anesthesia Postop Eval I Summary Anesthesia Postop Eval I Summary: Anesthesia Postop Eval I: Assessment Summary Airway patent Yes 08/23/24 08:20 [email or web address] Spontaneous unlabored Yes 08/23/24 08:20 [email or web address] respirations Mental status Awake,Calm 08/23/24 08:20 [email or web address] nausea No 08/23/24 08:20 [email or web address] Vomiting No 08/23/24 08:20 [email or web address] Anesthesia Postop Eval I: Fluid Summary Crystalloid volume administer 300 08/23/24 08:20 [email or web address] (ml) Colloids volume administered ( ml) Blood Product volume administered (ml) Total IV fluid infused 300 08/23/24 08:20 [email or web address] Anesthesia Postop Eval I: Summary Notes Anesthesia Complication No 08/23/24 08:20 [email or web address] Anesthesia Complication Comment: Post-operative progress note Anesthesia: Postop Eval II Evaluation Mental status: Awake Pain Level: 0 nausea: No Vomiting: No
== END 2024-08-23 09:01 | disposition home or self-care (01) ==
LOC: EN 06:56 → AC 06:57
PROVIDERS: PCP Internal Medicine; Referring Provider Internal Medicine; Visit Provider Surgery
PROC: 0DJ08ZZ Inspection of Upper Intestinal Tract, Via Natural or Artificial Opening Endoscopic (ICD-10-PCS; CPT 43235; principal; 2024-08-23 07:55)
DX: K21.9 Gastro-esophageal reflux disease without esophagitis (principal); K31.7 Polyp of stomach and duodenum; Z87.891 Personal history of nicotine dependence; E78.00 Pure hypercholesterolemia, unspecified; I10 Essential (primary) hypertension
CPT/HCPCS: 44361; 88305; 88342; J2405

== ENCOUNTER → 2024-09-30 | Outpatient (CLI) | payer MEDICARE, SELFPAY ==
--- OUTSIDE RECORDS SUMMARY | 2024-09-30 07:11 | XMS RPT_ITS | CCD ---
Author Organization [facility] PRODUCTION TRAINER [facility] Care Team Providers Care Quality Engineering Manager Name Role Phone Unavailable Primary Care Provider [...] David Ramirez MD Primary Care Provider [phone] Dr. David Ramirez Primary Care Provider Dr. David Ramirez Attending Provider [phone] Dr. David Ramirez Referring Provider [phone] JEFRY Whitmore Attending Provider Dr. David Ramirez Primary Care Provider Dr. David Ramirez Attending Provider Dr. David Ramirez Referring Provider Dr. David Ramirez Primary Care Provider Dr. David Ramirez Attending Provider Roof MARINE ENGINEERING TEACHER, MARINE ENGINEERING TEACHER-C Frankie Borrego Attending Provider MD Gil Reynoso Attending Provider Dr. Orlin Barajas Attending Provider Ashley SEVERINO, David Burns Primary Care Provider DAVID RAMIREZ Primary Care Unavailable MICHELLE RANDOLPHINDA Attending Unavailable DAVID RAMIREZ Primary Care Unavailable EDWARDS, ANISH Attending Unavailable EDWARDS, ANISH Referring Unavailable ASHLEY, DAVID M Primary Care Unavailable JERRY, ANISH Attending Unavailable Dr. David Ramirez Primary Care Provider Dr. David Ramirez Attending Provider Ashley SEVERINO, Dr. Huston Primary Care Provider Ashley SEVERINO, Dr. Huston Referring Provider Bryn Vivas Attending Provider [phone] Bryn Vivas Referring Provider Ashley SEVERINO, Dr. Huston Attending Provider Pradip SEVERINO, Dr. Bhakta Attending Provider [phone] Pradip SEVERINO, Dr. Bhakta Other Provider Ashley, David Referring Unavailable Ashley, David Primary Care Unavailable [facility] ANAND, Frankie Borrego Attending Unavailable Ashley, David Referring Unavailable Ashley, David Primary Care Unavailable Bryn Vivas Attending Unavailable Ashley, David Primary Care Unavailable Yony Moseley Consulting Unavailable Yony Moseley Attending Unavailable Ashley, David Referring Unavailable Ashley, David Primary Care Unavailable Ashley, David Attending Unavailable CalabrYony larry Attending Unavailable Ashley, David Primary Care Unavailable Ashley, David Referring Unavailable Ashley, David Primary Care Unavailable Yony Moseley Attending Unavailable Ashley, David Referring Unavailable Dana Yung Attending Unavailable MarcanthonyDana Referring Unavailable Ashley, David Primary Care Unavailable Ashley, David Primary Care Unavailable Bryn Vivas Attending Unavailable Bryn Vivas Referring Unavailable Ashley, David Primary Care Unavailable Dana Yung Attending Unavailable Dana Yung Referring Unavailable David Ramirez Primary Care Unavailable David Ramirez Attending Unavailable David Ramirez Referring Unavailable Allergies Allergy Classification Reported Allergen(s) Allergy Type Date of Onset Reaction(s) Facility (20 sources) oxyCODONE; Translations: [OXYCODONE] Drug Allergy 7 GI Upset, Vomiting [facility] (1 source) oxyCODONE Drug Allergy [facility] Repository Medications Current Medications Medication Drug Class(es) Dates Sig (Normalized) Sig (Original) amLODIPine 10 mg oral tablet (20 sources) Dihydropyridine Calcium Channel Tad Start: 01-14-2021 End: 08-07-2024 take 1 tablet by mouth once daily Amlodipine 10 mg tablet Active 10 mg PO DAILY 90 3 August 07, 2024 10:02am Start: 04-18-2020 End: 01-14-2021 take 1 tablet by mouth once daily Amlodipine 5 mg tablet Discontinued 5 mg PO DAILY April 18, 2020 1:00am January 14, 2021 1:25pm Comment on above: Take 10 mg by mouth once daily. cholecalciferol 0.125 mg oral tablet (20 sources) Vitamin D Start: 08-22-19 take 1 tablet by mouth once daily Cholecalciferol (Vitamin D3) (Vitamin D3) 125 mcg (5,000 unit) tablet Active 125 ug PO DAILY August 21, 2024 12:00am Start: 12-16-2020 End: 06-29-2022 take 1 capsule [...] 18, 2020 9:56am take 1 capsule by [facility] once daily Cholecalciferol, Vitamin D3, 50 mcg (2,000 unit) cap Take 1 capsule by mouth once daily. 0 Active Comment on above: Take 1 capsule by [facility] once daily. clindamycin 20 mg/ml vaginal cream (1 source) Lincosamide Antibacterial Start: 01-13-20 End: 01-20-20 clindamycin phosphate (CLEOCIN) 2 % vaginal cream Use 1 Applicatorful vaginally daily at bedtime for 7 days. 40 g 0 01/12/2023 01/19/2023 Active Comment on above: Use 1 Applicatorful vaginally daily at bedtime for 7 days. docusate sodium 100 mg oral capsule (1 source) Start: 01-14-20 End: 01-19-20 take 1 capsule by mouth twice daily docusate sodium (COLACE) 100 mg capsule Take 1 capsule by mouth twice daily for 5 days. 10 capsule 0 01/13/2022 01/18/2022 Active Comment on above: Take 1 capsule by [facility] twice daily for 5 days. fexofenadine hydrochloride 180 mg oral tablet (20 sources) Histamine-1 Receptor Antagonist Start: 04-20-19 take 1 tablet by mouth every twenty-four [...] take 50 ug nasal route once daily as needed Fluticasone Propionate (Flonase Allergy Relief) 50 mcg/actuation spray,suspension Active 1 NMA INTRANASAL DAILY as needed for nasal congestion April 20, 2023 1:00am administer into each [...] NASE) 50 mcg/actuation nasal spray Use 1 Bend in the nose as needed. 0 Active Comment on above: Use 1 Bend in the n ose as needed. hydroCHLOROthiazide 12.5 mg / lisinopril 10 mg oral tablet (20 sources) Thiazide Diuretic, Angiotensin Converting Enzyme Inhibitor Start: take 10-12.5 mg by mouth once lisinopril-hyd roCHLOROthiazi de (ZESTORETIC) 10-12.5 mg per tablet Take 1 tablet by mouth every afternoon. 0 08/31/2022 Active Start: 08-31-2022 End: 08-12-2024 Lisinopril-Hydrochlorothiazi de 10-12.5 mg tablet Active 1 {tbl} PO DAILY 90 3 August 12, 2024 7:16am Start: 08-31-2022 End: 10-11-2022 take 1 tablet by mouth once daily Lisinopril-Hydrochlorothiazide Active 1 TABLET PO DAILY October 11, 2022 1:10pm Comment on above: Take 1 tablet by [facility] every afternoon. Completed/Discontinued Medications Medication Drug Class(es) Dates Sig (Normalized) Sig (Original) acetaminophen 325 mg oral capsule (8 sources) acetaminophen (TYLENOL) 325 mg cap Take by mouth. PRN for pain 0 Active Comment on above: Take by mouth. PRN f or pain amoxicillin 875 mg / clavulanate 125 mg oral tablet (5 sources) Penicillin-class Antibacterial Start: 12-09-2022 End: 12-19-2022 Amoxicillin-Pot Clavulanate 875-125 mg tablet Discontinued 1 {tbl} PO Q12H 20 10 December 09, 2022 12:00am December 18, 2022 12:00am December 19, 2022 1:04am Acute sinusitis, unspecified Start: 12-09-2022 End: 12-19-2022 take 1 tablet by mouth every twelve hours Amoxicillin-Pot Clavulanate Discontinued 1 TABLET PO Q12H 20 December 09, 2022 12:00am December 19, 2022 1:04am apple cider vinegar digestiv e complex probiotic (5 sources) Start: 04-20-2023 End: 06-24-2024 apple cider [...] by roxie th once daily. Ascorbate Calcium-Bioflavonoid (11 sources) Vitamin C Start: 2018 End: 2019 [...] 2019 10:23am azithromycin 250 mg oral tablet (4 sources) Macrolide Antimicrobial Start: 06-25-2023 End: 05-17-2024 Azithromycin (Zithromax Z-Shaji) 250 mg tablet Discontinued 0 PO .COMPLEX 6 0 June 25, 2023 12:00am May 17, 2024 [...] 3:19pm Start: 08-22-2022 take 1 tablet by roxie th once daily B-Complex With Vitamin C Active 1 TABLET PO DAILY August 22, 2022 12:00am B-Complex With Vitamin C tablet (4 sources) Start: 08-22-2022 End: 10-11-2022 B-Complex With Vitamin C tab let Discontinued 1 {tbl} PO DAILY August 22, 2022 12:00am October 11, 2022 3:19pm cholecalciferol, vitD3,/vit K2 (VITAMIN D3-VITAMIN K2 ORAL) (5 sources) End: 09-12-2022 cholecalciferol, vitD3,/vit K2 (VITAMIN D3-VITAMIN K2 ORAL) Take by mouth. Three times weekly during winter 0 09/12/2022 Discontinued cholecalciferol, vitD3,/vit K2 (VITAMIN D3-VITAMIN K2 ORAL) Take by mouth. Three times weekly during winter 0 Active Comment on above: Take by mouth. Three times weekly during winter cyclobenzaprine hydrochloride 10 mg oral tablet (4 sources) Muscle Relaxant Start: 11-12-19 End: 11-17-19 take 1 tablet by mouth three times daily as needed for muscle spasms Cyclobenzaprine 10 mg tablet Discontinued 10 mg PO THREE TIMES A DAY as needed for muscle spasm 15 5 0 November 12, 2023 12:00am November 16, 2023 12:00am November 17, 2023 12:07am estradiol 0.1 mg/ml vaginal cream (11 sources) Estrogen Start: 10-12-19 End: 03-07-20 24 Estradiol 0.01 % (0.1 mg/gram) cream Discontinued [...] use the applicator provided in the package. Inulin (3 sources) End: 09-12-2022 inulin (FIBER [...] mouth once d aily. Takes sporadically Magnesium (9 sources) Start: 3 End: take 1 tablet by mouth once [...] 1:00am meclizine hydrochloride 25 mg oral tablet (11 sources) Antiemetic Start: 01-22-2021 End: 10-01-2021 take 1 tablet by mouth three times daily as needed for dizziness Meclizine 25 mg tablet Discontinued 25 mg PO THREE TIMES A DAY as needed for dizziness 30 1 January 22, 2021 1:00am October 01, 2021 9:01am mecobalamin 5 mg disintegrating oral tablet (20 sources) Start: 10-01-2021 End: 04-20-2022 take 1 tablet by mouth three times weekly Mecobalamin (Vitamin B12) 5,000 mcg tablet,disintegrati ng Discontinued 5000 ug PO .THREE TIMES A WEEK October 01, 2021 9:01am April 20, 2022 9:47am SUPPLEMENT Start: 04-18-2020 End: 10-01-2021 Mecobalamin (Vitamin B12) 5, 000 mcg tablet,disintegrating Discontinued ug PO April 18, 2020 1:00am October 01, 2021 9:02am Start: 04-18-2020 End: 10-01-2021 Mecobalamin (Vitamin B12) Di scontinued MCG PO April 18, 2020 1:00am October 01, 2021 9:02am nitrofurantoin, macrocrystals 25 mg / nitrofurantoin, monohydrate 75 mg oral capsule (4 sources) Nitrofuran Antibacterial Start: 05-17-2024 End: 05-24-2024 take 1 capsule by mouth every twelve hours at mealtime Nitrofurantoin Monohyd/M-Cryst 100 mg capsule Discontinued 1 NMA PO Q12H 14 7 0 May 17, 2024 12:00am May 23, 2024 12:00am May 24, 2024 12:09am administer with a meal/food; swallow whole; do not open, crush, dissolve , or chew [place] 7-Njc-Kme-Fish Oil (Fish Oil) 60-90-500 mg capsule (3 sources) Start: 06-24-2024 End: 08-21-2024 [place] 6-Dfh-Uav-Fish Oil (Fish Oil) 60-90-500 mg capsule Discontinued 1 NMA PO daily June 24, 2024 12:00am August 21, 2024 3:54pm Start: 06-24-2024 [place] 3-Dha-Ep a-Fish Oil (Fish Oil) 60-90-500 mg capsule Active 1 NMA PO daily June 24, 2024 12:00am omeprazole 20 mg delayed release oral capsule (11 sources) Proton Pump Inhibitor Start: 12-16-2020 End: 01-14-2021 take 1 capsule by mouth once daily Omeprazole 20 mg capsule,delayed release(DR/EC) Discontinued 20 mg PO DAILY December 16, 2020 12:00am January 14, 2021 9:06am polymyxin b 99631 unt/ml / trimethoprim 1 mg/ml ophthalmic solution (7 sources) Dihydrofolate Reductase Inhibitor Antibacterial, Polymyxin-class Antibacterial Start: 09-04-2022 End: 09-11-2022 Polymyxin B Sulf-Trimethoprim (Polytrim) 10,000 unit- 1 mg/mL drops Discontinued 1 NMA OPHTHALMIC Q3H 10 7 0 September 04, 2022 12:00am September 10, 2022 12:00am September 11, 2022 12:03am while awake; do not exceed 6 doses in 24 hours potassium gluconate 2.5 meq oral tablet (11 sources) Start: 12-05-2019 End: 04-18-2020 take 1 tablet by mouth once daily Potassium Gluconate 595 mg (99 mg) tablet Discontinued 595 mg PO DAILY December 05, 2019 12:00am April 18, 2020 9:56am probiotic (9 sources) Start: 04-20-2022 End: 06-29-2022 probiotic Discontinued [...] by mouth. sucralfate 1000 mg oral tablet (11 sources) Aluminum Complex Start: End: take 1 tablet by mouth at bedtime Sucralfate 1 gram tablet Discontinued 1 g PO before meals and at bedtime December 16, 2020 12:00am January 14, 2021 9:06am sulfamethoxazole 800 mg / trimethoprim 160 mg oral tablet (11 sources) Dihydrofolate Reductase Inhibitor Antibacterial, Sulfonamide Antimicrobial Start: End: Sulfamethoxazole-Tr imethoprim (Bactrim Ds) 800-160 mg tablet Discontinued 1 {tbl} PO TWICE A DAY 20 0 April 18, 2020 1:00am June 08, 2020 3:43pm Turmeric Root Extract (11 sources) Start: End: take 1 capsule by [...] 10:23am vitamin b12 1 mg oral tablet (11 sources) Vitamin B12 Start: 01-20-2019 End: 04-18-2020 [...] Vitamin D3-Vitamin K2 (Mk4) 1,000-100 unit-mcg Tablet (4 sources) Start: 12-27-2021 End: 06-29-2022 Vitamin D3-Vitamin K2 (Mk4) 1,000-100 unit-mcg Tablet Discontinued 1 {tbl} PO .THREE TIMES WEEK December 27, 2021 1:00am June 29, 2022 8:47am SUPPLEMENT Start: 12-27-2021 End: 06-29-2022 Vitamin D3-Vitamin K2 (Mk4) 1,000-100 unit-mcg Tablet Discontinued 1 {tbl} PO .THREE TIMES WEEK December 27, 2021 1:00am June 29, 2022 8:47am vitamin K2 (18 sources) Start: 12-16-2020 End: 10-01-2021 take 45 [...] 2020 3:43pm Vitamin K2 45 mcg capsule (4 sources) Start: 12-16-2020 End: 10-01-2021 Vitamin K2 45 mcg capsule Discontinued 45 ug PO DAILY December 16, 2020 12:00am October 01, 2021 9:02am Problems Active Problems Problem Classification Problem Date Documented Da te Episodic/Chronic Abdominal hernia (13 sources) Unspecified abdominal hernia without obstruction or gangrene; Translations: [Hernia] 11-28-2019 Episodic Comment on above: x 3 with mesh over whole abdomen Abdominal pain (2 sources) Epigastric pain; Translations: [Epigastric pain] 07-04-2024 Episodic Adjustment disorders (9 sources) Grief finding; Translations: [Adjustment disorder with depressed mood] 08-22-2022 Chronic Anxiety disorders (8 sources) Acute stress disorder; Translations: [Acute stress reaction] 08-10-2022 Chronic Benign neoplasm of uterus (3 sources) Uterine leiomyoma; Translations: [Leiomyoma of uterus, unspecified] Episodic Cancer; other and unspecified primary (11 sources) History of gynecological disorder; Translations: [Personal history of other benign neoplasm] 11-28-2019 Episodic Cardiac dysrhythmias (11 sources) Ventricular premature beats; Translations: [Ventricular premature [...] Episodic Conditions associated with dizziness or vertigo (8 sources) Lightheadedness; Translations: [Dizziness and giddiness] 08-10-2022 Episodic Diabetes mellitus without complication (1 source) Hyperglycemia, unspecified; Translations: [Hyperglycemia, unspecified] Onset: Episodic Digestive congenital anomalies (11 sources) Disorder of pancreas; 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 Disorders of lipid metabolism (20 sources) Hypertriglyceridemia; Translations: [Pure hyperglyceridemia] Onset: 5 04-20-2022 Chronic Diverticulosis and diverticulitis (11 sources) Diverticular disease; Translations: [Diverticulosis of intestine, part unspecified, without perforation or abscess without bleeding] 11-28-2019 Chronic Esophageal disorders (7 sources) Gastroesophageal reflux disease; Translations: [Gastro-esophageal reflux disease without esophagitis] Onset: 5 06-24-2024 Chronic Esophageal disorders (5 sources) Esophageal disorders; Translations: [Acquired absence of stomach] Essential hypertension (20 sources) Essential hypertension; Translations: [Essential (primary) hypertension] Onset: 5 Chronic Gastritis and duodenitis (11 sources) Gastritis; Translations: [Gastritis, unspecified, without bleeding] 12-16-2020 Episodic Inflammatory diseases of female pelvic organs [...] Onset: 5 Chronic Open wounds of extremities (5 sources) Cat bite - wound; Translations: [Open bite of unspecified hand, initial encounter] 12-09-2022 Episodic Other and unspecified benign neoplasm (10 sources) History of polyp of colon; Translations: [Personal history of colonic polyps] 12-28-2021 Episodic Other and unspecified benign neoplasm (1 source) Personal history of colonic polyps; Translations: [Personal history of colonic polyps] Episodic Other bone disease and musculoskeletal deformities (10 sources) Posterior calcaneal exostosis; Translations: [Juvenile osteochondrosis of tarsus, 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 Other bone disease and musculoskeletal deformities (1 source) Juvenile osteochondrosis of tarsus, left ankle; 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 Other connective tissue disease (6 sources) Ganglion cyst of right hand; Translations: [Ganglion, right hand] 10-11-2022 Episodic Other connective tissue disease (2 sources) Ganglion of wrist; Translations: [Ganglion, right wrist] 10-11-2022 Episodic Other connective tissue disease (1 source) Ganglion, right wrist; Translations: [Ganglion of joint] 10-11-2022 Episodic Other connective tissue disease (4 sources) Ganglion cyst of the right volar wrist; Translations: [Ganglion, right wrist] 10-11-2022 Episodic Other female genital disorders (11 sources) Enlarged uterus; Translations: [Hypertrophy of uterus] 07-03-2020 Episodic Comment on above: 10 cm with 5 cm fibr oid, referral to [place] for surgery due to previous abdominal surgeries Other female genital disorders (1 source) Vaginal discharge; Translations: [Other specified noninflammatory disorders of vagina] 12-22-2022 Episodic Other gastrointestinal disorders (11 sources) Disorder of abdomen; Translations: [Peritoneal adhesions (postprocedural) (postinfection)] 12-05-2019 Episodic Other injuries and conditions due to external causes (4 sources) Muscle strain; Translations: [Other injury of unspecified body region, initial encounter] 11-12-2023 Episodic Other liver diseases (11 sources) Increased bilirubin level; Translations: [Unspecified jaundice] 12-16-2020 Episodic Other liver diseases (3 sources) Unspecified jaundice; Translations: [Disorders of bilirubin excretion] 06-29-2022 Episodic Other nutritional; endocrine; and metabolic disorders (9 sources) Obese class II; Translations: [Obesity, unspecified] Onset: 2 01-13-2022 Chronic Other nutritional; endocrine; and metabolic disorders (13 sources) Insulin resistance; Translations: [Metabolic syndrome] 04-20-2022 Chronic Other nutritional; endocrine; and metabolic disorders (8 sources) Metabolic syndrome; Translations: [Dysmetabolic syndrome X] Onset: 5 04-20-2022 Chronic Other screening for suspected conditions (not mental disorders or infectious disease) (13 sources) Patient encounter status; Translations: [Encounter for screening for malignant neoplasm of cervix] Onset: 4 Episodic Other skin disorders (1 source) Localized swelling, mass and lump, trunk; Translations: [Swelling, mass, or lump in chest] Episodic Other skin disorders (9 sources) Feeling of lump in throat; Translations: [Localized swelling, mass and lump, neck] 04-20-2022 Episodic Other upper respiratory infections (6 sources) Acute pharyngitis, unspecified; Translations: [Acute pharyngitis] 04-20-2022 Episodic Prolapse of female genital organs (20 sources) Uterine prolapse; Translations: [Uterovaginal prolapse, unspecified] Onset: 3 Chronic Comment on above: stage III cytocele a nd rectocele. discussed pessary vs surgical management. pessary attempted failed ring, doughnut, and cube. surgical repair at tertiary center recommended Residual codes; unclassified (11 sources) History of excision of intestinal structure; Translations: [Acquired absence of other specified parts of digestive tract] 11-28-2019 Episodic Comment on above: sigmoid due to diver ticular disease Residual codes; unclassified (11 sources) History of endometrial ablation; Translations: [Other specified postprocedural states] 11-28-2019 Episodic Residual codes; unclassified (20 sources) History of hernia repair; Translations: [Other specified postprocedural states] 11-28-2019 Episodic Residual codes; unclassified (11 sources) History of gastrectomy; Translations: [Acquired absence [...] of mental health and substance abuse codes (6 sources) Ex-smoker; Translations: [Personal history of nicotine dependence] 04-20-2023 Episodic Comment on above: QUIT 03/2008 Superficial injury; contusion (9 sources) Corneal abrasion; Translations: [Injury of conjunctiva and corneal abrasion without foreign body, unspecified eye, initial encounter] 09-04-2022 Episodic Past or Other Problems Problem Classification Problem Date Documented Da te Episodic/Chronic Genitourinary symptoms and ill-defined conditions (9 sources) Dysuria; Translations: [Dysuria] Onset: 05-21-2024 05-17-2024 Episodic Results Test Name Value Interpretation Reference Range Facility EGD Reporton 08-23-2024 EGD Report [facility] Medical Records Department [address] [place] [address] EGD Report MR#: [id number] Acct: [id number] Name: SHANNON LAM Rep #: [id number] : 1955 68 From: Yony Moseley MD PCP: Dr. David Ramirez MD Status:[facility] Patient Name: Shannon Lam Procedure Date: 08/23/2024 7:57 AM Date of : 1955 Age: 68 Procedure: Upper GI endoscopy Indications: Heartburn, Gastro-esophageal reflux disease Providers: Yony Moseley MD Referring MD: David Ramirez Medicines: Propofol per Anesthesia Patient Profile: This is a 68 year old female. Refer to note in patient chart for documentation of history and physical. Complications: No immediate complications. Estimated blood loss: Minimal. Procedure: Pre-Anesthesia Assessment: - Prior to the procedure, a History and Physical was performed, and patient medications and allergies were reviewed. The patient's tolerance of previous anesthesia was also reviewed. The risks and benefits of the procedure and the sedation options and risks were discussed with the patient. All questions were answered, and informed consent was obtained. Prior Anticoagulants: The patient has taken no anticoagulant or antiplatelet agents. After reviewing the risks and benefits, the patient was deemed in satisfactory condition to undergo the procedure. After obtaining informed consent, the endoscope was passed under direct vision. Throughout the procedure, the patient's blood pressure, pulse, and oxygen saturations were monitored continuously. The Endoscope was introduced through the mouth, and advanced to the fourth part of duodenum. The upper GI endoscopy was accomplished without difficulty. The patient tolerated the procedure well. Scope In: 8:05:33 AM Scope Out: 8:09:32 AM Total Procedure Duration Time 0 hours 3 minutes 59 seconds Findings: Multiple small semi-pedunculated polyps with no bleeding were found in the duodenal bulb. The polyp was removed with a cold biopsy forceps. Resection and retrieval were complete. Impression: - Multiple duodenal polyps. Resected and retrieved. Recommendation: - Discharge patient to home. - Resume previous diet. - Continue present medications. - Await pathology results. Procedure Code(s): --- Professional --- 04235, Esophagogastroduoden oscopy, flexible, transoral; with biopsy, single or multiple Diagnosis Code(s): --- Professional --- K31.7, Polyp of stomach and duodenum R12, Heartburn K21.9, Gastro-esophageal reflux disease without esophagitis CPT copyright 2021 [employer]. All rights reserved. The codes documented in this report are preliminary and upon golf course keeper review may be revised to meet current compliance requirements. Yony Moseley MD 08/23/2024 8:13:36 AM This report has been signed electronically. Number of Addenda: 0 Note Initiated On: 08/23/2024 7:57 AM 08/23/24 0813 Date Yony Ken Signature: Date (if indicated) CC: Dr. Yony Moseley MD; Dr. David Ramirez MD Date Dictated: 08/23/24 075 Date Transcribed: Theatrical Performer: TIM Signed [facility] Immunohistochemical Stainson 08-23-2024 Immunohistochemical Stains Patient Age/Sex Location Account Attending Physician SHANNON LAM 68/F EN [id number] Dr. Yony Moseley MD Specimen: [id number] Received: 08/23/24 Status: NOEMYSina Richter Num: [id number] Spec Type: EGD BIOPSY Subm Dr: Dr. Yony Moseley MD HEADER OPERATION: EGD with biopsies PRE-OP DIAGNOSIS: Chronic GERD TISSUE SUBMITTED: A- Duodenal bulb biopsies MICROSCOPIC DIAGNOSIS A. Duodenum, colon, biopsy: Features suggestive of gastric heterotopia. MICROSCOPIC DESCRIPTION Slides are reviewed. All matched controls reacted appropriately. These tests were developed and their performance characteristics determined by [facility]. They may not have been cleared or approved by the U.[place]. Food and Drug Administration. The FDA has determined that such clearance or approval is not necessary. The above immunohistochemical/ dualISH markers are viewed by the Pathologist. GROSS DESCRIPTION A. Received in fixative is one container labeled with the patient's name and designated Duodenal bulb biopsies. The specimen consists of multiple irregular fragments of light lujan soft tissue that in aggregate measure 0.1 to 0.3 cm. The specimen is totally submitted in one cassette. ZA/ 08/23/2024 CPT:48694,24818 Patient Age/Sex Location Account Attending Physician SHANNON LAM 68/F EN [id number] Dr. Yony Moseley MD Signed (signature on file) Dr. Priya Rivera MD 09/02/24 1520 Normal [facility] Comment on above: Performed By: #### P [facility] #### [facility] Laboratory [address] [facility] [place], [address] MR/POSTOP.ANE 08-23-2024 MR/POSTOP.[facility] Medical Records Department [address] [place] [address] Anesthesia Postop Eval I 08/23/24818 MR#: [id number] Acct: [id number] Name: SHANNON LAM Rep #: [id number] : 1955 68 From: Cecil Roach PCP: Dr. David Ramirez MD Status:[facility] Y Race: C Location: [place] [address] Anesthesia: Postop Eval I Current Vital Signs Temperature: 97.9 F Pulse Rate: 68 Blood Pressure: 124/63 Respiratory Rate: 16 Pulse Ox: 98 Oxygen Delivery Method: Room Air Assessment Airway patent: Yes Spontaneous unlabored respirations: Yes Mental status: Awake and Calm nausea: No Vomiting: No Anesthesia Complication: No Fluid Hydration Crystalloid volume administer (ml): 300 Total IV fluid infused: 300 Progress Note Anesthesia document: Postop Eval 1 completed: Yes 08/23/24819 Date Cecil Ken Signature: Date CC: Signed Normal [facility] [id number] 08-23-2024 MR/POSTOPAN2 [facility] Medical Records Department [address] [place] [address] Anesthesia Postop Eval II 08/23/24 1144 MR#: [id number] Acct: [id number] Name: SHANNON LAM Rep #: [id number] : 1955 68 From: Tushar Miles MD PCP: Dr. David Ramirez MD Status:[facility] Y Race: C Location: EN Anesthesia Postop Eval I Sum Postop Eval Completion status Anesthesia document: Postop Eval 1 completed: Yes Anesthesia Postop Eval I Summary Anesthesia Postop Eval I Summary: Anesthesia Postop Eval I: Assessment Summary Airway patent Yes 08/23/24 08:20 [email or web address] Spontaneous unlabored Yes 08/23/24 08:20 [email or web address] respirations Mental status Awake,Calm 08/23/24 08:20 [email or web address] nausea No 08/23/24 08:20 [email or web address] Vomiting No 08/23/24 08:20 [email or web address] Anesthesia Postop Eval I: Fluid Summary Crystalloid volume administer 300 08/23/24 08:20 [email or web address] (ml) Colloids volume administered ( ml) Blood Product volume administered (ml) Total IV fluid infused 300 08/23/24 08:20 [email or web address] Anesthesia Postop Eval I: Summary Notes Anesthesia Complication No 08/23/24 08:20 [email or web address] Anesthesia Complication Comment: Post-operative progress note Anesthesia: Postop Eval II Evaluation Mental status: Awake Pain Level: 0 nausea: No Vomiting: No 08/23/24 1144 Date Tushar Ken Signature: Date CC: Signed Normal [facility] Absolute lymphocyte countOrd ered By: David Ramirez on 07-04-2024 Lymphocytes Auto (Unsp spec) [#/Vol] 2.25 10*3/uL 0.83-4.51 [facility] Absolute neutrophil countOrd ered By: David Ramirez on 07-04-2024 Neutrophils (Bld) [#/Vol] 7.0 10*3/uL 2.0-7.7 [facility] Anion gap in Serum or Plasma Ordered By: David Ramirez on 07-04-2024 Anion gap [Moles/Vol] 9 mmol/L 5-15 [facility] Automated lymphocyte count a s percentage of total leukocytesOrdered By: David Ramirez on 07-04-2024 Lymphocytes/100 WBC Auto (Unsp spec) 21.4 % 19-41 [facility] BUN/creatinine ratioOrdered By: David Raimrez on 07-04-2024 Urea nitrogen/Creatinine [Mass ratio] 23.3 mg/mg High 10-20 [facility] Basophil percentageOrdered B y: David Ramirez on 07-04-2024 Basophils/100 WBC (Bld) 0.7 % 0-1 [facility] Bilirubin, totalOrdered By: David Ramirez on 07-04-2024 Bilirubin [Mass/Vol] 0.92 mg/dL 0.00-1.30 [facility] CBC W/Diff, Automatedon 06-14 Absolute Lymph 2.25 X10 3/uL Normal 0.83-4.51 [facility] Comment on above: Performed By: #### L 501.9985, L100.0100, L500.4050, L503.0106, L500.4100, L501.5200, L501.9520, L506.1001 ####[facility] [address] [place], [address] Absolute Neut 7.0 X10 3/uL Normal 2.0-7.7 [facility] Comment on above: Performed By: #### L 501.9985, L100.0100, L500.4050, L503.0106, L500.4100, L501.5200, L501.9520, L506.1001 ####[facility] [address] [place], [address] Basophils/100 WBC (Bld) 0.7 % Normal 0-1 [facility] Comment on above: Performed By: #### L 501.9985, L100.0100, L500.4050, L503.0106, L500.4100, L501.5200, L501.9520, L506.1001 ####[facility] [address] [place], [address] Eosinophils/100 WBC (Bld) 1.6 % Normal 0-5 [facility] Comment on above: Performed By: #### L 501.9985, L100.0100, L500.4050, L503.0106, L500.4100, L501.5200, L501.9520, L506.1001 ####[facility] [address] [place], [place], [phone] Erythrocyte distribution width (RBC) [Ratio] 14.0 % Normal 11.6-14.6 [facility] Comment on above: Performed By: #### L 501.9985, L100.0100, L500.4050, L503.0106, L500.4100, L501.5200, L501.9520, L506.1001 ####[facility] [address] [place], [address] Hematocrit (Bld) [Volume fraction] 44.7 % Normal 37-47 [facility] Comment on above: Performed By: #### L 501.9985, L100.0100, L500.4050, L503.0106, L500.4100, L501.5200, L501.9520, L506.1001 ####[facility] [address], [address] Hemoglobin (Bld) [Mass/Vol] 14.7 g/dL Normal 12.0-15.0 [facility] Comment on above: Performed By: #### L 501.9985, L100.0100, L500.4050, L503.0106, L500.4100, L501.5200, L501.9520, L506.1001 ####[facility] [address] [place], [address] IG% 0.700 Normal 0.0-0.9 [facility] Comment on above: Result Comment: IG% - Immature Granulocytes (promyelocytes, myelocytes and metamyelocytes) > 1% indicates that a LEFT SHIFT is Present. Performed By: #### L 501.9985, L100.0100, L500.4050, L503.0106, L500.4100, L501.5200, L501.9520, L506.1001 ####[facility] [address] [place], [address] Lymphocytes/100 WBC (Bld) 21.4 % Normal 19-41 [facility] Comment on above: Performed By: #### L 501.9985, L100.0100, L500.4050, L503.0106, L500.4100, L501.5200, L501.9520, L506.1001 ####[facility] [address] [place], [address] MCH (RBC) [Entitic mass] 28.2 pg Normal 27.0-32.0 [facility] Comment on above: Performed By: #### L 501.9985, L100.0100, L500.4050, L503.0106, L500.4100, L501.5200, L501.9520, L506.1001 ####[facility] [address] [place], [address] MCHC (RBC) [Mass/Vol] 32.9 g/dL Normal 32-36 [facility] Comment on above: Performed By: #### L 501.9985, L100.0100, L500.4050, L503.0106, L500.4100, L501.5200, L501.9520, L506.1001 ####[facility] [address] [place], [address] MCV (RBC) [Entitic vol] 85.6 fL Normal 81-99 [facility] Comment on above: Performed By: #### L 501.9985, L100.0100, L500.4050, L503.0106, L500.4100, L501.5200, L501.9520, L506.1001 ####[facility] [address] [place], [address] Monocytes/100 WBC (Bld) 9.7 % Normal 0-10 [facility] Comment on above: Performed By: #### L 501.9985, L100.0100, L500.4050, L503.0106, L500.4100, L501.5200, L501.9520, L506.1001 ####[facility] [address] [place], [address] Neutrophils/100 WBC (Bld) 65.9 % Normal 47-70 [facility] Comment on above: Performed By: #### L 501.9985, L100.0100, L500.4050, L503.0106, L500.4100, L501.5200, L501.9520, L506.1001 ####[facility] [address] [place], [address] Nucleated RBC (Bld) [#/Vol] 0 10*3/uL Normal 0-5 [facility] Comment on above: Performed By: #### L 501.9985, L100.0100, L500.4050, L503.0106, L500.4100, L501.5200, L501.9520, L506.1001 ####[facility] [address] [place], [address] Platelet mean volume (Bld) [Entitic vol] 11.4 fL Normal 6.2-12.0 [facility] Comment on above: Performed By: #### L 501.9985, L100.0100, L500.4050, L503.0106, L500.4100, L501.5200, L501.9520, L506.1001 ####[facility] [address] [place], [address] Platelets (Bld) [#/Vol] 288 10*3/uL Normal 150-450 [facility] Comment on above: Performed By: #### L 501.9985, L100.0100, L500.4050, L503.0106, L500.4100, L501.5200, L501.9520, L506.1001 ####[facility] [address] [place], [address] RBC (Bld) [#/Vol] 5.22 10*6/uL Normal 4.2-5.4 [facility] Comment on above: Performed By: #### L 501.9985, L100.0100, L500.4050, L503.0106, L500.4100, L501.5200, L501.9520, L506.1001 ####[facility] [address] [place], [address] RDW SD 43.9 fl Normal 35.1-43.9 [facility] Comment on above: Performed By: #### L 501.9985, L100.0100, L500.4050, L503.0106, L500.4100, L501.5200, L501.9520, L506.1001 ####[facility] [address] [place], [place], [id number] WBC (Bld) [#/Vol] 10.5 10*3/uL Normal 4.4-11.0 [facility] Comment on above: Performed By: #### L 501.9985, L100.0100, L500.4050, L503.0106, L500.4100, L501.5200, L501.9520, L506.1001 ####[facility] [address] [place], [address] Calculated very low density lipoprotein (VLDL) cholesterol measurementOrdered By: David Ramirez on 07-04-2024 Calculated very low density lipoprotein (VLDL) cholesterol measurement 43 mg/dL High 5-40 [facility] Carbon dioxide, total [Moles /volume] in Central venous bloodOrdered By: David Ramirez on 07-04-2024 CO2 [Moles/Vol] 27.7 mmol/L 21.0-32.0 [facility] Chloride assayOrdered By: Enedina Ramirez on 07-04-2024 Chloride [Moles/Vol] 103 mmol/L 98-108 [facility] Comprehensive Metabolic Prof ilon 07-04-2024 Albumin [Mass/Vol] 4.0 g/dL Normal 3.4-4.8 [facility] Comment on above: Performed By: #### L 501.9985, L100.0100, L500.4050, L503.0106, L500.4100, L501.5200, L501.9520, L506.1001 ####[facility] [address] [place], [address] Albumin/Globulin [Mass ratio] 1.3 {ratio} Normal 0.9-2.4 [facility] Comment on above: Performed By: #### L 501.9985, L100.0100, L500.4050, L503.0106, L500.4100, L501.5200, L501.9520, L506.1001 ####[facility] [address] [place], [address] ALK PHOS 88 U/L Normal 35-104 [facility] Comment on above: Performed By: #### L 501.9985, L100.0100, L500.4050, L503.0106, L500.4100, L501.5200, L501.9520, L506.1001 ####[facility] [address] [place], [address] ALT [Catalytic activity/Vol] 15 U/L Normal <=34 [facility] Comment on above: Performed By: #### L 501.9985, L100.0100, L500.4050, L503.0106, L500.4100, L501.5200, L501.9520, L506.1001 ####[facility] [address] [place], [address] AST [Catalytic activity/Vol] 18 U/L Normal <=31 [facility] Comment on above: Performed By: #### L 501.9985, L100.0100, L500.4050, L503.0106, L500.4100, L501.5200, L501.9520, L506.1001 ####[facility] [address] [place], [place], [phone] Bilirubin [Mass/Vol] 0.92 mg/dL Normal 0.00-1.30 [facility] Comment on above: Performed By: #### L 501.9985, L100.0100, L500.4050, L503.0106, L500.4100, L501.5200, L501.9520, L506.1001 ####[facility] [address] [place], [address] BUN/CRE 23.3 RATIO High 10-20 [facility] Comment on above: Performed By: #### L 501.9985, L100.0100, L500.4050, L503.0106, L500.4100, L501.5200, L501.9520, L506.1001 ####[facility] [address] [place], [address] Calcium [Mass/Vol] 9.3 mg/dL Normal 7.6-11.0 [facility] Comment on above: Performed By: #### L 501.9985, L100.0100, L500.4050, L503.0106, L500.4100, L501.5200, L501.9520, L506.1001 ####[facility] [address] [place], [address] Chloride [Moles/Vol] 103 mmol/L Normal 98-108 [facility] Comment on above: Performed By: #### L 501.9985, L100.0100, L500.4050, L503.0106, L500.4100, L501.5200, L501.9520, L506.1001 ####[facility] [address] [place], [address] CO2 [Moles/Vol] 27.7 mmol/L Normal 21.0-32.0 [facility] Comment on above: Performed By: #### L 501.9985, L100.0100, L500.4050, L503.0106, L500.4100, L501.5200, L501.9520, L506.1001 ####[facility] [address] [place], [address] Creatinine [Mass/Vol] 0.59 mg/dL Low 0.70-1.20 [facility] Comment on above: Performed By: #### L 501.9985, L100.0100, L500.4050, L503.0106, L500.4100, L501.5200, L501.9520, L506.1001 ####[facility] [address] [place], [address] GAP 9 Normal 5-15 [facility] Comment on above: Performed By: #### L 501.9985, L100.0100, L500.4050, L503.0106, L500.4100, L501.5200, L501.9520, L506.1001 ####[facility] [address] [place], [address] GFR/1.73 sq M.predicted among non-blacks MDRD (S/P/Bld) [Vol rate/Area] 99 mL/min/{1.73_m2} Normal >60 [facility] Comment on above: Result Comment: mL/m in/1.73m2 CKD-EPI Creatinine Equation (2020) Performed By: #### L 501.9985, L100.0100, L500.4050, L503.0106, L500.4100, L501.5200, L501.9520, L506.1001 ####[facility] [address] [place], [address] Globulin (S) [Mass/Vol] 3.2 g/dL Normal 2.2-4.2 [facility] Comment on above: Performed By: #### L 501.9985, L100.0100, L500.4050, L503.0106, L500.4100, L501.5200, L501.9520, L506.1001 ####[facility] [address] [place], [address] Glucose [Mass/Vol] 110 mg/dL High 70-99 [facility] Comment on above: Performed By: #### L 501.9985, L100.0100, L500.4050, L503.0106, L500.4100, L501.5200, L501.9520, L506.1001 ####[facility] [address] [place], [address] Potassium [Moles/Vol] 4.1 mmol/L Normal 3.3-5.1 [facility] Comment on above: Performed By: #### L 501.9985, L100.0100, L500.4050, L503.0106, L500.4100, L501.5200, L501.9520, L506.1001 ####[facility] [address] [place], [address] Sodium [Moles/Vol] 140 mmol/L Normal 133-145 [facility] Comment on above: Performed By: #### L 501.9985, L100.0100, L500.4050, L503.0106, L500.4100, L501.5200, L501.9520, L506.1001 ####[facility] [address] [place], [place], [phone]) T PROT 7.2 g/dL Normal 5.9-8.4 [facility] Comment on above: Performed By: #### L 501.9985, L100.0100, L500.4050, L503.0106, L500.4100, L501.5200, L501.9520, L506.1001 ####[facility] [address] [place], [place], [phone]) Urea nitrogen [Mass/Vol] 14 mg/dL Normal 4-19 [facility] Comment on above: Performed By: #### L 501.9985, L100.0100, L500.4050, L503.0106, L500.4100, L501.5200, L501.9520, L506.1001 ####[facility] [address] [place], [address] Eosinophil percentageOrdered By: David Ramirez on 07-04-2024 Eosinophils/100 WBC (Bld) 1.6 % 0-5 [facility] Erythrocyte distribution wid th ratioOrdered By: David Ramirez on 07-04-2024 Erythrocyte distribution width (RBC) [Ratio] 14.0 % 11.6-14.6 [facility] Erythrocyte distribution wid th standard deviationOrdered By: David Ramirez on 07-04-2024 Erythrocyte distribution width (RBC) [Ratio] 43.9 fl 35.1-43.9 [facility] Glomerular filtration rate ( GFR) estimation/1.73 sq m using serum, plasma, or whole bOrdered By: David Ramirez on 07-04-2024 GFR/1.73 sq M.predicted among non-blacks MDRD (S/P/Bld) [Vol rate/Area] 99 mL/min/{1.73_m2} >60 [facility] Comment on above: mL/min/1.73m2 CKD-EP I Creatinine Equation (2020) Hematocrit Auto (Bld) [Volum e fraction]Ordered By: David Ramirez on 07-04-2024 Hematocrit (Bld) [Volume fraction] 44.7 % 37-47 [facility] Hemoglobin A1con 07-04-2024 HbA1c (Bld) [Mass fraction] 6.3 % High <=5.6 [facility] Comment on above: Result Comment: Norm al < 5.7 % Prediabetic 5.7 - 6.4 % Diabetic >or= 6.5 % Please note range changes. Performed By: #### L 501.9985, L100.0100, L500.4050, L503.0106, L500.4100, L501.5200, L501.9520, L506.1001 ####[facility] [address] [facility] [place], [place], [id number] Hemoglobin A1c percentageOrd ered By: David Ramirez on 07-04-2024 HbA1c (Bld) [Mass fraction] 6.3 % High <5.7 [facility] Comment on above: Normal < 5.7 % Predi abetic 5.7 - 6.4 % Diabetic >or= 6.5 % Please note range changes. Hemoglobin measurementOrdere d By: David Ramirez on 07-04-2024 Hemoglobin (Bld) [Mass/Vol] 14.7 g/dL 12.0-15.0 [facility] Immature granulocytes/100 WB C Auto (Bld)Ordered By: David Ramirez on 07-04-2024 Immature granulocytes/100 WBC (Bld) 0.700 % 0.0-0.9 [facility] Comment on above: IG% - Immature Granu locytes (promyelocytes, myelocytes and metamyelocytes) > 1% indicates that a LEFT SHIFT is Present. LDL calc ser/plasOrdered By: David Ramirez on 07-04-2024 Cholesterol in LDL [Mass/Vol] 127 mg/dL [facility] Comment on above: Thfmxtymhv=224-574 m g/dL & Higher Rdue=759 mg/dL or greater Laboratory - Chemistry and C hemistry - challengeOrdered By: David Ramirez on 07-04-2024 AST [Catalytic activity/Vol] 18 U/L <32 [facility] Lipid Profileon 07-04-2024 CHOL:HDL 5.44 Normal [facility] Comment on above: Performed By: #### L 501.9985, L100.0100, L500.4050, L503.0106, L500.4100, L501.5200, L501.9520, L506.1001 ####[facility] [address] [place], [place], [phone]) Cholesterol [Mass/Vol] 209 mg/dL High <=200 [facility] Comment on above: Result Comment: Chol esterol level, Desirable <200 mg/dL Borderline high cholesterol 200-239 mg/dL High cholesterol >=240 mg/dL Recommendations of the NCEP Adult Treatment Panel for the following risk-cutoff thresholds for the [place] population. Performed By: #### L 501.9985, L100.0100, L500.4050, L503.0106, L500.4100, L501.5200, L501.9520, L506.1001 ####[facility] [address] [place], [address] Cholesterol in HDL [Mass/Vol] 38 mg/dL Low [facility] Comment on above: Result Comment: Tiffany onal Cholesterol Education Program (NCEP) guidelines: <40 mg/dL: Low HDL-cholesterol (major risk factor for CHD) >= 60 mg/dL: High HDL-cholesterol (negative risk factor for CHD) HDL-cholesterol is affected by a number of factors, e.g. smoking, exercise, hormones, sex and age. Performed By: #### L 501.9985, L100.0100, L500.4050, L503.0106, L500.4100, L501.5200, L501.9520, L506.1001 ####[facility] [address] [place], [address] Cholesterol in LDL [Mass/Vol] 127 mg/dL Normal [facility] Comment on above: Result Comment: Bord pbplji=967-826 mg/dL Higher Qcnr=996 mg/dL or greater Performed By: #### L 501.9985, L100.0100, L500.4050, L503.0106, L500.4100, L501.5200, L501.9520, L506.1001 ####[facility] [address] [place], [address] Cholesterol in VLDL [Mass/Vol] 43 mg/dL High 5-40 [facility] Comment on above: Performed By: #### L 501.9985, L100.0100, L500.4050, L503.0106, L500.4100, L501.5200, L501.9520, L506.1001 ####[facility] [address] [place], [address] Triglyceride [Mass/Vol] 217 mg/dL High [facility] Comment on above: Result Comment: The drugs N-Acetylcysteine and Metamizole may falsely depress this assay. Normal range: <150 mg/dL Borderline High: 150-199 mg/dL High: 200-499 mg/dL Very High: >500 mg/dL Performed By: #### L 501.9985, L100.0100, L500.4050, L503.0106, L500.4100, L501.5200, L501.9520, L506.1001 ####[facility] [address] [place], [address] MCV (mean corpuscular volume ) determinationOrdered By: David Ramirez on 07-04-2024 MCV (RBC) [Entitic vol] 85.6 fL 81-99 [facility] Magnesiumon 07-04-2024 Magnesium [Mass/Vol] 2.0 mg/dL Normal 1.5-2.2 [facility] Comment on above: Performed By: #### L 501.9985, L100.0100, L500.4050, L503.0106, L500.4100, L501.5200, L501.9520, L506.1001 ####[facility] [address] [place], [place], [id number] Magnesium measurement (mass/ volume)Ordered By: David Ramirez on 07-04-2024 Magnesium (Unsp spec) [Mass/Vol] 2.0 mg/dL 1.5-2.2 [facility] Mean corpuscular hemoglobin (MCH) determinationOrdered By: David Ramirez on 07-04-2024 MCH (RBC) [Entitic mass] 28.2 pg 27.0-32.0 [facility] Mean corpuscular hemoglobin concentration (MCHC) determinationOrdered By: David Ramirez on 07-04-2024 MCHC (RBC) [Mass/Vol] 32.9 g/dL 32-36 [facility] Mean platelet volume determi nationOrdered By: David Ramirez on 07-04-2024 Platelet mean volume (Bld) [Entitic vol] 11.4 fL 6.2-12.0 [facility] Monocyte percentageOrdered B y: David Ramirez on 07-04-2024 Monocytes/100 WBC (Bld) 9.7 % 0-10 [facility] Neutrophil percentageOrdered By: David Ramirez on 07-04-2024 Neutrophils/100 WBC (Bld) 65.9 % 47-70 [facility] Nucleated red blood cell per centageOrdered By: David Ramirez on 07-04-2024 Nucleated RBC/100 WBC (Bld) [Ratio] 0 % 0-5 [facility] Platelet countOrdered By: Enedina Ramirez on 07-04-2024 Platelets (Bld) [#/Vol] 288 10*3/uL 150-450 [facility] Potassium measurement (mass/ volume)Ordered By: David Ramirez on 07-04-2024 Potassium (Unsp spec) [Mass/Vol] 4.1 mmol/L 3.3-5.1 [facility] RBC Auto (Bld) [#/Vol]Ordere d By: David Ramirez on 07-04-2024 RBC (Bld) [#/Vol] 5.22 10*6/uL 4.2-5.4 [facility] Screening total cholesterol/ high density lipoprotein (HDL) cholesterol ratioOrdered By: David Ramirez on 07-04-2024 Cholesterol.total/Choles terol in HDL [Mass ratio] 5.44 {ratio} [facility] Serum creatinine measurement (mass/volume)Ordered By: David Ramirez on 07-04-2024 Creatinine [Mass/Vol] 0.59 mg/dL Low 0.70-1.20 [facility] Serum globulin measurementOr dered By: David Ramirez on 07-04-2024 Globulin (S) [Mass/Vol] 3.2 g/dL 2.2-4.2 [facility] Serum glucose measurement (m ass/volume)Ordered By: David Ramirez on 07-04-2024 Glucose [Mass/Vol] 110 mg/dL High 70-99 [facility] Serum or plasma alanine cook otransferase (ALT) measurementOrdered By: David Ramirez on 07-04-2024 ALT [Catalytic activity/Vol] 15 U/L <35 [facility] Serum or plasma albumin lauro urement (mass/volume)Ordered By: David Ramirez on 07-04-2024 Albumin [Mass/Vol] 4.0 g/dL 3.4-4.8 [facility] Serum or plasma albumin/glob ulin mass ratioOrdered By: David Ramirez on 07-04-2024 Albumin/Globulin [Mass ratio] 1.3 {ratio} 0.9-2.4 [facility] Serum or plasma alkaline bill sphatase measurementOrdered By: David Ramirez on 07-04-2024 ALP [Catalytic activity/Vol] 88 U/L 35-104 [facility] Serum or plasma calcium lauro urement (mass/volume)Ordered By: David Ramirez on 07-04-2024 Calcium [Mass/Vol] 9.3 mg/dL 7.6-11.0 [facility] Serum or plasma cholesterol in HDL measurement (mass/volume)Ordered By: David Ramirez on 07-04-2024 Cholesterol in HDL [Mass/Vol] 38 mg/dL Low >40 [facility] Comment on above: National Cholesterol Education Program (NCEP) guidelines:<40 mg/dL: Low HDL-cholesterol (major risk factor for CHD)>= 60 mg/dL: High HDL-cholesterol (negative risk factor for CHD)HDL-cholesterol is affected by a number of factors, e.g. smoking, exercise, hormones, sex and age. Serum or plasma cholesterol measurement (mass/volume)Ordered By: David Ramirez on 07-04-2024 Cholesterol [Mass/Vol] 209 mg/dL High <201 [facility] Comment on above: Cholesterol level, D esirable <200 mg/dLBorderline high cholesterol 200-239 mg/dLHigh cholesterol >=240 mg/dLRecommendations of the NCEP Adult Treatment Panel for the following risk-cutoff thresholds for the [place] population. Serum or plasma urea nitroge n measurement (mass/volume)Ordered By: David Ramirez on 07-04-2024 Urea nitrogen [Mass/Vol] 14 mg/dL 4-19 [facility] Sodium levelOrdered By: Sonam Ramirez on 07-04-2024 Sodium [Moles/Vol] 140 mmol/L 133-145 [facility] TSH DL <= 0.005 mIU/L QnOrde red By: David Ramirez on 07-04-2024 TSH Qn 0.733 uIU/mL 0.300-4.200 [facility] Thyroid Stim Hormone (TSH)on 07-04-2024 TSH 0.733 uIU/mL Normal 0.300-4.200 [facility] Comment on above: Performed By: #### L 501.9985, L100.0100, L500.4050, L503.0106, L500.4100, L501.5200, L501.9520, L506.1001 ####[facility] [address] [facility] [id number] Total proteinOrdered By: Rosie Ramirez on 07-04-2024 Protein [Mass/Vol] 7.2 g/dL 5.9-8.4 [facility] Triglycerides measurementOrd ered By: David Ramirez on 07-04-2024 Triglyceride [Mass/Vol] 217 mg/dL High <199 [facility] Comment on above: The drugs N-Acetylcy steine and Metamizole may falsely depress this assay. Normal range: <150 mg/dLBorderline High: 150-199 mg/dLHigh: 200-499 mg/dLVery High: >500 mg/dL Vitamin B12on 07-04-2024 Cobalamin (Vitamin B12) [Mass/Vol] 635 pg/mL Normal 180-914 [facility] Comment on above: Performed By: #### L 501.9985, L100.0100, L500.4050, L503.0106, L500.4100, L501.5200, L501.9520, L506.1001 ####[facility] [address] [place], [place], [id number] Vitamin B12 ser/plasOrdered By: David Ramirez on 07-04-2024 Cobalamin (Vitamin B12) [Mass/Vol] 635 pg/mL 180-914 [facility] Vitamin D,25 Hydroxyon 07-04 Vitamin D 25-OH 21.7 ng/mL Low 30-100 [facility] Comment on above: Result Comment: Claudia min D Status Deficiency: <20 ng/mL (50nmol/L) Insufficiency: 20-30 ng/mL (50-75 nmol/L) Sufficiency: 30-100 ng/mL (75-250 nmol/L) Toxicity: >100 ng/mL (>250 nmol/L) Performed By: #### L 501.9985, L100.0100, L500.4050, L503.0106, L500.4100, L501.5200, L501.9520, L506.1001 ####[facility] [address] [place], [address] White blood cell (WBC) count Ordered By: David Ramirez on 07-04-2024 WBC (Bld) [#/Vol] 10.5 10*3/uL 4.4-11.0 [facility] Surgery Visit Reporton 07-03 Surgery Visit Report [facility] [address] [place] [address] OFFICE VISIT Date of Service: 07/03/24 MR#: [id number] Acct: [id number] Name: SHANNON LAM Rep #: [id number] : 1955 Provider: Dr. Yony wheatley MD Age/Sex: 68/F Location: [facility] Status: Signed Intake Vital Signs 06/24/24 [...] Rx mg-hydrochlorothiazi de 12.5 mg tablet omega 8-rtn-yuc-fish oil 60 mg-90 1 cap PO QDAY [...] 3 current occupational status: employed current occupation: [employer] Smoking Status: Former smoker alcohol intake: never substance use type: does not use diet: vegetarian seatbelt use: always do you feel safe at home: Yes HPI HPI HPI: Patient is a 68-year-old female here for GERD. She was on omeprazole for a long time but stopped it after she switched wpbw-ktf-mvjkntg and it said only to take it [...] (more content not included)... Normal [facility] MR/Thom 06-24-2024 MR/ELEIZER.KARLO [facility] [address] [place] [address] OFFICE VISIT Date of Service: 06/24/24 MR#: [id number] Acct: [id number] Name: SHANNON LAM Rep #: [id number] : 1955 Provider: Dr. 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 David aRmirez MD) Chronic GERD Ganglion cyst of volar [...] 3 current occupational status: employed current occupation: [employer] Smoking Status: Former smoker alcohol intake: never [...] Some seasonal allergy for which she uses krsh-fbm-ubnnxkf treatment. Fish oil. Overall no new specific [...] (more content not included)... Normal [facility] Urine Cultureon 05-18-2024 URC Below infection level. Mixed Gram Pos Gram Neg Org Jackson Count 1000-10,000 MIXC Mixed contaminants. Submit a new specimen if indicated. Normal [facility] Comment on above: Performed By: #### M 100.2200 #### [facility] [address] [place], [place], [address] Laboratory - Chemistry and C hemistry - challengeOrdered By: Bryn Higuera on 05-17-2024 Bilirubin Ql (U) Negative [facility] Glucose Ql (U) Negative [facility] Ketones Ql (U) Trace (5) [facility] pH (U) 6.5 [pH] [facility] Specific gravity (U) [Rel density] 1.015 [facility] Urobilinogen (U) [Mass/Vol] 1 mg/dL [facility] Laboratory - Hematology and Cell countsOrdered By: Bryn Higuera on 05-17-2024 Hemoglobin Ql (U) Trace [facility] Laboratory - Specimen inform ationOrdered By: Bryn Higuera on 05-17-2024 Clarity (U) Clear [facility] Color (U) YELLOW [facility] Laboratory - UrinalysisOrder ed By: Bryn Higuera on 05-17-2024 Nitrite Ql (U) Negative [facility] Protein Ql (U) Trace [facility] No Panel InformationOrdered By: Bryn Higuera on 05-17-2024 Urine Leukocytes Positive [facility] Urine Non-Hemolyzed Blood Non-Hemolyzed [facility] Urgent Care Visit Reporton 0 05-17-2024 Urgent Care Visit Report [facility] [address], [address] [place], [place] [address] OFFICE VISIT Date of Service: 05/17/24 MR#: [id number] Acct: [id number] Name: SHANNON LAM Rep #: [id number] : 1955 Provider: LEYDA Ahmadi Age/Sex: 68/F Location: [facility] Status: Signed Intake Vital Signs 04/20/23 13:05 [...] this started yesterday but is worse today. [facility] Medical History (Updated 05/17/24 @ 13:31 by [...] 3 current occupational status: employed current occupation: [employer] Smoking Status: Former smoker alcohol intake: never [...] MA on 05/17/24 13:25 Off Ur Spec Jud 1.015 Last Edit by Regina Avery MA [...] of Care (more content not included)... Normal [facility] Urine cultureOrdered By: Unruly Higuera on 05-17-2024 Bacteria identified Cx Nom (U) Mixed Gram Pos & Gram Neg Org Abnormal [facility] Urgent Care Visit Reporton 0 11-12-2023 Urgent Care Visit Report [facility] [address], [address] [place] [address] OFFICE VISIT Date of Service: 11/12/23 MR#: [id number] Acct: [id number] Name: SHANNON LAM Rep #: [id number] : 1955 Provider: OSKAR pike Age/Sex: 67/F Location: [facility] Status: Signed Intake Vital Signs 04/20/23 13:05 [...] (Updated 11/12/23 @ 08:21 by Frankie Short MARINE ENGINEERING TEACHER, MARINE ENGINEERING TEACHER-C) Ganglion cyst of volar aspect of right [...] 3 current occupational status: employed current occupation: [employer] Smoking Status: Former smoker alcohol intake: never [...] (more content not included)... Normal [facility] SCRN MAMM (CAD)W/EVERARDO BILATo n 09-29-2023 SCRN MAMM (CAD)W/EVERARDO BILAT [facility] Imaging Services [address] [place], [place] [id number] SCRN MAMM (CAD)W/EVERARDO BILAT MR#: [id number] Acct: [id number] Name: SHANNON LAM Rep #: [id number] : 1955 F 67 From: Duc wen MD PCP: Dr. David Ramirez MD Status: [facility] Study: SCRN MAMM (CAD)W/EVERARDO BILAT Date of Exam: 09/13 08/06 Exam# [id number] Ordering Dr: Dana Yung [id number] MAMMOGRAPHY - BILATERAL SCREENING REASON FOR EXAM: [...] delay biopsy of a clinically suspicious abnormality. [id number] Electronically Signed: Duc Goyal MD at 8:19 EDT , CC: Dr. David Ramirez MD; Dr. Dana Yung MD Theatrical Performer: Signed Normal [facility] Absolute lymphocyte countOrd ered By: David Ramirez on 04-17-2023 Lymphocytes Auto (Unsp spec) [#/Vol] 2.13 10*3/uL 0.83-4.51 [facility] Automated lymphocyte count a s percentage of total leukocytesOrdered By: David Ramirez on 04-17-2023 Lymphocytes/100 WBC Auto (Unsp spec) 23.8 % 19-41 [facility] Basophil percentageOrdered B y: David Ramirez on 04-17-2023 Basophils/100 WBC (Bld) 0.9 % 0-1 [facility] Bilirubin [Mass/Vol] 1.10 mg/dL 0.20-1.00 [facility] Comment on above: For patients on eltr ombopag therapy, use of Dimension Paauilo TBIL is not recommended. Chloride [Moles/Vol] 108 mmol/L 98-107 [facility] Eosinophils/100 WBC (Bld) 1.7 % 0-5 [facility] Glucose [Mass/Vol] 100 mg/dL 74-106 [facility] Comment on above: Fasting Glucose resu lt from 100 to 125 mg/dL suggests IMPAIRED HOMEOSTASIS per A.D.A. criteria. Hemoglobin (Bld) [Mass/Vol] 14.4 g/dL 12.0-15.0 [facility] Monocytes/100 WBC (Bld) 9.5 % 0-10 [facility] Neutrophils (Bld) [#/Vol] 5.7 10*3/uL 2.0-7.7 [facility] Neutrophils/100 WBC (Bld) 63.4 % 47-70 [facility] Potassium [Moles/Vol] 4.0 mmol/L 3.5-5.1 [facility] Protein [Mass/Vol] 7.3 g/dL 6.4-8.2 [facility] Sodium [Moles/Vol] 141 mmol/L 136-145 [facility] WBC (Bld) [#/Vol] 8.9 10*3/uL 4.4-11.0 [facility] Determination of erythrocyte mean corpuscular volume (MCV)Ordered By: David Ramirez on 04-17-2023 MCV (RBC) [Entitic vol] 86.4 fL 81-99 [facility] Erythrocyte distribution wid th ratioOrdered By: David Ramirez on 04-17-2023 Erythrocyte distribution width (RBC) [Ratio] 13.7 % 11.6-14.6 [facility] Erythrocyte distribution wid th standard deviationOrdered By: David Ramirez on 04-17-2023 Erythrocyte distribution width (RBC) [Entitic vol] 43.5 fL 35.1-43.9 [facility] Hematocrit Auto (Bld) [Volum e fraction]Ordered By: David Ramirez on 04-17-2023 Hematocrit (Bld) [Volume fraction] 44.3 % 37-47 [facility] Immature granulocytes/100 WB C Auto (Bld)Ordered By: David Ramirez on 04-17-2023 Immature granulocytes/100 WBC (Bld) 0.700 % 0.0-0.9 [facility] Comment on above: IG% - Immature Granu locytes (promyelocytes, myelocytes and metamyelocytes) > 1% indicates that a LEFT SHIFT is Present. Laboratory - Chemistry and C hemistry - challengeOrdered By: David Ramirez on 04-17-2023 Albumin/Globulin [Mass ratio] 1.0 {ratio} 0.9-2.4 [facility] ALP [Catalytic activity/Vol] 79 U/L 45-117 [facility] ALT [Catalytic activity/Vol] 25 U/L 13-56 [facility] CO2 [Moles/Vol] 29.0 mmol/L 21.0-32.0 [facility] Globulin (S) [Mass/Vol] 3.7 g/dL 2.2-4.2 [facility] Urea nitrogen/Creatinine [Mass ratio] 28.3 mg/mg 10-20 [facility] Laboratory - Hematology and Cell countsOrdered By: David Ramirez on 04-17-2023 MCH (RBC) [Entitic mass] 28.1 pg 27.0-32.0 [facility] MCHC (RBC) [Mass/Vol] 32.5 g/dL 32-36 [facility] Nucleated RBC/100 WBC (Bld) [Ratio] 0 % 0-5 [facility] Platelet mean volume (Bld) [Entitic vol] 11.6 fL 6.2-12.0 [facility] Platelets (Bld) [#/Vol] 271 10*3/uL 150-450 [facility] No Panel InformationOrdered By: David Ramirez on 04-17-2023 Estimated GFR (MDRD) Amer 161 mL/min >60 [facility] Comment on above: GFR Calc Estimated GFR (MDRD) Non-Af Amer 133 mL/min >60 [facility] Comment on above: Non- GFR Calc Vitamin D 25-Hydroxy 34.5 ng/mL [facility] Comment on above: Vitamin D 25(OH) Sta tus Range Deficiency <20 ng/mL (50nmol/L) Insufficiency 20 - 30 ng/mL (50 - 75 nmol/L) Sufficiency 30 - 100 ng/mL (75 - 250 nmol/L) Toxicity >100 ng/mL (>250 nmol/L) RBC Auto (Bld) [#/Vol]Ordere d By: David Ramirez on 04-17-2023 RBC (Bld) [#/Vol] 5.13 10*6/uL 4.2-5.4 [facility] Serum or plasma calcium lauro urement (mass/volume)Ordered By: David Ramirez on 04-17-2023 Calcium [Mass/Vol] 9.1 mg/dL 8.5-10.1 [facility] Serum or plasma creatinine m easurement (mass/volume)Ordered By: David Ramirez on 04-17-2023 Creatinine [Mass/Vol] 0.49 mg/dL 0.55-1.02 [facility] Comment on above: The validity of the calculated GFR & GFRAA in patients over 70 years has not been determined. Clinical correlation is essential. Serum or plasma urea nitroge n measurement (mass/volume)Ordered By: David Ramirez on 04-17-2023 Urea nitrogen [Mass/Vol] 14 mg/dL 7-18 [facility] Thin prep Papanicolaou smear with manual screeningOrdered By: David Ramirez on 04-17-2023 Thin prep Papanicolaou smear with manual screening 3.6 g/dL 3.2-5.0 [facility] Thin prep Papanicolaou smear with manual screening 18 U/L 15-37 [facility] Thin prep Papanicolaou smear with manual screening 4 5-15 [facility] Whole blood hemoglobin A1c/t otal hemoglobin ratio (mass fraction)Ordered By: David Ramirez on 04-17-2023 HbA1c (Bld) [Mass fraction] 6.1 % 3.8-5.6 [facility] Comment on above: Normal < 5.7 % Predi abetic 5.7 - 6.4 % Diabetic >or= 6.5 % Please note range changes. Celia 03-31-2023 CNPN Telephone (UROLAE) SHANNON LAM ([id number]) 1955 F Date Time Provider Department 03/31/23 KAREN RAMOS During your visit today, we recorded the following information about you: Kaila Barahona 03/31/2023 10:32 AM Signed Received fax from Dr. Rosalba Bourne's office requesting op note from procedure with Dr. Ramos to be faxed to their office. Faxed op note from 01-13-22 to [phone]. Confirmation was received. Katie Barahona March 31, [...] (FLONASE) 50 mcg/actuation nasal spray Use 1 Bend in the nose as needed. - L.acidophil-L.planta r-Bifido 7 (UP4 [employer]OT[employer] ADULT) 15 billion cell cap Take by mouth once daily. Takes sporadically Problem List As Of Date 03/31/2023 Noted Resolved Obesity, Class II, BMI 35-39.9 [E66.9] 01/13/2022 Encounter Status:Closed by KAILA BARAHONA on 03/31/23 [facility] Celia 03-09-2023 ALISTAIR Telephone (SHARAN) SHANNON LAM ([id number]) 1955 F Date Time Provider Department 03/09/23 AVINASH RANDOLPH During your visit today, we recorded the following information about you: Kaila Barahona 03/09/2023 2:56 PM Signed Received fax from Dr. Rosalba Bourne's office requesting most recent office visit note and any testing from that time. Faxed note and UA results from last appointment on 09-12-22 to [phone]. Confirmation was received. Katie Barahona March 09, 2023 2:56 PM Allergies As [...] (FLONASE) 50 mcg/actuation nasal spray Use 1 Bend in the nose as needed. - L.acidophil-L.planta r-Bifido 7 (UP4 PRO[employer] ADULT) 15 billion cell cap Take by mouth once daily. Takes sporadically Problem List As Of Date 03/09/2023 Noted Resolved Obesity, Class II, BMI 35-39.9 [E66.9] 01/13/2022 Encounter Status:Closed by KAILA BARAHONA on 03/09/23 [facility] Celia 01-12-2023 CYNDIE Telephone (OBGWMA) SHANNON LAM ([id number]) 1955 F Date Time Provider Department 01/12/23 [...] (FLONASE) 50 mcg/actuation nasal spray Use 1 Bend in the nose as needed. - L.acidophil-L.planta [...] by ANISH EDWARDS on 01/12/23 [facility] CNOVon 12-22-2022 CNOV Office Visit (AGOBPOB) SHANNON LAM ([id number]) 1955 F Date Time Provider Department 12/22/22 [...] vaginal cu (more content not included)... Normal [facility] CNOVon 10-06-2022 CNOV Office Visit (AGOBPOB) SHANNON LAM ([id number]) 1955 F Date Time Provider Department 10/06/22 11:45 AM ANISH EDWARDS During your visit today, [...] Smoking status: Former Types: Cigarettes Quit date: 2009 Years since quittin.6 Smokeless tobacco: Never Vaping [...] Reaction OXYCODONE (more content not included)... Normal [facility] Celia 09-13-2022 CYNDIEN Telephone (AKURFL) SHANNON LAM ([id number]) 1955 F Date Time Provider Department 09/13/22 [...] Fully Assessed Reason for Visit: Medication Question [2738] Order(s):estradiol (ESTRACE) 0.01 % (0.1 mg/gram) vaginal [...] (FLONASE) 50 mcg/actuation nasal spray Use 1 Bend in the nose as needed. 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 Vaginal cuff closed transverse with interrupted 0 Vicryl sutures. Patient was seen for postoperative check on 02/03/2022 and was healing well. Asked return as needed. In April 2022, patient felt a bulge when she showered. Since surgery she has noticed a brownish vaginal discharge. Denies pain or odor. 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 L.acidophil-L.planta r-Bifido [...] REPAIR INC (more content not included)... Normal [facility] UA DIP, URINE (POC)on 2022 BILIRUBIN UA (POCT) Negative Negative [facility] CLARITY UA (POCT) Clear [facility] COLOR UA (POCT) Yellow [facility] GLUCOSE UA (POCT) Negative Negative mg/dL [facility] HEMOGLOBIN/BLOOD UA (POCT) Negative Negative [facility] KETONE UA (POCT) Negative Negative mg/dL [facility] LEUKOCYTES UA (POCT) Small Abnormal Negative [facility] NITRITE UA (POCT) Negative Negative [facility] PH UA (POCT) 6.0 4.5 - 8.0 [facility] Protein Ql (U) Negative Negative mg/dL [facility] SPECIFIC GRAVITY UA (POCT) 1.025 1.005 - 1.030 [facility] UROBILINOGEN UA (POCT) 0.2 E.U./dL Val l E.U./dL [facility] Absolute lymphocyte countOrd ered By: Aaron Hannon on 08-10-2022 Lymphocytes Auto (Unsp spec) [#/Vol] 1.71 10*3/uL 0.83-4.51 [facility] Basophil percentageOrdered B y: Aaron Hannon on 08-10-2022 Basophils/100 WBC (Bld) 0.8 % 0-1 [facility] Chloride [Moles/Vol] 108 mmol/L 98-107 [facility] Eosinophils/100 WBC (Bld) 0.6 % 0-5 [facility] Glucose [Mass/Vol] 132 mg/dL 74-106 [facility] Comment on above: Fasting Glucose resu lt greater than or equal to 126 mg/dL suggests DIABETES MELLITUS per A.D.A. criteria. Neutrophils (Bld) [#/Vol] 8.8 10*3/uL 2.0-7.7 [facility] Neutrophils/100 WBC (Bld) 74.4 % 47-70 [facility] Potassium [Moles/Vol] 4.1 mmol/L 3.5-5.1 [facility] Sodium [Moles/Vol] 141 mmol/L 136-145 [facility] WBC (Bld) [#/Vol] 11.8 10*3/uL 4.4-11.0 [facility] Blood erythrocytes count (nu mber/volume)Ordered By: Aaron Hannon on 08-10-2022 RBC (Bld) [#/Vol] 5.16 10*6/uL 4.2-5.4 [facility] Blood hemoglobin measurement (mass/volume)Ordered By: Aaron Hannon on 08-10-2022 Hemoglobin (Bld) [Mass/Vol] 14.7 g/dL 12.0-15.0 [facility] Blood lymphocytes/100 leukoc ytesOrdered By: Aaron Hannon on 08-10-2022 Lymphocytes/100 WBC (Bld) 14.5 % 19-41 [facility] Blood monocytes/100 leukocyt esOrdered By: Aaron Hannon on 08-10-2022 Monocytes/100 WBC (Bld) 8.5 % 0-10 [facility] Blood platelet mean volumeOr dered By: Aaron Hannon on 08-10-2022 Platelet mean volume (Bld) [Entitic vol] 10.8 fL 6.2-12.0 [facility] Determination of erythrocyte mean corpuscular volume (MCV)Ordered By: Aaron Hannon on 08-10-2022 MCV (RBC) [Entitic vol] 86.6 fL 81-99 [facility] Hematocrit Auto (Bld) [Volum e fraction]Ordered By: Aaron Hannon on 08-10-2022 Hematocrit (Bld) [Volume fraction] 44.7 % 37-47 [facility] Laboratory - Chemistry and C hemistry - challengeOrdered By: Aaron Hannon on 08-10-2022 CO2 [Moles/Vol] 29.0 mmol/L 21.0-32.0 [facility] Urea nitrogen/Creatinine [Mass ratio] 18.0 mg/mg 10-20 [facility] Laboratory - Hematology and Cell countsOrdered By: Aaron Hannon on 08-10-2022 Erythrocyte distribution width (RBC) [Entitic vol] 44.4 fL 35.1-43.9 [facility] Erythrocyte distribution width (RBC) [Ratio] 13.8 % 11.6-14.6 [facility] Immature granulocytes/100 WBC (Bld) 1.200 % 0.0-0.9 [facility] Comment on above: IG% - Immature Granu locytes (promyelocytes, myelocytes and metamyelocytes) > 1% indicates that a LEFT SHIFT is Present. MCH (RBC) [Entitic mass] 28.5 pg 27.0-32.0 [facility] Nucleated RBC/100 WBC (Bld) [Ratio] 0 % 0-5 [facility] MCHC Auto (RBC) [Mass/Vol]Or dered By: Aaron Hannon on 08-10-2022 MCHC (RBC) [Mass/Vol] 32.9 g/dL 32-36 [facility] No Panel InformationOrdered By: Aaron Hannon on 08-10-2022 Estimated Creatinine Clearance Calc 77.07 ml/min [facility] Estimated GFR (MDRD) Amer 126 mL/min >60 [facility] Comment on above: GFR Calc Estimated GFR (MDRD) Non-Af Amer 104 mL/min >60 [facility] Comment on above: Non- GFR Calc Troponin I High Sensitivity 3 pg/mL 3.0-54.0 [facility] Comment on above: Please Note: [place] t Units and Gender Specific Reference Ranges. For more information see Policy Stat Procedure Pa[place]ilo High Sensitivity Troponin (TNIH) and attachments. Platelets bldOrdered By: Ava Hannon on 08-10-2022 Platelets (Bld) [#/Vol] 304 10*3/uL 150-450 [facility] Serum or plasma calcium lauro urement (mass/volume)Ordered By: Aaron Hannon on 08-10-2022 Calcium [Mass/Vol] 9.3 mg/dL 8.5-10.1 [facility] Serum or plasma creatinine m easurement (mass/volume)Ordered By: Aaron Hannon on 08-10-2022 Creatinine [Mass/Vol] 0.61 mg/dL 0.55-1.02 [facility] Comment on above: The validity of the calculated GFR & GFRAA in patients over 70 years has not been determined. Clinical correlation is essential. Serum or plasma urea nitroge n measurement (mass/volume)Ordered By: Aaron Hannon on 08-10-2022 Urea nitrogen [Mass/Vol] 11 mg/dL 7-18 [facility] Thin prep Papanicolaou smear with manual screeningOrdered By: Aaron Hannon on 08-10-2022 Thin prep Papanicolaou smear with manual screening 4 5-15 [facility] Basophil percentageOrdered B y: Dr. Ramirez on 06-21-2022 Bilirubin [Mass/Vol] 1.30 mg/dL 0.20-1.00 [facility] Comment on above: For patients on eltr ombopag therapy, use of Dimension Pa[place]ilo TBIL is not recommended. Chloride [Moles/Vol] 109 mmol/L 98-107 [facility] Cholesterol [Mass/Vol] 198 mg/dL <200 [facility] Comment on above: <200 mg/dL Desirable 200-240 mg/dL Borderline >240 mg/dL High Risk Glucose [Mass/Vol] 92 mg/dL 74-106 [facility] Potassium [Moles/Vol] 4.0 mmol/L 3.5-5.1 [facility] Protein [Mass/Vol] 7.0 g/dL 6.4-8.2 [facility] Sodium [Moles/Vol] 142 mmol/L 136-145 [facility] Triglyceride [Mass/Vol] 170 mg/dL <199 [facility] Comment on above: The drugs N-Acetylcy steine and Metamizole may falsely depress this assay.Serum Triglycerides Reference Interval Normal <150 mg/dL Borderline high 150 - 199 mg/dL High 200 - 499 mg/dL Very High > or = 500 mg/dL Laboratory - Chemistry and C hemistry - challengeOrdered By: Dr. Ramirez on 06-21-2022 ALP [Catalytic activity/Vol] 97 U/L 45-117 [facility] ALT [Catalytic activity/Vol] 18 U/L 13-56 [facility] CO2 [Moles/Vol] 29.0 mmol/L 21.0-32.0 [facility] Globulin (S) [Mass/Vol] 3.6 g/dL 2.2-4.2 [facility] Urea nitrogen/Creatinine [Mass ratio] 24.5 mg/mg 10-20 [facility] No Panel InformationOrdered By: Dr. Ramirez on 06-21-2022 Estimated GFR (MDRD) Amer 149 mL/min >60 [facility] Comment on above: GFR Calc Estimated GFR (MDRD) Non-Af Amer 123 mL/min >60 [facility] Comment on above: Non- GFR Calc Insulin Level 8.9 mU/L 2.6-37.6 [facility] Serum or plasma albumin lauro urement (mass/volume)Ordered By: Dr. Ramirez on 06-21-2022 Albumin [Mass/Vol] 3.4 g/dL 3.2-5.0 [facility] Serum or plasma albumin/glob ulin mass ratioOrdered By: Dr. Ramirez on 06-21-2022 Albumin/Globulin [Mass ratio] 0.9 {ratio} 0.9-2.4 [facility] Serum or plasma calcium lauro urement (mass/volume)Ordered By: Dr. Ramirez on 06-21-2022 Calcium [Mass/Vol] 9.1 mg/dL 8.5-10.1 [facility] Serum or plasma cholesterol in HDL measurement (mass/volume)Ordered By: Dr. Ramirez on 06-21-2022 Cholesterol in HDL [Mass/Vol] 38 mg/dL >40 [facility] Comment on above: The drugs N-Acetylcy steine and Metamizole may falsely depress this assay. Reference Range HDL <40 mg/dL Low HDL Cholesterol HDL >or= 60 mg/dL High HDL Cholesterol Serum or plasma cholesterol in VLDL measurement (mass/volume)Ordered By: Dr. Ramirez on 06-21-2022 Cholesterol in VLDL [Mass/Vol] 34 mg/dL 5-40 [facility] Serum or plasma creatinine m easurement (mass/volume)Ordered By: Dr. Ramirez on 06-21-2022 Creatinine [Mass/Vol] 0.53 mg/dL 0.55-1.02 [facility] Comment on above: The validity of the calculated GFR & GFRAA in patients over 70 years has not been determined. Clinical correlation is essential. Serum or plasma low density lipoprotein (LDL) cholesterol measurement (mass/volume)Ordered By: Dr. Ramirez on 06-21-2022 Cholesterol in LDL [Mass/Vol] 126 mg/dL 0-130 [facility] Serum or plasma urea nitroge n measurement (mass/volume)Ordered By: Dr. Ramirez on 06-21-2022 Urea nitrogen [Mass/Vol] 13 mg/dL 7-18 [facility] Thin prep Papanicolaou smear with manual screeningOrdered By: Dr. Ramirez on 06-21-2022 Thin prep Papanicolaou smear with manual screening 11 U/L 15-37 [facility] Thin prep Papanicolaou smear with manual screening 4 5-15 [facility] CNOVon 10-20-2021 CNOV Office Visit (UROLMD) SHANNON LAM ([id number]) 1955 F Date Time Provider Department 10/20/21 11:00 AM KAREN RAMOS UROMONTEZ During your visit today, we recorded the following information about you: Weight Height 103.4 kg 1.613 m Kaern Ramos MD 10/20/2021 11:40 AM Signed ESTABLISHED [...] (FLONASE) 50 mcg/actuation nasal spray Use 1 Bend in the nose as needed. L.acidophil-L.planta r-Bifido [...] Noted Al (more content not included)... Normal [facility] UA DIP, URINE (POC)on 2021 BILIRUBIN UA (POCT) Negative Negative [facility] CLARITY UA (POCT) Clear [facility] COLOR UA (POCT) Yellow [facility] GLUCOSE UA (POCT) Negative Negative mg/dL [facility] HEMOGLOBIN/BLOOD UA (POCT) Small Abnormal Negative [facility] KETONE UA (POCT) Negative Negative mg/dL [facility] LEUKOCYTES UA (POCT) Trace [facility]normal [facility] (PO[facility]) Negative Negative [facility] PH UA (POCT) 6.0 4.5 - 8.0 [facility] Protein Ql (U) Negative Negative mg/dL [facility] SPECIFIC GRAVITY UA (POCT) 1.020 1.005 - 1.030 [facility] UROBILINOGEN UA (POCT) 0.2 E.U./dL Val l E.U./dL [facility] US FEMALE PELVIS TRANSVAGon 05-13-2021 FEMALE PELVIS TRANSVAG * * *Final Report* [...] not clearly defined. Nonvisualization of the ovaries. Theatrical Performer: NELLY Transcribe Date/Time: May 14 2021 8:51A Dictated by : RADHA SHER MD This examination was interpreted and the report reviewed and electronically signed by: RADHA SHER MD on May 14 2021 8:56AM EST [id number] Normal [facility] UA DIP, URINE (POC)on 2021 BILIRUBIN UA (POCT) Negative Negative [facility] CLARITY UA (POCT) Clear [facility] COLOR UA (POCT) Yellow [facility] GLUCOSE UA (POCT) Negative Negative mg/dL [facility] HEMOGLOBIN/BLOOD UA (POCT) Negative Negative [facility] KETONE UA (POCT) Negative Negative mg/dL [facility] LEUKOCYTES UA (POCT) Negative Negative [facility] NITRITE UA (POCT) Negative Negative [facility] PH UA (POCT) 5.5 4.5 - 8.0 [facility] Protein Ql (U) Negative Negative mg/dL [facility] SPECIFIC GRAVITY UA (POCT) 1.020 1.005 - 1.030 [facility] UROBILINOGEN UA (POCT) 0.2 E.U./dL Val l E.U./dL [facility] BLADDER SCAN [facility] Vital Signs Date Time Vital Sign Value Performing Clinician Izabellai devyn 08-23-2024 08:30-0400 Body temperature 97.6 [degF] Dr. David Ramirez MD Work Phone: [facility] 08-23-2024 08:30-0400 Diastolic blood pressure 64 mm[Hg] Dr. David Ramirez MD Work Phone: [facility] 08-23-2024 08:30-0400 Heart rate 61 /min Dr. David Ramirez MD Work Phone: [facility] 08-23-2024 08:30-0400 Respiratory rate 16 /min Dr. David Ramirez MD Work Phone: [facility] 08-23-2024 08:30-0400 SaO2% (BldA) [Mass fraction] 96 % Dr. David Ramirez MD Work Phone: [facility] 08-23-2024 08:30-0400 Systolic blood pressure 136 mm[Hg] Dr. David Ramirez MD Work Phone: [facility] 08-23-2024 07:20-0400 Body height 160.[address] David Ramirez MD Work Phone: [facility] 08-23-2024 07:20-0400 Body mass index (BMI) [Ratio] 38.2 kg/m2 Dr. David Ramirez MD Work Phone: [facility] 08-23-2024 07:20-0400 Body weight [address] David Ramirez MD Work Phone: [facility] 07-03-2024 14:51-0400 Body height 162.[address] David Ramirez MD Work Phone: [facility] 07-03-2024 14:51-0400 Body mass index (BMI) [Ratio] 38.3 kg/m2 Dr. David Ramirez MD Work Phone: [facility] 07-03-2024 14:51-0400 Body temperature 97.2 [degF] Dr. David Ramirez MD Work Phone: [facility] 07-03-2024 14:51-0400 Body weight 101.[address] David Ramirez MD Work Phone: [facility] 07-03-2024 14:51-0400 Diastolic blood pressure 82 mm[Hg] Dr. David Ramirez MD Work Phone: [facility] 07-03-2024 14:51-0400 Heart rate 75 /min Dr. David Ramirez MD Work Phone: [facility] 07-03-2024 14:51-0400 Respiratory rate 18 /min Dr. David Ramirez MD Work Phone: [facility] 07-03-2024 14:51-0400 SaO2% (BldA) [Mass fraction] 97 % Dr. David Ramirez MD Work Phone: [facility] 07-03-2024 14:51-0400 Systolic blood pressure 123 mm[Hg] Dr. David Ramirez MD Work Phone: [facility] 06-24-2024 08:01-0400 Body mass index (BMI) [Ratio] 38.9 kg/m2 Dr. David Ramirez MD Work Phone: [facility] 06-24-2024 08:01-0400 Body temperature 98.2 [degF] Dr. David Ramirez MD Work Phone: [facility] 06-24-2024 08:01-0400 Body weight 103.[address] David Ramirez MD Work Phone: [facility] 06-24-2024 08:01-0400 Diastolic blood pressure 75 mm[Hg] Dr. David Ramirez MD Work Phone: [facility] 06-24-2024 08:01-0400 Heart rate 69 /min Dr. David Ramirez MD Work Phone: [facility] 06-24-2024 08:01-0400 Respiratory rate 16 /min Dr. David Ramirez MD Work Phone: [facility] 06-24-2024 08:01-0400 SaO2% (BldA) [Mass fraction] 97 % Dr. David Ramirez MD Work Phone: [facility] 06-24-2024 08:01-0400 Systolic blood pressure 143 mm[Hg] Dr. David Ramirez MD Work Phone: [facility] 04-20-2023 13:05-0500 Body height 162.[address] David Ramirez Work Phone: [facility] 04-20-2023 13:05-0500 Body mass index (BMI) [Ratio] 40.7 kg/m2 Dr. David Ramirez Work Phone: [facility] 04-20-2023 13:05-0500 Body temperature 97.6 [degF] Dr. David Ramirez Work Phone: [facility] 04-20-2023 13:05-0500 Body weight 107.[address] David Ramirez Work Phone: [facility] 04-20-2023 13:05-0500 Diastolic blood pressure 80 mm[Hg] Dr. David Ramirez Work Phone: [facility] 04-20-2023 13:05-0500 Heart rate 75 /min Dr. David Ramirez Work Phone: [facility] 04-20-2023 13:05-0500 Respiratory rate 16 /min Dr. David Ramirez Work Phone: [facility] 04-20-2023 13:05-0500 SaO2% (BldA) [Mass fraction] 95 % Dr. David Ramirez Work Phone: [facility] 04-20-2023 13:05-0500 Systolic blood pressure 142 mm[Hg] Dr. David Ramirez Work Phone: [facility] 12-22-2022 10:56-0500 Body height 162.6 cm Anish Edwards DO Work Phone: [facility] 12-22-2022 10:56-0500 Body weight 103.42 kg Anish Edwards DO Work Phone: [facility] 12-22-2022 10:56-0500 Diastolic blood pressure 90 mm[Hg] Anish Edwards DO Work Phone: [facility] 12-22-2022 10:56-0500 Systolic blood pressure 144 mm[Hg] Anish Edwards DO Work Phone: [facility] 10-11-2022 15:17-0400 Body weight 102.[address] David Ramirez Work Phone: [facility] 10-11-2022 15:17-0400 Body height 162.[address] David Ramirez Work Phone: [facility] 10-06-2022 11:02-0400 Body height 162.6 cm Anish Edwards DO Work Phone: [facility] 10-06-2022 11:02-0400 Body weight 102.06 kg Anish Edwards DO Work Phone: [facility] 10-06-2022 11:02-0400 Diastolic blood pressure 80 mm[Hg] Anish Edwards DO Work Phone: [facility] 10-06-2022 11:02-0400 Systolic blood pressure 150 mm[Hg] Anish Edwards DO Work Phone: [facility] 09-12-2022 15:54-0400 Body height 160 cm Avinash Randolph MD Work Phone: [facility] 09-12-2022 15:54-0400 Body weight 100.25 kg Avinash Randolph MD Work Phone: [facility] 09-12-2022 08:19-0400 Body height 160.[address] David Ramirez Work Phone: [facility] 09-12-2022 08:19-0400 Body mass index (BMI) [Ratio] 39.2 kg/m2 Dr. David Ramirez Work Phone: [facility] 09-12-2022 08:19-0400 Body weight 100.[address] David Ramirez Work Phone: [facility] 09-12-2022 08:19-0400 Diastolic blood pressure 82 mm[Hg] Dr. David Ramirez Work Phone: [facility] 09-12-2022 08:19-0400 Systolic blood pressure 147 mm[Hg] Dr. David Ramirez Work Phone: [facility] 09-04-2022 09:13-0400 Body mass index (BMI) [Ratio] 39.2 kg/m2 Dr. David Ramirez Work Phone: [facility] 09-04-2022 09:13-0400 Body temperature 97.1 [degF] Dr. David Ramirez Work Phone: [facility] 09-04-2022 09:13-0400 Body weight 100.[address] David Ramirez Work Phone: [facility] 09-04-2022 09:13-0400 Diastolic blood pressure 86 mm[Hg] Dr. David Ramirez Work Phone: [facility] 09-04-2022 09:13-0400 Heart rate 73 /min Dr. David Ramirez Work Phone: [facility] 09-04-2022 09:13-0400 Respiratory rate 16 /min Dr. David Ramirez Work Phone: [facility] 09-04-2022 09:13-0400 SaO2% (BldA) [Mass fraction] 98 % Dr. David Ramirez Work Phone: [facility] 09-04-2022 09:13-0400 Systolic blood pressure 148 mm[Hg] Dr. David Ramirez Work Phone: [facility] 08-22-2022 14:55-0400 Body mass index (BMI) [Ratio] 39.2 kg/m2 Dr. David Ramirez Work Phone: [facility] 08-22-2022 14:55-0400 Body temperature 97.7 [degF] Dr. David Ramirez Work Phone: [facility] 08-22-2022 14:55-0400 Body weight 100.[address] David Ramirez Work Phone: [facility] 08-22-2022 14:55-0400 Diastolic blood pressure 82 mm[Hg] Dr. David Ramirez Work Phone: [facility] 08-22-2022 14:55-0400 Heart rate 82 /min Dr. David Ramirez Work Phone: [facility] 08-22-2022 14:55-0400 Respiratory rate 16 /min Dr. David Ramirez Work Phone: [facility] 08-22-2022 14:55-0400 SaO2% (BldA) [Mass fraction] 97 % Dr. David Ramirez Work Phone: [facility] 08-22-2022 14:55-0400 Systolic blood pressure 154 mm[Hg] Dr. David Ramirez Work Phone: [facility] 08-10-2022 12:07-0400 Diastolic blood pressure 68 mm[Hg] Dr. David Ramirez Work Phone: [facility] 08-10-2022 12:07-0400 Heart rate 78 /min Dr. David Ramirez Work Phone: [facility] 08-10-2022 12:07-0400 Respiratory rate 18 /min Dr. David Ramirez Work Phone: [facility] 08-10-2022 12:07-0400 SaO2% (BldA) [Mass fraction] 96 % Dr. David Ramirez Work Phone: [facility] 08-10-2022 12:07-0400 Systolic blood pressure 120 mm[Hg] Dr. David Ramirez Work Phone: [facility] 08-10-2022 09:38-0400 Body height 160.[address] David Ramirez Work Phone: [facility] 08-10-2022 09:38-0400 Body mass index (BMI) [Ratio] 39.8 kg/m2 Dr. David Ramirez Work Phone: [facility] 08-10-2022 09:38-0400 Body temperature 97.9 [degF] Dr. David Ramirez Work Phone: [facility] 08-10-2022 09:38-0400 Body weight 102.[address] David Ramirez Work Phone: [facility] 06-29-2022 08:46-0400 Body mass index (BMI) [Ratio] 37.3 kg/m2 Dr. David Ramirez Work Phone: [facility] 06-29-2022 08:46-0400 Body temperature 97.3 [degF] Dr. David Ramirez Work Phone: [facility] 06-29-2022 08:46-0400 Body weight 95.[address] David Ramirez Work Phone: [facility] 06-29-2022 08:46-0400 Diastolic blood pressure 83 mm[Hg] Dr. David Ramirez Work Phone: [facility] 06-29-2022 08:46-0400 Heart rate 79 /min Dr. David Ramirez Work Phone: [facility] 06-29-2022 08:46-0400 Respiratory rate 16 /min Dr. David Ramirez Work Phone: [facility] 06-29-2022 08:46-0400 SaO2% (BldA) [Mass fraction] 96 % Dr. David Ramirez Work Phone: [facility] 06-29-2022 08:46-0400 Systolic blood pressure 148 mm[Hg] Dr. David Ramirez Work Phone: [facility] 06-27-2022 10:38-0400 Body height 160.[address] David Ramirez Work Phone: [facility] 06-27-2022 10:38-0400 Body mass index (BMI) [Ratio] 37.2 kg/m2 Dr. David Ramirez Work Phone: [facility] 06-27-2022 10:38-0400 Body weight 95.[address] David Ramirez Work Phone: [facility] 06-27-2022 10:38-0400 Diastolic blood pressure 80 mm[Hg] Dr. David Ramirez Work Phone: [facility] 06-27-2022 10:38-0400 Systolic blood pressure 150 mm[Hg] Dr. David Ramirez Work Phone: [facility] 04-20-2022 08:44-0500 Body temperature 97.8 [degF] Dr. David Ramirez Work Phone: [facility] 04-20-2022 08:44-0500 Body weight 98.[address] David Ramirez Work Phone: [facility] 04-20-2022 08:44-0500 Diastolic blood pressure 76 mm[Hg] Dr. David Ramirez Work Phone: [facility] 04-20-2022 08:44-0500 Heart rate 73 /min Dr. David Ramirez Work Phone: [facility] 04-20-2022 08:44-0500 Respiratory rate 16 /min Dr. David Ramirez Work Phone: [facility] 04-20-2022 08:44-0500 SaO2% (BldA) [Mass fraction] 97 % Dr. David Ramirez Work Phone: [facility] 04-20-2022 08:44-0500 Systolic blood pressure 130 mm[Hg] Dr. David Ramirez Work Phone: [facility] 02-01-2022 10:43-0500 Body height 160 cm Karen Ramos MD Work Phone: [facility] 02-01-2022 10:43-0500 Body weight 101.61 kg Karen Ramos MD Work Phone: [facility] 02-01-2022 10:43-0500 Diastolic blood pressure 88 mm[Hg] Karen Ramos MD Work Phone: [facility] 02-01-2022 10:43-0500 Systolic blood pressure 142 mm[Hg] Karen Ramos MD Work Phone: [facility] 12-30-2021 09:51-0500 Body height 161.[address] [facility] 12-30-2021 09:51-0500 Body temperature 98.2 [degF] Pst 1 [facility] 12-30-2021 09:51-0500 Body weight 102.[address] [facility] 12-30-2021 09:51-0500 Diastolic blood pressure 75 mm[Hg] Pst [address] [facility] 12-30-2021 09:51-0500 Heart rate 71 /min Pst [address] [facility] 12-30-2021 09:51-0500 Respiratory rate 18 /min Pst 1 [facility] 12-30-2021 09:51-0500 SaO2% (BldA) [Mass fraction] 98 % Pst [address] [facility] 12-30-2021 09:51-0500 Systolic blood pressure 146 mm[Hg] Pst [address] [facility] 12-28-2021 09:55-0500 Body temperature 97.6 [degF] Dr. David Ramirez Work Phone: [facility] Work Phone: 12-28-2021 09:55-0500 Diastolic blood pressure 60 mm[Hg] Dr. David Ramirez Work Phone: [facility] Work Phone: 12-28-2021 09:55-0500 Heart rate 66 /min Dr. David Ramirez Work Phone: [facility] Work Phone: 12-28-2021 09:55-0500 Respiratory rate 16 /min Dr. David Ramirez Work Phone: [facility] Work Phone: 12-28-2021 09:55-0500 SaO2% (BldA) [Mass fraction] 100 % Dr. David Ramirez Work Phone: [facility] Work Phone: 12-28-2021 09:55-0500 Systolic blood pressure 118 mm[Hg] Dr. David Ramirez Work Phone: [facility] Work Phone: 12-28-2021 08:55-0500 Body height 160.[address] David Ramirez Work Phone: [facility] Work Phone: 12-28-2021 08:55-0500 Body mass index (BMI) [Ratio] 40.1 kg/m2 Dr. David Ramirez Work Phone: [facility] Work Phone: 12-28-2021 08:55-0500 Body weight 102.[address] David Ramirez Work Phone: [facility] Work Phone: 11-25-2021 11:28-0400 Body mass index (BMI) [Ratio] 39.8 kg/m2 Dr. David Ramirez Work Phone: [facility] Work Phone: 11-25-2021 11:28-0400 Body weight 102.[address] David Ramirez Work Phone: [facility] Work Phone: 11-24-2021 08:04-0400 Body temperature 98.2 [degF] Dr. David Ramirez Work Phone: [facility] Work Phone: 11-24-2021 08:04-0400 Body weight 103.[address] David Ramirez Work Phone: [facility] Work Phone: 11-24-2021 08:04-0400 Diastolic blood pressure 78 mm[Hg] Dr. David Ramirez Work Phone: [facility] Work Phone: 11-24-2021 08:04-0400 Heart rate 80 /min Dr. David Ramirez Work Phone: [facility] Work Phone: 11-24-2021 08:04-0400 Respiratory rate 16 /min Dr. Dvaid Ramirez Work Phone: [facility] Work Phone: 11-24-2021 08:04-0400 SaO2% (BldA) [Mass fraction] 97 % Dr. David Ramirez Work Phone: [facility] Work Phone: 11-24-2021 08:04-0400 Systolic blood pressure 138 mm[Hg] Dr. David Ramirez Work Phone: [facility] Work Phone: 10-20-2021 10:46-0400 Body height 161.3 cm Karen Ramos MD Work Phone: [facility] 10-20-2021 10:46-0400 Body weight 103.42 kg Karen Ramos MD Work Phone: [facility] 10-01-2021 09:04-0400 Body mass index (BMI) [Ratio] 39.4 kg/m2 Dr. David Ramirez Work Phone: [facility] Work Phone: 10-01-2021 09:04-0400 Body temperature 97.6 [degF] Dr. David Ramirez Work Phone: [facility] Work Phone: 10-01-2021 09:04-0400 Body weight 101.[address] David Ramirez Work Phone: [facility] Work Phone: 10-01-2021 09:04-0400 Diastolic blood pressure 88 mm[Hg] Dr. David Ramirez Work Phone: [facility] Work Phone: 10-01-2021 09:04-0400 Heart rate 74 /min Dr. David Ramirez Work Phone: [facility] Work Phone: 10-01-2021 09:04-0400 Respiratory rate 16 /min Dr. David Ramirez Work Phone: [facility] Work Phone: 10-01-2021 09:04-0400 SaO2% (BldA) [Mass fraction] 97 % Dr. David Ramirez Work Phone: [facility] Work Phone: 10-01-2021 09:04-0400 Systolic blood pressure 124 mm[Hg] Dr. David Ramirez Work Phone: [facility] Work Phone: 08-20-2021 10:27-0400 Body height 161.3 cm Giovany Biats DO Work Phone: [facility] 08-20-2021 10:27-0400 Body weight 101.15 kg Giovany Biats DO Work Phone: [facility] 08-20-2021 10:27-0400 Diastolic blood pressure 84 mm[Hg] Giovany Biats DO Work Phone: [facility] 08-20-2021 10:27-0400 Systolic blood pressure 155 mm[Hg] Giovany Biats DO Work Phone: [facility] 05-11-2021 10:14-0400 Body height 161.3 cm Karen Ramos MD Work Phone: [facility] 05-11-2021 10:140400 Body weight 99.34 kg Karen Ramos MD Work Phone: [facility] 05-11-2021 10:14-0400 Diastolic blood pressure 80 mm[Hg] Karen Ramos MD Work Phone: [facility] 05-11-2021 10:14-0400 Systolic blood pressure 132 mm[Hg] Karen Ramos MD Work Phone: [facility] Encounters Encounter Date Encounter Type Care Provider Facility Start: 09-30-2024 ambulatory David Ramirez Facility :[facility] Start: 08-23-2024 Non-patient / Non-visit Dr. Laney Moseley MD -[facility] Start: 08-23-2024 End: 08-23-2024 Admission to same day surgery center Dr. Yony Moseley MD -Endoscopy Work Phone: Start: 08-23-2024 End: 08-23-[address] David Ramirez MD Work Phone: -Endoscopy Start: 07-04-2024 End: 07-04-[address] David Ramirez MD Work Phone: [facility] Work Phone: Start: 07-04-2024 End: 07-04-[address] David Ramirez MD -Laboratory Work Phone: Start: 07-03-2024 End: 07-04-[address] David Ramirez MD Work Phone: [facility] Work Phone: Start: 07-03-2024 End: 07-03-[address] Yony Moseley MD -[facility] Work Phone: Start: 06-24-2024 End: 06-24-[address] David Ramirez MD -[facility] Work Phone: Start: 06-24-2024 End: 06-24-2024 ambulatory David Ramirez Facility:[facility] Start: 05-17-2024 End: 05-17-[address] David Ramirez MD Work Phone: [facility] Work Phone: Start: 05-17-2024 End: 05-17-2024 Patient encounter procedure Bryn CRABTREE -Laboratory, Specimen Work Phone: Start: 05-17-2024 End: 05-17-2024 Patient encounter procedure Bryn Hig[facility] Work Phone: Start: 05-17-2024 End: 05-17-2024 ambulatory David Ramirez Facility:[facility] Start: 05-17-2024 End: 05-17-2024 ambulatory David Ramirez Facility:[facility] Start: 11-12-2023 End: 11-12-2023 ambulatory David Ramirez Facility:[facility] Start: 09-29-2023 End: 09-29-2023 ambulatory Dana Yung Facility:[facility] Start: 05-03-2023 End: 05-03-[address] David Ramirez Work Phone: [facility] Work Phone: Start: 05-03-2023 End: 05-03-[address] David Ramirez Work Phone: [facility] Work Phone: Start: 04-20-2023 End: 04-20-[address] David Ramirez Work Phone: [facility] Work Phone: Start: 04-17-2023 End: 04-17-[address] David Ramirez Work Phone: [facility] Work Phone: Start: 03-31-2023 Telephone encounter Karen Ramos MD Work Phone: Urology Start: 01-12-2023 Telephone encounter Anish Herrera DO Work Phone: [facility] General Obstetrics and Gynecology Start: 12-22-2022 End: 12-22-2022 ambulatory ANISH EDWARDS Facility:[facility] Start: 12-22-2022 End: 12-22-2022 Patient encounter procedure Anish Edwards DO Work Phone: [facility] Obstetrics & Gynecology Comment on above: Vaginal ulceration ( Primary Dx); Vaginal discharge Start: 10-11-2022 End: 10-11-[address] David Ramirez Work Phone: [facility] Orthopaedic Spec[facility] Work Phone: Start: 10-06-2022 End: 10-06-2022 ambulatory DAVID RAMIREZ Facility:[facility] Start: 10-06-2022 End: 10-06-2022 Patient encounter procedure Anish Edwards Work Phone: [facility] Obstetrics & Gynecology Comment on above: Vaginal atrophy (Carmen brunilda Dx) Start: 09-27-2022 End: 09-27-[address] David Ramirez Work Phone: [facility] Work Phone: Start: 09-27-2022 End: 09-27-[address] David Ramirze Work Phone: [facility]-Outpatient Breast Imaging Work Phone: Start: 09-13-2022 Telephone encounter Avinash godinez MD Work Phone: [facility] Comment on above: Medication Question Start: 09-12-2022 End: 09-13-2022 ambulatory DAVID RAMIREZ Facility:[facility] Start: 09-12-2022 End: 09-12-2022 Patient encounter procedure Avinash Randolph MD Work Phone: Urology Comment on above: Rectocele [N81.6] (P rimary Dx); Postoperative vaginal bleeding following genitourinary procedure; Genitourinary syndrome of menopause Start: 09-12-2022 End: 09-12-[address] David Ramirez Work Phone: [facility] Work Phone: Start: 09-04-2022 End: 09-04-[address] David Ramirez Work Phone: [facility] Work Phone: Start: 08-22-2022 End: 08-22-[address] David Ramirez Work Phone: [facility] Work Phone: Start: 08-10-2022 End: 08-10-2022 Emergency department patient visit Dr. David Ramirez Work Phone: [facility]-Emergency Department Work Phone: Start: 07-20-2022 End: 07-20-[address] David Ramirez Work Phone: [facility] Work Phone: Start: 07-20-2022 End: 07-20-[address] David Ramirez Work Phone: [facility]-Physical Therapy Work Phone: Start: 07-20-[address] David Ramirez Work Phone: [facility]-Physical Therapy Work Phone: Start: 06-29-2022 End: 06-29-[address] David Ramirez Work Phone: [facility] Work Phone: Start: 06-27-2022 End: 06-27-[address] David Ramirez Work Phone: [facility] Start: 06-21-2022 End: 06-21-[address] David Ramirez Work Phone: [facility] Work Phone: Start: 06-21-2022 End: 06-21-[address] David Ramirez Work Phone: [facility] Start: 04-20-2022 End: 04-20-[address] David Ramirez Work Phone: [facility] Start: 02-08-2022 Telephone encounter Karen Ramos MD Work Phone: [facility] Comment on above: FMLA Paperwork Start: 02-01-2022 End: 02-01-2022 Patient encounter procedure Karen Ramos MD Work Phone: Urology Comment on above: Midline cystocele (P rimary Dx); Prolapse of vaginal vault after hysterectomy Start: 01-17-2022 Telephone encounter Karen Ramos MD Work Phone: Urology Comment on above: Patient Question Start: 12-30-2021 End: 12-30-2021 Admission to [facility] Start: 12-30-2021 End: 12-30-2021 ambulatory [...] Dr. Enedina Ramirez Work Phone: [facility] Start: 12-28-2021 End: 12-28-2021 Admission to same day surgery center Dr. David Ramirez Work Phone: [facility]-Endoscopy Start: 12-28-2021 End: 12-28-[address] David Ramirez Work Phone: [facility] Work Phone: Start: 11-25-2021 Non-patient / Non-visit Dr. Enedina Ramirez Work Phone: [facility] Start: 11-24-2021 End: 11-24-[address] David Ramirez Work Phone: [facility] Start: 10-20-2021 End: 10-20-2021 Patient encounter procedure Karen Ramos MD Work Phone: Urology Comment on above: Midline cystocele (P rimary Dx); Rectocele; Uterine prolapse Start: 10-01-2021 End: 10-01-[address] David Ramirez Work Phone: [facility] Start: 09-06-2021 End: 09-06-[address] David Ramirez Work Phone: [facility]-Outpatient Breast Imaging Start: 09-01-2021 Patient encounter procedure [facility] Provider [facility] Department Start: 08-27-2021 Non-patient / Non-visit Dr. Enedina Ramirez Work Phone: [facility] Start: 08-27-2021 End: 08-27-[address] David Ramirez Work Phone: [facility]-Cardiovascul ar Services Start: 08-20-2021 End: 08-20-2021 Patient encounter procedure Giovany Mcnair DO Work Phone: [facility] General Obstetrics & Gynecology Comment on above: Women's annual routi ne gynecological examination (Primary Dx); Routine cervical smear; Uterine prolapse Start: 05-13-2021 End: 05-13-2021 Subsequent hospital visit by physician [facility] Work Phone: Radiology Comment on above: Uterine leiomyoma, u nspecified location [D25.9] Start: 05-11-2021 End: 05-11-2021 Patient encounter procedure Karen Ramos MD Work Phone: Urology Comment on above: Uterine leiomyoma, u nspecified location (Primary Dx); Uterine prolapse; Midline cystocele; Rectocele Procedures Date Procedure Procedure Detail Performing Clinician Start: 08-23-[address] David Ramirez MD Work Phone: Start: 07-04-2024 Vitamin D, 25-hydroxy measurement Dr. Enedina Ramirez MD Work Phone: Comment on above: Vitamin D StatusDeficiency: <20 ng/mL (5 0nmol/L)Insufficiency: 20-30 ng/mL (50-75 nmol/L)Sufficiency: 30-100 ng/mL (75-250 nmol/L)Toxicity: >100 ng/mL (>250 nmol/L) Start: 05-17-[address] David Ramirez MD Work Phone: Start: 05-03-[address] David Ramirez Work Phone: Start: 10-11-2022 Plain x-ray of wrist Dr. David Ramirez Work Phone: Start: 09-27-[address] David Ramirez Work Phone: Start: 09-12-2022 Urnls dip stick/tablet rgnt auto w/o microscopy Avinash Randolph MD Work Phone: Start: 09-12-2022 BLADDER SCAN [facility] Provider Start: 08-10-2022 CT of head without contrast Dr. David Ramirez Work Phone: Start: 12-28-[address] David Ramirez Work Phone: Start: 10-20-2021 Urnls dip stick/tablet rgnt auto w/o microscopy Karen Ramos MD Work Phone: Start: 09-06-[address] David Ramirez Work Phone: Start: 05-13-2021 Us transvaginal Karen Ramos MD Work Phone: Start: 05-11-2021 Urnls dip stick/tablet rgnt auto w/o microscopy Karen Ramos MD Work Phone: H/O: surgery S/P panniculectomy Dr. David Ramirez Work Phone: H/O: surgery H/O dilation and curettage Dr. David Ramirez Work Phone: H/O: tubal ligation History of t ubal ligation Dr. David Ramirez Work Phone: Plan of Treatment Date Care Activity Detail Author Start: 12-09-2032 Urine microalbumin profile DTaP,Tdap,Td Vaccine (3 - Td or Tdap) [facility] Start: 08-20-[address]26 [address] [facility] Start: 08-20-2026 [address] PAP TESTING [facility] Start: 08-23-2024 Patient discharge [facility] Start: 06-24-2024 Patient referral [facility] Work Phone: Start: 02-13-2023 Advance Directive Discussion Advance Directive Discussion [facility] Start: 02-13-2023 Depression Assessment Depression Ass essment [facility] Start: 2022 Advance Directive Discussion Advance Directive Discussion [facility] Start: 2022 Bone Density Screening Bone Density Screening [facility] Start: 2022 Pneumococcal Vaccine : 65+ (2 - PPSV23 or PCV20) Pneumococcal Vaccine: 65+ (2 - PPSV23 or PCV20) [facility] Start: 2022 Pneumococcal Vaccine : 65+ (2 of 2 - PPSV23 or PCV20) Pneumococcal Vaccine: 65+ (2 of 2 - PPSV23 or PCV20) [facility] Start: 2022 Screening for osteoporosis Bone Density Screening [facility] Start: 10-14-2022 Influenza vaccination INFLUENZA (#1) [facility] Start: 08-10-[address] [facility] Start: 06-27-2022 Patient referral [facility] Work Phone: Start: 04-20-2022 Patient referral [facility] Work Phone: Start: 02-13-2022 DEPRESSION ASSESSMENT DEPRESSION ASS [facility] Start: 12-28-2021 Patient discharge [facility] Work Phone: Start: 10-14-2021 Influenza vaccination INFLUENZA (#1) [facility] Start: 05-29-2021 COVID-19 VACCINE (4 - Booster for Moderna series) COVID-19 VACCINE (4 - Booster for Moderna series) [facility] Start: 02-13-2021 DEPRESSION ASSESSMENT DEPRESSION ASS [facility] Start: 2017 RSV Vaccine (1 - 1-d ose 60+ series) RSV Vaccine (1 - 1-dose 60+ series) [facility] Start: 12-30-2007 SHINGRIX VACCINE (1 of 2) SHINGRIX VACCINE (1 of 2) [facility] Start: 2002 COLOGUARD (FIT-DNA) COLOGUARD (FIT-D NA) [facility] Start: [address] [facility] Start: 2002 COLORECTAL CANCER SCREENING COLORECTAL CANCER SCREENING [facility] Start: [address] COLONOGRAPHY [facility] Start: 2002 DIABETES SCREEN DIABETES SCREEN [facility] Start: 2002 Diabetes Screening Diabetes Screenin g [facility] Start: 2002 FECAL OCCULT BLOOD FECAL OCCULT BLOO D [facility] Start: 2002 Lipid 1996 panel - Serum or Plasma Lipid Screening [facility] Start: 2002 Lipid panel Lipid Screening [facility] Start: 2002 [address] L[address]ID SCRE[address] [facility] Start: 2002 Screening for malign ant neoplasm of colon [facility] Start: 2002 SIGMOIDOSCOPY SIGMOIDOSCOPY [facility] Start: [address] [facility] Start: 1997 Screening for malign ant neoplasm of breast Mammogram Screening [facility] Start: 12-30-1987 HPV TESTING HPV TESTING [facility] Start: 1978 PAP TESTING PAP TESTING [facility] Start: 1976 Urine microalbumin profile DTAP,TDAP,TD (1 - Tdap) [facility] Start: 12-30-1975 HEPATITIS C SCREENING HEPATITIS C SC REENING [facility] Start: 12-30-1975 Hepatitis C screening Hepatitis C [facility] Start: 12-30-1975 HIV SCREENING HIV SCREENING [facility] Start: 12-30-1975 HIV screening HIV Screening [facility] Start: 1969 Adult depression screening assessment DEPRESSION SCREENING [facility] CBC W Auto Different ial panel - Blood [facility] CBC W Auto Different ial panel - Blood [facility] Cobalamin (Vitamin B 12) [Mass/volume] in Serum or Plasma [facility] Colonoscopy [facility] Work Phone: Comprehensive metabo lic 1999 panel - Serum or Plasma [facility] Hemoglobin A1c/Hemoglobin.total in Blood [facility] Hemoglobin A1c/Hemoglobin.total in Blood [facility] Lipid 1995 panel - Serum or Plasma [facility] Magnesium measurement [facility] PAP FLUID CERVICAL SCREENING PAP FLUID CERVICAL SCREENING Lab Routine Women's annual routine gynecological examination Routine cervical smear Ordered: 08/20/2021 [facility] Work Phone: Comment on above: Ordered: 08/20/2021 Patient Education ED Dizziness, Uncertain Cause [facility] Work Phone: Patient referral [facility] Work Phone: End: 09-19-2022 Screening mammography bi 2-view breast inc cad VAN SCREENING Radiology Routine Women's annual routine gynecological examination 1 Occurrences starting 08/20/2021 until 09/19/2022 [facility] Work Phone: Comment on above: 1 Occurrences starti ng 08/20/2021 until 09/19/2022 Thyroid stimulating hormone measurement [facility] End: 06-10-2022 Us transvaginal US FEMALE PELVIS TRANSVAG Radiology Routine Uterine leiomyoma, unspecified location 1 Occurrences starting 05/11/2021 until 06/10/2022 [facility] Work Phone: Comment on above: 1 Occurrences starti ng 05/11/2021 until 06/10/2022 Us transvaginal US FEMALE PELVIS TRANSVAG Radiology Routine Uterine leiomyoma, unspecified location 05/13/2021 2:53 PM EDT [facility] Work Phone: Vitamin D, 25-hydrox y measurement [facility] Vitamin D, 25-hydrox y measurement [facility] Immunizations Immunization Date Immunization Notes Care Provider Fa [facility] 12-09-2022 tetanus toxoid, redu efraín diphtheria toxoid, and acellular pertussis vaccine, adsorbed Dr. David Ramirez Work Phone: [facility] 11-21-2020 influenza, injectabl e, quadrivalent, preservative free Karen Ramos MD Work Phone: [facility] 10-08-2019 influenza, injectabl e, quadrivalent, preservative free Karen Ramos MD Work Phone: [facility] Payers Date Payer Category Payer Medicare [id number] 2023 Self-pay [id number] 2020 Private Health Insurance [employer]ET[employer] A ETNA CHOICE POS II [id number] 2020-Present [phone] [address] [place] [address] POS [id number] 2020 Private Health Insurance [id number] 2020 Private Health Insurance [id number] Medicare MEDICARE PART A B [id number] Private Health Insurance [id number] Unknown [facility] P[facility]AGE [facility] . [id number] Unknown [facility] PACKAGE [facility]AN [id number] Unknown [id number] Unknown [id number] Unknown [id number] Unknown [id number] Unknown [id number] Unknown [id number] Unknown [id number] Unknown [id number] Unknown [id number] Unknown [id number] Social History Date Type Detail Facility Start: 05-11-2021 End: 08-21-2024 Tobacco smoking status NHIS Ex-smoker [facility] End: 02-14-2008 History of tobacco use Current smoker [facility] Start: 05-11-2021 End: 10-20-2021 Tobacco use and exposure Smokeless tobacco non-user [facility] Start: 05-11-2021 End: 12-22-2022 Alcohol intake Lifetime non-drinker (finding) [facility] Start: 05-11-2021 History SDOH Alcohol Frequency 1 [facility] Start: 1955 Sex Assigned At Not on file [facility] Start: 05-01-2021 End: 01-13-2022 Exposure to SARS-CoV-2 (event) Not sure [facility] Start: 04-15-2021 End: 04-20-2023 Tobacco smoking status NHIS Unknown if ever smoked [facility] Start: 1955 Sex Assigned At Female [facility] End: 02-14-2008 History of tobacco use Cigarette Smoker [facility] Start: 09-12-2022 End: 10-06-2022 History of Social function [facility] Start: 09-12-2022 End: 10-06-[address] [facility] National Score (1-100), lower number is lower risk 59 [facility] Start: 05-21-2024 Sex Female (finding) [facility] NEGATED: Highlighted row Not [facility] Goals Date Patient Goal Desired Activity /State Mental Status Date Assessment Result Facility 08-23-2024 Cognitive function Voice/Name [facility] Work Phone: 12-28-2021 Cognitive function Voice/Name [facility] Work Phone: Clinical Notes 05-11-2021 to 08-23-2024 Note Date & Type Note Facility 08-23-2024 Consult note [facility] 08-23-2024 Procedure note [facility] 08-23-2024 Procedure note [facility] 08-23-2024 History and physi johnny note [facility] 08-23-2024 Note [facility] Medical Records Department [address] [place] [id number] History Physical Exam 08/23/24 0722 MR#: [id number] Acct: [id number] Name: SHANNON LAM Rep #: [id number] : 1955 68 From: Yony Moseley MD PCP: Dr. David Ramirez MD Status:REG [facility] Location: [place] [address] History and Physical Date of Admission: 08/23/24 Intake Vital Signs 06/25/2507:01 07/03/2513:51 Height 5 ft 4 in 5 ft [...] tablet 180 mg PO Q24H 04/20/23 07/03/24 History (Analisa Allergy) fluticasone propionate 50 1 spray intranasal DAILY 04/20/23 07/03/24 History mcg/actuation nasal spray,suspension (Flonase Allergy Relief) amlodipine 10 mg tablet 10 mg PO DAILY #90 tabs 09/18/23 07/03/24 Rx lisinopril 10 1 tab PO DAILY #90 tabs 09/18/23 07/03/24 Rx mg-hydrochlorothiazide 12.5 mg tablet omega 9-qpn-wji-fish oil 60 mg-90 1 cap PO QDAY 06/24/24 07/03/24 History mg-500 mg capsule (Fish Oil) Have you [...] H/O dilation and curettage Family History Mother CancerFather Cancer HypertensionBrother Hypertension CVA (cerebral vascular accident) Diabetes Social History number of children: 3 current occupational status: employed current occupation: [employer] Smoking Status: Former smoker alcohol intake: never substance use type: does not use diet: vegetarian seatbelt use: always do you feel safe at home: Yes HPI HPI HPI: Patient is a 68-year-old female here for GERD. She was on omeprazole for a long time but stopped it after she switched qprm-mjl-chollce and it said only to take it [...] inspection: normal inspection of the chest Resp Effor (more content not included)... [facility] 08-23-2024 Consult note [facility] 05-17-2024 Evaluation note Diagnosis Onset Date Resolution Dysuria acute May 17 1:12pm [facility] Work Phone: 1(565) 972-855804-04-2025 Evaluation note* Diagnosis Onset Date Resolution Status Admit Date Dysuria acute May 17 1:12pm Essential hypertension acute 2024 7:53am Hypertriglyceridemia acute June 24, 2024 7:53am Insulin resistance acute June 242024 7:53am Chronic GERD chronic July 03 2:22pm [facility] Work Phone: 1(510) 860-818402-16-2024 Miscellaneous Notes* Telephone Encounter - Kaila Barhaona - 03/31/2023 10:22 AM EST Received fax from Dr. Rosalba Bourne's office requesting op note from procedure with Dr. Buckley be faxed to their office. Faxed op note from 01-13-22 to [phone]. Confirmation was received. Katie Barahona March 31, 2023 10:24 AM documented [facility] Miscellaneous Notes* Telephone Encounter - Anish Edwards DO - 01/12/2023 2:48 PM EST Vaginal cultures that were collected in the office several weeks ago returned positive for a bacterial infection. She will need vaginal clindamycin cream for treatment of this for 7 days. Rx sent to pharmacy. Can you please let her know? Thanks! Anish Edwards DO documented in [facility]2023 NoteHNO ID: [id number] Author: Anish Edwards DO Service: ? Author Type: Physician [...] pt is starting a ketogenic program called [employer], Part of [employer] she will monitor ketones and blood sugar [...] if this is possibly (more content not included)...[facility]11-09-2023 History of Present illness Narrative* Anish Edwards DO - 12/22/2022 11:15 AM EST SERVICE DATE: [...] pt is starting a ketogenic program called [employer], Part of [employer] she will monitor ketones and blood sugar [...] Smoking status: Former Types: Cigarettes Quit date: 2009 Years since quittin.8 Smokeless tobacco: Never Vaping [...] above Anish Edwards DO documented in this encounterSt[facility] Discharge summary Author Sara Parrish [facility] October 14, 2022 3:54pm Note Date/Time October 14, 2022 3:54pm [facility] Physical Therapy [facility] [address] [place] [address] / REHABILITATION SERVICES DISCHARGE SUMMARY MR#: [id number] Acct: [id number] Name: SHANNON LAM Rep #: [id number] : 1955 66 From: Cert. MERE Carlson PTT Referring Dr.: JEFRY Whitmore Status: REG RCR Insurance: [facility] Patient Information Patient Information: [...] Parrish PT, Cert MDT <Electronically signed by Cert. MERE Carlson PTT> 10/14/22 1554 CC: JEFRY Whitmore; Dr. David Ramirez MD ~ MEKHI Signed [facility] Work Phone: 1(920) 487-437608-24-2023 NoteHNO ID: [id number] Author: Anish Edwards, DO Service: ? Author [...] Smoking status: Former Types: Cigarettes Quit date: 2009 Years since quittin.6 Smokeless tobacco: Never Vaping [...] in 3 months for re-evaluation [facility] of Present illness Narrative* Anish Edwards DO - 10/06/2022 11:45 AM EDT SERVICE [...] Smoking status: Former Types: Cigarettes Quit date: 2009 Years since quittin.6 Smokeless tobacco: Never Vaping [...] re-evaluation Anish Edwards DO documented in this encounterSt. [facility] Miscellaneous Notes* Telephone Encounter - Avinash Randolph MD - 09/13/2022 5:12 PM EDT [facility] Rx sent to pharmacy. * Telephone Encounter - Lyndsay Sanderson CMA - 09/13/2022 9:42 AM EDT Pt called states you were going to send a medication to the pharmacy - [facility] - yesterday but nothing was sent. Please advise Lyndsay Sanderson CMA documented in this encounterSt. Mary'[facility]07-31-2023 NoteHNO ID: [id number] Author: Avinash Randolph MD Service: ? 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 Vaginal cuff closed transverse with interrupted 0 Vicryl sutures. Patient was seen for postoperative check on 02/03/2022 and was healing well. Asked return as needed. In April 2022, patient felt a bulge when she showered. Since surgery she has noticed a brownish vaginal discharge. Denies pain or odor. She is also noticed vaginal spotting was seen by her senior firewall engineer in [place] at the [facility]. 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 Vaginal cuff closed transverse with interrupted 0 Vicryl sutures. Patient was seen for postoperative check on 02/03/2022 and was healing well. Asked return as needed. In April 2022, patient felt a bulge when she showered. Since surgery she has noticed a brownish vaginal discharge. Denies pain or odor. She is also noticed vaginal spotting was seen by her senior firewall engineer in [place] at the [facility]. 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 L.acidophil-L.plantar-Bifido 7 [...] social history documented by my ancillary staff. Zipper Setter Lockstitch offered:Patient accepts, visit chaperoned by Gillian Huynh LPN. Avinash Randolph MD Staff Urologist documented in this encounterSt. Mary'[facility] [facility]06-28-2023 Discharge summary Author Aaron Hannon [facility] August 10, 2022 11:38am Note Date/Time August 10, 2022 9:59 am [facility] Medical Records Department [address] [place] [address] Emergency Department Summary 08/10/22 MR#: [id number] Acct: [id number] Name: SHANNON LAM Rep #:[id number] : 1955 66 From: Aaron Hannon MD [...] this, she states she was walking in [facility], and she states she suddenly started feeling [...] hearing, changes in her vision at all. [facility] Medical History Arthritis Colon polyps Cystocele with [...] 3 current occupational status: employed current occupation: [employer] Smoking Status: Former smoker alcohol intake: never [...] 74.4 H Lymph % (Auto) 14.5 L Bailey % (Auto) 8.5 Eos % (Auto) 0.6 [...] your Primary Care Provider. Call [facility] ([phone]) or report to the closest Emergency Room. Call 911 if necessary. 08/10/22 1138 <Electronically signed by Aaron Hannon MD> Cosigner Signature (if applicable): CC: Dr. David Ramirez MD ~ Signed [facility] Work Phone: [phone]) 490-344112-28-2022 Miscellaneous Notes* Telephone Encounter - Yocasta Santoro [...] she can not remember what day Dr. Bologna said she could return to work. Can you please call her? Thank you David Mattson Ma documented in this encounterSt. Mary[facility]12-20-2022 History of Present illness Narrative* Karen Ramos [...] Patient Age: [age] year old Surgeon(s)/Proceduralist(s) and Supervisor [employer](s): Surgeon(s) and Role: Panel 1: * Karen Ramos MD - Primary * Kerri Ge MD - Resident - Assisting Panel 2: * Anish Edwards DO - Primary * Priya Ramirez DO - Resident - Assisting Ocean Freight Agent: Avi Tracey SA Anesthesia: General Preop Diagnosis: [...] (FLONASE) 50 mcg/actuation nasal spray Use 1 Bend in the nose as needed. 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 documented in this encounterSt. Mary'[facility]12-05-2022 Miscellaneous Notes* Telephone Encounter - Karen Ramos [...] called today. : 1955 Allergies: Oxycodone (home) [phone] (cell) Message can be left with: with [...] yes Mandy Cuellar Cma documented in this encounterSt. Mary[facility]11-17-2022 History and physical note * LEYDA Song [...] COVID-19 booster vaccine, age 12+ yr, bivalent (CREAT) 01/28/2021 Imm Admin: COVID-19 vaccine, full dose [...] dysphagia, nausea and vomiting. : See HPI. 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 Endocrine: Negative for: diabetes mellitus, [...] (FLONASE) 50 mcg/actuation nasal spray Use 1 Bend in the nose as needed. Taking Yes [...] or any previous visit (from the past 64012 hour(s)). Assessment No problem-specific Assessment & Plan [...] 1:55 PM PAGER/CONTACT #: documented in this encounterSt. Mary'[facility]11-15-2022 Instructions* Patient Instructions* LEYDA Song - 12/28/2021 1:55 PM EST PATIENT PREOPERATIVE INSTRUCTIONS Your surgeon has scheduled for your procedure at this surgery center: [facility]: [phone], [address] [address] Please enter through the main entrance and proceed to the blue elevators. The surgery welcome center is located to the left of [...] before scheduled surgery. Bring your Glucometer to [facility] if you are scheduled in [place] for [place]. If you have a stimulator, [...] or the morning of surgery. Use the [employer] body wash supplied to you along with [...] surgery. - YOU MUST HAVE A RESPONSIBLE MANAGER REGISTRATION TAKE YOU HOME. A HEAVY MOBILE EQUIPMENT REPAIRER, CAB OR UBER MANAGER REGISTRATION CANNOT BE MADEA RESPONSIBLE MANAGER REGISTRATION. - We recommend that a responsible person [...] day of surgery. [facility] their [facility] into the [facility]. [facility] to [facility] should leave their walkers in the car or with a family member. LEYDA Song 12/28/21 documented in this encounterSt. Mary'[facility]09-07-2022 NoteHNO ID: [id number] Author: Karen Ramos MD Service: ? Author [...] (FLONASE) 50 mcg/actuation nasal spray Use 1 Bend in the nose as needed. L.acidophil-L.plantar-Bifido 7 [...] possible sacrospinous ligament fixation or uterosacral ligament fixation.[facility] 10-20-2021 History of Present illness Narrative* Karen [...] (FLONASE) 50 mcg/actuation nasal spray Use 1 Bend in the nose as needed. L.acidophil-L.plantar-Bifido 7 [...] or uterosacral ligament fixation. documented in this encounterSt. Mary'[facility]07-08-2022 History of Present illness Narrative* Giovany Mcnair, - 08/20/2021 10:46 AM EDT Shannon Lam [...] (FLONASE) 50 mcg/actuation nasal spray Use 1 Bend in the nose as needed. (Patient not [...] Symmetrical and No masses, tenderness, nipple discharge NEMATOLOGY TEACHER: Vulva - no lesions, skin intact with [...] surgery Giovany Mcnair DO documented in this encounterSt. Mary'[facility]03-29-2022 History of Present illness Narrative* Karen Ramos [...] (FLONASE) 50 mcg/actuation nasal spray Use 1 Bend in the nose as needed. L.acidophil-L.plantar-Bifido 7 [...] repair, USLF, possible sling documented [facility] Author Tushar Miles [facility] Note Date/Time August 23, 2024 7:09 am [facility] Medical Records Department [address] [place] [address] Pre-Anesthesia Evaluation 08/23/24 0709 MR#: [id number] Acct: [id number] Name: SHANNON LAM Rep #:[id number] : 1955 68 From: Tushar Miles MD PCP: Dr. David Ramirez MD Status:REG SDC Y Race: C Location: [address] ASA Classification* ASA Classification ASA Classification: 2 Assessment & Plan Anesthesia* Anesthesia Assessment Anesthesia Assessment: Discussed sedation and/or anesthesia options, risks, benefits, and alternatives with patient/parents/legal guardian/POA. Questions invited. The patient/parents/legal guardian/POA seems to understand and agrees to proceedwith anesthesia plan. Reviewed the physical assessment, medical history, allergy history and patient home medications list prior to surgery/procedure/anesthetic and documented any changes. Performed airway and anesthesia risk assessments. Anesthesia Type Anesthesia Type: MAC Anesthesia Focused Assessment* Airway Assessment Mouth opens: >3 cm Mallampati Score: II Labs Anesthesia Preop lab: CBC WBC 10.5 K/mm3 (4.4-11.0) 07/04/24 06:57 07/04/24 RBC 5.22 M/mm3 (4.2-5.4) 07/04/24 06:57 07/04/24 Hgb 14.7 g/dL (12.0-15.0) 07/04/24 06:57 07/04/24 Hct 44.7 % (37-47) 07/04/24 06:57 07/04/24 Plt Count 288 K/mm3 (150-450) 07/04/24 06:57 07/04/24 CHEMISTRY Potassium 4.1 mmol/L (3.3-5.1) 07/04/24 06:57 07/04/24 Sodium 140 mmol/L (133-145) 07/04/24 06:57 07/04/24 Magnesium 2.0 mg/dL (1.5-2.2) 07/04/24 06:57 07/04/24 BUN 14 mg/dL (4-19) 07/04/24 06:57 07/04/24 Creatinine 0.59 mg/dL (0.70-1.20) L 07/04/24 06:57 Glucose 110 mg/dL (70-99) H 07/04/24 06:57 07/04/24 TSH 0.733 uIU/mL (0.300-4.200) 07/04/24 06:57 06/14 04/09 COAG Pre-Assessment Diagnosis/Proposed Procedure Planned Operative Procedure(s): EGD Anesthesia History Anesthesia History - solution maker: Anesthesia History - solution maker Hx Hospitalization No 08/21/24 15:56 Any Problems With Anesthesia Yes: HYPOTENSIVE 08/21/24 15:56 Cholinesterase deficiency No 08/21/24 15:56 You/Your Family Experience No 08/21/24 15:56 fever (hyperthermia) with Relationship Recent Exposure to Contagious No 08/18/22 09:10 Disease Does patient have nerve No 08/21/24 15:56 stimulator Patient instructed to have device shut off --Does patient have Pacemaker or ICD? When Was Last Pacemaker Check QUESTION #4 FULL TEXT: You/Your Family Experience fever (hyperthermia) with Anesthesia Last Oral Intake Last Oral intake: Last Oral Intake NPO since Meds taken in AM with sips of water? Meds patient instructed to take am of surgery PONV PONV - solution maker: PONV - solution maker Female Yes 08/21/24 15:56 HX of Motion Sickness No 08/21/24 15:56 HX of N/V After Surgery No 08/21/24 15:56 Non-Smoker Yes 08/21/24 15:56 Duration of Surgery greater No 08/21/24 15:56 than 60 minutes Number of Risk Factors 2 08/21/24 15:56 PONV Score Moderate Risk 08/21/24 15:56 Height & Weight Height & Weight: Anesthesia: Height & Weight Height 5 ft 4 in 07/03/24 14:51 Respiratory Assessment Respiratory Assessment - solution maker: Respiratory Tract Infection Hx - solution maker Hx Respiratory Tract Infection No 08/21/24 15:56 STOP Sleep Apnea STOP Sleep Apnea - solution maker: STOP Sleep Apnea - solution maker Hx Hypertension Yes: PER PT, CONTROLLED ON 08/21/24 15:56 MEDS Hx Sleep Apnea No 08/21/24 15:56 CPAP BIPAP Do you snore loudly (louder No 08/21/24 15:56 than talking or can be heard Do you often feel tired/ No 08/21/24 15:56 fatigued/ sleepy during daytime? Has anyone observed you stop No 08/21/24 15:56 breathing during sleep? STOP Results Negative 08/21/24 15:56 QUESTION #5 FULL TEXT : Do you snore loudly (louder than talking or can be heard through closed doors)? 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 Specify any problems Hx of Preganancy in last 3 No 08/21/24 15:56 Months Nurse Filling Out Transfusion MGRIFFITH 08/21/24 15:56 & Questions: Date: 08/21/24 08/21/24 15:56 Time: 15:59 08/21/24 15:56 Patient unable to answer at this time (ie. confused, unrespo /Reproduction History /Reproductive History - solution maker: /Reproductive Hx- solution maker Hx Now No 08/21/24 15:56 Gestational Age (in weeks): EDC: Hx Hx Para Hx Section SAB No 08/21/24 15:56 Active Medications Active Medications: Current Medications Generic Name Dose Route Start Last Admin Trade Name Freq PRN Reason Stop Dose Admin Lactated Ringer's 1,000 mls @ 15 mls/hr 08/23/24 07:00 IV .Q48H ZAHIRA PFSH Medical History Gastric reflux History of irregular heartbeat Epigastric pain Chronic GERD Ganglion cyst of volar aspect of right wrist Ganglion cyst of finger of right hand Wears glasses Loose, teeth Arthritis High cholesterol Injury of back Former smoker History of edema History of stress test Colon polyps HTN (hypertension) Intra-abdominal adhesions Rectocele PVC (premature ventricular contraction) Diverticulosis Cystocele with incomplete uterovaginal prolapse Enlarged uterus History of uterine fibroid Postmenopausal bleeding Hernia Home Medications ?Medication ?Instructions ?Recorded ?Last Taken ?Type fexofenadine 180 mg tablet 180 mg PO Q24H 04/20/23 Unk nown History (Analisa Allergy) fluticasone propionate 50 1 spray intranasal DAILY PRN nasal 04/20/23 Unknown History mcg/actuation nasal congestion spray,suspension (Flonase Allergy Relief) amlodipine 10 mg tablet 10 mg PO DAILY #90 tabs 07/15 07/07 Unknown Rx lisinopril 10 1 tab PO DAILY #90 tabs 07/16 Unknown Rx mg-hydrochlorothiazide 12.5 mg tablet cholecalciferol (vitamin D3) 125 125 mcg PO DAILY 11/07 Unknown History mcg (5,000 unit) tablet (Vitamin D3) Allergy/AdvReac Type Severity Reaction Status Date / Time oxycodone AdvReac Nausea/Vom/ Verified 08/23/24 07:02 Diarrhea Family History Mother Cancer Father Cancer Hypertension Brother Hypertension CVA (cerebral vascular accident) Diabetes Surgical History History of colonoscopy History of sleeve gastrectomy History of hernia repair (~2018) History of tubal ligation (~1995) S/P panniculectomy History of gastrectomy (~2013) H/O hernia repair (~2005) History of endometrial ablation History of bowel resection (~2010) H/O dilation and curettage Social History number of children: 3 current occupational status: employed current occupation: [employer] Smoking Status: Former smoker alcohol intake: never substance use type: does not use diet: vegetarian seatbelt use: always do you feel safe at home: Yes Review of Systems (Anesthesia) ROS Narrative System reviewed and no additional complaints, except as documented. 08/23/24708 <Electronically signed by Tushar Miles MD > Date _ Tushar Miles MD Cosigner Signature: Date CC: ~ Signed [facility] Work Phone: Consult note Author Cecil Roach [facility] Note Date/Time August 23, 2024 8:20 am [facility] Medical Records Department [facility] [place] [address] Anesthesia Postop Eval I 08/23/24818 MR#: [id number] Acct: [id number] Name: SHANNON LMA Rep #:[id number] : 1955 68 From: Cecil Roach PCP: Dr. David Ramirez MD Status:REG SDC Y Race: C Location: [place] [address] Anesthesia: Postop Eval I Current Vital Signs Temperature: 97.9 F Pulse Rate: 68 Blood Pressure: 124/63 Respiratory Rate: 16 Pulse Ox: 98 Oxygen Delivery Method: Room Air Assessment Airway patent: Yes Spontaneous unlabored respirations: Yes Mental status: Awake and Calm nausea: No Vomiting: No Anesthesia Complication: No Fluid Hydration Crystalloid volume administer (ml): 300 Total IV fluid infused: 300 Progress Note Anesthesia document: Postop Eval 1 completed: Yes 08/23/24819 <Electronically signed by Cecil Roach > Date _ Cecil Ken Signature: Date CC: ~ Signed [facility] Work Phone: Evaluation note* Diagnosis Uterine leiomyoma, unspecified location- Primary Uterine prolapse Uterine prolapse without mention of vaginal wall prolapse Midline cystocele Cystocele, midline Rectocele [facility]* Diagnosis Uterine leiomyoma, unspecified location documented [facility]* Diagnosis Women's annual routine gynecological examination- Primary Routine cervical smear Screening for malignant neoplasm of the cervix Uterine prolapse Uterine prolapse without mention of vaginal wall prolapse [facility] noteNo assessment information availableWSamaritan [facility] Work Phone: Evaluation note* Diagnosis Midline cystocele- Primary Cystocele, midline Rectocele Uterine prolapse Uterine prolapse without mention of vaginal wall prolapse Uterine leiomyoma, unspecified location Uterine prolapse Uterine prolapse without mention of vaginal wall prolapse Midline cystocele Cystocele, midline Rectocele documented [facility]* Diagnosis Onset Date Resolution Status Lump in chest noneactive Essential hypertension acute Garry's deformity of left heel acute Personal history of colonic polyps acute [facility] Work Phone: Evaluation note* Diagnosis Preop [...] Cystocele, midline Rectocele documented [facility]* Diagnosis Midline cystocele- Primary Cystocele, midline Prolapse of vaginal vault after hysterectomy documented in this encounter [facility] note* Diagnosis Onset Date Resolution Status Essential hypertension acute Hypertriglyceridemia acute Insulin resistance acute Sore throat noneactive Abnormal vaginal bleeding in postmenopausal patient acute Rectocele acute [facility] Work Phone: Evaluation note* Diagnosis Onset Date Resolution Status Essential hypertension acute Hypertriglyceridemia acute Insulin resistance acute Sore throat noneactive Abnormal vaginal bleeding in postmenopausal patient acute Rectocele acute Elevated bilirubin acute Essential hypertension acute Hypertriglyceridemia acute Insulin resistance acute [facility] Work Phone: Evaluation note* Diagnosis Rectocele [N81.6]- Primary Rectocele Postoperative vaginal bleeding following genitourinary procedure Genitourinary syndrome of menopause documented in this encounter [facility] note* Diagnosis Onset Date Resolution Status Abnormal vaginal bleeding in postmenopausal patient acute Rectocele acute Elevated bilirubin acute Essential hypertension acute Hypertriglyceridemia acute Insulin resistance acute Essential hypertension acute Grieving acute Hypertriglyceridemia acute Insulin resistance acute Corneal abrasion acute Abnormal vaginal bleeding in postmenopausal patient acute Cystocele with incomplete uterovaginal prolapse acute Hernia acute History of bowel resection a cute [facility] Work Phone: Evaluation note* Diagnosis Vaginal atrophy- Primary Postmenopausal atrophic vaginitis [facility]* Diagnosis Onset Date Resolution Status Abnormal [...] aspect of right wrist acute [facility] Work Phone: Evaluation note* Diagnosis Vaginal ulceration- Primary Other inflammatory disease of cervix, vagina and vulva Vaginal discharge Leukorrhea, not specified as infective [facility]* Diagnosis Onset Date Resolution Status Essential hypertension acute Former smoker acute Insulin resistance acute [facility] Work Phone: History and physical note Author Yony Moseley [facility] Note Date/Time August 23, 2024 7:22 am [facility] Medical Records Department [address] [place] [address] History & Physical Exam 08/23/24721 MR#: [id number] Acct: [id number] Name: SHANNON LAM Rep #:[id number] : 1955 68 From: Yony booth MD PCP: Dr. David Ramirez MD Status:[facility] Location: [place] [address] History and Physical Date of Admission: 08/23/24 Intake Vital Signs 06/25/2507:01 07/03/2513:51 Height 5 ft 4 in 5 ft [...] Adverse Reaction (Verified 07/03/24 14:52) Nausea/Vom/Diarrhea Medications ?Medication ?Instructions ?Recorded ?Confirmed ?Type fexofenadine 180 mg tablet 180 mg PO Q24H 04/20/23 07/03/24 History (Analisa Allergy) fluticasone propionate 50 1 spray intranasal DAILY 04/20/23 History mcg/actuation nasal spray,suspension (Flonase Allergy Relief) amlodipine 10 mg tablet 10 mg PO DAILY #90 tabs 09/18/23 5 Rx lisinopril 10 1 tab PO DAILY #90 tabs 09/18/23 5 Rx mg-hydrochlorothiazide 12.5 mg tablet omega 7-fmk-juc-fish oil 60 mg-90 1 cap PO QDAY 06/24/24 07/03/24 History mg-500 mg capsule (Fish Oil) Have you [...] of sleeve gastrectomy History of hernia repair (~2018) History of tubal ligation (~1995) S/P panniculectomy History of gastrectomy (~2013) H/O hernia repair (~2005) History of endometrial ablation History of bowel resection (~2010) H/O dilation and curettage Family History Mother CancerFather Cancer HypertensionBrother Hypertension CVA (cerebral vascular accident) Diabetes Social History number of children: 3 current occupational status: employed current occupation: [employer] Smoking Status: Former smoker alcohol intake: never substance use type: does not use diet: vegetarian seatbelt use: always do you feel safe at home: Yes HPI HPI HPI: Patient is a 68-year-old female here for GERD. She was on omeprazole for a longtime but stopped it after she switched lyox-jpu-zjssuvj and it said only to takeit for 2 weeks. She started having GERD [...] Yes acid reflux, Yes hemorrhoids, No ulcers, Nogallbladder problem and No black,tarry stools Aidan Hematologic: No blood thinners, No blood disorders, No bleeding, No anemia and No blood clots Neuro Neurologic: No weakness Exam Const General: cooperative Orientation: alert and oriented x3 [facility] Head: normal to inspection Neck Neck: normal visual inspection and full ROM Chest Chest palpation & inspection: normal inspection of the chest Resp Effort & Inspection: normal respiratory effort Auscultation: clear to auscultation bilaterally Cardio Rate: regular rate Rhythm: regular rhythm GI Inspection: non-distended Palpation: soft and nontender Skin General: no rashes or lesions noted Neuro General: patient alert and patient oriented x3 Extrem General: full ROM Psych Appearance: grossly normal Mental Status: mental status grossly normal Assessment and Plan Assessment and Plan (1) Chronic GERD: Status: Chronic Plan: I discussed performing EGD to evaluate for long-term chronic changes related to GERD. I also advised her to go back on her omeprazole for a 6-week course. I explained endoscopy in detail to the patient. I explained the risks includingbut not limited to stroke or heart attack with anesthesia, perforation of the GItract, bleeding, infection. I explained that any of these could necessitate further emergency surgery. The patient understands and all questions were answered sufficiently. The patient wishes to proceed with procedure. Yony Moseley MD Pager: [facility] [address] [place] [address] Out[address], [address] [place] [address] Office: I have examined the patient and the H&P has been reviewed. There are no clinicalchanges since date of exam. 08/23/24721 <Electronically signed by Yony Moseley MD> Cosigner Signature (if applicable): CC: Dr. Yony Moseley MD; Dr. David Ramirez MD~ Signed [facility] Work Phone: Hospital Discharge instructionsAmbulatory Orders* Physical Therapy Referral Location: None Selected [facility] Work Phone: Reason for referral (narrative)* Diagnostic Procedure Only (Routine) - Authorized Specialty Diagnoses / Procedures Referred By Contac t Referred To Contact US IMAGING Diagnoses Uterine leiomyoma, unspecified location Procedures US FEMALE PELVIS TRANSVAG US TRANSVAGINAL Karen Ramos MD [address] [place] [address] Us Imaging Referral ID Status Reason Start Date Expiration Date Visits Requested Visits Authorized [id number] Authorized Auto-Generat ed Referral 05/11/2021 06/10/2022 1 1 [facility] for referral (narrative)* Diagnostic Procedure Only (Routine) - Closed Specialty Diagnoses / Procedures Referred By Contac t Referred To Contact US IMAGING Diagnoses Uterine leiomyoma, unspecified location Procedures US FEMALE PELVIS TRANSVAG US TRANSVAGINAL Karen Ramos MD [address] [place] [address] Us Imaging Referral ID Status Reason Start Date Expiration Date V isits Requested Visits Authorized [id number] Closed Auto-Generate d Referral 05/11/2021 06/10/2022 1 1 [facility] for referral (narrative)* Diagnostic Procedure Only (Routine) - Pending Review Specialty Diagnoses / Procedures Referred By Blake cancino Referred To Contact BR IMAGING Diagnoses Women's annual routine gynecological examination Procedures VAN SCREENING SCREENING MAMMOGRAPHY BI 2-VIEW BREAST INC CAD Giovany Mcnair DO [address] [address] [facility] [address] [place] [address] Referral ID Status Reason Start Date Expiration Date Visits Requested Visits Authorized [id number] Pending Review Auto-Generat ed Referral 08/20/2021 09/19/2022 1 1 [facility] for referral (narrative)No reason for referral information [facility]WSamar[facility] Work Phone: Reason for visit Narrative* Diagnostic Procedure Only (Routine) - Closed Specialty Diagnoses / Procedures Referred By Blake cancino Referred To Contact US IMAGING Diagnoses Uterine leiomyoma, unspecified location Procedures US FEMALE PELVIS TRANSVAG US TRANSVAGINAL Karen Ramos MD [address] [place] [address] Us Imaging Referral ID Status Reason Start Date Expiration Date V isits Requested Visits Authorized [id number] Closed Auto-Generate d Referral 05/11/2021 06/10/[address] [facility] Chief Complaint and Reason for Visit Chief [...] INCOMPLETE UTEROVAGINAL PROLAPSE / RX HERE MH/ANXIETY [facility] ER FU RIGHT EYE IRRITATION 2-3 WEEK [...] INCOMPLETE UTEROVAGINAL PROLAPSE / RX HERE MH/ANXIETY [facility] ER FU RIGHT EYE IRRITATION 2-3 WEEK [...] 7:53a m Gastroesophageal reflux disease (GERD) M 2024 2:22pm Reason for Visit Admit Date [...] June 25, 2020 9 :18am Power of Heel Edge Inker Machine No June 25, 2020 9:18am Advance Directive Response Recorded Date/ Time Living Will No December 27 8:11am Power of Heel Edge Inker Machine No December 27, 2021 8:11am Advance Directive Response Recorded Date/ Time Living Will No December 27, 022 9:11am Power of Heel Edge Inker Machine No December 27, 2021 9:11am Advance Directive Response Recorded Date/ Time Living Will No August 10, 2022 9:51am Power of Heel Edge Inker Machine No August 10 9:51am Advance Directive Response Recorded Date/ Time Living Will No August 18, 2022 9 :10am Power of Heel Edge Inker Machine No August 18, 2022 9:10am Advance Directive Response Recorded Date/ Time Do you have a Healthcare Power of Heel Edge Inker Machine? No August 21, 2024 3:56pm Summary Purpose Additional Source Comments Source Comments (unrecognize d section and content) In the event this informatio n is protected by the Federal Confidentiality of Alcohol and Drug Abuse Patient Records regulations: The Federal rules restrict any use of the information to criminally investigate or prosecute any alcohol or drug abuse patient.[facility] the event this information is protected by the Federal Confidentiality of Alcohol and Drug Abuse Patient Records regulations: The Federal rules restrict any use of the information to criminally investigate or prosecute any alcohol or drug abuse patient.[facility] the event this information is protected by the Federal Confidentiality of Alcohol and Drug Abuse Patient Records regulations: The Federal rules restrict any use of the information to criminally investigate or prosecute any alcohol or drug abuse patient.[facility] the event this information is protected by the Federal Confidentiality of Alcohol and Drug Abuse Patient Records regulations: The Federal rules restrict any use of the information to criminally investigate or prosecute any alcohol or drug abuse patient.[facility] the event this information is protected by the Federal Confidentiality of Alcohol and Drug Abuse Patient Records regulations: The Federal rules restrict any use of the information to criminally investigate or prosecute any alcohol or drug abuse patient.[facility] the event this information is protected by the Federal Confidentiality of Alcohol and Drug Abuse Patient Records regulations: The Federal rules restrict any use of the information to criminally investigate or prosecute any alcohol or drug abuse patient.[facility] the event this information is protected by the Federal Confidentiality of Alcohol and Drug Abuse Patient Records regulations: The Federal rules restrict any use of the information to criminally investigate or prosecute any alcohol or drug abuse patient.[facility] the event this information is protected by the Federal Confidentiality of Alcohol and Drug Abuse Patient Records regulations: The Federal rules restrict any use of the information to criminally investigate or prosecute any alcohol or drug abuse patient.[facility] the event this information is protected by the Federal Confidentiality of Alcohol and Drug Abuse Patient Records regulations: The Federal rules restrict any use of the information to criminally investigate or prosecute any alcohol or drug abuse patient.[facility] the event this information is protected by the Federal Confidentiality of Alcohol and Drug Abuse Patient Records regulations: The Federal rules restrict any use of the information to criminally investigate or prosecute any alcohol or drug abuse patient.[facility] the event this information is protected by the Federal Confidentiality of Alcohol and Drug Abuse Patient Records regulations: The Federal rules restrict any use of the information to criminally investigate or prosecute any alcohol or drug abuse patient.[facility] the event this information is protected by the Federal Confidentiality of Alcohol and Drug Abuse Patient Records regulations: The Federal rules restrict any use of the information to criminally investigate or prosecute any alcohol or drug abuse patient.[facility] the event this information is protected by the Federal Confidentiality of Alcohol and Drug Abuse Patient Records regulations: The Federal rules restrict any use of the information to criminally investigate or prosecute any alcohol or drug abuse patient.[facility] the event this information is protected by the Federal Confidentiality of Alcohol and Drug Abuse Patient Records regulations: The Federal rules restrict any use of the information to criminally investigate or prosecute any alcohol or drug abuse patient.[facility]In the event this information is protected by the Federal Confidentiality of Alcohol and Drug Abuse Patient Records regulations: The Federal rules restrict any use of the information to criminally investigate or prosecute any alcohol or drug abuse patient.[facility] the event this information is protected by the Federal Confidentiality of Alcohol and Drug Abuse Patient Records regulations: The Federal rules restrict any use of the information to criminally investigate or prosecute any alcohol or drug abuse patient.[facility] Reason for Visit (unrecogniz ed section and content) Reason Comments New Patient Reason Comments Pre-Op Visit pap Reason Comments Follow Up Discuss surgery Reason Comments Patient Question Reason Comments Post-Op Visit Post op 01/13/2022 Cy stoscopy, anterior repair, sacrospinous ligament fixation. Reason Comments FMLA Paperwork Reason Comments Medication Question Reason Comments Rectocele Urge Urinary Incontinence Reason Comments Orthotics Prosthetics Assistant Exam Abnormal uterine ble eding since 01/13/22 [...] Care Teams (unrecognized sec tion and content) Quality Engineering Manager Relationship Specialty Start Date End Date David Ramirez MD [address] [place] [address] PCP - General Internal Medicine 10/20/21 Quality Engineering Manager Relationship Specialty Start Date End Date David Ramirez MD [address] [place] [address] PCP - General Internal Medicine 10/20/21 Quality Engineering Manager Relationship Specialty Start Date End Date David Ramirez MD [address] [place] [address] PCP - General Internal Medicine 10/20/21 Quality Engineering Manager Relationship Specialty Start Date End Date David Ramirez MD [address] [place] [address] PCP - General Internal Medicine 10/20/21 Quality Engineering Manager Relationship Specialty Start Date End Date David Ramirez MD [address] [place] [address] PCP - General Internal Medicine 10/20/21 Team [...] Dr. Aaron Hannon MD Emergency Provider Active Quality Engineering Manager Relationship Specialty Start Date End Date David Ramirez MD [address] [place] [address] PCP - General Internal Medicine 10/20/21 Quality Engineering Manager Relationship Specialty Start Date End Date David Ramirez MD [address] [place] [address] PCP - General Internal Medicine 10/20/21 Team Status: Inactive Member Role Status Dates Dr. David Ramirez MD Primary Care Provider, Referri ng Provider Active Frankie Short MARINE ENGINEERING TEACHER, MARINE ENGINEERING TEACHER-C Attending Provider Active Team Status: Inactive Member Role Status Dates Dr. David Ramirez MD Primary Care Provider Active Dr. Aaron Hannon MD Attending Provider, Emergency Provider Active Team Status: Inactive Member Role Status Dates Dr. David Ramirez MD Primary Care Provider Active Mary Whitmore CNM Attending Provider, Referring Pr ovidmonica Active Quality Engineering Manager Relationship Specialty Start Date End Date David Ramirez MD [address] [place] [address] PCP - General Internal Medicine 10/20/21 Team Status: Inactive Member Role Status Dates Dr. David Ramirez MD Primary Care Provider, Referri ng Provider Active Gil Reynoso MD Attending Provider Active Team Status: Inactive Member Role Status Dates Dr. David Ramirez MD Primary Care Provider Active Dr. Orlin Barajas MD Attending Provider Active Quality Engineering Manager Relationship Specialty Start Date End Date David Ramirez MD [address] [place] [address] PCP - General Internal Medicine 10/20/21 Quality Engineering Manager Relationship Specialty Start Date End Date David Ramirez MD [address] [place] [address] PCP - General Internal Medicine 10/20/21 Quality Engineering Manager Relationship Specialty Start Date End Date David Ramirez MD [address] [place] [address] PCP - General Internal Medicine 10/20/21 Team [...] July 04, 2024 End: July 04, 2024 Team Status: Active Member Role/Relationship Status Dates Dr. David Ramirez MD Primary Care Provider Active Team Status: Inactive Member Role/Relationship Status Dates Dr. David Ramirez MD Primary Care Provider Active Start: May 17, 2024 End: May 17, 2024 Dr. David Ramirez MD Referring Provider Active Start: May 17, 2024 End: May 17, 2024 LEYDA Ceja Attending Provider Active Sta rt: May 17, 2024 End: May 17, 2024 Team Status: Inactive Member Role/Relationship Status Dates Dr. David Ramirez MD Primary Care Provider Active Start: May 17, 2024 End: May 17, 2024 LEYDA Ceja Attending Provider Active Sta rt: May 17, 2024 End: May 17, 2024 LEYDA Ceja Referring Provider Active Sta rt: May 17, 2024 End: May 17, 2024 Team Status: Inactive Member Role/Relationship Status Dates Dr. David Ramirez MD Primary Care Provider Active Start: June 24, 2024 End: June 24, 2024 Dr. David Ramirez MD Attending Provider Active Start: June 24, 2024 End: June 24, 2024 Team Status: Inactive Member Role/Relationship Status Dates Dr. David Ramirez MD Primary Care Provider Active Start: July 03, 2024 End: July 03, 2024 Dr. David Ramirez MD Referring Provider Active Start: July 03, 2024 End: July 03, 2024 Dr. Yony Moseley MD Attending Provider Active Start: July 03, 2024 End: July 03, 2024 Team Status: Inactive Member Role/Relationship Status Dates Dr. David Ramirez MD Primary Care Provider Active Start: July 04, 2024 End: July 04, 2024 Dr. David Ramirez MD Attending Provider Active Start: July 04, 2024 End: July 04, 2024 Dr. David Ramirez MD Referring Provider Active Start: July 04, 2024 End: July 04, 2024 Team Status: Inactive Member Role/Relationship Status Dates Dr. David Ramirez MD Primary Care Provider Active Start: August 23, 2024 End: August 23, 2024 Dr. David Ramirez MD Referring Provider Active Start: August 23, 2024 End: August 23, 2024 Dr. Yony Moseley MD Attending Provider Active Start: August 23, 2024 End: August 23, 2024 Team Status: Active Member Role/Relationship Status Dates Dr. David Ramirez MD Primary Care Provider Active Start: August 23, 2024 Dr. David Raimrez MD Referring Provider Active Start: August 23, 2024 Dr. Yony Moseley MD Attending Provider Active Start: August 23, 2024 Dr. Yony Moseley MD Other Provider Active Start: August 23, 2024 INFORMATION SOURCE (unrecogn ized section and content) DATE CREATED AUTHOR 10/21/2021 [facility] DATE CREATED AUTHOR AUTHOR'S ORGANIZ ATION 04/02/2023 [facility] DATE CREATED AUTHOR AUTHOR'S ORGANIZ ATION 09/20/2024 [facility] FOR RECORDS PERTAINING TO PATIENTS WHO [...] BE BASED ON THE PRIMARY CLINICAL RECORDS. [employer] provides no warranty or guarantee of the accuracy or completeness of information in this document.
--- NOTE | 2024-09-30 07:15 | BI_ITS ---
EXAM: SCRN MAMM (CAD)W/EVERARDO BILAT DATE: 09/30/2024 CLINICAL HISTORY: F, Age 68 y/o , SCREENING No family history. TECHNIQUE: SCRN MAMM (CAD)W/EVERARDO BILAT COMPARISON: Prior exam(s) dated September 29, 2023.. FINDINGS: TISSUE DENSITY: The breasts are almost entirely fatty. Bilateral Breast Mammographic Findings: No significant masses, calcifications or other abnormalities are identified. Stable small benign-appearing bilateral axillary lymph nodes. No suspicious masses, areas of developing architectural distortion, or suspicious calcifications. There has been no significant interval change. BI/SCRN MAMM (CAD)W/EVERARDO BILAT IMPRESSION: Stable examination. OVERALL FINAL ASSESSMENT BI-RADS 2: BENIGN RECOMMENDATION: Routine annual follow-up in 1 Year A letter with findings and recommendations will be mailed to the patient. Reading Location: [id number]
== END | disposition home or self-care (01) ==
LOC: OPBI 07:06
PROVIDERS: PCP Internal Medicine; Referring Provider Obstetrics & Gynecology; Visit Provider Obstetrics & Gynecology
DX: Z12.31 Encounter for screening mammogram for malignant neoplasm of breast (principal)
CPT/HCPCS: 77063; 77067